=== PATIENT | female | born 1950 | race Caucasian/White ===

== ENCOUNTER 2021-10-09 21:16 | Inpatient (IN) | payer MEDICARE, MEDICAID, SELFPAY ==
--- NOTE | ~2021-10-09 | XR_ITS ---
EXAMINATION: XR CHEST CLINICAL INFORMATION: Weakness COMPARISON: None TECHNIQUE: Frontal view of the chest was obtained. FINDINGS: Scoliosis convex to the right there is a severe biconvex thoracolumbar scoliosis present. Heart is probably mildly enlarged, but difficult to assess. No infiltrates effusions or lung masses seen. Some left basilar atelectasis is present. Degenerative changes present in the right shoulder. XR/XR chest 1V IMPRESSION: No acute intrathoracic disease.
--- NOTE | ~2021-10-09 | CT_ITS ---
EXAMINATION: CT HEAD WITHOUT CONTRAST CLINICAL INFORMATION: Altered mental status COMPARISON: None. TECHNIQUE: Contiguous axial imaging was performed from the skull base to vertex without intravenous administration of contrast. Coronal and sagittal reformatted images are performed at the CT scanner. [This CT examination was performed using dose optimization techniques as appropriate, variously including the following: *Automated exposure control *Adjustment of mA and/or kV according to patient size (this includes techniques or standardized protocols for targeted exams where dose is matched to indication/reason for exam; i.e. extremities or head) *Use of iterative reconstruction technique] DLP: 601 mGy-cm. FINDINGS: There is no evidence of acute intracranial hemorrhage or territorial infarction. No abnormal mass-effect or midline shift is seen. [place] to white matter differentiation is well preserved. No extra-axial fluid collections are identified. There is generalized global volume loss. There is moderate prominence of the ventricles and the sulci . There is marked hypodensity of the periventricular white matter due to chronic small vessel ischemic disease. There are vascular calcifications of the internal carotid arteries bilaterally. There is no osseous abnormality. Small volume of mucosal thickening and aerosolized mucous in the sphenoid sinuses bilateral. Small retention polyp in the left maxillary sinus. The left mastoid air cells and middle ear cavities are normally aerated. There is fluid opacifying the right mastoid air cells and right middle ear cavity. 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 Deformity right globe with calcification. CT/CT head/brain wo con IMPRESSION: No acute intracranial pathology.
--- NOTE | ~2021-10-09 | XR_ITS ---
EXAMINATION: XR CHEST CLINICAL INFORMATION: Fever aspiration COMPARISON: Prior chest October 09, 2021 TECHNIQUE: Frontal view of the chest was obtained. FINDINGS: Prominent scoliosis with a severe convex right curvature of the dorsal spine as before. Question prominent enlargement of cardiac silhouette but unchanged. Pulmonary vascularity normal. Lungs clear. XR/XR chest 1V IMPRESSION: No acute disease. No change.
--- NOTE | 2021-10-09 21:24 | ED_ITS ---
HPI - Weakness General Chief complaint: Failure to Thrive Stated complaint: poor intake Time Seen by Provider: 10/09/21 21:22 History of Present Illness HPI Narrative: Patient is a 71-year-old female presented today with having generalized malaise. Decreasing p.o. intake. Baseline patient is oriented times 0. Baseline patient is contracted. Patient [facility]. Normally goes to [facility]. Software Applications Specialist elected to send patient to [facility]. Patient unable to give history. Attempted to contact patient's data entry technician who is not the next of kin. She does not have the vet relevant information in front of her. Does not noted patient's past medical history is aware that patient has a history of seizure and is on Tegretol. Unsure of patient's code status. Noted patient to be eating less and drinking less than the last 2-3 days. Related Data Allergies Allergy/AdvReac Type Severity Reaction Status Date / Time No Known Allergies Allergy Verified 10/09/21 21:22 Review of Systems Review of Systems: Unable to obtain review system 2nd the patient's condition [facility] Social History Social History Advance Directives: No Physical Exam Vital Signs: Vital Signs: Last Vital Signs Temp 100.0 F 10/09/21 21:30 Pulse 116 H 10/09/21 21:30 Resp 16 10/09/21 21:30 BP 116/73 10/09/21 21:30 Pulse Ox 94 10/09/21 21:30 BMI result Body Mass Index 29.0 Appearance: Toxic appearing contracted oriented times 0 Eyes: Pupils equal, round and reactive to light. ENT: Pharynx normal. Neck: Normal inspection. Neck supple. No lymph nodes noted. No crepitus CVS: Normal heart rate and rhythm. Pulses normal. Normal S1 and S2 Respiratory: No respiratory distress. Breath sounds normal. No Wheezing. No rales Abdomen: Soft and nontender. No rigidity. No distention. good BS x4 Skin: Skin warm and dry. Normal skin color. Normal skin turgor. Extremities: No lower extremity edema. Neurovascular intact to all extremities. No Lacerations. No Rash Neuro: Oriented X 0 contracted positive withdrawal to painful stimuli MDM - Weakness MDM Narrative Medical decision making narrative: Patient's white count is 29.8. Elevated BUN and creatinine consistent with grossly dehydrated. Patient's lactate was elevated at 3.3. Given 30 cc/kilos IV fluid. Cultures were obtained. Rocephin given. Patient's case discussed with family. Will admit patient for further evaluation. It is family wishes patient is a do not resuscitate do not in tubate. Currently in guarded condition awaiting admissions. Patient's case and finding discussed with patient's next of kin. Agree with plan of admission. Reiterated with patient's family about code status. Patient is a do not resuscitate do not intubate. Differential Diagnosis Differential diagnosis: Likely UTI Medical Records Attestation: I reviewed the patient's medical records. Lab Data Attestation: I reviewed the patient's lab results. Result diagrams: 10/09/21 21:50 10/09/21 21:50 Labs: Lab Results 10/09/21 10/09/21 10/09/21 Range/Units 21:50 21:50 21:50 WBC 29.8 H (4.8-10.8) X10*3/uL RBC 4.55 (4.20-5.50) X10*6/uL Hgb 14.0 (12.0-16.0) g/dl Hct 44.4 (37.0-47.0) % MCV 97.6 (80.0-98.0) fL MCH 30.8 (27.0-33.0) pg MCHC 31.5 (31.0-35.0) g/dl RDW 13.0 (11.0-16.0) % Plt Count 383 (160-400) X10*3/uL MPV 10.0 (9.4-12.3) fL Immature Gran % (Auto) 0.7 H (0.0-0.4) % Neut % (Auto) 84.7 H (45-73) % Lymph % (Auto) 8.5 L (20-40) % [place] % (Auto) 5.3 (2-11) % Eos % (Auto) 0.5 (0-4) % Baso % (Auto) 0.3 (0-2) % Lymph # (Auto) 2.5 (1.2-4.9) X10*3/uL [place] # (Auto) 1.6 H (0.1-1.2) X10*3/uL Eos # (Auto) 0.1 (0.0-0.4) X10*3/uL Baso # (Auto) 0.1 (0.0-0.2) X10*3/uL Abs Immat Gran (auto) 0.21 H (0.00-0.03) X10*3/uL Absolute Neuts (auto) 25.3 H (2.0-8.3) x10*3/uL Absolute Nucleated RBC 0.000 (0.0-0.012) X10*3/uL Nucleated RBC % (auto) 0.0 (0.0-0.2) /100WBC Smear Tech's Comments VERIFIED VBG pH (7.32-7.43) VBG pCO2 mmHg VBG pO2 mmHg VBG HCO3 (22-26) mmol/L VBG O2 Saturation % VBG Base Excess mmol/L Sodium 149 H (135-145) mmol/L Potassium 4.8 (3.3-5.1) mmol/L Chloride 113 H (96-108) mmol/L Carbon Dioxide 24 (22-29) mmol/L Anion Gap 17 (12-20) BUN 42 H (9-16) mg/dL Creatinine 0.75 (0.5-1.4) mg/dL Estim Creat Clear Calc 30.8 Estimated GFR > 60 Random Glucose 156 H (60-115) mg/dL Lactic Acid 3.3 H* (0.5-2.0) mmol/L Calcium 10.1 (8.4-10.2) mg/dL Total Bilirubin < 0.2 (0.0-1.0) mg/dL Direct Bilirubin < 0.2 (0.0-0.5) mg/dL AST 30 (5-31) U/L ALT 14 (0-31) U/L Alkaline Phosphatase 119 H (39-117) U/L Total Protein 6.5 (6.5-8.0) g/dL Albumin 3.2 L (3.5-5.0) g/dL TSH 1.44 (0.32-4.0) uIU/mL Urine Color Urine Appearance Urine pH (5.0-8.0) Ur Specific [place] (1.005-1.025) Urine Protein (NEG-TRACE) MG/DL Urine Glucose (UA) (NEG) MG/DL Urine Ketones (NEG) MG/DL Urine Blood (NEG) Urine Nitrite (NEG) Ur Leukocyte Esterase (NEG) Urine RBC (0) /HPF Urine WBC (0-4) /HPF Ur Squamous Epith Cells /LPF Urine Bacteria /LPF COVID-19 (FRANCI) (Negative) COVID-19 Clin Com 10/09/21 10/09/21 10/09/21 Range/Units 21:55 22:15 22:15 WBC (4.8-10.8) X10*3/uL RBC (4.20-5.50) X10*6/uL Hgb (12.0-16.0) g/dl Hct (37.0-47.0) % MCV (80.0-98.0) fL MCH (27.0-33.0) pg MCHC (31.0-35.0) g/dl RDW (11.0-16.0) % Plt Count (160-400) X10*3/uL MPV (9.4-12.3) fL Immature Gran % (Auto) (0.0-0.4) % Neut % (Auto) (45-73) % Lymph % (Auto) (20-40) % [place] % (Auto) (2-11) % Eos % (Auto) (0-4) % Baso % (Auto) (0-2) % Lymph # (Auto) (1.2-4.9) X10*3/uL [place] # (Auto) (0.1-1.2) X10*3/uL Eos # (Auto) (0.0-0.4) X10*3/uL Baso # (Auto) (0.0-0.2) X10*3/uL Abs Immat Gran (auto) (0.00-0.03) X10*3/uL Absolute Neuts (auto) (2.0-8.3) x10*3/uL Absolute Nucleated RBC (0.0-0.012) X10*3/uL Nucleated RBC % (auto) (0.0-0.2) /100WBC Smear Tech's Comments VBG pH 7.46 H (7.32-7.43) VBG pCO2 32 mmHg VBG pO2 85 mmHg VBG HCO3 23 (22-26) mmol/L VBG O2 Saturation 97.0 % VBG Base Excess 0.8 mmol/L Sodium (135-145) mmol/L Potassium (3.3-5.1) mmol/L Chloride (96-108) mmol/L Carbon Dioxide (22-29) mmol/L Anion Gap (12-20) BUN (9-16) mg/dL Creatinine (0.5-1.4) mg/dL Estim Creat Clear Calc Estimated GFR Random Glucose (60-115) mg/dL Lactic Acid (0.5-2.0) mmol/L Calcium (8.4-10.2) mg/dL Total Bilirubin (0.0-1.0) mg/dL Direct Bilirubin (0.0-0.5) mg/dL AST (5-31) U/L ALT (0-31) U/L Alkaline Phosphatase (39-117) U/L Total Protein (6.5-8.0) g/dL Albumin (3.5-5.0) g/dL TSH (0.32-4.0) uIU/mL Urine Color YELLOW Urine Appearance HAZY Urine pH 5.5 (5.0-8.0) Ur Specific [place] 1.020 (1.005-1.025) Urine Protein 1+ H (NEG-TRACE) MG/DL Urine Glucose (UA) NEG (NEG) MG/DL Urine Ketones 5 (NEG) MG/DL Urine Blood 2+ H (NEG) Urine Nitrite POS H (NEG) Ur Leukocyte Esterase 2+ H (NEG) Urine RBC 5-9 H (0) /HPF Urine WBC 30-49 H (0-4) /HPF Ur Squamous Epith Cells TRACE /LPF Urine Bacteria 3+ /LPF COVID-19 (FRANCI) Negative (Negative) COVID-19 Clin Com See Note Discharge Plan Discharge Patient Disposition: Admitted As Inpatient
[2021-10-09 21:30] VITALS: BP 116/72; BP 116/73; PULSE 116; PULSE 118; RESP 16; TEMP 37.8; O2SAT 94; O2SAT 97; BMI 29.0
[2021-10-09] MEDS: 0.9 % Sodium Chloride 500 ML 999 ML IV (21:52)
[2021-10-09 21:59] LABS: Basophils Absolute Auto 0.1 X10*3/uL (0.0-0.2); Basophils Percent Auto 0.3 % (0-2); Eosinophils Absolute Auto 0.1 X10*3/uL (0.0-0.4); Eosinophils Percent Auto 0.5 % (0-4); Hematocrit 44.4 % (37.0-47.0); Imm Gran Abs Auto 0.21 X10*3/uL (0.00-0.03); Imm Gran Pct Auto 0.7 % (0.0-0.4); Lymphocytes Absolute Auto 2.5 X10*3/uL (1.2-4.9); Lymphocytes Percent Auto 8.5 % (20-40); Mean Corpuscular HGB Conc 31.5 g/dl (31.0-35.0); Mean Corpuscular Hemoglobin 30.8 pg (27.0-33.0); Mean Corpuscular Volume 97.6 fL (80.0-98.0); Monocytes Absolute Auto 1.6 X10*3/uL (0.1-1.2); Monocytes Percent Auto 5.3 % (2-11); Neutrophils Absolute Auto 25.3 x10*3/uL (2.0-8.3); Neutrophils Percent Auto 84.7 % (45-73); Platelet Count 383 X10*3/uL (160-400); Red Blood Count 4.55 X10*6/uL (4.20-5.50); SCAN SMEAR FLAG 1; White Blood Count 29.8 X10*3/uL (4.8-10.8)
[2021-10-09 22:01] LABS: VBG Base Excess 0.8 mmol/L; VBG HCO3 23 mmol/L (22-26); VBG pCO2 32 mmHg; VBG pH 7.46 (7.32-7.43); VBG pO2 85 mmHg
[2021-10-09 22:02] LABS: Venous Blood Gas Refer to POC result
[2021-10-09 22:06] LABS: MANUAL DIFF FLAG SCAN
[2021-10-09 22:13] LABS: Lactic Acid 3.3 mmol/L (0.5-2.0)
[2021-10-09 22:18] LABS: Alanine Aminotransferase 14 U/L (0-31); Albumin Level 3.2 g/dL (3.5-5.0); Alkaline Phosphatase 119 U/L (39-117); Anion Gap 17 (12-20); Aspartate Amino Transferase 30 U/L (5-31); Bilirubin Direct < 0.2 mg/dL (0.0-0.5); Bilirubin Total < 0.2 mg/dL (0.0-1.0); Blood Urea Nitrogen 42 mg/dL (9-16); Calcium 10.1 mg/dL (8.4-10.2); Carbon Dioxide 24 mmol/L (22-29); Chloride 113 mmol/L (96-108); Creatinine Clr Calc Pharmacy 30.8; Estimated Glomerular Filt Rate > 60; Glucose Random 156 mg/dL (60-115); Potassium 4.8 mmol/L (3.3-5.1); Sodium 149 mmol/L (135-145); Total Protein 6.5 g/dL (6.5-8.0)
[2021-10-09 22:24] LABS: SLIDE REVIEW VERIFIED
[2021-10-09 22:32] LABS: Appearance Urine HAZY; Color Urine YELLOW; Glucose Urine UA NEG (NEG); Leukocyte Esterase Urine 2+ (NEG); Nitrite Urine POS (NEG); PH 5.5 (5.0-8.0); UACC Culture Trigger YES; Urine Blood 2+ (NEG); Urine Ketones 5 MG/DL (NEG); Urine Protein 1+ MG/DL (NEG-TRACE)
[2021-10-09 22:34] LABS: TSH reflex Free T4 1.44 uIU/mL (0.32-4.0)
[2021-10-09] MEDS: 0.9 % Sodium Chloride 1,000 ML 999 ML IV (22:38)
[2021-10-09] MEDS: cefTRIAXone sodium 1 GM in 0.9 % Sodium Chloride 50 ML IV (22:38)
[2021-10-09 22:44] LABS: COVID-19 Test Negative (Negative)
--- NOTE | 2021-10-09 22:57 | P.HPHOSP_ITS ---
History of Present Illness Date of Service: 10/09/21 Chief Complaint: Poor intake 71F with PMH of Cerebral Palsy - Non verbal at baseline, non mobile- usually in bed or couch, wears Diapers; hx Rosacea, seizure, Anxiety; presented to the hospital with a chief complaint of poor intake. Spoke to Gustavo- pt's strategic marketing manager-> ph [phone]. who mentioned that patient had Decreased appetite and poor intake for about 5 days; Eats Soft food. Noted Weight loss; denies fevers, cough, sputum. Does not appear to be in pain. pt is COVID vaccinated. Diet: soft diet; applesause/pudding; needs feeding with assistance. review of all other systems is limited. ER course: ER team noted the patient is tachycardic, noted to have leukocytosis, lactic acidosis-> sepsis secondary to UTI. Given antibiotics. Also noted to have hypernatremia presumed to be secondary to dehydration. Patient blood pressure on the soft side initially; received 30 cc/kg Of normal saline presentation. Admitted for further management PMFSH Pertinent family history: unable to obtain. Social History Advance Directives: No Meds Allergies Allergy/AdvReac Type Severity Reaction Status Date / Time No Known Allergies Allergy Verified 10/09/21 21:22 Active Medications: Current Medications Acetaminophen (Acetaminophen 325 Mg Tablet) 650 mg PO Q6H PRN PRN Reason: Pain, Mild (Pain Scale 1-3) Heparin Sodium (Porcine) (Heparin Sodium,Porcine 5,000 Unit/Ml Vial) 5,000 unit SUBCUT Q12H RAJANI Sodium Chloride (Ns) 1,000 mls @ 999 mls/hr IV .Q1H1M RAJANI Stop: 10/09/21 23:15 Last Admin: 10/09/21 22:38 Dose: 999 mls/hr Documented by: Ceftriaxone Sodium 1 gm/ (Sodium Chloride) 50 mls @ 100 mls/hr IV Q24H RAJANI Dextrose/Sodium Chloride (D51/2ns) 1,000 mls @ 50 mls/hr IVCONT .Q20H RAJANI Melatonin (Melatonin 3 Mg Tablet) 6 mg PO BEDTIME PRN PRN Reason: Insomnia Pharmacy Consult (Consult Rx Perform Med Rec) 1 each MISCELLANE ONCE PRN PRN Reason: Consult order Senna (Sennosides 8.6 Mg Tablet) 17.2 mg PO BEDTIME PRN PRN Reason: Constipation Sodium Chloride (0.9 % Sodium Chloride Flush 3 Ml Syringe) 3 ml IVFLUSH QSHIFT RAJANI Physical Exam Vital Signs and Narrative: Vital Signs: Last Vital Signs Temp 100.0 F 10/09/21 21:30 Pulse 116 H 10/09/21 21:30 Resp 16 10/09/21 21:30 BP 116/73 10/09/21 21:30 Pulse Ox 94 10/09/21 21:30 BMI result Body Mass Index 29.0 Gen: Appears be in no acute distress. Normal HEENT: NCAT, Moist mucosa. Pulmonary: Vesicular breath sounds, fair air entry CVS: Normal S1-S2 Abdomen: BS+, Soft, Nontender Extremities: Warm well perfused Neuro: Alert and awake. Results Labs CBC and Chem 7: 10/09/21 21:50 10/09/21 21:50 Labs: Laboratory Results - last 24 hr 10/09/21 10/09/21 10/09/21 21:50 21:50 21:50 MCV 97.6 MCH 30.8 MCHC 31.5 RDW 13.0 Plt Count 383 MPV 10.0 Immature Gran % (Auto) 0.7 H Neut % (Auto) 84.7 H Lymph % (Auto) 8.5 L [place] % (Auto) 5.3 Eos % (Auto) 0.5 Baso % (Auto) 0.3 Lymph # (Auto) 2.5 [place] # (Auto) 1.6 H Eos # (Auto) 0.1 Baso # (Auto) 0.1 Abs Immat Gran (auto) 0.21 H Absolute Neuts (auto) 25.3 H Absolute Nucleated RBC 0.000 Nucleated RBC % (auto) 0.0 Smear Tech's Comments VERIFIED VBG pH VBG pCO2 VBG pO2 VBG HCO3 VBG O2 Saturation VBG Base Excess Anion Gap 17 Estim Creat Clear Calc 30.8 Estimated GFR > 60 Random Glucose 156 H Lactic Acid 3.3 H* Calcium 10.1 Total Bilirubin < 0.2 Direct Bilirubin < 0.2 AST 30 ALT 14 Alkaline Phosphatase 119 H Total Protein 6.5 Albumin 3.2 L TSH 1.44 Urine Color Urine Appearance Urine pH Ur Specific [place] Urine Protein Urine Glucose (UA) Urine Ketones Urine Blood Urine Nitrite Ur Leukocyte Esterase COVID-19 (FRANCI) COVID-19 Clin Com 1210/09/21 10/09/21 21:55 22:15 22:15 MCV MCH MCHC RDW Plt Count MPV Immature Gran % (Auto) Neut % (Auto) Lymph % (Auto) [place] % (Auto) Eos % (Auto) Baso % (Auto) Lymph # (Auto) [place] # (Auto) Eos # (Auto) Baso # (Auto) Abs Immat Gran (auto) Absolute Neuts (auto) Absolute Nucleated RBC Nucleated RBC % (auto) Smear Tech's Comments VBG pH 7.46 H VBG pCO2 32 VBG pO2 85 VBG HCO3 23 VBG O2 Saturation 97.0 VBG Base Excess 0.8 Anion Gap Estim Creat Clear Calc Estimated GFR Random Glucose Lactic Acid Calcium Total Bilirubin Direct Bilirubin AST ALT Alkaline Phosphatase Total Protein Albumin TSH Urine Color YELLOW Urine Appearance HAZY Urine pH 5.5 Ur Specific [place] 1.020 Urine Protein 1+ H Urine Glucose (UA) NEG Urine Ketones 5 Urine Blood 2+ H Urine Nitrite POS H Ur Leukocyte Esterase 2+ H COVID-19 (FRANCI) Negative COVID-19 Clin Com See Note Imaging Radiologist's Impressions: Impressions Chest X-Ray 10/09/21 21:57 IMPRESSION: No acute intrathoracic disease. Assessment and Plan (1) Hypernatremia: Status: Acute (2) UTI (urinary tract infection): Status: Acute (3) Cerebral palsy: Status: Acute 71F with PMH of Cerebral Palsy - Non verbal at baseline, non mobile- usually in bed or couch, wears Diapers; hx Rosacea, seizure, Anxiety; presented to the hospital with a chief complaint of poor intake. Noted to have UTI/ hypernatremia. Admitted for further management Sepsis secondary to UTI: Continue ceftriaxone. Follow up cultures. Patient on diapers at baseline. Lactic acidosis: Patient received IV fluids. repeat levels Hypernatremia: Patient received 30 cc/kg normal saline in the ER; repeat stat BMP. history of seizures: Continue home carbamazepine 200 mg in the morning and 300 mg in the evening History of anxiety: Continue home Ativan in the evening Diet: Patient eats soft food with feeding assistance. Pending speech and swallow eval before resuming diet. Code Status: DNR/DNI Brother Chase. Spoke to Saul baxter's strategic marketing manager-> ph [phone]. Quality Stroke Does the patient have a stroke diagnosis?: No VTE Prior VTE?: No VTE Risk Level:: Medical - moderate - high VTE Device Contraindication: Treatment Not Indicated VTE Drug Contraindication: N/A - Med Ordered
[2021-10-09 23:00] LABS: Bacteria Urine 3+ /LPF; Squamous Epithelial Cell Urine TRACE /LPF; UACC CULT YES; WBC Urine 30-49 /HPF (0-4)
[2021-10-09 23:26] LABS: Carbamazepine Tegretol 11.2 mcg/mL (5.0-12.0)
[2021-10-09] MEDS: Heparin Sodium,Porcine 5,000 UNIT/ML VIAL 5000 UNIT SUBCUT (23:29)
[2021-10-09] MEDS: Dextrose 5 % and 0.45 % NaCl 1,000 ML 50 ML IVCONT (23:29)
[2021-10-09 23:57] LABS: Reflex Lactate? Lactic Acid Added
[2021-10-10] LABS: Anion Gap 15 (12-20); Blood Urea Nitrogen 38 mg/dL (9-16); Calcium 8.6 mg/dL (8.4-10.2); Carbon Dioxide 21 mmol/L (22-29); Chloride 119 mmol/L (96-108); Creatinine Clr Calc Pharmacy 34.4; Estimated Glomerular Filt Rate > 60; Glucose Random 131 mg/dL (60-115); Potassium 4.3 mmol/L (3.3-5.1); Sodium 151 mmol/L (135-145)
[2021-10-10 00:53] LABS: ~Lactic Acid-LAB USE ONLY 3.4 mmol/L (0.5-2.0)
[2021-10-10 02:37] LABS: Reflex Lactate? 2 Y
[2021-10-10 03:19] LABS: Basophils Absolute Auto 0.1 X10*3/uL (0.0-0.2); Basophils Percent Auto 0.2 % (0-2); Eosinophils Absolute Auto 0.3 X10*3/uL (0.0-0.4); Eosinophils Percent Auto 1.1 % (0-4); Hematocrit 36.5 % (37.0-47.0); Hemoglobin 11.2 g/dl (12.0-16.0); Imm Gran Abs Auto 0.16 X10*3/uL (0.00-0.03); Imm Gran Pct Auto 0.6 % (0.0-0.4); Lymphocytes Absolute Auto 3.3 X10*3/uL (1.2-4.9); Lymphocytes Percent Auto 13.5 % (20-40); MANUAL DIFF FLAG NO; Mean Corpuscular HGB Conc 30.7 g/dl (31.0-35.0); Mean Corpuscular Hemoglobin 30.9 pg (27.0-33.0); Mean Corpuscular Volume 100.6 fL (80.0-98.0); Mean Platelet Volume 10.2 fL (9.4-12.3); Monocytes Absolute Auto 1.3 X10*3/uL (0.1-1.2); Monocytes Percent Auto 5.2 % (2-11); Neutrophils Absolute Auto 19.6 x10*3/uL (2.0-8.3); Neutrophils Percent Auto 79.4 % (45-73); Platelet Count 280 X10*3/uL (160-400); Red Blood Count 3.63 X10*6/uL (4.20-5.50); Red Cell Distribution Width 12.9 % (11.0-16.0); White Blood Count 24.6 X10*3/uL (4.8-10.8)
[2021-10-10 03:36] LABS: ~Lactic Acid-LAB USE ONLY 2.3 mmol/L (0.5-2.0)
[2021-10-10 03:47] LABS: Anion Gap 14 (12-20); Blood Urea Nitrogen 38 mg/dL (9-16); Calcium 8.6 mg/dL (8.4-10.2); Carbon Dioxide 21 mmol/L (22-29); Chloride 118 mmol/L (96-108); Creatinine Clr Calc Pharmacy 42.8; Estimated Glomerular Filt Rate > 60; Glucose Random 130 mg/dL (60-115); Sodium 149 mmol/L (135-145)
--- NOTE | 2021-10-10 07:20 | PC.NURSE ---
pt received in bed, sleeping. pt is discharged and waiting for ambulance transport back to SNF
--- NOTE | 2021-10-10 07:35 | PHA.MEDREC ---
Pharmacy Consult ? Medication Reconciliation Pharmacy has reviewed the medication reconciliation completed by Sukhjinder. Medication list was incomplete. Patient has a medication list from [facility] tergretol is suppose to be 200 mg in the morning and 300 mg at bedtime. Dafne Saleh, PharmD
[2021-10-10 07:43] VITALS: BP 105/81; PULSE 89; RESP 17; O2SAT 99
[2021-10-10] MEDS: Docusate Sodium 100 MG CAPSULE PO (09:15)
[2021-10-10] MEDS: carBAMazepine 200 MG TABLET PO (09:16)
--- NOTE | 2021-10-10 09:20 | PC.NURSE ---
pt has caregiver at bedside. Caregiver states pt has lived with her for 25 years, and she provides her total care. Caregiver is currently feeding patient (requires 30-40 minutes to feed). Will do am care before 11 with her help. Pt awaiting bed assignment.
--- NOTE | 2021-10-10 10:02 | MHC.CM.PN ---
CM met with Patient and Caregiver/Sakina at bedside and addressed IMM with them, providing them with the original and will place a copy on the chart.Patient has lived with Sakina in her house for the past 25 years and she is her Primary Caregiver.Sakina's Daughter is Patient's BHN/SHOT TUBE MACHINE TENDER (30 Hours/week). Home is the goal for dc and CM has initiated and will follow for dc planning. PCP is Dr.Peter Holt and her Brother/Chase is the HCP.Patient is mostly w/c bound and requires total care.
--- NOTE | 2021-10-10 10:33 | P.CONNP_ITS ---
History of Present Illness Reason for Consult Consult date: 10/10/21 Chief Complaint Chief complaint: UTI/Hypernatremia History of Present Illness Narrative: 71F with PMH of? Cerebral Palsy - Non verbal at baseline, non mobile- usually in bed or couch, wears Diapers; hx Rosacea, seizure, Anxiety; ?presented to the hospital with a chief complaint of? poor intake. Review of Systems Review of Systems Unable to obtain review system 2nd the patient's condition PMFSH Family History Pertinent family history: unable to obtain. Social History Social History Household Members: Other Housing: Assisted Living Facility Do you presently have visiting nurse or other home services: No Patient Tobacco Use Status: Never used Tobacco service: No Current occupational status: disabled Meds Allergies Allergy/AdvReac Type Severity Reaction Status Date / Time No Known Allergies Allergy Verified 10/09/21 21:22 Active Medications: Current Medications Acetaminophen (Acetaminophen 325 Mg Tablet) 650 mg PO Q6H PRN PRN Reason: Pain, Mild (Pain Scale 1-3) Carbamazepine (Carbamazepine 200 Mg Tablet) 200 mg PO DAILY [facility] Last Admin: 10/10/21 09:16 Dose: 200 mg Documented by: Carbamazepine (Carbamazepine 200 Mg Tablet) 300 mg PO BEDTIME [facility] Docusate Sodium (Docusate Sodium 100 Mg Capsule) 100 mg PO BID [facility] Last Admin: 10/10/21 09:15 Dose: 100 mg Documented by: Heparin Sodium (Porcine) (Heparin Sodium,Porcine 5,000 Unit/Ml Vial) 5,000 unit SUBCUT Q12H [facility] Last Admin: 10/09/21 23:29 Dose: 5,000 unit Documented by: Ceftriaxone Sodium 1 gm/ (Sodium Chloride) 50 mls @ 100 mls/hr IV Q24H [facility] Dextrose/Sodium Chloride (D51/2ns) 1,000 mls @ 80 mls/hr IVCONT .[id number] [facility] Last Admin: 10/09/21 23:29 Dose: 50 mls/hr Documented by: Lorazepam (Lorazepam 0.5 Mg Tablet) 0.5 mg PO BEDTIME PRN PRN Reason: anxiety/restlessness Lorazepam (Lorazepam 1 Mg Tablet) 1 mg PO BEDTIME RAJANI Melatonin (Melatonin 3 Mg Tablet) 6 mg PO BEDTIME PRN PRN Reason: Insomnia Neomycin/Polymyxin/Dexamethasone (Neomy/Polymyx/Dexameth Oph Oin 3.5 Gm Tube) 0.5 inch EYE-BOTH DAILY [facility] Pharmacy Consult (Consult Rx Perform Med Rec) 1 each MISCELLANE ONCE PRN PRN Reason: Consult order Psyllium Hydrophilic Mucilloid (Psyllium Seed 3.4 Gm Powd.Pack) 3.4 gm PO BID [facility] Senna (Sennosides 8.6 Mg Tablet) 17.2 mg PO BEDTIME PRN PRN Reason: Constipation Sodium Chloride (0.9 % Sodium Chloride Flush 3 Ml Syringe) 3 ml IVFLUSH QSHIFT [facility] Last Admin: 10/10/21 00:56 Dose: Not Given Documented by: Home Medications Medication Instructions Recorded Confirmed Last Taken Type acetaminophen 325 mg tablet 650 mg PO Q6H PRN 10/10/21 10/10/21 Unknown History acetic acid 2 % ear solution 3 drp OTIC (EARS) DAILY 10/10/21 10/10/21 Unknown History ascorbic acid (vitamin C) 250 mg 250 mg PO DAILY 10/10/21 10/10/21 Unknown History tablet calcium citrate 250 mg PO BEDTIME 10/10/21 10/10/21 Unknown History carbamazepine 200 mg tablet 200 mg PO DAILY 10/10/21 10/10/21 Unknown History carbamazepine 200 mg tablet 300 mg PO BEDTIME 10/10/21 10/10/21 Unknown History cholecalciferol (vitamin D3) 25 25 mcg PO DAILY 10/10/21 10/10/21 Unknown History mcg (1,000 unit) capsule docusate sodium 100 mg capsule 100 mg PO BID 10/10/21 10/10/21 Unknown History ketoconazole 2 % topical cream 1 appl TOPICAL BID 10/10/21 10/10/21 Unknown History lorazepam 1 mg tablet 1 tab PO BEDTIME 10/10/21 10/10/21 Unknown History metronidazole 0.75 % topical cream 1 appl TOPICAL BID 10/10/21 10/10/21 Unknown History multivitamin with folic acid 400 1 tab PO DAILY 10/10/21 10/10/21 Unknown History mcg tablet (Daily-Samara (with folic acid)) neomycin 3.5 mg/g-polymyxin B 1 appl OPHTHALMIC (EYE) DAILY 10/10/21 10/10/21 Unknown History 10,000 unit/g-dexameth 0.1 % eye oint psyllium husk (aspartame) 3.4 3.4 g PO BID 10/10/21 10/10/21 Unknown History gram/5.8 gram oral powder (Metamucil [facility] Fiber) terbinafine HCl 1 % topical cream 1 appl TOPICAL BID 10/10/21 10/10/21 Unknown History (Athlete's Foot (terbinafine)) Physical Exam Vital Signs: Last Vital Signs Temp 100.0 F 10/09/21 21:30 Pulse 89 10/10/21 07:43 Resp 17 10/10/21 07:43 BP 105/81 10/10/21 07:43 Pulse Ox 99 10/10/21 07:43 BMI result Body Mass Index 29.0 Results Lab Results Result Diagrams: 10/12/21 05:18 10/12/21 05:18 Lab results: Chemistry 10/09/21 10/09/21 10/10/21 21:50 23:31 03:14 Sodium 149 H 151 H 149 H Potassium 4.8 4.3 4.0 Carbon Dioxide 24 21 L 21 L BUN 42 H 38 H 38 H Creatinine 0.75 0.67 0.54 Calcium 10.1 8.6 D 8.6 Hematology 10/09/21 10/10/21 21:50 03:14 WBC 29.8 H 24.6 H Hgb 14.0 11.2 L Plt Count 383 280 D Urinalysis 10/09/21 22:15 Urine Color YELLOW Urine Appearance HAZY Urine pH 5.5 Ur Specific [place] 1.020 Urine Protein 1+ H Urine Glucose (UA) NEG Urine Ketones 5 Urine Blood 2+ H Urine Nitrite POS H Ur Leukocyte Esterase 2+ H Urine RBC 5-9 H Urine WBC 30-49 H Ur Squamous Epith Cells TRACE Assessment and Plan (1) Hypernatremia: Status: Acute (2) UTI (urinary tract infection): Status: Acute (3) Cerebral palsy: Status: Acute Hypernatremia due to free water deficit Renal function at baseline Suggest Urine Na/Cr/Osm Keep I > O with hypotonic fluids Can use D5W for now Supportive care Procedures Date of Service Date of Service: 10/10/21
--- NOTE | 2021-10-10 11:17 | PC.NURSE ---
Cell Technician came in at 1100. Per previous nurse she stated she gave meds. Some not documented on per preivous nurse.
[2021-10-10] MEDS: Heparin Sodium,Porcine 5,000 UNIT/ML VIAL 5000 UNIT SUBCUT (11:45)
--- NOTE | 2021-10-10 13:04 | P.PNIM_ITS ---
Subjective Subjective Date of Service: 10/10/21 Interval History: Being followed for hypernatremia, dehydration and UTI, patient nonverbal history obtained via shredder/granulator operator at bedside patient was brought in due to decreased by mouth intake, requires total care and nonverbal at baseline. 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 CVS regular rate rhythm, Respiratory lungs clear to auscultation, no respiratory distress Gastrointestinal abdomen soft, nontender, bowel sounds audible Extremities no edema. Neuro difficult to assess Skin no rash Psych poor insight Amezcua yellow urine Objective Data Active Medications Acetaminophen (Acetaminophen 325 Mg Tablet) 650 mg PO Q6H PRN PRN Reason: Pain, Mild (Pain Scale 1-3) Carbamazepine (Carbamazepine 200 Mg Tablet) 200 mg PO DAILY [facility] Last Admin: 10/10/21 09:16 Dose: 200 mg Documented by: KAVON Carbamazepine (Carbamazepine 200 Mg Tablet) 300 mg PO BEDTIME [facility] Docusate Sodium (Docusate Sodium 100 Mg Capsule) 100 mg PO BID [facility] Last Admin: 10/10/21 09:15 Dose: 100 mg Documented by: KAVON Heparin Sodium (Porcine) (Heparin Sodium,Porcine 5,000 Unit/Ml Vial) 5,000 unit SUBCUT Q12H [facility] Last Admin: 10/10/21 11:45 Dose: 5,000 unit Documented by: GENEVIEVE Ceftriaxone Sodium 1 gm/ (Sodium Chloride) 50 mls @ 100 mls/hr IV Q24H [facility] Dextrose/Sodium Chloride (D51/2ns) 1,000 mls @ 80 mls/hr IVCONT .[id number] [facility] Last Admin: 10/09/21 23:29 Dose: 50 mls/hr Documented by: BRENDA Lorazepam (Lorazepam 0.5 Mg Tablet) 0.5 mg PO BEDTIME PRN PRN Reason: anxiety/restlessness Lorazepam (Lorazepam 1 Mg Tablet) 1 mg PO BEDTIME [facility] Melatonin (Melatonin 3 Mg Tablet) 6 mg PO BEDTIME PRN PRN Reason: Insomnia Neomycin/Polymyxin/Dexamethasone (Neomy/Polymyx/Dexameth Oph Oin 3.5 Gm Tube) 0.5 inch EYE-BOTH DAILY [facility] Last Admin: 10/10/21 11:17 Dose: Not Given Documented by: GENEVIEVE Non-Admin Reason: See Note Pharmacy Consult (Consult Rx Perform Med Rec) 1 each MISCELLANE ONCE PRN PRN Reason: Consult order Psyllium Hydrophilic Mucilloid (Psyllium Seed 3.4 Gm Powd.Pack) 3.4 gm PO BID [facility] Last Admin: 10/10/21 11:17 Dose: Not Given Documented by: GENEVIEVE Non-Admin Reason: See Note Senna (Sennosides 8.6 Mg Tablet) 17.2 mg PO BEDTIME PRN PRN Reason: Constipation Sodium Chloride (0.9 % Sodium Chloride Flush 3 Ml Syringe) 3 ml IVFLUSH QSHIFT [facility] Last Admin: 10/10/21 11:17 Dose: Not Given Documented by: GENEVIEVE Non-Admin Reason: See Note Labs CBC & Chem 7: 10/10/21 03:14 10/10/21 03:14 Labs: Laboratory Results - last 24 hr 10/09/21 10/09/21 10/09/21 21:50 21:50 21:50 MCV 97.6 MCH 30.8 MCHC 31.5 RDW 13.0 Plt Count 383 MPV 10.0 Immature Gran % (Auto) 0.7 H Neut % (Auto) 84.7 H Lymph % (Auto) 8.5 L [place] % (Auto) 5.3 Eos % (Auto) 0.5 Baso % (Auto) 0.3 Lymph # (Auto) 2.5 [place] # (Auto) 1.6 H Eos # (Auto) 0.1 Baso # (Auto) 0.1 Abs Immat Gran (auto) 0.21 H Absolute Neuts (auto) 25.3 H Absolute Nucleated RBC 0.000 Nucleated RBC % (auto) 0.0 Smear Tech's Comments VERIFIED VBG pH VBG pCO2 VBG pO2 VBG HCO3 VBG O2 Saturation VBG Base Excess Anion Gap 17 Estim Creat Clear Calc 30.8 Estimated GFR > 60 Random Glucose 156 H Lactic Acid 3.3 H* Lactic Acid Fup @ 2Hr Lactic Acid Fup @ 4Hr Calcium 10.1 Total Bilirubin < 0.2 Direct Bilirubin < 0.2 AST 30 ALT 14 Alkaline Phosphatase 119 H Total Protein 6.5 Albumin 3.2 L TSH 1.44 Urine Color Urine Appearance Urine pH Ur Specific [place] Urine Protein Urine Glucose (UA) Urine Ketones Urine Blood Urine Nitrite Ur Leukocyte Esterase Urine RBC Urine WBC Ur Squamous Epith Cells Urine Bacteria Carbamazepine COVID-19 (FRANCI) COVID-19 Clin Com 10/09/21 10/09/21 10/09/21 21:55 22:15 22:15 MCV MCH MCHC RDW Plt Count MPV Immature Gran % (Auto) Neut % (Auto) Lymph % (Auto) Stephens % (Auto) Eos % (Auto) Baso % (Auto) Lymph # (Auto) [place] # (Auto) Eos # (Auto) Baso # (Auto) Abs Immat Gran (auto) Absolute Neuts (auto) Absolute Nucleated RBC Nucleated RBC % (auto) Smear Tech's Comments VBG pH 7.46 H VBG pCO2 32 VBG pO2 85 VBG HCO3 23 VBG O2 Saturation 97.0 VBG Base Excess 0.8 Anion Gap Estim Creat Clear Calc Estimated GFR Random Glucose Lactic Acid Lactic Acid Fup @ 2Hr Lactic Acid Fup @ 4Hr Calcium Total Bilirubin Direct Bilirubin AST ALT Alkaline Phosphatase Total Protein Albumin TSH Urine Color YELLOW Urine Appearance HAZY Urine pH 5.5 Ur Specific [place] 1.020 Urine Protein 1+ H Urine Glucose (UA) NEG Urine Ketones 5 Urine Blood 2+ H Urine Nitrite POS H Ur Leukocyte Esterase 2+ H Urine RBC 5-9 H Urine WBC 30-49 H Ur Squamous Epith Cells TRACE Urine Bacteria 3+ Carbamazepine COVID-19 (FRANCI) Negative COVID-19 [facility] See Note 10/09/21 10/09/21 10/10/21 22:24 23:31 00:32 MCV MCH MCHC RDW Plt Count MPV Immature Gran % (Auto) Neut % (Auto) Lymph % (Auto) [place] % (Auto) Eos % (Auto) Baso % (Auto) Lymph # (Auto) [place] # (Auto) Eos # (Auto) Baso # (Auto) Abs Immat Gran (auto) Absolute Neuts (auto) Absolute Nucleated RBC Nucleated RBC % (auto) Smear Tech's Comments VBG pH VBG pCO2 VBG pO2 VBG HCO3 VBG O2 Saturation VBG Base Excess Anion Gap 15 Estim Creat Clear Calc 34.4 Estimated GFR > 60 Random Glucose 131 H Lactic Acid Lactic Acid Fup @ 2Hr 3.4 H* Lactic Acid Fup @ 4Hr Calcium 8.6 D Total Bilirubin Direct Bilirubin AST ALT Alkaline Phosphatase Total Protein Albumin TSH Urine Color Urine Appearance Urine pH Ur Specific [place] Urine Protein Urine Glucose (UA) Urine Ketones Urine Blood Urine Nitrite Ur Leukocyte Esterase Urine RBC Urine WBC Ur Squamous Epith Cells Urine Bacteria Carbamazepine 11.2 COVID-19 (FRANCI) COVID-19 [email or web address] 10/10/21 10/10/21 10/10/21 03:14 03:14 03:14 MCV 100.6 H MCH 30.9 MCHC 30.7 L RDW 12.9 Plt Count 280 D MPV 10.2 Immature Gran % (Auto) 0.6 H Neut % (Auto) 79.4 H Lymph % (Auto) 13.5 L [place] % (Auto) 5.2 Eos % (Auto) 1.1 Baso % (Auto) 0.2 Lymph # (Auto) 3.3 [place] # (Auto) 1.3 H Eos # (Auto) 0.3 Baso # (Auto) 0.1 Abs Immat Gran (auto) 0.16 H Absolute Neuts (auto) 19.6 H Absolute Nucleated RBC 0.000 Nucleated RBC % (auto) 0.0 Smear Tech's Comments VBG pH VBG pCO2 VBG pO2 VBG HCO3 VBG O2 Saturation VBG Base Excess Anion Gap 14 Estim Creat Clear Calc 42.8 Estimated GFR > 60 Random Glucose 130 H Lactic Acid Lactic Acid Fup @ 2Hr Lactic Acid Fup @ 4Hr 2.3 H* Calcium 8.6 Total Bilirubin Direct Bilirubin AST ALT Alkaline Phosphatase Total Protein Albumin TSH Urine Color Urine Appearance Urine pH Ur Specific [place] Urine Protein Urine Glucose (UA) Urine Ketones Urine Blood Urine Nitrite Ur Leukocyte Esterase Urine RBC Urine WBC Ur Squamous Epith Cells Urine Bacteria Carbamazepine COVID-19 ([facility]CI) COVID-19 [facility] Microbiology Microbiology Results: Microbiology 10/09/21 Unknown Urine Culture - Preliminary Urine clean catch - Urine solomon top Culture in progress. Assessment and Plan (1) Cerebral palsy: Status: Acute (2) UTI (urinary tract infection): Status: Acute (3) Hypernatremia: Status: Acute Assessment and Plan: 71F with PMH of? Cerebral Palsy - Non verbal at baseline, non mobile- usually in bed or couch, wears Diapers; hx Rosacea, seizure, Anxiety; ?presented to the hospital with a chief complaint of? poor intake.? Noted to have UTI/ hypernatremia.? Admitted for further management Sepsis secondary to UTI: With tachycardia leukocytosis and positive UA Continue IV ceftriaxone day 2 Follow urine and blood cultures Lactic acidosis: Due to sepsis level improved Hypernatremia: Due to poor by mouth intake likely due to UTI seen by Nephrology will treat with IV D5W follow BMP History of seizures: Continue carbamazepine 200 mg in the morning and 300 mg in the evening, seizure precaution History of anxiety: Continue home Ativan in the evening Diet:? Patient eats soft food with feeding assistance resume diet Code Status: DNR/DNI [place]. Spoke to?patient's health care / medical job titles Gustavo at bedside( ph [phone].)? Quality Stroke Does the patient have a stroke diagnosis?: No VTE Prior VTE?: No VTE Risk Level:: Medical - moderate - high VTE Device Contraindication: Treatment Not Indicated VTE Drug Contraindication: N/A - Med Ordered
[2021-10-10] MEDS: Dextrose 5 % 1,000 ML 80 ML IVCONT ×2 (13:18→19:16)
[2021-10-10 15:27] VITALS: BP 120/69; PULSE 96; RESP 10; TEMP 37.1; O2SAT 95
[2021-10-10 18:33] VITALS: BP 128/71; PULSE 96; RESP 14; TEMP 36.1; O2SAT 100
[2021-10-10 19:59] VITALS: BP 149/70; PULSE 97; RESP 14; TEMP 36.8; O2SAT 100
[2021-10-10] MEDS: cefTRIAXone sodium 1 GM in 0.9 % Sodium Chloride 50 ML IV (20:44)
[2021-10-10] MEDS: carBAMazepine 200 MG TABLET 300 MG PO (20:45)
[2021-10-10] MEDS: LORazepam 1 MG TABLET PO (20:45)
[2021-10-11] VITALS: BP 145/74; PULSE 87; RESP 17; TEMP 37.2; O2SAT 94
[2021-10-11] MEDS: Heparin Sodium,Porcine 5,000 UNIT/ML VIAL 5000 UNIT SUBCUT ×3 (02:11→22:25)
[2021-10-11 04:00] VITALS: BP 153/62; PULSE 83; RESP 17; TEMP 37.2; O2SAT 99
[2021-10-11 05:38] LABS: MANUAL DIFF FLAG NO
[2021-10-11 05:43] LABS: Basophils Absolute Auto 0.1 X10*3/uL (0.0-0.2); Basophils Percent Auto 0.3 % (0-2); Eosinophils Percent Auto 5.3 % (0-4); Hematocrit 32.9 % (37.0-47.0); Hemoglobin 10.2 g/dl (12.0-16.0); Imm Gran Abs Auto 0.11 X10*3/uL (0.00-0.03); Imm Gran Pct Auto 0.6 % (0.0-0.4); Lymphocytes Absolute Auto 2.6 X10*3/uL (1.2-4.9); Lymphocytes Percent Auto 14.1 % (20-40); Mean Corpuscular Hemoglobin 30.4 pg (27.0-33.0); Mean Corpuscular Volume 97.9 fL (80.0-98.0); Mean Platelet Volume 10.3 fL (9.4-12.3); Monocytes Percent Auto 5.4 % (2-11); Neutrophils Absolute Auto 13.9 x10*3/uL (2.0-8.3); Neutrophils Percent Auto 74.3 % (45-73); Platelet Count 283 X10*3/uL (160-400); Red Blood Count 3.36 X10*6/uL (4.20-5.50); Red Cell Distribution Width 12.5 % (11.0-16.0); White Blood Count 18.7 X10*3/uL (4.8-10.8)
[2021-10-11 05:59] LABS: Anion Gap 11 (12-20); Blood Urea Nitrogen 25 mg/dL (9-16); Calcium 8.2 mg/dL (8.4-10.2); Carbon Dioxide 21 mmol/L (22-29); Chloride 110 mmol/L (96-108); Creatinine Clr Calc Pharmacy 53.7; Estimated Glomerular Filt Rate > 60; Glucose Random 104 mg/dL (60-115); Potassium 3.7 mmol/L (3.3-5.1); Sodium 138 mmol/L (135-145)
[2021-10-11 07:52] VITALS: BP 144/76; PULSE 97; RESP 16; TEMP 37.3; O2SAT 99
[2021-10-11] MEDS: carBAMazepine 200 MG TABLET PO (09:04)
[2021-10-11] MEDS: 0.9 % Sodium Chloride Flush 3 ML SYRINGE IVFLUSH ×3 (09:05→22:26)
--- NOTE | 2021-10-11 11:27 | HO.PM.IMPN ---
Subjective Subjective Date of Service: 10/11/21 Interval History: Being followed for UTI and hypernatremia, patient resting comfortably nonverbal at baseline. Review of Systems Unable to obtain due to cerebral palsy/nonverbal Physical Exam Vital Signs: Vital Signs: Last Vital Signs Temp 99.1 F 10/11/21 07:52 Pulse 97 10/11/21 07:52 Resp 16 10/11/21 07:52 BP 144/76 H 10/11/21 07:52 Pulse Ox 99 10/11/21 07:52 BMI result Body Mass Index 29.0 General resting comfortably in no acute distress, nonverbal? 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 CVS? regular rate rhythm, Respiratory lungs clear to auscultation, no respiratory distress Gastrointestinal abdomen soft, nontender, bowel sounds audible Extremities no edema. Neuro difficult to assess Skin no rash Psych poor insight Amezcua yellow urine Objective Data Active Medications Acetaminophen (Acetaminophen 325 Mg Tablet) 650 mg PO Q6H PRN PRN Reason: Pain, Mild (Pain Scale 1-3) Carbamazepine (Carbamazepine 200 Mg Tablet) 200 mg PO DAILY [facility] Last Admin: 10/11/21 09:04 Dose: 200 mg Documented by: JOHNNIE Carbamazepine (Carbamazepine 200 Mg Tablet) 300 mg PO BEDTIME [facility] Last Admin: 10/10/21 20:45 Dose: 300 mg Documented by: NICKI Docusate Sodium (Docusate Sodium 100 Mg Capsule) 100 mg PO BID [facility] Last Admin: 10/11/21 09:15 Dose: Not Given Documented by: JOHNNIE Non-Admin Reason: Patient Refused Heparin Sodium (Porcine) (Heparin Sodium,Porcine 5,000 Unit/Ml Vial) 5,000 unit SUBCUT Q12H [facility] Last Admin: 10/11/21 11:05 Dose: 5,000 unit Documented by: JOHNNIE Ceftriaxone Sodium 1 gm/ (Sodium Chloride) 50 mls @ 100 mls/hr IV Q24H [facility] Last Infusion: 10/10/21 21:34 Dose: 0 mls/hr Documented by: NICKI Lorazepam (Lorazepam 0.5 Mg Tablet) 0.5 mg PO BEDTIME PRN PRN Reason: anxiety/restlessness Lorazepam (Lorazepam 1 Mg Tablet) 1 mg PO BEDTIME [facility] Last Admin: 10/10/21 20:45 Dose: 1 mg Documented by: NICKI Melatonin (Melatonin 3 Mg Tablet) 6 mg PO BEDTIME PRN PRN Reason: Insomnia Neomycin/Polymyxin/Dexamethasone (Neomy/Polymyx/Dexameth Oph Oin 3.5 Gm Tube) 0.5 inch EYE-BOTH DAILY [facility] Last Admin: 10/11/21 10:21 Dose: Not Given Documented by: JOHNNIE Non-Admin Reason: Patient Refused Pharmacy Consult (Consult Rx Perform Med Rec) 1 each MISCELLANE ONCE PRN PRN Reason: Consult order Psyllium Hydrophilic Mucilloid (Psyllium Seed 3.4 Gm Powd.Pack) 3.4 gm PO BID [facility] Last Admin: 10/11/21 09:15 Dose: Not Given Documented by: JOHNNIE Non-Admin Reason: Patient Refused Senna (Sennosides 8.6 Mg Tablet) 17.2 mg PO BEDTIME PRN PRN Reason: Constipation Sodium Chloride (0.9 % Sodium Chloride Flush 3 Ml Syringe) 3 ml IVFLUSH QSHIFT [facility] Last Admin: 10/11/21 09:05 Dose: 3 ml Documented by: JOHNNIE Labs CBC & Chem 7: 10/11/21 05:22 10/11/21 05:22 Labs: Laboratory Results - last 24 hr 10/11/21 10/11/21 05:22 05:22 MCV 97.9 MCH 30.4 MCHC 31.0 RDW 12.5 Plt Count 283 MPV 10.3 Immature Gran % (Auto) 0.6 H Neut % (Auto) 74.3 H Lymph % (Auto) 14.1 L [place] % (Auto) 5.4 Eos % (Auto) 5.3 H Baso % (Auto) 0.3 Lymph # (Auto) 2.6 [place] # (Auto) 1.0 Eos # (Auto) 1.0 H Baso # (Auto) 0.1 Abs Immat Gran (auto) 0.11 H Absolute Neuts (auto) 13.9 H Absolute Nucleated RBC 0.000 Nucleated RBC % (auto) 0.0 Anion Gap 11 L Estim Creat Clear Calc 53.7 Estimated GFR > 60 Random Glucose 104 Calcium 8.2 L Microbiology Microbiology Results: Microbiology 10/09/21 Unknown Urine Culture - Preliminary Urine clean catch - Urine solomon top Gram negative yisel 10/09/21 21:50 Blood Culture - Preliminary Blood - Venous No growth after 24 hours. 10/09/21 21:50 Blood Culture - Preliminary Blood - Venous No growth after 24 hours. Assessment and Plan (1) Cerebral palsy: Status: Acute (2) UTI (urinary tract infection): Status: Acute (3) Hypernatremia: Status: Acute Assessment and Plan: 71F with PMH of? Cerebral Palsy - Non verbal at baseline, non mobile- usually in bed or couch, wears Diapers; hx Rosacea, seizure, Anxiety; ?presented to the hospital with a chief complaint of? poor intake.? Noted to have UTI/ hypernatremia.? Admitted for further management Sepsis secondary to UTI: Sepsis resolved on IV ceftriaxone day 3, urine culture growing Gram-negative yisel, blood cultures no growth times 24 hours No recurrent fever, WBC trending down continue current treatment as above. Lactic acidosis: Due to sepsis , improved Hypernatremia:? Due to poor by mouth intake likely due to UTI , sodium improved to 138, will DC IV D5W follow BMP History of seizures: Continue carbamazepine 200 mg in the morning and 300 mg in the evening, seizure precaution History of anxiety: Continue home Ativan in the evening Diet:? Continue soft food with feeding assistance Code Status: DNR/DNI [place]. 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 Quality Stroke Does the patient have a stroke diagnosis?: No VTE Prior VTE?: No VTE Risk Level:: Medical - moderate - high VTE Device Contraindication: Treatment Not Indicated VTE Drug Contraindication: N/A - Med Ordered
--- NOTE | 2021-10-11 11:51 | PM.PNNEP ---
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6 [place] # (Auto) 1.0 Eos # (Auto) 1.0 H Baso # (Auto) 0.1 Abs Immat Gran (auto) 0.11 H Absolute Neuts (auto) 13.9 H Absolute Nucleated RBC 0.000 Nucleated RBC % (auto) 0.0 Sodium 138 Potassium 3.7 Chloride 110 H Carbon Dioxide 21 L Anion Gap 11 L BUN 25 H Creatinine 0.43 L Estim Creat Clear Calc 53.7 Estimated GFR > 60 Random Glucose 104 Calcium 8.2 L Microbiology Microbiology Results: Microbiology 10/09/21 Unknown Urine clean catch - Urine solomon top Urine Culture - Preliminary Gram negative yisel 10/09/21 21:50 Blood - Venous Blood Culture - Preliminary No growth after 24 hours. 10/09/21 21:50 Blood - Venous Blood Culture - Preliminary No growth after 24 hours. Procedures Date of Service Date of Service: 10/11/21 Assessment & Plan Assessment and plan (1) Hypernatremia: Status: Acute (2) UTI (urinary tract infection): Status: Acute (3) Cerebral palsy: Status: Acute Assessment and Plan: Hypernatremia due to free water deficit Renal function at baseline Na normalized Suggest Keep I > O with hypotonic fluids Supportive care Time Spent With Patient Time: Total time spent is greater than 50% in coordination of care (as documented) at patient's floor/unit and/or counseling patient: Time with patient: 15 - 24 minutes Progress Note: Quality Stroke Does the patient have a stroke diagnosis?: No
[2021-10-11 12:00] VITALS: BP 127/65; PULSE 99; RESP 20; TEMP 37; O2SAT 98
[2021-10-11 15:43] VITALS: BP 124/64; PULSE 104; RESP 14; TEMP 36.9; O2SAT 97
[2021-10-11 19:52] VITALS: BP 119/66; PULSE 99; RESP 14; TEMP 37.4; O2SAT 98
[2021-10-11] MEDS: cefTRIAXone sodium 1 GM in 0.9 % Sodium Chloride 50 ML IV (20:22)
[2021-10-12] VITALS: BP 120/56; PULSE 98; RESP 17; TEMP 37.2; O2SAT 97
[2021-10-12 03:58] VITALS: BP 108/58; PULSE 100; RESP 17; TEMP 37.1; O2SAT 95
[2021-10-12 05:42] LABS: MANUAL DIFF FLAG NO
[2021-10-12 05:49] LABS: Basophils Percent Auto 0.2 % (0-2); Eosinophils Absolute Auto 0.5 X10*3/uL (0.0-0.4); Eosinophils Percent Auto 3.1 % (0-4); Imm Gran Abs Auto 0.09 X10*3/uL (0.00-0.03); Imm Gran Pct Auto 0.6 % (0.0-0.4); Lymphocytes Absolute Auto 2.1 X10*3/uL (1.2-4.9); Lymphocytes Percent Auto 13.3 % (20-40); Mean Corpuscular HGB Conc 32.3 g/dl (31.0-35.0); Mean Corpuscular Hemoglobin 30.9 pg (27.0-33.0); Mean Corpuscular Volume 95.7 fL (80.0-98.0); Mean Platelet Volume 10.8 fL (9.4-12.3); Monocytes Absolute Auto 0.9 X10*3/uL (0.1-1.2); Monocytes Percent Auto 5.8 % (2-11); Neutrophils Absolute Auto 12.2 x10*3/uL (2.0-8.3); Platelet Count 283 X10*3/uL (160-400); Red Blood Count 3.24 X10*6/uL (4.20-5.50); Red Cell Distribution Width 12.3 % (11.0-16.0); White Blood Count 15.9 X10*3/uL (4.8-10.8)
[2021-10-12 06:28] LABS: Anion Gap 12 (12-20); Blood Urea Nitrogen 17 mg/dL (9-16); Calcium 8.2 mg/dL (8.4-10.2); Carbon Dioxide 22 mmol/L (22-29); Chloride 110 mmol/L (96-108); Estimated Glomerular Filt Rate > 60; Glucose Random 96 mg/dL (60-115); Sodium 140 mmol/L (135-145)
[2021-10-12 07:57] VITALS: BP 148/92; PULSE 113; RESP 19; TEMP 37.1; O2SAT 96
[2021-10-12] MEDS: carBAMazepine 200 MG TABLET PO (09:01)
[2021-10-12] MEDS: 0.9 % Sodium Chloride Flush 3 ML SYRINGE IVFLUSH ×3 (09:02→21:38)
[2021-10-12 10:09] VITALS: BMI 29.0
--- NOTE | 2021-10-12 10:24 | MHC.CLN ---
NUTRITION ADDING ENSURE TID TO PROVIDE 1050 KCAL, 39 G PROTEIN. PER CAREGIVER, TAKES AT HOME. SEE CLINICAL NUTRITION ASSESSMENT.
--- NOTE | 2021-10-12 11:00 | P.PNNP_ITS ---
Subjective Subjective Date of Service: 11/03/21 Interval history: Events noted Physical Exam Vital Signs: Vital Signs: Last Vital Signs Temp 98.8 F 10/12/21 07:57 Pulse 113 H 10/12/21 07:57 Resp 19 10/12/21 07:57 BP 148/92 H 10/12/21 07:57 Pulse Ox 96 10/12/21 07:57 BMI result Body Mass Index 29.0 Objective Data Labs CBC & Chem 7: 10/14/21 04:43 10/13/21 05:14 Labs: Laboratory Results - last 24 hr 10/12/21 10/12/21 05:18 05:18 WBC 15.9 H RBC 3.24 L Hgb 10.0 L Hct 31.0 L MCV 95.7 MCH 30.9 MCHC 32.3 RDW 12.3 Plt Count 283 MPV 10.8 Immature Gran % (Auto) 0.6 H Neut % (Auto) 77.0 H Lymph % (Auto) 13.3 L [place] % (Auto) 5.8 Eos % (Auto) 3.1 Baso % (Auto) 0.2 Lymph # (Auto) 2.1 [place] # (Auto) 0.9 Eos # (Auto) 0.5 H Baso # (Auto) 0.0 Abs Immat Gran (auto) 0.09 H Absolute Neuts (auto) 12.2 H Absolute Nucleated RBC 0.000 Nucleated RBC % (auto) 0.0 Sodium 140 Potassium 4.0 Chloride 110 H Carbon Dioxide 22 Anion Gap 12 BUN 17 H Creatinine 0.42 L Estim Creat Clear Calc 55.0 Estimated GFR > 60 Random Glucose 96 Calcium 8.2 L Microbiology Microbiology Results: Microbiology 10/09/21 Unknown Urine clean catch - Urine solomon top Urine Culture - Preliminary Escherichia coli 10/09/21 21:50 Blood - Venous Blood Culture - Preliminary No growth after 48 hours. 10/09/21 21:50 Blood - Venous Blood Culture - Preliminary No growth after 48 hours. Procedures Date of Service Date of Service: 10/12/21 Assessment & Plan Assessment and plan (1) Hypernatremia: Status: Resolved (2) UTI (urinary tract infection): Status: Acute Assessment and Plan: Hypernatremia due to free water deficit Renal function at baseline Suggest Urine Na/Cr/Osm Keep I > O with hypotonic fluids Free water PO 250 cc q 8 hr Supportive care Time Spent With Patient Time: Total time spent is greater than 50% in coordination of care (as documented) at patient's floor/unit and/or counseling patient: Time with patient: 15 - 24 minutes Progress Note: Quality Stroke Does the patient have a stroke diagnosis?: No
[2021-10-12 11:41] VITALS: BP 157/79; PULSE 111; RESP 15; TEMP 36.7; O2SAT 97
[2021-10-12] MEDS: Heparin Sodium,Porcine 5,000 UNIT/ML VIAL 5000 UNIT SUBCUT ×2 (12:11→22:29)
--- NOTE | 2021-10-12 13:12 | HO.PM.IMPN ---
Subjective Subjective Date of Service: 10/12/21 Interval History: Being followed for UTI and hypernatremia, patient appears comfortable, nonverbal at baseline. Review of Systems Unable to obtain due to cerebral palsy/nonverbal Physical Exam Vital Signs: Vital Signs: Last Vital Signs Temp 98.0 F 10/12/21 11:41 Pulse 111 H 10/12/21 11:41 Resp 15 10/12/21 11:41 BP 157/79 H 10/12/21 11:41 Pulse Ox 97 10/12/21 11:41 BMI result Body Mass Index 29.0 General resting co mfortably in no ac lillian distress, nonv erbal?no change in exam Right eye bl ind/lost left eye due to injury Neck supple no JVD. CV S? regular rate rh ythm, Respiratory lungs clear to aus cultation, no resp iratory distress G astrointestinal ab domen soft, nonten rory, bowel sounds audible Extremitie s no edema. Neuro difficult to asses s Skin no rash Psy ch poor insight Fo breezy yellow urine Objective Data Active Medications Acetaminophen (Acetaminophen 325 Mg Tablet) 650 mg PO Q6H PRN PRN Reason: Pain, Mild (Pain Scale 1-3) Carbamazepine (Carbamazepine 200 Mg Tablet) 200 mg PO DAILY [facility] Last Admin: 10/12/21 09:01 Dose: 200 mg Documented by: FARRUKH Carbamazepine (Carbamazepine 200 Mg Tablet) 300 mg PO BEDTIME [facility] Last Admin: 10/11/21 20:29 Dose: Not Given Documented by: NOREEN Non-Admin Reason: Patient Refused Docusate Sodium (Docusate Sodium 100 Mg Capsule) 100 mg PO BID [facility] Last Admin: 10/12/21 09:06 Dose: Not Given Documented by: FARRUKH Non-Admin Reason: Patient Refused Heparin Sodium (Porcine) (Heparin Sodium,Porcine 5,000 Unit/Ml Vial) 5,000 unit SUBCUT Q12H [facility] Last Admin: 10/12/21 12:11 Dose: 5,000 unit Documented by: TORIBIO Ceftriaxone Sodium 1 gm/ (Sodium Chloride) 50 mls @ 100 mls/hr IV Q24H [facility] Last Infusion: 10/11/21 21:15 Dose: 0 mls/hr Documented by: NOREEN Lorazepam (Lorazepam 0.5 Mg Tablet) 0.5 mg PO BEDTIME PRN PRN Reason: anxiety/restlessness Lorazepam (Lorazepam 1 Mg Tablet) 1 mg PO BEDTIME [facility] Last Admin: 10/11/21 20:29 Dose: Not Given Documented by: NOREEN Non-Admin Reason: Patient Refused Melatonin (Melatonin 3 Mg Tablet) 6 mg PO BEDTIME PRN PRN Reason: Insomnia Neomycin/Polymyxin/Dexamethasone (Neomy/Polymyx/Dexameth Oph Oin 3.5 Gm Tube) 0.5 inch EYE-BOTH DAILY [facility] Last Admin: 10/12/21 09:09 Dose: Not Given Documented by: FARRUKH Non-Admin Reason: not available Pharmacy Consult (Consult Rx Perform Med Rec) 1 each MISCELLANE ONCE PRN PRN Reason: Consult order Psyllium Hydrophilic Mucilloid (Psyllium Seed 3.4 Gm Powd.Pack) 3.4 gm PO BID [facility] Last Admin: 10/12/21 09:01 Dose: 3.4 gm Documented by: FARRUKH Senna (Sennosides 8.6 Mg Tablet) 17.2 mg PO BEDTIME PRN PRN Reason: Constipation Sodium Chloride (0.9 % Sodium Chloride Flush 3 Ml Syringe) 3 ml IVFLUSH QSHIFT [facility] Last Admin: 10/12/21 09:02 Dose: 3 ml Documented by: FARRUKH Labs CBC & Chem 7: 10/12/21 05:18 10/12/21 05:18 Labs: Laboratory Results - last 24 hr 10/12/21 10/12/21 05:18 05:18 MCV 95.7 MCH 30.9 MCHC 32.3 RDW 12.3 Plt Count 283 MPV 10.8 Immature Gran % (Auto) 0.6 H Neut % (Auto) 77.0 H Lymph % (Auto) 13.3 L [place] % (Auto) 5.8 Eos % (Auto) 3.1 Baso % (Auto) 0.2 Lymph # (Auto) 2.1 [place] # (Auto) 0.9 Eos # (Auto) 0.5 H Baso # (Auto) 0.0 Abs Immat Gran (auto) 0.09 H Absolute Neuts (auto) 12.2 H Absolute Nucleated RBC 0.000 Nucleated RBC % (auto) 0.0 Anion Gap 12 Estim Creat Clear Calc 55.0 Estimated GFR > 60 Random Glucose 96 Calcium 8.2 L Microbiology Microbiology Results: Microbiology 10/09/21 Unknown Urine Culture - Preliminary Urine clean catch - Urine solomon top Escherichia coli 10/09/21 21:50 Blood Culture - Preliminary Blood - Venous No growth after 48 hours. 10/09/21 21:50 Blood Culture - Preliminary Blood - Venous No growth after 48 hours. Assessment and Plan (1) Cerebral palsy: Status: Acute (2) UTI (urinary tract infection): Status: Acute (3) Hypernatremia: Status: Acute Assessment and Plan: 71F with PMH of? Cerebral Palsy - Non verbal at baseline, non mobile- usually in bed or couch, wears Diapers; hx Rosacea, seizure, Anxiety; ?presented to the hospital with a chief complaint of? poor intake.? Noted to have UTI/ hypernatremia.? Admitted for further management Sepsis secondary to UTI: Sepsis resolved on IV ceftriaxone day 3, urine culture grew E coli , blood cultures no growth times 48 hours No recurrent fever, WBC trending down continue current treatment as above. Follow CBC Lactic acidosis: Due to sepsis , improved Hypernatremia:? Due to poor by mouth intake likely due to UTI , sodium 140 , push by mouth fluids follow BMP History of seizures: Continue carbamazepine 200 mg in the morning and 300 mg in the evening, seizure precaution History of anxiety: Continue home Ativan in the evening Diet:? Continue soft food with feeding assistance Code Status: DNR/DNI Brother Chase. patient's personal care assistant Gustavo at bedside(?ph [phone].)? Possible discharge at home next 24 hours, if remains clinically stable. Quality Stroke Does the patient have a stroke diagnosis?: No VTE Prior VTE?: No VTE Risk Level:: Medical - moderate - high VTE Device Contraindication: Treatment Not Indicated VTE Drug Contraindication: N/A - Med Ordered
--- NOTE | 2021-10-12 14:09 | MHC.CM.PN ---
IMM 10/12/21, EMR REVIEWED, PER HOSPITALIST POSSIBLE D/C OVER W/E IF WBC CONT'S TO TREND DOWN, PT WILL RETURN HOME W/BATTERY CONTAINER FINISHING HAND AND 24HR CARE PROVIDER, PT WILL NEED BLS TRANSPORT HOME.
[2021-10-12 15:55] VITALS: BP 114/63; PULSE 108; RESP 18; TEMP 37.7; O2SAT 100
[2021-10-12 20:00] VITALS: BP 154/89; PULSE 89; RESP 19; TEMP 37.2; O2SAT 92
[2021-10-12] MEDS: LORazepam 1 MG TABLET PO (21:38)
[2021-10-12] MEDS: cefTRIAXone sodium 1 GM in 0.9 % Sodium Chloride 50 ML IV (21:38)
[2021-10-12] MEDS: carBAMazepine 200 MG TABLET 300 MG PO (21:38)
[2021-10-13] VITALS (9 sets, daily range): BP systolic 105–177; BP diastolic 55–82; PULSE 87–103; RESP 16–19; TEMP 36–37.9; O2SAT 94–98
[2021-10-13 05:50] LABS: Hematocrit 31.7 % (37.0-47.0); Mean Corpuscular HGB Conc 31.5 g/dl (31.0-35.0); Mean Corpuscular Hemoglobin 30.4 pg (27.0-33.0); Mean Corpuscular Volume 96.4 fL (80.0-98.0); Mean Platelet Volume 10.9 fL (9.4-12.3); Platelet Count 320 X10*3/uL (160-400); Red Blood Count 3.29 X10*6/uL (4.20-5.50); Red Cell Distribution Width 12.4 % (11.0-16.0); White Blood Count 17.2 X10*3/uL (4.8-10.8)
[2021-10-13 06:09] LABS: Anion Gap 10 (12-20); Blood Urea Nitrogen 13 mg/dL (9-16); Calcium 8.4 mg/dL (8.4-10.2); Carbon Dioxide 24 mmol/L (22-29); Chloride 111 mmol/L (96-108); Creatinine Clr Calc Pharmacy 53.7; Estimated Glomerular Filt Rate > 60; Glucose Random 99 mg/dL (60-115); Potassium 3.7 mmol/L (3.3-5.1); Sodium 141 mmol/L (135-145)
[2021-10-13] MEDS: Docusate Sodium 100 MG CAPSULE PO (10:01)
[2021-10-13] MEDS: carBAMazepine 200 MG TABLET PO (10:01)
[2021-10-13] MEDS: Heparin Sodium,Porcine 5,000 UNIT/ML VIAL 5000 UNIT SUBCUT ×2 (10:02→22:32)
[2021-10-13] MEDS: 0.9 % Sodium Chloride Flush 3 ML SYRINGE IVFLUSH ×3 (10:03→21:14)
--- NOTE | 2021-10-13 14:51 | P.PNIM_ITS ---
Subjective Subjective Date of Service: 10/13/21 Interval History: Being followed for UTI and hypernatremia, nonverbal at baseline. 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 CVS? regular rate rhythm, Respiratory lungs coarse bs, no respiratory distress Gastrointestinal abdomen soft, nontender , bowel sounds audible Extremities no edema. Neuro move all 4 extremities,difficult to assess Skin no rash Psych poor insight Objective Data Active Medications Acetaminophen (Acetaminophen 325 Mg Tablet) 650 mg PO Q6H PRN PRN Reason: Pain, Mild (Pain Scale 1-3) Carbamazepine (Carbamazepine 200 Mg Tablet) 200 mg PO DAILY [facility] Last Admin: 10/13/21 10:01 Dose: 200 mg Documented by: SENIA Carbamazepine (Carbamazepine 200 Mg Tablet) 300 mg PO BEDTIME [facility] Last Admin: 10/12/21 21:38 Dose: 300 mg Documented by: FARIDEH Docusate Sodium (Docusate Sodium 100 Mg Capsule) 100 mg PO BID [facility] Last Admin: 10/13/21 10:01 Dose: 100 mg Documented by: SENIA Heparin Sodium (Porcine) (Heparin Sodium,Porcine 5,000 Unit/Ml Vial) 5,000 unit SUBCUT Q12H [facility] Last Admin: 10/13/21 10:02 Dose: 5,000 unit Documented by: SENIA Ceftriaxone Sodium 1 gm/ (Sodium Chloride) 50 mls @ 100 mls/hr IV Q24H [facility] Last Infusion: 10/12/21 22:31 Dose: 0 mls/hr Documented by: FARIDEH Lorazepam (Lorazepam 0.5 Mg Tablet) 0.5 mg PO BEDTIME PRN PRN Reason: anxiety/restlessness Lorazepam (Lorazepam 1 Mg Tablet) 1 mg PO BEDTIME [facility] Last Admin: 10/12/21 21:38 Dose: 1 mg Documented by: FARIDEH Melatonin (Melatonin 3 Mg Tablet) 6 mg PO BEDTIME PRN PRN Reason: Insomnia Neomycin/Polymyxin/Dexamethasone (Neomy/Polymyx/Dexameth Oph Oin 3.5 Gm Tube) 0.5 inch EYE-BOTH DAILY [facility] Last Admin: 10/13/21 11:31 Dose: Not Given Documented by: SENIA Non-Admin Reason: Not available Pharmacy Consult (Consult Rx Perform Med Rec) 1 each MISCELLANE ONCE PRN PRN Reason: Consult order Psyllium Hydrophilic Mucilloid (Psyllium Seed 3.4 Gm Powd.Pack) 3.4 gm PO BID [facility] Last Admin: 10/13/21 10:03 Dose: Not Given Documented by: SENIA Non-Admin Reason: patient spits out Senna (Sennosides 8.6 Mg Tablet) 17.2 mg PO BEDTIME PRN PRN Reason: Constipation Sodium Chloride (0.9 % Sodium Chloride Flush 3 Ml Syringe) 3 ml IVFLUSH QSHIFT [facility] Last Admin: 10/13/21 10:03 Dose: 3 ml Documented by: SENIA Labs CBC & Chem 7: 10/13/21 05:14 10/13/21 05:14 Labs: Laboratory Results - last 24 hr 10/13/21 10/13/21 05:14 05:14 MCV 96.4 MCH 30.4 MCHC 31.5 RDW 12.4 Plt Count 320 MPV 10.9 Absolute Nucleated RBC 0.000 Nucleated RBC % (auto) 0.0 Anion Gap 10 L Estim Creat Clear Calc 53.7 Estimated GFR > 60 Random Glucose 99 Calcium 8.4 Microbiology Microbiology Results: Microbiology 10/09/21 Unknown Urine Culture - Final Urine clean catch - Urine solomon top Escherichia coli Assessment and Plan (1) Cerebral palsy: Status: Acute (2) UTI (urinary tract infection): Status: Acute (3) Hypernatremia: Status: Acute (4) Leukocytosis: Status: Acute Assessment and Plan: 71F with PMH of? Cerebral Palsy - Non verbal at baseline, non mobile- usually in bed or couch, wears Diapers; hx Rosacea, seizure, Anxiety; ?presented to the hospital with a chief complaint of? poor intake.? Noted to have UTI/ hypernatremia.? Admitted for further management Sepsis secondary to UTI: Sepsis resolved on IV ceftriaxone day 3, urine culture grew E coli , blood cultures no growth times 48 hours No recurrent fever, WBC were trending down but noted to bump back to 17,000 with low-grade fever, will obtain chest x-ray ? asp, continue IV antibiotic and supportive care Lactic acidosis: Due to sepsis , improved Hypernatremia:? Due to poor by mouth intake likely due to UTI , sodium 141 , push by mouth fluids follow BMP History of seizures: Continue carbamazepine 200 mg in the morning and 300 mg in the evening, seizure precaution History of anxiety: Continue home Ativan in the evening Diet:? Continue soft food with feeding assistance Code Status: DNR/DNI Brother Chase. patient's critical care technician Gustavo # [phone]. Quality Stroke Does the patient have a stroke diagnosis?: No VTE Prior VTE?: No VTE Risk Level:: Medical - moderate - high VTE Device Contraindication: Treatment Not Indicated VTE Drug Contraindication: N/A - Med Ordered
[2021-10-13] MEDS: carBAMazepine 200 MG TABLET 300 MG PO (21:13)
[2021-10-13] MEDS: cefTRIAXone sodium 1 GM in 0.9 % Sodium Chloride 50 ML IV (21:23)
[2021-10-14 03:38] VITALS: BP 111/71; PULSE 92; RESP 17; TEMP 36; O2SAT 96
[2021-10-14 05:07] LABS: MANUAL DIFF FLAG NO
[2021-10-14 05:21] LABS: Basophils Absolute Auto 0.1 X10*3/uL (0.0-0.2); Basophils Percent Auto 0.3 % (0-2); Eosinophils Absolute Auto 0.7 X10*3/uL (0.0-0.4); Eosinophils Percent Auto 4.2 % (0-4); Hematocrit 31.5 % (37.0-47.0); Imm Gran Abs Auto 0.12 X10*3/uL (0.00-0.03); Imm Gran Pct Auto 0.7 % (0.0-0.4); Lymphocytes Absolute Auto 2.2 X10*3/uL (1.2-4.9); Lymphocytes Percent Auto 12.9 % (20-40); Mean Corpuscular HGB Conc 31.7 g/dl (31.0-35.0); Mean Corpuscular Hemoglobin 30.7 pg (27.0-33.0); Mean Corpuscular Volume 96.6 fL (80.0-98.0); Mean Platelet Volume 10.8 fL (9.4-12.3); Monocytes Absolute Auto 1.1 X10*3/uL (0.1-1.2); Monocytes Percent Auto 6.2 % (2-11); Neutrophils Absolute Auto 13.1 x10*3/uL (2.0-8.3); Neutrophils Percent Auto 75.7 % (45-73); Platelet Count 347 X10*3/uL (160-400); Red Blood Count 3.26 X10*6/uL (4.20-5.50); Red Cell Distribution Width 12.7 % (11.0-16.0); White Blood Count 17.3 X10*3/uL (4.8-10.8)
[2021-10-14 07:54] VITALS: BP 130/52; PULSE 95; RESP 18; TEMP 36.4; O2SAT 96
[2021-10-14] MEDS: 0.9 % Sodium Chloride Flush 3 ML SYRINGE IVFLUSH (09:28)
[2021-10-14] MEDS: carBAMazepine 200 MG TABLET PO (09:29)
[2021-10-14] MEDS: Docusate Sodium 100 MG CAPSULE PO (09:29)
[2021-10-14] MEDS: Heparin Sodium,Porcine 5,000 UNIT/ML VIAL 5000 UNIT SUBCUT (11:27)
[2021-10-14 12:00] VITALS: BP 139/64; PULSE 100; RESP 18; TEMP 36.6; O2SAT 99
--- NOTE | 2021-10-14 12:39 | P.DS_ITS ---
DS: Providers Provider Date of Service: 10/14/21 Date of admission: 10/09/21 22:54 Primary care physician: Richard Holt MD Consults: 10/09/21 22:56 Consult to Nephrology Routine Consulting Provider: Omar Jara Reason for consultation: hypernatremia DS: Diagnosis Discharge Diagnosis (1) Cerebral palsy: Status: Acute (2) UTI (urinary tract infection): Status: Acute (3) Hypernatremia: Status: Acute (4) Leukocytosis: Status: Acute DS: Summary Hospital Course Hospital Course: Chief Complaint: Poor intake 71F with PMH of? Cerebral Palsy - Non verbal at baseline, non mobile- usually in bed or couch, wears Diapers; hx Rosacea, seizure, Anxiety; ?presented to the hospital with a chief complaint of? poor intake. ?Spoke to??Gustavo- pt's retail manager-> ph [phone].? ?who mentioned that patient had?Decreased appetite and poor intake for about 5 days; Eats Soft food. Noted Weight loss; denies fevers, cough, sputum. Does not appear to be in pain. pt is COVID vaccinated. Diet: soft diet; applesause/pudding; needs feeding with assistance. ?review of all other systems is limited.? ER course: ER team noted the patient is tachycardic, noted to have leukocytosis, lactic acidosis->? sepsis secondary to UTI.? Given antibiotics.? Also noted to have hypernatremia presumed to be secondary to dehydration. Patient blood pressure on the soft side initially; received 30 cc/kg ? Of normal saline presentation.? Admitted for further management. Hospital course 71F with PMH of? Cerebral Palsy - Non verbal at baseline, non mobile- usually in bed or couch, wears Diapers; hx Rosacea, seizure, Anxiety, [facility] with a chief complaint of? poor intake, in the emergency room workup showed sepsis due to urinary tract infection and hypernatremia, patient admitted to medical floor placed on IV ceftriaxone urine culture grew E coli blood cultures negative, hypernatremia normalized with IV hydration, Patient tolerating diet and clinically looks stable but noted to have persistent leukocytosis case discussed with patient care provider Gustavo and informed her regarding persistent leukocytosis likely related to infection and stress slowly improving, since patient is afebrile repeat chest x-ray shows no new infiltrate she will be discharged home, recommend to repeat CBC in next 1-2 weeks Hypernatremia:? Improved with IV hydration. History of seizures: Continue carbamazepine 200 mg in the morning and 300 mg in the evening. History of anxiety: Continue home Ativan in the evening. Time Spent with Patient Time attestation: Total time spent providing and/or coordinating discharge services: Discharge coordination time: Greater than 30 minutes Quality: Stroke Does the patient have a stroke diagnosis?: No Physical Exam Vital Signs: Vital Signs: Last Vital Signs Temp 97.9 F 10/14/21 12:00 Pulse 100 10/14/21 12:00 Resp 18 10/14/21 12:00 BP 139/64 10/14/21 12:00 Pulse Ox 99 10/14/21 12:00 BMI result Body Mass Index 29.0 General resting comfortably in no acute distress, nonverbal? 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 CVS? regular rate rhythm, Respiratory lungs clear, no respiratory distress Gastrointestinal abdomen soft, nontender , bowel sounds audible Extremities no edema. Neuro move all 4 extremities,difficult to assess Skin no rash,good color DS: Data Data Completed and Pending Labs on day of discharge: Laboratory Results - last 24 hr 10/14/21 04:43 WBC 17.3 H RBC 3.26 L Hgb 10.0 L Hct 31.5 L MCV 96.6 MCH 30.7 MCHC 31.7 RDW 12.7 Plt Count 347 MPV 10.8 Immature Gran % (Auto) 0.7 H Neut % (Auto) 75.7 H Lymph % (Auto) 12.9 L [place] % (Auto) 6.2 Eos % (Auto) 4.2 H Baso % (Auto) 0.3 Lymph # (Auto) 2.2 [place] # (Auto) 1.1 Eos # (Auto) 0.7 H Baso # (Auto) 0.1 Abs Immat Gran (auto) 0.12 H Absolute Neuts (auto) 13.1 H Absolute Nucleated RBC 0.000 Nucleated RBC % (auto) 0.0 Preliminary micro results at discharge 10/09/21 21:50 Blood Culture - Preliminary Blood - Venous No growth after 48 hours. 10/09/21 21:50 Blood Culture - Preliminary Blood - Venous No growth after 48 hours. Discharge Plan Discharge Patient Disposition: Home, Self-Care Discharge Diagnosis: Hypernatremia E coli UTI Leukocytosis Referrals: Richard Holt MD [Primary Care Provider] - 1 Week Discharge Medications: New cefuroxime axetil 250 mg tablet 250 mg PO BID 5 Days Qty: 10 RF: 0 Continued acetic acid 2 % solution 3 drp otic (ears) DAILY RF: 0 carbamazepine 200 mg tablet 200 mg PO DAILY RF: 0 ascorbic acid (vitamin C) 250 mg tablet 250 mg PO DAILY RF: 0 docusate sodium 100 mg capsule 100 mg PO BID RF: 0 lorazepam 1 mg tablet 1 tab PO BEDTIME RF: 0 neomycin-polymyxin B-dexameth 3.5 mg/g-10,000 unit/g-0.1 % ointment 1 appl ophthalmic (eye) DAILY RF: 0 cholecalciferol (vitamin D3) 25 mcg (1,000 unit) capsule 25 mcg PO DAILY RF: 0 calcium citrate 250 mg calcium tablet 250 mg PO BEDTIME RF: 0 multivitamin with folic acid [Daily-Samara (with folic acid)] 400 mcg tablet 1 tab PO DAILY RF: 0 terbinafine HCl [Athlete's Foot (terbinafine)] 1 % cream 1 appl topical BID RF: 0 acetaminophen 325 mg Tablet 650 mg PO Q6H PRN (Reason: Pain) RF: 0 carbamazepine 200 mg tablet 300 mg PO BEDTIME RF: 0 metronidazole 0.75 % Cream 1 appl TOPICAL BID RF: 0 ketoconazole 2 % Cream 1 appl TOPICAL BID RF: 0 Metamucil [facility] Fiber 3.4 gram/5.8 gram Powder 3.4 g PO BID RF: 0 Discharge Orders: Discharge Order (Routine); Ordered 10/14/21 Ordered By: Remberto Agarwal Diet: advance to usual diet Activity on Discharge: As tolerated Stand Alone Forms: Patient Portal Discharge page Care Plan Goals: Take by mouth Ceftin for 5 more days, persistent leukocytosis recheck CBC next 1-2 weeks, push by mouth fluids Health Concerns: Continue all home medication Plan of Treatment: Outpatient follow-up with primary care physician in next 1-2 weeks Assessment: As above
--- NOTE | 2021-10-14 12:50 | MHC.CM.PN ---
Addendum entered by Sheryl Mendoza 10/14/21 14:15: CM MET WITH PTS FOSTER CARE PROVIDER, ARELIS, AT BEDSIDE. SHE IS AWARE OF PENDING DC AND BLS TRANSFER TIME. PTS BROTHER/HCP CALLED [facility] AND WAS INFORMED OF PENDING DC. Original Note: PT CLEARED TO DC HOME TODAY WHERE SHE LIVES WITH AN ADULT FOSTER CARE PROVIDER PT TO [employer] CM INFORMED PT WILL NEED BLS TRANSPORT, ARRANGED FOR 1330 HOURS CM ATTEMPTED TO CONTACT PTS HCP/BROTHER, JOVANNA FLANAGAN ([phone]) HOWEVER HE DID NOT ANSWER AND HIS VM WAS FULL.
== END 2021-10-14 14:35 | disposition home or self-care (01) | DRG 872 ==
LOC: HO.ED 23:04 → HO.EDOVER 23:05 → HO.S3 10-10 16:49
PROVIDERS: Admitting Provider Hospitalist; Emergency Provider Emergency Medicine Emergency Medical Services; PCP Family Medicine; Visit Provider Hospitalist
DX: A41.9 Sepsis, unspecified organism (principal); E87.0 Hyperosmolality and hypernatremia; N39.0 Urinary tract infection, site not specified; E87.2 Acidosis; B96.20 Unspecified Escherichia coli [E. coli] as the cause of diseases classified elsewhere; G80.9 Cerebral palsy, unspecified; G40.909 Epilepsy, unspecified, not intractable, without status epilepticus; F41.9 Anxiety disorder, unspecified; Z20.822 Contact with and (suspected) exposure to COVID-19; Z79.899 Other long term (current) drug therapy; Z66 Do not resuscitate
CPT/HCPCS: 36415; 51798; 70450; 71045; 80048; 80076; 80156; 81001; 82803; 83605; 84443; 85025; 85027; 87040; 87086; 87186; 87635; 96361; 96374; 99285; J0696; J3010

== ENCOUNTER 2021-10-21 06:40 | Inpatient (IN) | payer MEDICARE, MEDICAID, SELFPAY ==
[2021-10-21] VITALS (11 sets, daily range): BP systolic 91–137; BP diastolic 60–94; PULSE 89–170; RESP 8–26; TEMP 36.6–41.4; O2SAT 80–100; BMI 15.6
--- NOTE | 2021-10-21 | ECG_ITS ---
Test Reason : unresponsive Blood Pressure : / mmHG Vent. Rate : 167 BPM Atrial Rate : 167 BPM P-R Int : 118 ms QRS Dur : 068 ms QT Int : 292 ms P-R-T Axes : [phone] degrees QTc Int : 487 ms Sinus tachycardia T wave abnormality, consider lateral ischemia Abnormal ECG No previous ECGs available Referred By: Generic ED Physician Electronically Signed By:KRISTINA BYERS
--- NOTE | ~2021-10-21 | XR_ITS ---
EXAMINATION: XR CHEST CLINICAL INFORMATION: COVID. COMPARISON: 10/25/2021 chest radiograph. TECHNIQUE: Frontal view of the chest was obtained. FINDINGS: Support devices: Interval removal of enteric tube. A gastrostomy tube overlies the epigastric region and proximal gastric air bubble. Severe thoracolumbar dextro scoliosis is again noted. Minimal linear markings are seen in the left midlung. The lungs otherwise clear. The heart and mediastinal structures are unremarkable. XR/XR chest 1V IMPRESSION: Minimal left midlung atelectasis, likely secondary to the patient's positioning. No overt infiltrate.
--- NOTE | ~2021-10-21 | XR_ITS ---
EXAMINATION: XR CHEST CLINICAL INFORMATION: Fever. COMPARISON: 10/13/2021 TECHNIQUE: Frontal view of the chest was obtained. FINDINGS: There is a severe rightward scoliotic curvature of the thoracic spine as before. The cardiomediastinal and hilar contours appear stable. There is some increased opacity at the base of the left lung medially. The right lung appears clear. No large effusions. No pneumothorax. XR/XR chest 1V IMPRESSION: There is minimally increased opacity at the base of the left lung, possibly atelectasis versus consolidation or aspiration.
--- NOTE | ~2021-10-21 | CT_ITS ---
EXAMINATION: CT CHEST WITHOUT CONTRAST CLINICAL INFORMATION: Respiratory distress COMPARISON: Radiograph 10/21/2021 TECHNIQUE: Multidetector volumetric CT imaging of the chest was done. Axial MIP volume rendering provided. Sagittal and coronal reformatted images were obtained. This CT examination was performed using dose optimization techniques as appropriate, variously including the following: *Automated exposure control *Adjustment of mA and/or kV according to patient size (this includes techniques or standardized protocols for targeted exams where dose is matched to indication/reason for exam; i.e. extremities or head) *Use of iterative reconstruction technique DLP: 116 mGy-cm FINDINGS: STADIUM ATTENDANT: Similar to recent radiographs LUNGS: CT demonstrates a presence of groundglass ill-defined peripheral opacities. Exam is lobe limited by motion degradation but appearance is characteristic of atypical infection including Covid 19. No mass or dense consolidation. No suspicious nodules. MEDIASTINUM: The mediastinum is normal. PLEURA: There is no pleural effusion. No pleural mass or thickening. AXILLA: No pathologic adenopathy. Coarsely calcifying mass lesion left breast warrants correlation with breast imaging. UPPER ABDOMEN: Grossly normal OSSEOUS STRUCTURES: Severe kyphoscoliosis distorts anatomy. CT/CT chest wo con IMPRESSION: Findings of atypical infection including Covid 19 as above. Coarsely calcifying left breast mass which warrants correlation with breast imaging electively. Fleischner guidelines were followed.
--- NOTE | ~2021-10-21 | XR_ITS ---
EXAMINATION: XR CHEST CLINICAL INFORMATION: NG tube placement COMPARISON: CT chest 10/24/2021, chest radiograph 10/21/2021 TECHNIQUE: Frontal view of the chest was obtained. FINDINGS: Marked scoliosis again noted. An NG tube is seen with its tip in the distal antrum pylorus. No acute intrathoracic disease. Some left basilar atelectasis is present. Rotator cuff disease is present on the right. XR/XR chest 1V IMPRESSION: NG tube in good position as described above
--- NOTE | 2021-10-21 06:56 | ED_ITS ---
HPI - General Adult General Chief complaint: Altered Mental Status Stated complaint: AMS Time Seen by Provider: 10/21/21 06:49 Source: EMS Mode of arrival: EMS Limitations: physical limitation (Patient nonverbal at baseline.) History of Present Illness HPI narrative: 71-year-old female brought in by EMS from home for evaluation of poor intake and patient not herself. This is a 71-year-old female with history of cerebral palsy, seizure, anxiety, quadriplegic, normally patient bed-bound or on the couch, patient wear diaper, with no verbal communication. Patient came in for for evaluation of decreased mental status, patient found to be tachycardic, having a high fever, patient recently was hospitalized for ur inary tract infection was sent home on Ceftin, patient found to have a fever of 106.6 and tachycardic. Unable to obtain history from the patient history was obtained from old records and EMS awaiting for family to arrive to the emergency department. It was conducted to me by EMS that patient is DNR/DNI. Related Data Home Medications Medication Instructions Recorded Confirmed acetic acid 2 % ear solution 3 drp OTIC (EARS) DAILY 10/10/21 10/21/21 ascorbic acid (vitamin C) 250 mg 250 mg PO DAILY 10/10/21 10/21/21 tablet calcium citrate 250 mg PO BEDTIME 10/10/21 10/21/21 carbamazepine 200 mg tablet 200 mg PO DAILY 10/10/21 10/21/21 carbamazepine 200 mg tablet 300 mg PO BEDTIME 10/10/21 10/21/21 cholecalciferol (vitamin D3) 25 25 mcg PO DAILY 10/10/21 10/21/21 mcg (1,000 unit) capsule docusate sodium 100 mg capsule 100 mg PO BID 10/10/21 10/21/21 ketoconazole 2 % topical cream 1 appl TOPICAL BID 10/10/21 10/21/21 lorazepam 1 mg tablet 1 tab PO BEDTIME 10/10/21 10/21/21 metronidazole 0.75 % topical cream 1 appl TOPICAL BID 10/10/21 10/21/21 neomycin 3.5 mg/g-polymyxin B 1 appl OPHTHALMIC-LEFT DAILY 10/10/21 10/21/21 10,000 unit/g-dexameth 0.1 % eye oint psyllium husk (aspartame) 3.4 3.4 g PO BID 10/10/21 10/21/21 gram/5.8 gram oral powder (Metamucil [facility] Fiber) terbinafine HCl 1 % topical cream 1 appl TOPICAL BID 10/10/21 10/21/21 (Athlete's Foot (terbinafine)) acetaminophen 160 mg/5 mL oral 320 mg PO Q4H PRN 10/21/21 10/21/21 liquid multivitamin (Daily-Samara) 1 tab PO DAILY 10/21/21 10/21/21 triamcinolone acetonide 0.1 % 1 appl TOPICAL BID 10/21/21 10/21/21 topical cream Allergies Allergy/AdvReac Type Severity Reaction Status Date / Time No Known Allergies Allergy Verified 10/09/21 21:22 Review of Systems Review of Systems: Yes Unobtainable due to mental condition [facility] Social History Social History Household Members: Other Housing: Assisted Living Facility Do you presently have visiting nurse or other home services: No Patient Tobacco Use Status: Never used Tobacco Advance Directives: No Advance Directives Information Provided: No service: No Current occupational status: disabled Physical Exam Vital Signs: Vital Signs: Last Vital Signs Temp 97.9 F 10/21/21 13:04 Pulse 98 10/21/21 13:04 Resp 11 L 10/21/21 13:04 BP 110/65 10/21/21 13:04 Pulse Ox 97 10/21/21 13:04 Oxygen Flow Rate 10 10/21/21 06:50 BMI result Body Mass Index 15.6 Vital signs have been reviewed as appeared to be correct. Blood pressure normal. Heart rate elevated. Respiration rate elevated. Temperature elevated. Oxygen saturation normal. Appearance: Patient is quadriplegic nonverbal, contracted, not responsive to verbal stimuli. Head: Normal external exam. Normocephalic. Atraumatic. No Jarrell signs noted. No raccoon eyes noted Eyes: PERRLA. EOMI. Conjunctiva and sclera normal. Eyelids normal. ENT: TM's Normal. Pharynx normal. Uvula midline. Moist mucous membranes. No trismus noted. No drooling noted. No muffled voice noted. Neck: Normal inspection. Neck supple. FROM. No adenopathy. Thyroid Normal. No meningeal signs. No neck mass noted. CVS: Normal heart rate and rhythm. Heart sound normal. No murmurs noted. Pulses normal throughout. Respiratory: No respiratory distress. Painless inspiration. Breath sounds normal. No wheezes/rales/rhonchi noted. Chest nontender. No accessory muscle usage noted or decreased air movement noted. Abdomen: Soft and nontender. Bowel sounds normal in all 4 quadrants. No distention noted. No organomegaly noted. No visible injury noted. Back: No CVA tenderness. Full range of motion noted. Skin: Skin warm and dry. Normal skin color. Normal skin turgor. No rashes/lesions/lacerations noted. Extremities: No lower extremity edema. Extremities exhibit normal range of motion. Extremities nontender. Neuro: Unresponsive to verbal stimuli at her baseline. Course Course Course Narrative: Assessment and plan. 71-year-old female who is bed-bound secondary to cerebral palsy with quadriplegia and 4 extremities contractions came in with hyperthermia of 106.6, patient recently was hospitalized for UTI and on Ceftin antibiotic, after external cooling measures applying ice to both axilla line forehead, given Tylenol rectally fever went down to 100.3 and heart rate started to normalize patient received IV fluid and antibiotic to cover Foots thought to be aspiration pneumonia. Patient initially was hypoxic but hypoxia improved with Ventimask 15 L of oxygen. Will admit. Reevaluation(s) Reevaluation #1: I spoke with Chase Shane the brother and the healthcare proxy and the legal guardian at phone number [phone]. Discussed his sister's medical condition who agreed to make his sister comfort measures only, ROXANNE Blankenship also was witnessed the phone conversation and please refer to her note under nurse note. Time: 13:28 Medical Decision Making Medical Records Medical records reviewed: Yes I reviewed the patient's medical records. Lab Data Lab results reviewed: Yes I reviewed the patient's lab results. Result diagrams: 10/21/21 08:42 10/21/21 08:41 Labs: Lab Results 10/21/21 10/21/21 10/21/21 Range/Units 06:44 08:41 08:41 WBC (4.8-10.8) X10*3/uL RBC (4.20-5.50) X10*6/uL Hgb (12.0-16.0) g/dl Hct (37.0-47.0) % MCV (80.0-98.0) fL MCH (27.0-33.0) pg MCHC (31.0-35.0) g/dl RDW (11.0-16.0) % Plt Count (160-400) X10*3/uL MPV (9.4-12.3) fL Immature Gran % (Auto) (0.0-0.4) % Neut % (Auto) (45-73) % Lymph % (Auto) (20-40) % [place] % (Auto) (2-11) % Eos % (Auto) (0-4) % Baso % (Auto) (0-2) % Lymph # (Auto) (1.2-4.9) X10*3/uL [place] # (Auto) (0.1-1.2) X10*3/uL Eos # (Auto) (0.0-0.4) X10*3/uL Baso # (Auto) (0.0-0.2) X10*3/uL Abs Immat Gran (auto) (0.00-0.03) X10*3/uL Absolute Neuts (auto) (2.0-8.3) x10*3/uL Absolute Nucleated RBC (0.0-0.012) X10*3/uL Nucleated RBC % (auto) (0.0-0.2) /100WBC Smear Tech's Comments Sodium 154 H (135-145) mmol/L Potassium 4.2 (3.3-5.1) mmol/L Chloride 124 H (96-108) mmol/L Carbon Dioxide 19 L (22-29) mmol/L Anion Gap 15 (12-20) BUN 39 H D (9-16) mg/dL Creatinine 0.94 (0.5-1.4) mg/dL Estim Creat Clear Calc 29.8 Estimated GFR 59 POC Glucose 178 H (60-115) mg/dL Random Glucose 150 H (60-115) mg/dL Lactic Acid 2.8 H* (0.5-2.0) mmol/L Calcium 9.2 D (8.4-10.2) mg/dL Total Bilirubin 0.2 (0.0-1.0) mg/dL Direct Bilirubin < 0.2 (0.0-0.5) mg/dL AST 26 (5-31) U/L ALT 7 (0-31) U/L Alkaline Phosphatase 99 (39-117) U/L Troponin I High Sens (<3.5-17.0) ng/L B-Natriuretic Peptide (<100) pg/mL Total Protein 5.4 L (6.5-8.0) g/dL Albumin 2.5 L D (3.5-5.0) g/dL Lipase 8 (8-78) U/L Urine Color Urine Appearance Urine pH (5.0-8.0) Ur Specific [place] (1.005-1.025) Urine Protein (NEG-TRACE) MG/DL Urine Glucose (UA) (NEG) MG/DL Urine Ketones (NEG) MG/DL Urine Blood (NEG) Urine Nitrite (NEG) Ur Leukocyte Esterase (NEG) Urine RBC (0) /HPF Urine WBC (0-4) /HPF Ur Squamous Epith Cells /LPF Calcium Oxalate Crystal /LPF Urine Bacteria /LPF Urine Mucus /LPF Influenza Type A (PCR) (Negative) Influenza Type B (PCR) (Negative) RSV RNA Qual (PCR) (Negative) SARS-CoV-2 RNA (RT-PCR) (Negative) 10/21/21 10/21/21 10/21/21 Range/Units 08:42 08:42 08:42 WBC 34.8 H* (4.8-10.8) X10*3/uL RBC 4.11 L D (4.20-5.50) X10*6/uL Hgb 12.7 D (12.0-16.0) g/dl Hct 41.7 D (37.0-47.0) % MCV 101.5 H (80.0-98.0) fL MCH 30.9 (27.0-33.0) pg MCHC 30.5 L (31.0-35.0) g/dl RDW 15.1 (11.0-16.0) % Plt Count 182 D (160-400) X10*3/uL MPV 10.8 (9.4-12.3) fL Immature Gran % (Auto) 1.1 H (0.0-0.4) % Neut % (Auto) 88.2 H (45-73) % Lymph % (Auto) 6.1 L (20-40) % [place] % (Auto) 4.3 (2-11) % Eos % (Auto) 0.0 (0-4) % Baso % (Auto) 0.3 (0-2) % Lymph # (Auto) 2.1 (1.2-4.9) X10*3/uL [place] # (Auto) 1.5 H (0.1-1.2) X10*3/uL Eos # (Auto) 0.0 (0.0-0.4) X10*3/uL Baso # (Auto) 0.1 (0.0-0.2) X10*3/uL Abs Immat Gran (auto) 0.38 H (0.00-0.03) X10*3/uL Absolute Neuts (auto) 30.7 H (2.0-8.3) x10*3/uL Absolute Nucleated RBC 0.000 (0.0-0.012) X10*3/uL Nucleated RBC % (auto) 0.0 (0.0-0.2) /100WBC Smear Tech's Comments VERIFIED Sodium (135-145) mmol/L Potassium (3.3-5.1) mmol/L Chloride (96-108) mmol/L Carbon Dioxide (22-29) mmol/L Anion Gap (12-20) BUN (9-16) mg/dL Creatinine (0.5-1.4) mg/dL Estim Creat Clear Calc Estimated GFR POC Glucose (60-115) mg/dL Random Glucose (60-115) mg/dL Lactic Acid (0.5-2.0) mmol/L Calcium (8.4-10.2) mg/dL Total Bilirubin (0.0-1.0) mg/dL Direct Bilirubin (0.0-0.5) mg/dL AST (5-31) U/L ALT (0-31) U/L Alkaline Phosphatase (39-117) U/L Troponin I High Sens 120.4 H* (<3.5-17.0) ng/L B-Natriuretic Peptide 66 (<100) pg/mL Total Protein (6.5-8.0) g/dL Albumin (3.5-5.0) g/dL Lipase (8-78) U/L Urine Color Urine Appearance Urine pH (5.0-8.0) Ur Specific [place] (1.005-1.025) Urine Protein (NEG-TRACE) MG/DL Urine Glucose (UA) (NEG) MG/DL Urine Ketones (NEG) MG/DL Urine Blood (NEG) Urine Nitrite (NEG) Ur Leukocyte Esterase (NEG) Urine RBC (0) /HPF Urine WBC (0-4) /HPF Ur Squamous Epith Cells /LPF Calcium Oxalate Crystal /LPF Urine Bacteria /LPF Urine Mucus /LPF Influenza Type A (PCR) NEGATIVE (Negative) Influenza Type B (PCR) NEGATIVE (Negative) RSV RNA Qual (PCR) NEGATIVE (Negative) SARS-CoV-2 RNA (RT-PCR) NEGATIVE (Negative) 10/21/21 Range/Units 09:14 WBC (4.8-10.8) X10*3/uL RBC (4.20-5.50) X10*6/uL Hgb (12.0-16.0) g/dl Hct (37.0-47.0) % MCV (80.0-98.0) fL MCH (27.0-33.0) pg MCHC (31.0-35.0) g/dl RDW (11.0-16.0) % Plt Count (160-400) X10*3/uL MPV (9.4-12.3) fL Immature Gran % (Auto) (0.0-0.4) % Neut % (Auto) (45-73) % Lymph % (Auto) (20-40) % [place] % (Auto) (2-11) % Eos % (Auto) (0-4) % Baso % (Auto) (0-2) % Lymph # (Auto) (1.2-4.9) X10*3/uL [place] # (Auto) (0.1-1.2) X10*3/uL Eos # (Auto) (0.0-0.4) X10*3/uL Baso # (Auto) (0.0-0.2) X10*3/uL Abs Immat Gran (auto) (0.00-0.03) X10*3/uL Absolute Neuts (auto) (2.0-8.3) x10*3/uL Absolute Nucleated RBC (0.0-0.012) X10*3/uL Nucleated RBC % (auto) (0.0-0.2) /100WBC Smear Tech's Comments Sodium (135-145) mmol/L Potassium (3.3-5.1) mmol/L Chloride (96-108) mmol/L Carbon Dioxide (22-29) mmol/L Anion Gap (12-20) BUN (9-16) mg/dL Creatinine (0.5-1.4) mg/dL Estim Creat Clear Calc Estimated GFR POC Glucose (60-115) mg/dL Random Glucose (60-115) mg/dL Lactic Acid (0.5-2.0) mmol/L Calcium (8.4-10.2) mg/dL Total Bilirubin (0.0-1.0) mg/dL Direct Bilirubin (0.0-0.5) mg/dL AST (5-31) U/L ALT (0-31) U/L Alkaline Phosphatase (39-117) U/L Troponin I High Sens (<3.5-17.0) ng/L B-Natriuretic Peptide (<100) pg/mL Total Protein (6.5-8.0) g/dL Albumin (3.5-5.0) g/dL Lipase (8-78) U/L Urine Color YELLOW Urine Appearance HAZY Urine pH 5.0 (5.0-8.0) Ur Specific [place] >= 1.030 H (1.005-1.025) Urine Protein 1+ H (NEG-TRACE) MG/DL Urine Glucose (UA) NEG (NEG) MG/DL Urine Ketones 15 (NEG) MG/DL Urine Blood NEG (NEG) Urine Nitrite NEG (NEG) Ur Leukocyte Esterase NEG (NEG) Urine RBC 0 (0) /HPF Urine WBC 0 (0-4) /HPF Ur Squamous Epith Cells TRACE /LPF Calcium Oxalate Crystal 2+ /LPF Urine Bacteria NONE /LPF Urine Mucus 1+ /LPF Influenza Type A (PCR) (Negative) Influenza Type B (PCR) (Negative) RSV RNA Qual (PCR) (Negative) SARS-CoV-2 RNA (RT-PCR) (Negative) Imaging Data Chest x-ray: Attestation: I personally reviewed and interpreted this imaging study as follows: Radiologist's impression: There is minimally increased opacity at the base of the left lung, possibly atelectasis versus consolidation or aspiration. Discharge Plan Discharge Clinical Impression: Hypernatremia, Comfort measures only status Aspiration pneumonia Qualifiers: Laterality: left Lung location: lower lobe of lung Patient Disposition: Admitted As Inpatient
[2021-10-21] MEDS: 0.9 % Sodium Chloride 1,000 ML 999 ML IVCONT (06:58)
[2021-10-21] MEDS: Acetaminophen Supp 650 MG SUPP.RECT PR (06:58)
--- NOTE | 2021-10-21 07:30 | PC.NURSE ---
pt arrived to ed unresponsive via ems. per ems [facility] that pt resides called due to pt's increased lethargy. pt tachycardic on arrival with a fever of 106.6 and oxygen saturation in the low 80s to 90s. bp stable. pt placed on venti-mask at 15L which increased her O2 saturation to 95-96%. ice-packs and cool wash cloths were placed on pt as well as medication given for fever. an iv line
[2021-10-21 07:49] LABS: Glucose, Whole Blood 178 mg/dL (60-115)
--- NOTE | 2021-10-21 08:00 | PC.NURSE ---
pt arrived to ed unresponsive via ems. per ems [facility] pt resides called due to pt's increased lethargy. pt tachycardic on arrival with a fever of 106.6 and oxygen saturation in the low 80s to 90s. bp stable. pt placed on venti-mask at 15L which increased her O2 saturation to 95-96%. ice-packs and cool wash cloths were placed on pt as well as medication given for fever. an iv line placed, fluids hung, labs drawn as documented pt will continue to be monitored.
[2021-10-21] MEDS: levoFLOXacin/D5W 500 MG/100 ML PIGGYBACK 100 MG IV (08:42)
[2021-10-21 08:49] LABS: Basophils Absolute Auto 0.1 X10*3/uL (0.0-0.2); Basophils Percent Auto 0.3 % (0-2); Hematocrit 41.7 % (37.0-47.0); Hemoglobin 12.7 g/dl (12.0-16.0); Imm Gran Abs Auto 0.38 X10*3/uL (0.00-0.03); Imm Gran Pct Auto 1.1 % (0.0-0.4); Lymphocytes Absolute Auto 2.1 X10*3/uL (1.2-4.9); Lymphocytes Percent Auto 6.1 % (20-40); MANUAL DIFF FLAG SCAN; Mean Corpuscular HGB Conc 30.5 g/dl (31.0-35.0); Mean Corpuscular Hemoglobin 30.9 pg (27.0-33.0); Mean Corpuscular Volume 101.5 fL (80.0-98.0); Mean Platelet Volume 10.8 fL (9.4-12.3); Monocytes Absolute Auto 1.5 X10*3/uL (0.1-1.2); Monocytes Percent Auto 4.3 % (2-11); Neutrophils Absolute Auto 30.7 x10*3/uL (2.0-8.3); Neutrophils Percent Auto 88.2 % (45-73); Platelet Count 182 X10*3/uL (160-400); Red Blood Count 4.11 X10*6/uL (4.20-5.50); Red Cell Distribution Width 15.1 % (11.0-16.0); SCAN SMEAR FLAG 1
--- NOTE | 2021-10-21 08:50 | PC.NURSE ---
pt difficult stick. first set of cultures drawn, antibiotics started prior to second set of culture. will attempt to get second set of cultures. Dr. Manjinder dykes.
[2021-10-21 08:54] LABS: White Blood Count 34.8 X10*3/uL (4.8-10.8)
[2021-10-21 09:05] LABS: Alanine Aminotransferase 7 U/L (0-31); Albumin Level 2.5 g/dL (3.5-5.0); Alkaline Phosphatase 99 U/L (39-117); Anion Gap 15 (12-20); Aspartate Amino Transferase 26 U/L (5-31); Bilirubin Direct < 0.2 mg/dL (0.0-0.5); Bilirubin Total 0.2 mg/dL (0.0-1.0); Blood Urea Nitrogen 39 mg/dL (9-16); Calcium 9.2 mg/dL (8.4-10.2); Carbon Dioxide 19 mmol/L (22-29); Chloride 124 mmol/L (96-108); Creatinine Clr Calc Pharmacy 29.8; Estimated Glomerular Filt Rate 59; Glucose Random 150 mg/dL (60-115); Lipase 8 U/L (8-78); Potassium 4.2 mmol/L (3.3-5.1); Sodium 154 mmol/L (135-145); Total Protein 5.4 g/dL (6.5-8.0)
[2021-10-21 09:07] LABS: SLIDE REVIEW VERIFIED
[2021-10-21 09:07] LABS: Lactic Acid 2.8 mmol/L (0.5-2.0)
[2021-10-21 09:20] LABS: Appearance Urine HAZY; Color Urine YELLOW; Glucose Urine UA NEG (NEG); Leukocyte Esterase Urine NEG (NEG); Nitrite Urine NEG (NEG); Specific Gravity - Urine >= 1.030 (1.005-1.025); UACC Culture Trigger NO; Urine Blood NEG (NEG); Urine Ketones 15 MG/DL (NEG); Urine Protein 1+ MG/DL (NEG-TRACE)
[2021-10-21 09:23] LABS: B Type Natriuretic Peptide 66 pg/mL (<100); Troponin-I High Sensitivity 120.4 ng/L (<3.5-17.0)
--- NOTE | 2021-10-21 09:27 | PHA.MEDREC ---
MED REC COMPLETE, NO ISSUES Pharmacy Consult ? Medication Reconciliation Pharmacy has completed the medication reconciliation.
[2021-10-21 09:29] LABS: RBC Urine 0 /HPF (0); Squamous Epithelial Cell Urine TRACE /LPF; WBC Urine 0 /HPF (0-4)
[2021-10-21 09:29] LABS: Influenza A PCR NEGATIVE (Negative); Influenza B PCR NEGATIVE (Negative); Resp Syncy Virus RNA Qual PCR NEGATIVE (Negative); SARS COV2 PCR INHOUSE NEGATIVE (Negative)
[2021-10-21 09:30] LABS: Calcium Oxalate Crystals Urine 2+ /LPF
[2021-10-21 09:32] LABS: Mucus Urine 1+ /LPF
[2021-10-21] MEDS: Piperacillin Sodium/Tazobactam 3.375 GM in 0.9 % Sodium Chloride 50 ML IV (09:51)
--- NOTE | 2021-10-21 10:45 | PC.NURSE ---
Sabas nursing air conditioning supervisor at [facility] called for update on pt. Both pt's and daughter are at his bedside is are aware. pt remains stable, no change in condition.
[2021-10-21 10:47] LABS: Reflex Lactate? Lactic Acid Added
--- NOTE | 2021-10-21 13:17 | PC.NURSE ---
spoke to dar queen who is the pt's brother and health care proxy pt will be made comfort care only at this time
--- NOTE | 2021-10-21 13:54 | MHC.CM.ED ---
Addendum entered by Janice Granados 10/21/21 14:09: PER CONVERSATION WITH , BROTHER/GUARDIAN IS AGREEABLE TO [employer]. Original Note: THIS PRODUCE CLERK MET WITH ATM SERVICER ROSELIA. ROSELIA ASKS FOR A REFERRAL TO [facility], SHE HAS HAD THEIR SERVICES IN THE PAST. REFERRAL PLACED. PATIENT TO BE ADMITTED [employer] [employer] CASE MANAGEMENT TO FOLLOW UP ON REFERRAL PROGRESS.
--- NOTE | 2021-10-21 14:25 | MHC.CM.PN ---
CM CALLED PTS BROTHER/GUARDIAN, JOVANNA [phone]. JOVANNA REPORTS HE DOES NOT WANT A REFERRAL TO HOSPICE AT THIS TIME AND SAYS HE HAS A BONE TO PICK WITH PTS S[employer]K SCREEN ETCHER ROSELIA. HE REPORTS SHE HAS NOT CONTACTED HIM SINCE THIS STARTED. HE REPORTS HE IS CURRENTLY IN THE HOSPITAL AND WILL NOT BE ABLE TO GET THE GUARDIANSHIP PAPERWORK TO CM PRIOR TO MORNING. HE WILL DISCUSS POC WITH PTS S[employer] SCREEN ETCHER AND THEN LET CM KNOW IF HE IS AGREEABLE TO HOSPICE CONSULT.
--- NOTE | 2021-10-21 15:10 | P.HPHOSP_ITS ---
History of Present Illness Date of Service: 10/21/21 Attending physician on admission: Teresa Santa Chief Complaint: Lethargy this is a 71 year old female with history of cerebal palsy who was brought to the ED today due to increasing lethargy. The history was obtained from her caregiver at the bedside as the patient is non-verbal at baseline. She was recently admitted to the hospital for UTI. After returning home she was initially doing ok, but seems to have declined over the past couple of days. She does not seem to have been eating as much as usual. Today she was lethargic and unable to eat. Her caregiver noticed she was not acting like herself. She was brought into the emergency department and was unresponsive on arrival. She was hyperthermic with temperature of 106.6 degrees, tachycardic with heart rate in the 160s and tachypneic with respiratory rate of 26. She was also hypoxic with an oxygen saturation of 80% on room air, she was placed on a Venti mask with improvement in her oxygen saturation. Lab work revealed multiple abnormalities including leukocytosis of 34.8,sodium 154, chloride 124, bicarb 19, lactic acid elevated at 2.8. Troponin was elevated at 120.4. Initially she was treated for hyperthermia with cold packs and cool wash clothes and her fever began to improve. She received empiric antibiotics as well as fluid bolus. Given the multitude of severe medical issues, the ED provider contacted the patient's brother and HCP and he decided to make the patient SUBSTATION OPERATOR AUTOMATIC. Review of Systems Review of Systems: Yes Unobtainable due to mental condition [facility] Medical History (Updated 10/23/21 @ 18:58 by Zoey Mcdonnell NP) Cerebral palsy Functional capacity: bed bound Pertinent family history: unable to obtain as the patient is non-verbal and non- arousable Social History Household Members: Other Housing: Assisted Living Facility Do you presently have visiting nurse or other home services: No Patient Tobacco Use Status: Never used Tobacco service: No Current occupational status: disabled Meds Allergies Allergy/AdvReac Type Severity Reaction Status Date / Time No Known Allergies Allergy Verified 10/09/21 21:22 Active Medications: Current Medications Lorazepam (Lorazepam 0.5 Mg Tablet) 0.5 mg SUBLINGUAL Q4H PRN PRN Reason: anxiety/restlessness Morphine Sulfate (Morphine Sulfate 2 Mg/Ml Cartridge) 2 mg IVPUSH Q2H PRN PRN Reason: Discomfort/Shortness of breath Pharmacy Consult (Consult Rx Perform Med Rec) 1 each MISCELLANE ONCE PRN PRN Reason: Consult order Scopolamine (Scopolamine 1.5 Mg Patch.Td.3) 1.5 mg TRANSDERMA Q72H [facility] Home Medications Medication Instructions Recorded Confirmed Last Taken Type acetic acid 2 % ear solution 3 drp OTIC (EARS) DAILY 10/10/21 10/21/21 Unknown History ascorbic acid (vitamin C) 250 mg 250 mg PO DAILY 10/10/21 10/21/21 10/20/21 History tablet calcium citrate 250 mg PO BEDTIME 10/10/21 10/21/21 10/20/21 History carbamazepine 200 mg tablet 200 mg PO DAILY 10/10/21 10/21/21 10/20/21 History carbamazepine 200 mg tablet 300 mg PO BEDTIME 10/10/21 10/21/21 10/20/21 History cholecalciferol (vitamin D3) 25 25 mcg PO DAILY 10/10/21 10/21/21 10/20/21 History mcg (1,000 unit) capsule docusate sodium 100 mg capsule 100 mg PO BID 10/10/21 10/21/21 10/20/21 History ketoconazole 2 % topical cream 1 appl TOPICAL BID 10/10/21 10/21/21 Unknown History lorazepam 1 mg tablet 1 tab PO BEDTIME 10/10/21 10/21/21 10/20/21 History metronidazole 0.75 % topical cream 1 appl TOPICAL BID 10/10/21 10/21/21 Unknown History neomycin 3.5 mg/g-polymyxin B 1 appl OPHTHALMIC-LEFT DAILY 10/10/21 10/21/21 10/20/21 History 10,000 unit/g-dexameth 0.1 % eye oint psyllium husk (aspartame) 3.4 3.4 g PO BID 10/10/21 10/21/21 10/20/21 History gram/5.8 gram oral powder (Metamucil [facility] Fiber) terbinafine HCl 1 % topical cream 1 appl TOPICAL BID 10/10/21 10/21/21 10/20/21 History (Athlete's Foot (terbinafine)) acetaminophen 160 mg/5 mL oral 320 mg PO Q4H PRN 10/21/21 10/21/21 Unknown History liquid multivitamin (Daily-Samara) 1 tab PO DAILY 10/21/21 10/21/21 10/20/21 History triamcinolone acetonide 0.1 % 1 appl TOPICAL BID 10/21/21 10/21/21 Unknown History topical cream Physical Exam Vital Signs and Narrative: Vital Signs: Last Vital Signs Temp 97.9 F 10/21/21 13:04 Pulse 98 10/21/21 13:04 Resp 11 L 10/21/21 13:04 BP 110/65 10/21/21 13:04 Pulse Ox 97 10/21/21 13:04 Oxygen Flow Rate 10 10/21/21 06:50 BMI result Body Mass Index 15.6 Const: Other: not arousable to verbal stimuli, not following commands HENMT: Head: Yes normocephalic and Yes atraumatic Eyes: Sclerae: sclerae normal Resp: Other: breathing unlabored, no acute distress Cardio: Rate: regular rate Rhythm: regular rhythm GI: Other: abdomen soft, non-distended Neuro: Cranial nerves: Yes CN's II-XII intact bilaterally and Yes Bilaterally intact EOM present Extrem: Other: muscle contractures Results Labs CBC and Chem 7: 10/25/21 05:35 10/25/21 05:35 Labs: Laboratory Results - last 24 hr 10/21/21 10/21/21 10/21/21 06:44 08:41 08:41 MCV MCH MCHC RDW Plt Count MPV Immature Gran % (Auto) Neut % (Auto) Lymph % (Auto) [place] % (Auto) Eos % (Auto) Baso % (Auto) Lymph # (Auto) [place] # (Auto) Eos # (Auto) Baso # (Auto) Abs Immat Gran (auto) Absolute Neuts (auto) Absolute Nucleated RBC Nucleated RBC % (auto) Smear Tech's Comments PT INR APTT Anion Gap 15 Estim Creat Clear Calc 29.8 Estimated GFR 59 POC Glucose 178 H Random Glucose 150 H Lactic Acid 2.8 H* Calcium 9.2 D Total Bilirubin 0.2 Direct Bilirubin < 0.2 AST 26 ALT 7 Alkaline Phosphatase 99 Troponin I High Sens B-Natriuretic Peptide Total Protein 5.4 L Albumin 2.5 L D Lipase 8 Urine Color Urine Appearance Urine pH Ur Specific [place] Urine Protein Urine Glucose (UA) Urine Ketones Urine Blood Urine Nitrite Ur Leukocyte Esterase Urine RBC Urine WBC Ur Squamous Epith Cells Calcium Oxalate Crystal Urine Bacteria Urine Mucus Influenza Type A (PCR) Influenza Type B (PCR) RSV RNA Qual (PCR) SARS-CoV-2 RNA (RT-PCR) 10/21/21 10/21/21 10/21/21 08:42 08:42 08:42 MCV 101.5 H MCH 30.9 MCHC 30.5 L RDW 15.1 Plt Count 182 D MPV 10.8 Immature Gran % (Auto) 1.1 H Neut % (Auto) 88.2 H Lymph % (Auto) 6.1 L [place] % (Auto) 4.3 Eos % (Auto) 0.0 Baso % (Auto) 0.3 Lymph # (Auto) 2.1 [place] # (Auto) 1.5 H Eos # (Auto) 0.0 Baso # (Auto) 0.1 Abs Immat Gran (auto) 0.38 H Absolute Neuts (auto) 30.7 H Absolute Nucleated RBC 0.000 Nucleated RBC % (auto) 0.0 Smear Tech's Comments VERIFIED PT Cancelled INR Cancelled APTT Cancelled Anion Gap Estim Creat Clear Calc Estimated GFR POC Glucose Random Glucose Lactic Acid Calcium Total Bilirubin Direct Bilirubin AST ALT Alkaline Phosphatase Troponin I High Sens 120.4 H* B-Natriuretic Peptide 66 Total Protein Albumin Lipase Urine Color Urine Appearance Urine pH Ur Specific [place] Urine Protein Urine Glucose (UA) Urine Ketones Urine Blood Urine Nitrite Ur Leukocyte Esterase Urine RBC Urine WBC Ur Squamous Epith Cells Calcium Oxalate Crystal Urine Bacteria Urine Mucus Influenza Type A (PCR) Influenza Type B (PCR) RSV RNA Qual (PCR) SARS-CoV-2 RNA (RT-PCR) 10/21/21 10/21/21 08:42 09:14 MCV MCH MCHC RDW Plt Count MPV Immature Gran % (Auto) Neut % (Auto) Lymph % (Auto) [place] % (Auto) Eos % (Auto) Baso % (Auto) Lymph # (Auto) [place] # (Auto) Eos # (Auto) Baso # (Auto) Abs Immat Gran (auto) Absolute Neuts (auto) Absolute Nucleated RBC Nucleated RBC % (auto) Smear Tech's Comments PT INR APTT Anion Gap Estim Creat Clear Calc Estimated GFR POC Glucose Random Glucose Lactic Acid Calcium Total Bilirubin Direct Bilirubin AST ALT Alkaline Phosphatase Troponin I High Sens B-Natriuretic Peptide Total Protein Albumin Lipase Urine Color YELLOW Urine Appearance HAZY Urine pH 5.0 Ur Specific [place] >= 1.030 H Urine Protein 1+ H Urine Glucose (UA) NEG Urine Ketones 15 Urine Blood NEG Urine Nitrite NEG Ur Leukocyte Esterase NEG Urine RBC 0 Urine WBC 0 Ur Squamous Epith Cells TRACE Calcium Oxalate Crystal 2+ Urine Bacteria NONE Urine Mucus 1+ Influenza Type A (PCR) NEGATIVE Influenza Type B (PCR) NEGATIVE RSV RNA Qual (PCR) NEGATIVE SARS-CoV-2 RNA (RT-PCR) NEGATIVE Imaging Radiologist's Impressions: Impressions Chest X-Ray 10/21/21 08:00 IMPRESSION: There is minimally increased opacity at the base of the left lung, possibly atelectasis versus consolidation or aspiration. Assessment and Plan (1) Aspiration pneumonia: Qualifiers: Laterality: left Lung location: lower lobe of lung Status: Acute (2) Hypernatremia: Status: Acute (3) Acute respiratory failure with hypoxia: Status: Acute (4) Severe sepsis: Status: Acute (5) Hyperthermia: Status: Acute (6) Cerebral palsy: this is a 71 year female with history of cerebral palsy, nonverbal and bedbound, total care at baseline, recent admission for UTI brought into the emergency department with increasing lethargy found have multiple significant acute medical issues being admitted for comfort measures acute respiratory failure with hypoxia severe sepsis hypernatremia hyperthermia metabolic acidosis probable aspiration pneumonia elevated troponin cerebal palsy seizure disorder protein calorie malnutrition -care discussed with Chase patient's HCP ([phone]) to confirm SUBSTATION OPERATOR AUTOMATIC status. It was discussed with him in detail and he understands the severity of her illness and is in agreement with making her comfortable. She will be admitted for comfort. all baseline medications will be discontinued and she will be started on morphine, ativan and scopolomine. attending: dr. yazmin Santizo Stroke Does the patient have a stroke diagnosis?: No VTE Prior VTE?: No VTE Risk Level:: Medical - moderate - high VTE Device Contraindication: Treatment Not Indicated VTE Drug Contraindication: Treatment Not Indicated
--- NOTE | 2021-10-21 15:11 | MHC.CM.ED ---
THIS ROUGH RICE TENDER MET WITH BRICKLAYER TENDER AND HER DAUGHTER PER REQUEST. BRICKLAYER TENDER, ROSELIA, NOW STATING THAT SHE DOES NOT WANT THE PATIENT TO COME HOME ON HOSPICE. ROSELIA HAS SAID HER GOOD-BYES SHE WOULD LIKE TO HAVE AN UPDATE ON PATIENT STATUS. ROSELIA CAN BE REACHED AT [phone] (HOME) OR [phone] (CELL) PLEASE TRY HOME FIRST [facility] MADE AWARE OF BRICKLAYER TENDER CHANGE OF MIND
--- NOTE | 2021-10-21 16:04 | MHC.CM.PN ---
CALL TO JOVANNA ([phone]) TO ASK IF HE HAS THE CONTACT NUMBER TO FAX HCP HE READ [phone] TO THIS INTERMEDIATE ACCOUNTANT JOVANNA INFORMED THAT THIS IS THE HOSPITAL MAIN NUMBER JOVANNA THEN GAVE THE PHONE TO ESTELA (RN WHEREVER JOVANNA IS CURRENTLY LOCATED) ESTELA TOOK [phone] FAX NUMBER FOR CASE MANAGEMENT OFFICE. ESTELA REPEATED NUMBER BACK TO THIS INTERMEDIATE ACCOUNTANT
--- NOTE | 2021-10-21 16:20 | P.EN_ITS ---
Event Note Date of Service: 10/21/21 Event Note: This patient is seen and examined with APC. Patient came to the hospital because of increased lethargy, she is baseline nonverbal. and multiple medical issues Physical exam : please see APCs note: lethargic, chronically sick-looking patient lungs: Breath sounds diminished at bases, no rales chest: regular rate and rhythm, S1-S2 heard neuro: lethargic , Not arousable to verbal stimuli assessment and plan coordinated in APCs note, ?acute respiratory failure with hypoxia ?severe sepsis ?hypernatremia ?hyperthermia ?metabolic acidosis ?probable aspiration pneumonia ?elevated troponin ?cerebal palsy ?seizure disorder ?protein calorie malnutrition ED discussed -care discussed with Chase patient's HCP ([phone]) to confirm PHOTOLETTERING MACHINE OPERATOR status.?
[2021-10-21] MEDS: Scopolamine 1.5 MG PATCH.TD.3 TRANSDERMA (17:45)
[2021-10-21] MEDS: Morphine Sulfate 2 MG/ML CARTRIDGE IVPUSH (23:37)
--- NOTE | 2021-10-21 23:42 | PC.NURSE ---
pt moaning, medicated for comfort. pt Repositioned. Will continue to monitor
[2021-10-22] MEDS: Morphine Sulfate 2 MG/ML CARTRIDGE IVPUSH ×3 (02:35→18:33)
[2021-10-22] MEDS: LORazepam 2 MG/ML VIAL 0.5 MG IVPUSH ×2 (02:36→09:12)
--- NOTE | 2021-10-22 02:38 | PC.NURSE ---
pt restless and moaning, Medicated per jan. reposition pt for comfort. Will continue to monitor.
[2021-10-22 02:39] VITALS: BP 135/85; PULSE 104; RESP 10; O2SAT 100
--- NOTE | 2021-10-22 08:31 | P.CDIC_ITS ---
CDI Concurrent Query Documentation Clarification: PHYSICIAN'S DOCUMENTATION REQUEST Date of Query: 10/22/21 0831 Patient Name: Marcia Lynn Admit Date: 10/21/21 Dear Doctor, A review of the medical record indicates additional documentation may be needed. Please review below and update the documentation accordingly. Risk Factors/Clinical Indicators/Treatments Progress note: 10/21 - Dx: protein calorie malnutrition. BMI 15.7 Albumin 2.5 Total protein 5.4 DIPLOMATIC INTERPRETER ASPEN Criteria* Acute Illness Chronic Illness Clinical Characteristic Non-Severe (2 or more criteria present) Severe (2 or more criteria present) Non-Severe (2 or more criteria present) Severe (2 or more criteria present) Energy Intake <75% for >7 days <=50% for >=5 days <75% for >=1 month <=75% for >=1 month Weight Loss 1 week 1 ? 2% >2% N/A N/A 1 month 5% >5% 5% >5% 3 months 7.5 % >7.5% 7.5% >7.5% 6 months N/A N/A 10% >10% 1 year N/A N/A 20% >20% Body Fat Mild Moderate Mild Severe Muscle Mass Mild Moderate Mild Severe Fluid Accumulation Mild Moderate to Severe Mild Severe Reduced Journeyman Plumber Strength N/A Measurably Reduced N/A Measurably Reduced *[facility] Hospitalist, 2017 If possible, please provide in your progress notes, additional specificity regar ding the severity of the malnutrition using the above information: * Mild * Moderate * Severe * Other (please specify) * Unable to determine Use of terms such as suspected, likely, concern for, or probable (associated with a specific diagnosis that is being evaluated, monitored, or treated as if it exists) are acceptable and can be coded in the inpatient setting, when documented at the time of discharge. Thank you, Latasha Lopez [facility], CDIS Extension: [phone] Please use your independent medical judgment in providing your response. THIS QUERY IS PART OF THE PERMANENT MEDICAL RECORD Provider Response: Severe Protein-Calorie Malnutrition
[2021-10-22 09:11] VITALS: RESP 7
--- NOTE | 2021-10-22 09:47 | PC.NURSE ---
pt with RR 6, Zoey Leonard NP at [facility], pt removed from monitor
--- NOTE | 2021-10-22 10:02 | PC.NURSE ---
pt with agonal respirations. Spoke with brother and home caregiver to make them aware of patient's status. Patient appears comfortable, will continue to monitor.
--- NOTE | 2021-10-22 12:33 | PC.NURSE ---
Gustavo Mckenzie cell would like an update regarding pts condition as it changes
--- NOTE | 2021-10-22 12:37 | HO.PM.IMPN ---
Subjective Subjective Date of Service: 10/23/21 Review of Systems Follow ANALYTICS LEADER Unresponsive/somnolent Physical Exam Vital Signs: Vital Signs: Last Vital Signs Temp 97.9 F 10/21/21 13:04 Pulse 104 H 10/22/21 02:39 Resp 7 L 10/22/21 09:11 BP 135/85 10/22/21 02:39 Pulse Ox 100 10/22/21 02:39 Oxygen Flow Rate 10 10/21/21 06:50 BMI result Body Mass Index 15.6 somnolent lungs normal expansion heart regular rate rhythm, clear S1, S2 positive bowel sounds, abdomen is soft, nontender neuro patient unresponsive Objective Data Active Medications Lorazepam (Lorazepam 2 Mg/Ml Vial) 0.5 mg IVPUSH Q4H PRN PRN Reason: Anxiety Last Admin: 10/22/21 09:12 Dose: 0.5 mg Documented by: KAVON Morphine Sulfate (Morphine Sulfate 2 Mg/Ml Cartridge) 2 mg IVPUSH Q2H PRN PRN Reason: Discomfort/Shortness of breath Last Admin: 10/22/21 09:11 Dose: 2 mg Documented by: KAVON Pharmacy Consult (Consult Rx Perform Med Rec) 1 each MISCELLANE ONCE PRN PRN Reason: Consult order Scopolamine (Scopolamine 1.5 Mg Patch.Td.3) 1.5 mg TRANSDERMA Q72H RAJANI Last Admin: 10/21/21 17:45 Dose: 1.5 mg Documented by: ABEL Labs CBC & Chem 7: 10/21/21 08:42 10/21/21 08:41 Labs: Laboratory Results - last 24 hr 10/21/21 08:42 PT Cancelled INR Cancelled APTT Cancelled Microbiology Microbiology Results: Microbiology 10/21/21 08:42 Blood Culture - Preliminary Blood - Venous No growth after 24 hours. Assessment and Plan (1) Acute respiratory failure with hypoxia: Status: Acute (2) Aspiration pneumonia: Status: Acute Assessment and Plan: this is a 71 year female with history of cerebral palsy, nonverbal and bedbound, total care at baseline, recent admission for UTI brought into the emergency department with increasing lethargy found have multiple significant acute medical issues being admitted for comfort measures. ?acute respiratory failure with hypoxia ?severe sepsis ?hypernatremia ?hyperthermia ?metabolic acidosis ?probable aspiration pneumonia ?elevated troponin ?cerebal palsy ?seizure disorder ?Severe acute protein calorie malnutrition -care discussed with Chase, patient's HCP ([phone]) to confirm ANALYTICS LEADER status. It was discussed with him in detail and he understands the severity of her illness and is in agreement with making her comfortable. She will be admitted for comfort measures. Alll baseline medications, labs and vital signs will be discontinued and she will be started on morphine, ativan and scopolomine. Attending Dr. Copeland Quality Stroke Does the patient have a stroke diagnosis?: No VTE Prior VTE?: No VTE Risk Level:: Medical - moderate - high VTE Device Contraindication: Treatment Not Indicated VTE Drug Contraindication: Treatment Not Indicated
--- NOTE | 2021-10-22 15:24 | PC.NURSE ---
pt. minimally responsive but breathing spontaneously. Low SPO2 at 92%. mild tachycardia. Will CTM
--- NOTE | 2021-10-22 18:39 | PC.NURSE ---
pt. awake and groaning in pain when touched. SKin is flushed. warm to the touch. tachycardic. low SPO2
[2021-10-22 21:45] VITALS: PULSE 108; RESP 11; O2SAT 94
--- NOTE | 2021-10-22 22:43 | PC.NURSE ---
This RN marked multiple reassessments as Not Done because they were long overdue.
[2021-10-23] VITALS (11 sets, daily range): BP systolic 90–98; BP diastolic 54–62; PULSE 114–121; RESP 10–18; TEMP 39–39.3; O2SAT 91–94
--- NOTE | 2021-10-23 | ECG_ITS ---
Test Reason : general medical Blood Pressure : / mmHG Vent. Rate : 118 BPM Atrial Rate : 118 BPM P-R Int : 098 ms QRS Dur : 072 ms QT Int : 294 ms P-R-T Axes : 074 059 081 degrees QTc Int : 412 ms Sinus tachycardia with short UT Nonspecific T wave abnormality Abnormal ECG When compared with ECG of 21-OCT-2021 06:47, No significant change was found Referred By: Zoey Mcdonnell Electronically Signed By:KRISTINA BYERS
[2021-10-23] MEDS: Morphine Sulfate 2 MG/ML CARTRIDGE IVPUSH ×3 (01:18→12:38)
[2021-10-23] MEDS: LORazepam 2 MG/ML VIAL 0.5 MG IVPUSH ×2 (08:04→12:38)
--- NOTE | 2021-10-23 08:10 | PC.NURSE ---
Pt medicated for PRN order for HR 120 and contant moaning. Pt awake at this time, unresponsive to answer questions with head shakes. VS as charted, T&Px2, rivera catheter in place. 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 Will continue to monitor, curtain to remain open due to pt's inability to use call escalante.
--- NOTE | 2021-10-23 12:07 | HO.PM.IMPN ---
Subjective Subjective Date of Service: 10/23/21 Review of Systems Follow up aspiration pneumonia somnolent but appears to be close to baseline Physical Exam Vital Signs: Vital Signs: Last Vital Signs Temp 97.9 F 10/21/21 13:04 Pulse 114 H 10/23/21 10:00 Resp 12 10/23/21 10:00 BP 135/85 10/22/21 02:39 Pulse Ox 94 10/23/21 10:00 Oxygen Flow Rate 10 10/21/21 06:50 BMI result Body Mass Index 15.6 Appearing in no acute distress, sleeping lung sounds are clear to auscultation heart regular rate rhythm, clear S1, S2 positive bowel sounds, abdomen is soft, nontender neuro patient is somnolent Objective Data Active Medications Lorazepam (Lorazepam 2 Mg/Ml Vial) 0.5 mg IVPUSH Q4H PRN PRN Reason: Anxiety Last Admin: 10/23/21 08:04 Dose: 0.5 mg Documented by: HIREN Morphine Sulfate (Morphine Sulfate 2 Mg/Ml Cartridge) 2 mg IVPUSH Q2H PRN PRN Reason: Discomfort/Shortness of breath Last Admin: 10/23/21 08:06 Dose: 2 mg Documented by: HIREN Pharmacy Consult (Consult Rx Perform Med Rec) 1 each MISCELLANE ONCE PRN PRN Reason: Consult order Scopolamine (Scopolamine 1.5 Mg Patch.Td.3) 1.5 mg TRANSDERMA Q72H RAJANI Last Admin: 10/21/21 17:45 Dose: 1.5 mg Documented by: ABEL Labs CBC & Chem 7: 10/23/21 16:35 10/23/21 17:00 Microbiology Microbiology Results: Microbiology 10/21/21 08:42 Blood Culture - Preliminary Blood - Venous No growth after 48 hours. 10/22/21 07:09 Blood Culture - Preliminary Blood - Venous No growth after 24 hours. Assessment and Plan (1) Acute respiratory failure with hypoxia: Status: Acute (2) Aspiration pneumonia: Status: Acute (3) Hypernatremia: Status: Acute Assessment and Plan: 71 year female with history of cerebral palsy, nonverbal and bedbound, total care at baseline, recent admission for UTI brought into the emergency department with increasing lethargy found have multiple significant acute medical issues being admitted for comfort measures initially. (10/23/21 see advance planning note) Case discussed today with [facility] director Anastasia Aguero, legal and ethics staff as well. Also on the call Kamini Caceres, Dr. Vel Veronica, Nader Mayfield, Patients brother (guardian). 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 On admission the patient's guardian was contacted and at that time that patient was made comfort measures only. Today there was concern from the [facility] that patient should be treated and patient's brother was in agreement. Plan was to change patients SENIOR ELECTRICAL CONTROLS ENGINEER status to DNR /DNI and treat for active medical problems. Acute respiratory failure with hypoxia secondary to aspiration pneumonia 94% on 2lnc Will start IV Zosyn Speech and swallow evaluation (full care including feeding) IV zosyn Blood cx pending Hypernatremia. Sodium 165 Likely from dehydration/hypovolemia D5W initiated at 125hr Recheck sodium at 2200 and adjust fluids as necessary, avoid rapid overcorrection nephrology consult Severe protein calorie malnutrition. BMI 15.7 Speech and swallow evaluation for diet and nutritional supplements IV fluids for now History of seizure disorder No seizures noted since admission seizure precautions continue seizure medications if unable to take po consider IV seizure medication DVT prophylaxis with heparin Attending Dr. Copeland DNR/DNI Quality Stroke Does the patient have a stroke diagnosis?: No VTE Prior VTE?: No VTE Risk Level:: Medical - moderate - high VTE Device Contraindication: Treatment Not Indicated VTE Drug Contraindication: Treatment Not Indicated
--- NOTE | 2021-10-23 13:27 | MHC.CM.PN ---
i recieved a call from nathalia esquivel rn, regional counseling case manager for shared living (ph: [phone]). the patient lives in a shared living home managed by [facility]. [facility] provides the resources. she had questions regarding how the patient came into the e.d. and was made partner alliance manager rather than treated for her medical condition. she is concerned that the partner alliance manager decision was unilaterally by the patient's brother colleen who is the guardian but not the HCP. nathalia tells me there is no HCP. she is requesting a call c [facility] medicine and CM. this information was shared c [facility] CM director and medical direction. cm to cont. to follow.
--- NOTE | 2021-10-23 14:06 | PC.NURSE ---
Anastasia from [facility] called regarding pt's status, refered to Jose Carlos, Case management. 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
[2021-10-23] MEDS: Piperacillin Sodium/Tazobactam 2.25 GM in 0.9 % Sodium Chloride 50 ML IV ×2 (16:37→21:51)
--- NOTE | 2021-10-23 16:45 | PC.NURSE ---
Pt now DNI/DNR, being medically treated,placed on 2L NC for O2 room sat of 92%, medicated as per [facility] orders. T&Px2, will continue to monitor.
[2021-10-23 16:54] LABS: Hematocrit 37.9 % (37.0-47.0); Hemoglobin 11.4 g/dl (12.0-16.0); Mean Corpuscular HGB Conc 30.1 g/dl (31.0-35.0); Mean Platelet Volume 11.7 fL (9.4-12.3); Platelet Count 241 X10*3/uL (160-400); Red Blood Count 3.68 X10*6/uL (4.20-5.50); Red Cell Distribution Width 15.5 % (11.0-16.0); White Blood Count 27.1 X10*3/uL (4.8-10.8)
[2021-10-23] MEDS: Acetaminophen Supp 650 MG SUPP.RECT PR (18:00)
[2021-10-23] MEDS: 0.9 % Sodium Chloride 1,000 ML 100 ML IVCONT (18:01)
[2021-10-23 18:12] LABS: Anion Gap 21 (12-20); Blood Urea Nitrogen 35 mg/dL (9-16); Calcium 9.6 mg/dL (8.4-10.2); Carbon Dioxide 18 mmol/L (22-29); Chloride 130 mmol/L (96-108); Creatinine Clr Calc Pharmacy 41.9; Estimated Glomerular Filt Rate > 60; Glucose Random 90 mg/dL (60-115); Potassium 4.2 mmol/L (3.3-5.1); Sodium 165 mmol/L (135-145)
--- NOTE | 2021-10-23 18:31 | W.MHC.ACPN ---
Advanced Care Planning Note Advanced Care Planning Note Time spent (in minutes): 60 Narrative: 71 patient women admitted with acute resp failure. Patient coming from shared living facility, part of [facility]. Initially the patient presented as poor prognosis and conversation was had with her brother, Gabriel, who is her guardian (not HCP) in the ED. He agreed that patient should be made comfort . The patient had been treated with prn morphine, ativan and scheduled scopalime patch. Call was made today to Nader Mayfield CM, from Anastasia Correa RN ([phone]), reg mgr for [facility]. There was concern over the fact that patient was not being treated and why was D[facility] not contacted regarding the patients condition. A call was made to Anastasia between myself and Nader Mayfield CM to discuss this. She was informed that there was no documentation that the patient was in DDS care. The call was then escalated to include administration members to discuss further. Call at [phone] included Anastasia, precision aircraft structure assembler for [facility] and ethicist employed by [facility]. The patients brother Mr. Lynn was also on the call as well as Itzel Caceres cm, and Dr. Vel Veronica ADULT DAY CARE WORKER. The concern from DDS was why had the patient not been treated for initial diagnosis in the ED. Consensus between DDS and Mr. Lynn was that it was ok to treat the patient for medical conditions that are present. Patient will be changed from ADULT DAY CARE WORKER to DNR/DNI and will be treated for presumed aspiration pneumonia and other medical conditions that arise due to this. Problems Discussed (1) Acute respiratory failure with hypoxia: (2) Aspiration pneumonia:
[2021-10-23] MEDS: Dextrose 5 % 1,000 ML 125 ML IVCONT (18:36)
--- NOTE | 2021-10-23 18:42 | PC.NURSE ---
DIAMOND SAWER Jannet called, Na+165, fluids changed to D5W, will recheck Na+ at 2200. Pt T&P, pericare provided, will continue to monitor.
--- NOTE | 2021-10-23 20:25 | PC.NURSE ---
Assumed care of pt at 1900. Pt resting in bed, non-labored respirations, minimally responsive to voice. Awaiting inpatient bed
--- NOTE | 2021-10-23 21:27 | PC.NURSE ---
Report called to inpt RN. Pt to floor in stable condition w/ all belongings, 2L O2 by NC. D5 gtt infusing
[2021-10-23] MEDS: Heparin Sodium,Porcine 5,000 UNIT/ML VIAL 5000 UNIT SUBCUT (21:59)
[2021-10-23 22:33] LABS: Anion Gap 22 (12-20); Blood Urea Nitrogen 35 mg/dL (9-16); Calcium 9.8 mg/dL (8.4-10.2); Carbon Dioxide 17 mmol/L (22-29); Chloride 130 mmol/L (96-108); Creatinine Clr Calc Pharmacy 40.7; Estimated Glomerular Filt Rate > 60; Glucose Random 131 mg/dL (60-115); Sodium 165 mmol/L (135-145)
[2021-10-24] VITALS: BP 114/70; PULSE 113; RESP 18; TEMP 36; O2SAT 95
[2021-10-24 01:08] LABS: Anion Gap 24 (12-20); Blood Urea Nitrogen 36 mg/dL (9-16); Calcium 9.6 mg/dL (8.4-10.2); Carbon Dioxide 15 mmol/L (22-29); Chloride 129 mmol/L (96-108); Estimated Glomerular Filt Rate > 60; Glucose Random 130 mg/dL (60-115); Potassium 3.7 mmol/L (3.3-5.1); Sodium 164 mmol/L (135-145)
[2021-10-24] MEDS: Dextrose 5 % 1,000 ML 150 ML IVCONT ×3 (01:40→16:54)
[2021-10-24] MEDS: Piperacillin Sodium/Tazobactam 2.25 GM in 0.9 % Sodium Chloride 50 ML IV ×4 (05:09→22:43)
[2021-10-24 05:51] LABS: Hematocrit 36.4 % (37.0-47.0); Hemoglobin 11.2 g/dl (12.0-16.0); Mean Corpuscular HGB Conc 30.8 g/dl (31.0-35.0); Mean Corpuscular Hemoglobin 31.1 pg (27.0-33.0); Mean Corpuscular Volume 101.1 fL (80.0-98.0); Mean Platelet Volume 11.9 fL (9.4-12.3); Platelet Count 279 X10*3/uL (160-400); Red Cell Distribution Width 15.7 % (11.0-16.0); White Blood Count 29.4 X10*3/uL (4.8-10.8)
[2021-10-24 06:09] LABS: Anion Gap 18 (12-20); Blood Urea Nitrogen 34 mg/dL (9-16); Calcium 9.4 mg/dL (8.4-10.2); Carbon Dioxide 17 mmol/L (22-29); Chloride 125 mmol/L (96-108); Creatinine Clr Calc Pharmacy 36.9; Estimated Glomerular Filt Rate > 60; Glucose Random 211 mg/dL (60-115); Potassium 3.4 mmol/L (3.3-5.1); Sodium 157 mmol/L (135-145)
--- NOTE | 2021-10-24 06:38 | PM.EVENT ---
Event Note Date of Service: 10/24/21 Event Note: Hypernatremia: Patient's sodium levels were 165; patient was started on D5 water at 125 cc/hour; upon follow-up x2 patient sodium levels remained at 165 followed by 164. Fluid rate increased to 150 cc/hour. The follow-up sodium levels dropped to 157 after few hours. Fluid rate has been decreased to 100 cc/hour. Nephrology consult follow up in the morning. 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
[2021-10-24 07:19] VITALS: BP 102/56; PULSE 103; RESP 15; TEMP 36.6; O2SAT 95
--- NOTE | 2021-10-24 09:02 | MHC.CM.PN ---
EMR REVIEWED, PT BEING TX'D FOR PNA VS ASPIRATION PNA, PT RECEIVING IV FLUIDS, IV ABX AND REMAINS ON 2L O2 VIA NC, CM RETURNED CALL TO PT'S LIVE IN TOBACCO GRADER ROSELIA AT 8:50AM AND [phone] SHE REQUESTED AN UPDATE AND WANTED TO MAKE SURE STAFF WAS AWARE PT NEEDED TO BE FED. ROSELIA WAS HERE IN HOSPITAL DAILY TO FEED PT DURING [place] HOWEVER D/T NEW VISITING GUIDELINES ROSELIA IS UNABLE TO VISIT AND ASSIST PT, ROSELIA WAS GIVEN CM CONTACT NUMBER, CM WILL CONT TO FOLLOW D/C NEEDS.
--- NOTE | 2021-10-24 09:30 | P.PNIM_ITS ---
Subjective Subjective Date of Service: 10/24/21 Interval History: seen and examined this AM remains non-verbal minimal response to painful stimuli Review of Systems ROS unable to be obtained Physical Exam Vital Signs: Vital Signs: Last Vital Signs Temp 97.9 F 10/24/21 07:19 Pulse 103 H 10/24/21 07:19 Resp 15 10/24/21 07:19 BP 102/56 L 10/24/21 07:19 Pulse Ox 95 10/24/21 07:19 Oxygen Flow Rate 10 10/21/21 06:50 BMI result Body Mass Index 15.6 Const: Other: General - no acute distress, appears comfortable, no awake or alert Cardiovascular - s1s2, slightly tachy around 103 Lungs - no respiratory distress, but diminished sounds Abdomen - soft, nontender, no rebound or guarding Extremities - no edema bilaterally Neuro - minimally responsive Skin - no sacral decubt Objective Data Active Medications Acetaminophen (Acetaminophen Supp 650 Mg Supp.Rect) 650 mg MS Q4H PRN PRN Reason: Fever Last Admin: 10/23/21 18:00 Dose: 650 mg Documented by: HIREN Carbamazepine (Carbamazepine 200 Mg Tablet) 200 mg PO DAILY [facility] Carbamazepine (Carbamazepine 200 Mg Tablet) 300 mg PO BEDTIME [facility] Last Admin: 10/23/21 22:35 Dose: Not Given Documented by: NICKI Non-Admin Reason: unarousable/ will not take medication Heparin Sodium (Porcine) (Heparin Sodium,Porcine 5,000 Unit/Ml Vial) 5,000 unit SUBCUT Q12H [facility] Last Admin: 10/23/21 21:59 Dose: 5,000 unit Documented by: NICKI Piperacillin Sod/Tazobactam (Sod 2.25 gm/ Sodium Chloride) 50 mls @ 100 mls/hr IV Q6H [facility] Last Infusion: 10/24/21 06:05 Dose: 0 mls/hr Documented by: NICKI Dextrose (D5w) 1,000 mls @ 100 mls/hr IVCONT .Q10H [facility] Last Admin: 10/24/21 01:40 Dose: 150 mls/hr Documented by: NICKI Ondansetron HCl (Ondansetron Hcl 4 Mg/2 Ml Vial) 4 mg IVPUSH Q8H PRN PRN Reason: Nausea and Vomiting Pharmacy Consult (Consult Rx Perform Med Rec) 1 each MISCELLANE ONCE PRN PRN Reason: Consult order Labs CBC & Chem 7: 10/24/21 05:22 10/24/21 05:22 Labs: Laboratory Results - last 24 hr 10/23/21 10/23/21 10/23/21 16:35 16:35 17:00 MCV 103.0 H MCH 31.0 MCHC 30.1 L RDW 15.5 Plt Count 241 D MPV 11.7 Absolute Nucleated RBC 0.000 Nucleated RBC % (auto) 0.0 Anion Gap 21 H Estim Creat Clear Calc 41.9 Estimated GFR > 60 Random Glucose 90 Lactic Acid 2.0 Calcium 9.6 10/23/21 10/24/21 10/24/21 22:02 00:30 05:22 MCV 101.1 H MCH 31.1 MCHC 30.8 L RDW 15.7 Plt Count 279 MPV 11.9 Absolute Nucleated RBC 0.000 Nucleated RBC % (auto) 0.0 Anion Gap 22 H 24 H Estim Creat Clear Calc 40.7 39.0 Estimated GFR > 60 > 60 Random Glucose 131 H 130 H Lactic Acid Calcium 9.8 9.6 10/24/21 05:22 MCV MCH MCHC RDW Plt Count MPV Absolute Nucleated RBC Nucleated RBC % (auto) Anion Gap 18 Estim Creat Clear Calc 36.9 Estimated GFR > 60 Random Glucose 211 H Lactic Acid Calcium 9.4 Microbiology Microbiology Results: Microbiology 10/22/21 07:09 Blood Culture - Preliminary Blood - Venous No growth after 48 hours. 10/21/21 08:42 Blood Culture - Preliminary Blood - Venous No growth after 48 hours. Assessment and Plan (1) Severe sepsis: Status: Acute (2) Acute respiratory failure with hypoxia: Status: Acute (3) Aspiration pneumonia: Status: Acute Assessment and Plan: 71 year female with history of cerebral palsy, nonverbal and bedbound, total care at baseline, recent admission for UTI brought into the emergency department with increasing lethargy found have multiple significant acute medical issues being admitted for comfort measures initially.? (10/23/21 see advance planning note) Case discussed today with [facility] director Anastasia Aguero,? legal and ethics staff as well.? Also on the call Kamini Caceres, Dr. Vel Veronica, Nader Mayfield, Patients brother (guardian).? The initial conversation was regarding erik randhawa's BATCH RECORDS CLERK status and why patient has not been treated for possible aspiration pneumonia, the record did not display that the patient was part of DDS.? On admission the patient's guardian was contacted and at that time that patient was made comfort measures only.? Today there was concern from the DDS that patient should be treated and patient's brother was in agreement.? Plan was to change patients BATCH RECORDS CLERK status to DNR /DNI and treat for active medical problems. Acute respiratory failure with hypoxia secondary to aspiration pneumonia Severe sepsis Presented with a oxygen sat of 80% now sats 95% on 2L will check CT chest to see degree of pneumonia Continue Zosyn, will add vancomycin given persistent WBC count and recent hospitalizations Hypernatremia From poor oral intake continue D5W for now, place NG and add free water intake / output Severe protein calorie malnutrition.? BMI 15.7 Speech and swallow evaluation for diet and nutritional supplements insert NG tube History of seizure disorder No seizures noted since admission seizure precautions continue seizure medications, unable to take PO, will place NG Full Code DVT pptx, heparin Quality Stroke Does the patient have a stroke diagnosis?: No VTE Prior VTE?: No VTE Risk Level:: Medical - moderate - high VTE Device Contraindication: Treatment Not Indicated VTE Drug Contraindication: Treatment Not Indicated
[2021-10-24] MEDS: Heparin Sodium,Porcine 5,000 UNIT/ML VIAL 5000 UNIT SUBCUT ×2 (09:36→18:44)
[2021-10-24] MEDS: carBAMazepine 200 MG TABLET PO (09:46)
--- NOTE | 2021-10-24 09:58 | MHC.CM.PN ---
LATE ENTRY 10/23/21 @ 1600 On 10/23 @1300 Nader Escobar notified this sign writer letterer or painter that he received a call from [facility] regarding concerns for plan of care on patient. [facility] is requesting care plan meeting with [facility] provider team. At time of discussion myriam Doe, Dr. Crowder and this sign writer letterer or painter were present. At conclusion of discussion this sign writer letterer or painter placed call to Kamini Troy to review case. Related Content Database (RCDb) group message was sent to Dr. Crowder, Dr. Copeland, Zoey Mcdonnell, and Nader Escobar to determine time for care plan meeting. Meeting set for 3:30PM. This sign writer letterer or painter placed call to [facility] contact Anastasia and patient's brother Chase Arellano. Meeting took place as scheduled. This sign writer letterer or painter was present university relations recruiter, along with Chase Mullins, S Barge Engineer, [facility] ethicist, Anastasia, Dr. Crowder and Zoey Mcdonnell. Patient's case was reviewed. Zoey Mcdonnell and S team agreed on plan for patient as per Zoey's note. This plan was communicated to Yaneth via [place] message. On 10/24 @ 9:30AM this sign writer letterer or painter received call from Anastasia asking visitation policy for workers to assist patient. Message sent to leadership, awaiting response.
--- NOTE | 2021-10-24 11:01 | PHA.PROG ---
Admission Date/Time: October 21, 2021 14:53 Indication:RESP INF Weight in k kg Adjusted body weight in K.1 [place] body weight in K.9 Obesity Dosing Indication % IBW: Serum Creatinine - Last 168 Hours 10/21/21 10/23/21 10/23/21 08:41 17:00 22:02 Creatinine 0.94 0.67 0.69 10/24/21 10/24/21 00:30 05:22 Creatinine 0.72 0.76 Estimated CrCl and GFR - Last 168 Hours 10/21/21 10/23/21 10/23/21 08:41 17:00 22:02 Estim Creat Clear Calc 29.8 41.9 40.7 Estimated GFR 59 > 60 > 60 10/24/21 10/24/21 00:30 05:22 Estim Creat Clear Calc 39.0 36.9 Estimated GFR > 60 > 60 Vancomycin Loading Dose: 750 MG X 1 Current Vancomycin Dosing Regimen: 500 MG Q12H Vancomycin Monitoring using AUC goal of 400 - 600 range with trough as surrogate marker: PREDICTED AUC 540. TROUGH 17.9 Date and Time for next Vancomycin Level to be drawn:10/25/21 @2100 Pharmacist Comments on Vancomycin Plan: CONTACTED ROXANNE OLIVEIRA TO VERIFY WEIGHT OF 34 KG. CHECK CR DAILY. Vancomycin dosing will take advantage of [employer] as a clinical decision support tool that uses Bayesian modeling to calculate individual patient's pharmacokinetic parameters and forecast the patient's drug concentration time course with the target goal AUC 24 range of 400 - 600 mg/L/hr.
--- NOTE | 2021-10-24 11:51 | PC.NURSE ---
Skin assessment completed. Patient has no skin issues at this time. Patient is turned and repositioned q 2 h. Will continue to monitor.
[2021-10-24] MEDS: vancomycin HCL 750 MG in 0.9 % Sodium Chloride 250 ML 265 MG IV (13:45)
[2021-10-24 15:12] VITALS: BMI 15.6
[2021-10-24 15:56] VITALS: BP 101/61; PULSE 80; RESP 15; TEMP 36.3; O2SAT 98
--- NOTE | 2021-10-24 16:10 | MHC.SL.SWA ---
Speech Pathologist Impression: Risk of Aspiration Oralpharyngeal Dysphagia Risk of Aspiration Due to: Medically Fragile Neurological Condition History of Pneumonia Poor PO Intake Reduced Cognition Dysphasia Diet Status: Downgrade Liquid Consistency and Strategies for Safe Swallow: Liquid Intake Recommendation: NPO Solid Food Consistency: Dietary Recommendations: NPO Oral Medication Intake: NPO Supervision While Eating and Drinking for Safe Swallow: PO with ERECTING ENGINEER Swallowing Recommended Treatments: Compens. Strategy Educat. Recommendation for Speech: Inpatient Speech Therapy Patient awoke to change in position and sternal rub. Note dried brown secretions on lips and tongue. Patient tolerated oral care with mouthwash and swab. Oral moisturizer applied. Patient opened her mouth when presented with spoon. Patient accepted bite of applesauce. Patient did not form or manipulate bolus. Pocketing of 100% bolus in left buccal space. Patient then fell asleep and would not wake back up to sternal rub. Bolus manually removed by ERECTING ENGINEER with swab and RN immediately notified. At this time it is unsafe for patient to consume PO and at high aspiration risk given significant lethargy. Recommend NPO at this time. ERECTING ENGINEER to re-evaluate tomorrow morning. Manager Of Information Clinican/Clinical Fellow: Yes: Magalys Stallings Supervisory Statement: I have reviewed and agree with the student/clinical fellow's documentation: N/A Speech Language Pathologist: Kari Muniz M.A., [facility]-ERECTING ENGINEER
[2021-10-24 16:58] LABS: Anion Gap 13 (12-20); Blood Urea Nitrogen 27 mg/dL (9-16); Calcium 8.3 mg/dL (8.4-10.2); Carbon Dioxide 20 mmol/L (22-29); Chloride 119 mmol/L (96-108); Creatinine Clr Calc Pharmacy 43.9; Estimated Glomerular Filt Rate > 60; Glucose Random 179 mg/dL (60-115); Potassium 2.8 mmol/L (3.3-5.1); Sodium 149 mmol/L (135-145)
--- NOTE | 2021-10-24 18:29 | PC.NURSE ---
Pt is non-verbal and visually impaired at baseline. pt is also on 2l NC satting in the mid 90s. Pt seen by Speech therapy this am for bedside Dysphagia evaluation. pt tolerated oral care and was initially awake and accepted a bite of apple sauce. She then pocketed the food and fell asleep and was not able to be woken up. A/S had to be mechanically removed with a swab. pt to remain NPO and notified by ST. An order for NG tube also put in but due to pt not being able to follow directions, NG tube put on hold for now.
[2021-10-24] MEDS: Potassium Chloride/H20 10 MEQ/100 ML PIGGYBACK 100 MEQ IV ×3 (18:44→22:44)
[2021-10-24] MEDS: Dextrose 5 % and 0.45 % NaCl 1,000 ML 100 ML IVCONT (21:23)
[2021-10-24 22:11] LABS: Anion Gap 12 (12-20); Blood Urea Nitrogen 23 mg/dL (9-16); Calcium 8.6 mg/dL (8.4-10.2); Carbon Dioxide 19 mmol/L (22-29); Chloride 115 mmol/L (96-108); Creatinine Clr Calc Pharmacy 48.4; Estimated Glomerular Filt Rate > 60; Glucose Random 130 mg/dL (60-115); Potassium 3.3 mmol/L (3.3-5.1); Sodium 143 mmol/L (135-145)
[2021-10-24] MEDS: vancomycin HCL 500 MG in 0.9 % Sodium Chloride 100 ML 110 MG IV (23:33)
[2021-10-24 23:44] VITALS: BP 114/60; PULSE 84; RESP 16; TEMP 36.3; O2SAT 98
[2021-10-25] MEDS: Potassium Chloride/H20 10 MEQ/100 ML PIGGYBACK 100 MEQ IV (01:02)
[2021-10-25] MEDS: Piperacillin Sodium/Tazobactam 2.25 GM in 0.9 % Sodium Chloride 50 ML IV ×4 (05:25→22:30)
[2021-10-25 05:47] LABS: Hematocrit 33.7 % (37.0-47.0); Hemoglobin 10.3 g/dl (12.0-16.0); Mean Corpuscular HGB Conc 30.6 g/dl (31.0-35.0); Mean Corpuscular Hemoglobin 31.7 pg (27.0-33.0); Mean Corpuscular Volume 103.7 fL (80.0-98.0); Mean Platelet Volume 11.8 fL (9.4-12.3); Platelet Count 232 X10*3/uL (160-400); Red Blood Count 3.25 X10*6/uL (4.20-5.50); Red Cell Distribution Width 14.6 % (11.0-16.0); White Blood Count 24.8 X10*3/uL (4.8-10.8)
[2021-10-25 06:23] LABS: Anion Gap 13 (12-20); Blood Urea Nitrogen 21 mg/dL (9-16); Calcium 7.9 mg/dL (8.4-10.2); Carbon Dioxide 18 mmol/L (22-29); Chloride 115 mmol/L (96-108); Estimated Glomerular Filt Rate > 60; Glucose Random 121 mg/dL (60-115); Potassium 4.1 mmol/L (3.3-5.1); Sodium 142 mmol/L (135-145)
[2021-10-25 07:15] VITALS: BP 111/69; PULSE 78; RESP 20; TEMP 36.6; O2SAT 99
[2021-10-25] MEDS: Heparin Sodium,Porcine 5,000 UNIT/ML VIAL 5000 UNIT SUBCUT ×2 (08:49→20:45)
[2021-10-25] MEDS: levoFLOXacin/D5W 750 MG/150 ML PIGGYBACK 100 MG IV (09:38)
[2021-10-25] MEDS: carBAMazepine 200 MG TABLET PO (09:45)
[2021-10-25 10:08] LABS: Adenovirus PCR Not Detected (Not Detect.); Bordetella parapertussis PCR Not Detected (Not Detect.); Bordetella pertussis PCR Not Detected (Not Detect.); Chlamydia pneumoniae PCR Not Detected (Not Detect.); Coronavirus 229E PCR Not Detected (Not Detect.); Coronavirus HKU1 PCR Not Detected (Not Detect.); Coronavirus NL63 PCR Not Detected (Not Detect.); Coronavirus OC43 PCR Not Detected (Not Detect.); Human metapneumovirus PCR Not Detected (Not Detect.); Influenza A PCR Not Detected (Not Detect.); Influenza B PCR Not Detected (Not Detect.); Mycoplasma pneumoniae PCR Not Detected (Not Detect.); Parainfluenza 1 PCR Not Detected (Not Detect.); Parainfluenza 2 PCR Not Detected (Not Detect.); Parainfluenza 3 PCR Not Detected (Not Detect.); Parainfluenza 4 PCR Not Detected (Not Detect.); RSV PCR Not Detected (Not Detect.); Rhino/Enterovirus PCR Not Detected (Not Detect.); SARS-CoV-2 PCR Not Detected (Not Detect.)
[2021-10-25] MEDS: vancomycin HCL 500 MG in 0.9 % Sodium Chloride 100 ML 110 MG IV ×2 (11:48→23:27)
--- NOTE | 2021-10-25 12:25 | PM.PNNEP ---
Subjective Subjective Date of Service: 10/25/21 Principal diagnosis: HyperNa Interval history: seen and examined this AM Physical Exam Vital Signs: Vital Signs: Last Vital Signs Temp 97.8 F 10/25/21 07:15 Pulse 78 10/25/21 07:15 Resp 20 10/25/21 07:15 BP 111/69 10/25/21 07:15 Pulse Ox 99 10/25/21 07:15 Oxygen Flow Rate 10 10/21/21 06:50 BMI result Body Mass Index 15.6 Const: Other: General - no acute distress, appears comfortable, no awake or alert Cardiovascular - s1s2, slightly tachy around 103 Lungs - no respiratory distress, but diminished sounds Abdomen - soft, nontender, no rebound or guarding Extremities - no edema bilaterally Neuro - minimally responsive Skin - no sacral decubt HENMT: Head: Yes normocephalic and Yes atraumatic Eyes: Sclerae: sclerae normal Resp: Other: breathing unlabored, no acute distress Cardio: Rate: regular rate Rhythm: regular rhythm GI: Other: abdomen soft, non-distended Neuro: Cranial nerves: Yes CN's II-XII intact bilaterally and Yes Bilaterally intact EOM present Extrem: Other: muscle contractures Objective Data Labs CBC & Chem 7: 10/25/21 05:35 10/25/21 05:35 Labs: Laboratory Results - last 24 hr 10/24/21 10/24/21 10/25/21 16:21 21:53 05:35 WBC RBC Hgb Hct MCV MCH MCHC RDW Plt Count MPV Absolute Nucleated RBC Nucleated RBC % (auto) Sodium 149 H 143 142 Potassium 2.8 L 3.3 4.1 D Chloride 119 H 115 H 115 H Carbon Dioxide 20 L 19 L 18 L Anion Gap 13 12 13 BUN 27 H 23 H 21 H Creatinine 0.64 0.58 0.52 Estim Creat Clear Calc 43.9 48.4 54.0 Estimated GFR > 60 > 60 > 60 Random Glucose 179 H 130 H 121 H Calcium 8.3 L D 8.6 7.9 L D Respiratory Panel Birch Adenovirus (Rapid PCR) B.pert (TEM-PCR) B.parapertussis DNA PCR C. pneumoniae DNA (PCR) Coronavirus OC43 (PCR) Coronavirus HKU1 (PCR) Coronavirus 229E (PCR) Coronavirus NL63 (PCR) Human Metapneumovir PCR Influenza A (RT-PCR) Influenza B (RT-PCR) M. pneumoniae (PCR) Parainfluenza 1 (PCR) Parainfluenza 2 (PCR) Parainfluenza 3 (PCR) Parainfluenza 4 (PCR) RSV (PCR) Entero/Rhino (PCR) SARS-CoV-2 RNA (RT-PCR) 10/25/21 10/25/21 05:35 10:00 WBC 24.8 H RBC 3.25 L Hgb 10.3 L Hct 33.7 L MCV 103.7 H MCH 31.7 MCHC 30.6 L RDW 14.6 Plt Count 232 MPV 11.8 Absolute Nucleated RBC 0.000 Nucleated RBC % (auto) 0.0 Sodium Potassium Chloride Carbon Dioxide Anion Gap BUN Creatinine Estim Creat Clear Calc Estimated GFR Random Glucose Calcium Respiratory Panel Birch See Note Adenovirus (Rapid PCR) Not Detected B.pert (TEM-PCR) Not Detected B.parapertussis DNA PCR Not Detected C. pneumoniae DNA (PCR) Not Detected Coronavirus OC43 (PCR) Not Detected Coronavirus HKU1 (PCR) Not Detected Coronavirus 229E (PCR) Not Detected Coronavirus NL63 (PCR) Not Detected Human Metapneumovir PCR Not Detected Influenza A (RT-PCR) Not Detected Influenza B (RT-PCR) Not Detected M. pneumoniae (PCR) Not Detected Parainfluenza 1 (PCR) Not Detected Parainfluenza 2 (PCR) Not Detected Parainfluenza 3 (PCR) Not Detected Parainfluenza 4 (PCR) Not Detected RSV (PCR) Not Detected Entero/Rhino (PCR) Not Detected SARS-CoV-2 RNA (RT-PCR) Not Detected Microbiology Microbiology Results: Microbiology 10/23/21 16:35 Blood - Venous Blood Culture - Preliminary No growth after 24 hours. 10/23/21 16:35 Blood - Venous Blood Culture - Preliminary No growth after 24 hours. 10/22/21 07:09 Blood - Venous Blood Culture - Preliminary No growth after 48 hours. 10/21/21 08:42 Blood - Venous Blood Culture - Preliminary No growth after 48 hours. Procedures Date of Service Date of Service: 10/25/21 Assessment & Plan Assessment and plan (1) Severe sepsis: Status: Acute (2) Acute respiratory failure with hypoxia: Status: Acute (3) Aspiration pneumonia: Status: Acute Assessment and Plan: 1. HyperNA: corrected after IV hypotonic fluids 2. NAGMA: decr HCO3 with rehydration REC: cont IV 1/2 NS and depending on labs may need HCO3 replacement; encourage PO fluid intae and depending on clin course and HPxy wishes may need to eval for GTube if can not take po adequately at some point Time Spent With Patient Time: Total time spent is greater than 50% in coordination of care (as documented) at patient's floor/unit and/or counseling patient: Progress Note: Quality Stroke Does the patient have a stroke diagnosis?: No
--- NOTE | 2021-10-25 12:35 | P.PNIM_ITS ---
Subjective Subjective Date of Service: 10/25/21 <SCOOTER Maravilla - Last Filed: 10/25/21 14:02> 10/28/21 <Remberto Agarwal MD - Last Filed: 10/28/21 10:48> Interval History: seen and examined this morning follow up for pneumonia not responding to verbal stimuli, unable to obtain ROS (also non-verbal at baseline) <SCOOTER Maravilla - Last Filed: 10/25/21 14:02> Review of Systems Review of Systems: Yes Unobtainable due to mental condition <SCOOTER Maravilla - Last Filed: 10/25/21 14:02> Physical Exam Vital Signs: Vital Signs: Last Vital Signs Temp 97.8 F 10/25/21 07:15 Pulse 78 10/25/21 07:15 Resp 20 10/25/21 07:15 BP 111/69 10/25/21 07:15 Pulse Ox 99 10/25/21 07:15 Oxygen Flow Rate 10 10/21/21 06:50 BMI result Body Mass Index 15.6 <SCOOTER Maravilla - Last Filed: 10/25/21 14:02> Const: Other: appears comfortable breathing unlabored. 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 <SCOOTER Maravilla - Last Filed: 10/25/21 14:02> Cardio: Rate: regular rate <SCOOTER Maravilla - Last Filed: 10/25/21 14:02> Rhythm: regular rhythm <SCOOTER Maravilla - Last Filed: 10/25/21 14:02> GI: Other: soft, non-distended <SCOOTER Maravilla - Last Filed: 10/25/21 14:02> Neuro: Other: unable to assess, not following commands <SCOOTER Maravilla - Last Filed: 10/25/21 14:02> Objective Data Active Medications Acetaminophen (Acetaminophen Supp 650 Mg Supp.Rect) 650 mg [place] Q4H PRN PRN Reason: Fever Last Admin: 10/23/21 18:00 Dose: 650 mg Documented by: HIREN Carbamazepine (Carbamazepine 200 Mg Tablet) 200 mg PO DAILY [facility] Last Admin: 10/25/21 09:45 Dose: 200 mg Documented by: AMAURY Carbamazepine (Carbamazepine 200 Mg Tablet) 300 mg PO BEDTIME RAJANI Last Admin: 10/24/21 21:21 Dose: Not Given Documented by: MILLER Non-Admin Reason: pt unable to stay awake; unable to swallow Heparin Sodium (Porcine) (Heparin Sodium,Porcine 5,000 Unit/Ml Vial) 5,000 unit SUBCUT Q12H RAJANI Last Admin: 10/25/21 08:49 Dose: 5,000 unit Documented by: AMAURY Piperacillin Sod/Tazobactam (Sod 2.25 gm/ Sodium Chloride) 50 mls @ 100 mls/hr IV Q6H [facility] Last Infusion: 10/25/21 11:52 Dose: 0 mls/hr Documented by: AMAURY Vancomycin HCl 500 mg/ Sodium (Chloride) 110 mls @ 110 mls/hr IV Q12H [facility] Last Admin: 10/25/21 11:48 Dose: 110 mls/hr Documented by: AMAURY Levofloxacin (Levaquin) 750 mg in 150 mls @ 100 mls/hr IV Q24H [facility] Last Infusion: 10/25/21 11:18 Dose: 0 mls/hr Documented by: AMAURY Ondansetron HCl (Ondansetron Hcl 4 Mg/2 Ml Vial) 4 mg IVPUSH Q8H PRN PRN Reason: Nausea and Vomiting Pharmacy Consult (Consult Rx Perform Med Rec) 1 each MISCELLANE ONCE PRN PRN Reason: Consult order Pharmacy Consult (Consult Rx Vancomycin Dosing) 1 each MISCELLANE DAILY PRN PRN Reason: Consult order <SCOOTER Maravilla - Last Filed: 10/25/21 14:02> Labs CBC & Chem 7: : 10/28/21 06:22 10/28/21 06:22 <SCOOTER Maravilla - Last Filed: 10/25/21 14:02> Labs: Laboratory Results - last 24 hr 10/24/21 10/24/21 10/25/21 16:21 21:53 05:35 MCV MCH MCHC RDW Plt Count MPV Absolute Nucleated RBC Nucleated RBC % (auto) Anion Gap 13 12 13 Estim Creat Clear Calc 43.9 48.4 54.0 Estimated GFR > 60 > 60 > 60 Random Glucose 179 H 130 H 121 H Calcium 8.3 L D 8.6 7.9 L D Respiratory Panel Birch Adenovirus (Rapid PCR) B.pert (TEM-PCR) B.parapertussis DNA PCR C. pneumoniae DNA (PCR) Coronavirus OC43 (PCR) Coronavirus HKU1 (PCR) Coronavirus 229E (PCR) Coronavirus NL63 (PCR) Human Metapneumovir PCR Influenza A (RT-PCR) Influenza B (RT-PCR) M. pneumoniae (PCR) Parainfluenza 1 (PCR) Parainfluenza 2 (PCR) Parainfluenza 3 (PCR) Parainfluenza 4 (PCR) RSV (PCR) Entero/Rhino (PCR) SARS-CoV-2 RNA (RT-PCR) 10/25/21 10/25/21 05:35 10:00 MCV 103.7 H MCH 31.7 MCHC 30.6 L RDW 14.6 Plt Count 232 MPV 11.8 Absolute Nucleated RBC 0.000 Nucleated RBC % (auto) 0.0 Anion Gap Estim Creat Clear Calc Estimated GFR Random Glucose Calcium Respiratory Panel Birch See Note Adenovirus (Rapid PCR) Not Detected B.pert (TEM-PCR) Not Detected B.parapertussis DNA PCR Not Detected C. pneumoniae DNA (PCR) Not Detected Coronavirus OC43 (PCR) Not Detected Coronavirus HKU1 (PCR) Not Detected Coronavirus 229E (PCR) Not Detected Coronavirus NL63 (PCR) Not Detected Human Metapneumovir PCR Not Detected Influenza A (RT-PCR) Not Detected Influenza B (RT-PCR) Not Detected M. pneumoniae (PCR) Not Detected Parainfluenza 1 (PCR) Not Detected Parainfluenza 2 (PCR) Not Detected Parainfluenza 3 (PCR) Not Detected Parainfluenza 4 (PCR) Not Detected RSV (PCR) Not Detected Entero/Rhino (PCR) Not Detected SARS-CoV-2 RNA (RT-PCR) Not Detected <SCOOTER Maravilla - Last Filed: 10/25/21 14:02> Microbiology Microbiology Results: Microbiology 10/23/21 16:35 Blood Culture - Preliminary Blood - Venous No growth after 24 hours. 10/23/21 16:35 Blood Culture - Preliminary Blood - Venous No growth after 24 hours. 10/22/21 07:09 Blood Culture - Preliminary Blood - Venous No growth after 48 hours. <SCOOTER Maravilla - Last Filed: 10/25/21 14:02> Assessment and Plan (1) Hyperthermia: Status: Acute <SCOOTER Maravilla - Last Filed: 10/25/21 14:02> (2) Severe sepsis: Status: Acute <SCOOTER Maravilla - Last Filed: 10/25/21 14:02> (3) Acute respiratory failure with hypoxia: Status: Acute <SCOOTER Maravilla - Last Filed: 10/25/21 14:02> (4) Aspiration pneumonia: Status: Acute <SCOOTER Maravilla - Last Filed: 10/25/21 14:02> (5) Hypernatremia: Status: Acute <SCOOTER Maravilla - Last Filed: 10/25/21 14:02> Assessment and Plan: 71 year female with history of cerebral palsy, nonverbal and bedbound, total care at baseline, recent admission for UTI brought into the emergency department with increasing lethargy found have multiple significant acute medical issues being admitted for comfort measures initially.? (10/23/21 see advance planning note) Case discussed today with DDS director Anastasia Aguero,? legal and ethics staff as well.? Also on the call Kamini Caceres, Dr. Vel Veronica, Nader Mayfield, Patients brother (guardian).? 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 On admission the patient's guardian was contacted and at that time that patient was made comfort measures only.? Today there was concern from the DDS that patient should be treated and patient's brother was in agreement.? Plan was to change patients BOTTLE HOUSE CLEANERS SUPERVISOR status to DNR /DNI and treat for active medical problems. Acute respiratory failure with hypoxia secondary to aspiration pneumonia Severe sepsis Presented with a oxygen sat of 80% now sats 95% on 2L Continue Zosyn, vancomycin, levaquin given persistent WBC count and recent hospitalizations Hypernatremia sodium 142 today From poor oral intake attempted NGT placement, unsuccessful continue IVF nephrology following intake / output Severe protein calorie malnutrition.? BMI 15.7 Speech and swallow evaluation for diet and nutritional supplements, patient NPO will obtain midline to initiate parenteral nutrition will need discussion regarding Gtube if no improvement by early next week History of seizure disorder No seizures noted since admission seizure precautions unable to take po, tegratol changed to IV keppra Full Code DVT pptx, heparin attending; dr. layton <SCOOTER Maravilla - Last Filed: 10/25/21 14:02> Quality Stroke Does the patient have a stroke diagnosis?: No <SCOOTER Maravilla - Last Filed: 10/25/21 14:02> VTE Prior VTE?: No <SCOOTER Maravilla - Last Filed: 10/25/21 14:02> VTE Risk Level:: Medical - moderate - high <SCOOTER Maravilla - Last Filed: 10/25/21 14:02> VTE Device Contraindication: Treatment Not Indicated <SCOOTER Maravilla - Last Filed: 10/25/21 14:02> VTE Drug Contraindication: Treatment Not Indicated <SCOOTER Maravilla - Last Filed: 10/25/21 14:02>
[2021-10-25] MEDS: Dextrose 5 % and 0.45 % NaCl 1,000 ML 80 ML IVCONT (14:33)
--- NOTE | 2021-10-25 14:58 | MHC.SL.SWA ---
Speech Pathologist Impression: Risk of Aspiration Oralpharyngeal Dysphagia Risk of Aspiration Due to: Lethargy Medically Fragile Neurological Condition History of Pneumonia Poor PO Intake Reduced Cognition Dysphasia Diet Status: No Change Liquid Consistency and Strategies for Safe Swallow: Liquid Intake Recommendation: NPO Liquid Intake Strategies: Solid Food Consistency: Dietary Recommendations: NPO Additional Modifications to Solid Foods: Recommend alternative delivery method of nutrition Oral Medication Intake: NPO Compensatory Strategies and Precautions to be Taken for Safe Swallow: Supervision While Eating and Drinking for Safe Swallow: PO with CRYSTAL EVALUATOR Foods to Avoid: Recommend alternative feeding method for nutrition at this time. Swallowing Recommended Treatments: Compens. Strategy Educat. Recommendation for Speech: Inpatient Speech Therapy Comment: Pt presents with high risk of aspiration due to moderate-severe oral pharyngeal dysphagia, significant residual in oral cavity after swallow without effort to clear or awareness of substance, and general level of alertness, readiness, motivation to eat. At this time recommend continue NPO, recommend team seek alternative method of delivering nutrition. CRYSTAL EVALUATOR will continue to follow during inpt stay, reassess swallow and advance to PO diet if warranted. Recommendations given to nursing verbally, by secure text to MD, Claims Adjustor. Frequency/Duration: M-F while inpt Date Range for Service Req: Timeline to reassess: Hypercil Core Transformer Assembler Clinican/Clinical Fellow: No Supervisory Statement: I have reviewed and agree with the student/clinical fellow's documentation: N/A Speech Language Pathologist: Kadie Knight M.A., [facility]-CRYSTAL EVALUATOR
[2021-10-25] MEDS: levETIRAcetam 250 MG in 0.9 % Sodium Chloride 100 ML 410 MG IV (15:18)
[2021-10-25 15:53] VITALS: BP 165/92; PULSE 95; RESP 18; TEMP 36.2; O2SAT 100
--- NOTE | 2021-10-25 16:26 | PM.EVENT ---
Event Note Date of Service: 10/25/21 Event Note: #16 NGT inserted right nares...atraumatic. Pt tolerated procedure as well as expected. Placement verified with gastric insufflation. Await PCXR prior to use.
[2021-10-25 23:05] LABS: Vancomycin Trough 20.2 mcg/mL (10.0-20.0)
[2021-10-26] VITALS: BP 126/58; PULSE 97; RESP 18; TEMP 36.1; O2SAT 98
[2021-10-26] MEDS: Dextrose 5 % and 0.45 % NaCl 1,000 ML 80 ML IVCONT (02:18)
[2021-10-26] MEDS: levETIRAcetam 250 MG in 0.9 % Sodium Chloride 100 ML 410 MG IV (02:18)
[2021-10-26 05:52] LABS: MANUAL DIFF FLAG NO
[2021-10-26] MEDS: Piperacillin Sodium/Tazobactam 2.25 GM in 0.9 % Sodium Chloride 50 ML IV ×2 (05:53→09:22)
[2021-10-26 06:02] LABS: Basophils Percent Auto 0.2 % (0-2); Eosinophils Absolute Auto 0.4 X10*3/uL (0.0-0.4); Eosinophils Percent Auto 2.2 % (0-4); Hematocrit 35.8 % (37.0-47.0); Hemoglobin 11.1 g/dl (12.0-16.0); Imm Gran Abs Auto 0.25 X10*3/uL (0.00-0.03); Imm Gran Pct Auto 1.4 % (0.0-0.4); Lymphocytes Absolute Auto 1.9 X10*3/uL (1.2-4.9); Lymphocytes Percent Auto 10.5 % (20-40); Mean Corpuscular Hemoglobin 30.8 pg (27.0-33.0); Mean Corpuscular Volume 99.4 fL (80.0-98.0); Mean Platelet Volume 11.8 fL (9.4-12.3); Monocytes Absolute Auto 0.9 X10*3/uL (0.1-1.2); Monocytes Percent Auto 4.6 % (2-11); Neutrophils Absolute Auto 14.9 x10*3/uL (2.0-8.3); Neutrophils Percent Auto 81.1 % (45-73); Platelet Count 339 X10*3/uL (160-400); White Blood Count 18.4 X10*3/uL (4.8-10.8)
[2021-10-26 08:00] VITALS: PULSE 99; RESP 18; TEMP 36.4; O2SAT 99
[2021-10-26 08:10] LABS: Creatinine Clr Calc Pharmacy 63.8; Estimated Glomerular Filt Rate > 60
--- NOTE | 2021-10-26 09:17 | PM.PNNEP ---
Subjective Subjective Date of Service: 10/26/21 Principal diagnosis: HyperNa Interval history: seen and examined not responding to verbal stimuli Physical Exam Vital Signs: Vital Signs: Last Vital Signs Temp 97.5 F 10/26/21 08:00 Pulse 99 10/26/21 08:00 Resp 18 10/26/21 08:00 BP 126/58 L 10/26/21 00:00 Pulse Ox 99 10/26/21 08:00 Oxygen Flow Rate 10 10/21/21 06:50 BMI result Body Mass Index 15.6 Const: General: No acute distress HENMT: Head: Yes normocephalic and Yes atraumatic Neck: Neck: Yes supple Resp: Auscultation: diminished lung sounds Cardio: Heart sounds: S1 normal heart sound present and S2 normal heart sound present GI: Palpation (GI): Soft to palpation and no guarding Extrem: General: No edema Objective Data Labs CBC & Chem 7: 10/26/21 05:42 10/26/21 05:42 Labs: Laboratory Results - last 24 hr 10/25/21 10/25/21 10/26/21 10:00 22:27 05:42 WBC 18.4 H RBC 3.60 L Hgb 11.1 L Hct 35.8 L MCV 99.4 H MCH 30.8 MCHC 31.0 RDW 14.0 Plt Count 339 D MPV 11.8 Immature Gran % (Auto) 1.4 H Neut % (Auto) 81.1 H Lymph % (Auto) 10.5 L [place] % (Auto) 4.6 Eos % (Auto) 2.2 Baso % (Auto) 0.2 Lymph # (Auto) 1.9 [place] # (Auto) 0.9 Eos # (Auto) 0.4 Baso # (Auto) 0.0 Abs Immat Gran (auto) 0.25 H Absolute Neuts (auto) 14.9 H Absolute Nucleated RBC 0.000 Nucleated RBC % (auto) 0.0 Creatinine Estim Creat Clear Calc Estimated GFR Vancomycin Trough 20.2 H Respiratory Panel Birch See Note Adenovirus (Rapid PCR) Not Detected B.pert (TEM-PCR) Not Detected B.parapertussis DNA PCR Not Detected C. pneumoniae DNA (PCR) Not Detected Coronavirus OC43 (PCR) Not Detected Coronavirus HKU1 (PCR) Not Detected Coronavirus 229E (PCR) Not Detected Coronavirus NL63 (PCR) Not Detected Human Metapneumovir PCR Not Detected Influenza A (RT-PCR) Not Detected Influenza B (RT-PCR) Not Detected M. pneumoniae (PCR) Not Detected Parainfluenza 1 (PCR) Not Detected Parainfluenza 2 (PCR) Not Detected Parainfluenza 3 (PCR) Not Detected Parainfluenza 4 (PCR) Not Detected RSV (PCR) Not Detected Entero/Rhino (PCR) Not Detected SARS-CoV-2 RNA (RT-PCR) Not Detected 10/26/21 05:42 WBC RBC Hgb Hct MCV MCH MCHC RDW Plt Count MPV Immature Gran % (Auto) Neut % (Auto) Lymph % (Auto) [place] % (Auto) Eos % (Auto) Baso % (Auto) Lymph # (Auto) [place] # (Auto) Eos # (Auto) Baso # (Auto) Abs Immat Gran (auto) Absolute Neuts (auto) Absolute Nucleated RBC Nucleated RBC % (auto) Creatinine 0.44 L Estim Creat Clear Calc 63.8 Estimated GFR > 60 Vancomycin Trough Respiratory Panel Birch Adenovirus (Rapid PCR) B.pert (TEM-PCR) B.parapertussis DNA PCR C. pneumoniae DNA (PCR) Coronavirus OC43 (PCR) Coronavirus HKU1 (PCR) Coronavirus 229E (PCR) Coronavirus NL63 (PCR) Human Metapneumovir PCR Influenza A (RT-PCR) Influenza B (RT-PCR) M. pneumoniae (PCR) Parainfluenza 1 (PCR) Parainfluenza 2 (PCR) Parainfluenza 3 (PCR) Parainfluenza 4 (PCR) RSV (PCR) Entero/Rhino (PCR) SARS-CoV-2 RNA (RT-PCR) Microbiology Microbiology Results: Microbiology 10/23/21 16:35 Blood - Venous Blood Culture - Preliminary No growth after 48 hours. 10/23/21 16:35 Blood - Venous Blood Culture - Preliminary No growth after 48 hours. 10/22/21 07:09 Blood - Venous Blood Culture - Preliminary No growth after 48 hours. 10/21/21 08:42 Blood - Venous Blood Culture - Preliminary No growth after 48 hours. Procedures Date of Service Date of Service: 10/26/21 Assessment & Plan Assessment and plan (1) Hypernatremia: Status: Acute (2) Metabolic acidosis: Status: Acute Assessment and Plan: Sna better free water deficit corrected persistent metabolic acidosis REC hypotonic fluid may need NaHCO3 follow kidney function and electrolytes Time Spent With Patient Time: Total time spent is greater than 50% in coordination of care (as documented) at patient's floor/unit and/or counseling patient: Progress Note: Quality Stroke Does the patient have a stroke diagnosis?: No
[2021-10-26] MEDS: Heparin Sodium,Porcine 5,000 UNIT/ML VIAL 5000 UNIT SUBCUT ×2 (09:23→22:20)
[2021-10-26] MEDS: levoFLOXacin/D5W 750 MG/150 ML PIGGYBACK 100 MG IV (09:23)
--- NOTE | 2021-10-26 10:33 | P.PNIM_ITS ---
Subjective Subjective Date of Service: 10/26/21 Interval History: Nonverbal at baseline, awake, resisting mouth care being followed for pneumonia, NG tube placed last evening, lost IV access this a.m. Being followed for pneumonia. Review of Systems Unable to obtain review of system lesion nonverbal. Physical Exam Vital Signs: Vital Signs: Last Vital Signs Temp 97.5 F 10/26/21 08:00 Pulse 99 10/26/21 08:00 Resp 18 10/26/21 08:00 BP 126/58 L 10/26/21 00:00 Pulse Ox 99 10/26/21 08:00 Oxygen Flow Rate 10 10/21/21 06:50 BMI result Body Mass Index 15.6 General no acute distress, nonverbal? 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 CVS? regular rate rhythm, Respiratory lungs coarse bs, no respiratory distress Gastrointestinal abdomen soft, nontender , bowel sounds audible Extremities no edema. Neuro move all 4 extremities Skin no rash ? Objective Data Active Medications Acetaminophen (Acetaminophen Supp 650 Mg Supp.Rect) 650 mg [place] Q4H PRN PRN Reason: Fever Last Admin: 10/23/21 18:00 Dose: 650 mg Documented by: HIREN Amoxicillin/Clavulanate Potassium (Amoxicillin/Potassium Clav 2,000 Mg/50 Ml Bottle) 875 mg NG-TUBE BID RAJANI Carbamazepine (Carbamazepine 200 Mg/10 Ml Oral.Susp) 200 mg NG-TUBE DAILY RAJANI Carbamazepine (Carbamazepine 200 Mg/10 Ml Oral.Susp) 300 mg NG-TUBE BEDTIME RAJANI Heparin Sodium (Porcine) (Heparin Sodium,Porcine 5,000 Unit/Ml Vial) 5,000 unit SUBCUT Q12H RAJANI Last Admin: 10/26/21 09:23 Dose: 5,000 unit Documented by: PAIGEENOAL Levofloxacin (Levofloxacin 500 Mg Tablet) 500 mg NG-TUBE Q24H RAJANI Ondansetron HCl (Ondansetron Hcl 4 Mg/2 Ml Vial) 4 mg IVPUSH Q8H PRN PRN Reason: Nausea and Vomiting Pharmacy Consult (Consult Rx Perform Med Rec) 1 each MISCELLANE ONCE PRN PRN Reason: Consult order Pharmacy Consult (Consult Rx Vancomycin Dosing) 1 each MISCELLANE DAILY PRN PRN Reason: Consult order Labs CBC & Chem 7: 10/26/21 05:42 10/26/21 05:42 Labs: Laboratory Results - last 24 hr 10/25/21 10/25/21 10/26/21 10:00 22:27 05:42 MCV 99.4 H MCH 30.8 MCHC 31.0 RDW 14.0 Plt Count 339 D MPV 11.8 Immature Gran % (Auto) 1.4 H Neut % (Auto) 81.1 H Lymph % (Auto) 10.5 L [place] % (Auto) 4.6 Eos % (Auto) 2.2 Baso % (Auto) 0.2 Lymph # (Auto) 1.9 [place] # (Auto) 0.9 Eos # (Auto) 0.4 Baso # (Auto) 0.0 Abs Immat Gran (auto) 0.25 H Absolute Neuts (auto) 14.9 H Absolute Nucleated RBC 0.000 Nucleated RBC % (auto) 0.0 Estim Creat Clear Calc Estimated GFR Vancomycin Trough 20.2 H Respiratory Panel Birch See Note Adenovirus (Rapid PCR) Not Detected B.pert (TEM-PCR) Not Detected B.parapertussis DNA PCR Not Detected C. pneumoniae DNA (PCR) Not Detected Coronavirus OC43 (PCR) Not Detected Coronavirus HKU1 (PCR) Not Detected Coronavirus 229E (PCR) Not Detected Coronavirus NL63 (PCR) Not Detected Human Metapneumovir PCR Not Detected Influenza A (RT-PCR) Not Detected Influenza B (RT-PCR) Not Detected M. pneumoniae (PCR) Not Detected Parainfluenza 1 (PCR) Not Detected Parainfluenza 2 (PCR) Not Detected Parainfluenza 3 (PCR) Not Detected Parainfluenza 4 (PCR) Not Detected RSV (PCR) Not Detected Entero/Rhino (PCR) Not Detected SARS-CoV-2 RNA (RT-PCR) Not Detected 10/26/21 05:42 MCV MCH MCHC RDW Plt Count MPV Immature Gran % (Auto) Neut % (Auto) Lymph % (Auto) [place] % (Auto) Eos % (Auto) Baso % (Auto) Lymph # (Auto) [place] # (Auto) Eos # (Auto) Baso # (Auto) Abs Immat Gran (auto) Absolute Neuts (auto) Absolute Nucleated RBC Nucleated RBC % (auto) Estim Creat Clear Calc 63.8 Estimated GFR > 60 Vancomycin Trough Respiratory Panel Birch Adenovirus (Rapid PCR) B.pert (TEM-PCR) B.parapertussis DNA PCR C. pneumoniae DNA (PCR) Coronavirus OC43 (PCR) Coronavirus HKU1 (PCR) Coronavirus 229E (PCR) Coronavirus NL63 (PCR) Human Metapneumovir PCR Influenza A (RT-PCR) Influenza B (RT-PCR) M. pneumoniae (PCR) Parainfluenza 1 (PCR) Parainfluenza 2 (PCR) Parainfluenza 3 (PCR) Parainfluenza 4 (PCR) RSV (PCR) Entero/Rhino (PCR) SARS-CoV-2 RNA (RT-PCR) Microbiology Microbiology Results: Microbiology 10/23/21 16:35 Blood Culture - Preliminary Blood - Venous No growth after 48 hours. 10/23/21 16:35 Blood Culture - Preliminary Blood - Venous No growth after 48 hours. Assessment and Plan (1) Metabolic acidosis: Status: Acute (2) Acute respiratory failure with hypoxia: Status: Acute (3) Aspiration pneumonia: Status: Acute (4) Hypernatremia: Status: Acute (5) Leukocytosis: Status: Acute Assessment and Plan: 71 year female with history of cerebral palsy, nonverbal and bedbound, total care at baseline, recent admission for UTI brought into the emergency department with increasing lethargy found have multiple significant acute medical issues being admitted for comfort measures initially.? (10/23/21 see advance planning note) Case discussed today with DDS director Anastasia Aguero,? legal and ethics staff as well.? Also on the call Kamini Caceres, Dr. Vel Veronica, Nader Mayfield, Patients brother (guardian).? 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 On admission the patient's guardian was contacted and at that time that patient was made comfort measures only.? Today there was concern from the DDS that patient should be treated and patient's brother was in agreement.? Plan was to change patients COMMISSIONS MANAGER status to DNR /DNI and treat for active medical problems. Acute respiratory failure with hypoxia secondary to aspiration pneumonia Severe sepsis, no fevers in last 48 hours,blood cultures negative Presented with a oxygen sat of 80% CTA chest showed peripheral opacity, viral panel negative WBC gradually trending down No IV access will change IV Zosyn and Levaquin to by mouth, DC vancomycin O2 sats 95% on 2L continue supportive care. Hypernatremia sodium normalized, was likely due to poor by mouth intake NG tube placed, will give water boluses via NG tube nephrology following Follow BMP Severe protein calorie malnutrition.? BMI 15.7 Speech therapy recommend NPO, NG tube placed will start NG feedings, will discuss with family regarding G-tube placement early next week Patient resisting oral care. History of seizure disorder No seizures noted since admission seizure precautions, resume Tegretol why NG tube, DC IV Keppra no IV access available Code status DNR DNI DVT pptx, heparin Quality Stroke Does the patient have a stroke diagnosis?: No VTE Prior VTE?: No VTE Risk Level:: Medical - moderate - high VTE Device Contraindication: Treatment Not Indicated VTE Drug Contraindication: Treatment Not Indicated
--- NOTE | 2021-10-26 11:07 | MHC.CLN ---
F/U PATIENT WITH NG TUBE FEEDING. CURRENT ORDER IS JEVITY 1.0 WITH MAX GOAL RATE OF 30 ML PER HOUR. PROVIDES 720 ML FORMULA; 763 KCALS (22.4 KCALS/KG); 31.9 G PROTEIN (.94 G/KG); 601 ML FREE WATER. FLUSH ORDER PROVIDES 960 ML WATER, PLUS FREE WATER FROM [id number] ML (45.9 ML/KG). WILL FOLLOW UP WITH .
--- NOTE | 2021-10-26 11:16 | MHC.SL.SWA ---
Speech Pathologist Impression: Risk of Aspiration Oralpharyngeal Dysphagia Risk of Aspiration Due to: Lethargy Medically Fragile Neurological Condition History of Pneumonia Poor PO Intake Reduced Cognition Dysphasia Diet Status: No Change Liquid Consistency and Strategies for Safe Swallow: Liquid Intake Recommendation: NPO Liquid Intake Strategies: Solid Food Consistency: Dietary Recommendations: NPO Additional Modifications to Solid Foods: Recommend alternative delivery method of nutrition Oral Medication Intake: NPO Compensatory Strategies and Precautions to be Taken for Safe Swallow: Supervision While Eating and Drinking for Safe Swallow: PO with BINDER ROLLER Foods to Avoid: Recommend alternative feeding method for nutrition at this time. Swallowing Recommended Treatments: Compens. Strategy Educat. Recommendation for Speech: Inpatient Speech Therapy Comment: Pt presents with high risk of aspiration due to moderate-severe oral pharyngeal dysphagia, significant residual in oral cavity after swallow without effort to clear or awareness of substance, and general level of alertness, readiness, motivation to eat. At this time recommend continue NPO, recommend team seek alternative method of delivering nutrition. BINDER ROLLER will continue to follow during inpt stay, reassess swallow and advance to PO diet if warranted. Recommendations given to nursing verbally, by secure text to MD, Roll[place] Man. 10/26 Note: Pt seen this a.m. for repeat assessment of swallow. Pt now had NG tube, continues NPO due to high risk of aspiration on swallow. Pt had increased alertness, shaking head at times in response to verbal interaction, but unreliable y/n response. Pt was given oral care, however Pt intermittently accepted dampened toothette in mouth. Trace amounts of water spilled from mouth, no initiation of swallow noted, no clinical s/s aspiration on trace amounts of water (most spilled from mouth). Tongue movement anterior posterior, not lateral movement in response to stimulation. Did not attempt swallow of food/liquid at this session due to aspiration concerns. Will continue to monitor Pt, reassess swallow. Continue NPO at this time. Frequency/Duration: M-F while inpt Date Range for Service Req: Timeline to reassess: Pattern Chart Writer Clinican/Clinical Fellow: No Supervisory Statement: I have reviewed and agree with the student/clinical fellow's documentation: N/A Speech Language Pathologist: Kadie Knight M.A., CCC-BINDER ROLLER
--- NOTE | 2021-10-26 12:56 | MHC.CLN ---
Addendum entered by [place] RD 10/26/21 13:16: ORDER WRITTEN WTH MAX GOAL RATE OF 45 ML PER HOUR. JEVITY 1.0 AT MAX GOAL RATE OF 45 ML PER HOUR. FLUSH 120 ML WATER EVERY 6 HOURS. PROVIDES: 1080 ML FORMULA; 1145 KCAL (28 KCAL/KG IBW); 48 G PROTEIN (1.17 G/KG IBW); 901 ML PLUS 480 ML WATER FROM MJVSA=2202 ML (33.8 ML/KG IBW). Original Note: F/U PATIENT WITH NG TUBE FEEDING. ESTIMATED NUTRITIONAL NEEDS BASED ON IBW=40.9 KG WHEN HEIGHT=4'[address] RECOMMENDS JEVITY 1.0 AT MAX GOAL RATE OF 47 ML PER HOUR. FLUSH 120 ML WATER EVERY 6 HOURS. PROVIDES: 1128 ML FORMULA; 1195 KCAL (29.2 KCAL/KG IBW); 50 G PROTEIN (1.22 G/KG IBW); 941 ML PLUS 480 ML WATER FROM WVUZU=7265 ML (34.7 ML/KG IBW). RECENT ELEVATED SODIUM WITH 10/25 SODIUM WITHIN NORMAL LIMITS. FOLLOW TUBE FEED TOLERANCE AND LABS.
[2021-10-26 15:18] VITALS: PULSE 95; RESP 20; TEMP 36.1; O2SAT 96
--- NOTE | 2021-10-26 18:23 | PC.NURSE ---
Pt strated on NG tube feeding this afternoon. She has Javity 1.5cal running at 10mL/hr and to be increased by 10ml Q6hrs for a mxx rate of 45ml/hr. pt noted to be developing a pressure ulcer to the right upper back. Foam dressing applied
[2021-10-26] MEDS: carBAMazepine 200 MG/10 ML ORAL.SUSP 300 MG NG-TUBE (22:20)
[2021-10-27] VITALS: BP 144/60; PULSE 102; RESP 15; TEMP 36.5; O2SAT 96
[2021-10-27 07:57] VITALS: BP 92/68; PULSE 97; RESP 18; TEMP 36.9; O2SAT 99
--- NOTE | 2021-10-27 08:53 | PM.PNNEP ---
Subjective Subjective Date of Service: 10/27/21 Principal diagnosis: HyperNa Interval history: seen and examined non verbal Physical Exam Vital Signs: Vital Signs: Last Vital Signs Temp 98.5 F 10/27/21 07:57 Pulse 97 10/27/21 07:57 Resp 18 10/27/21 07:57 BP 92/68 10/27/21 07:57 Pulse Ox 99 10/27/21 07:57 Oxygen Flow Rate 10 10/21/21 06:50 BMI result Body Mass Index 15.6 Const: General: No acute distress HENMT: Head: Yes normocephalic and Yes atraumatic Neck: Neck: Yes supple Resp: Auscultation: diminished lung sounds Cardio: Heart sounds: S1 normal heart sound present and S2 normal heart sound present GI: Palpation (GI): Soft to palpation and no guarding Extrem: General: No edema Objective Data Labs CBC & Chem 7: 10/26/21 05:42 10/26/21 05:42 Microbiology Microbiology Results: Microbiology 10/21/21 08:42 Blood - Venous Blood Culture - Final No growth after 5 days. 10/23/21 16:35 Blood - Venous Blood Culture - Preliminary No growth after 48 hours. 10/23/21 16:35 Blood - Venous Blood Culture - Preliminary No growth after 48 hours. 10/22/21 07:09 Blood - Venous Blood Culture - Preliminary No growth after 48 hours. Procedures Date of Service Date of Service: 10/27/21 Assessment & Plan Assessment and plan (1) Hypernatremia: Status: Acute (2) Metabolic acidosis: Status: Acute Assessment and Plan: free water deficit corrected persistent metabolic acidosis REC FH20 hold off NaHCO3 for now follow kidney function and electrolytes Time Spent With Patient Time: Total time spent is greater than 50% in coordination of care (as documented) at patient's floor/unit and/or counseling patient: Progress Note: Quality Stroke Does the patient have a stroke diagnosis?: No
[2021-10-27] MEDS: carBAMazepine 200 MG/10 ML ORAL.SUSP NG-TUBE (09:26)
[2021-10-27] MEDS: Heparin Sodium,Porcine 5,000 UNIT/ML VIAL 5000 UNIT SUBCUT ×2 (09:26→19:25)
[2021-10-27] MEDS: levoFLOXacin 500 MG TABLET NG-TUBE (09:26)
[2021-10-27 11:56] VITALS: BP 119/81; PULSE 98; RESP 20; TEMP 36.5; O2SAT 98
--- NOTE | 2021-10-27 12:11 | HO.PM.IMPN ---
Subjective Subjective Date of Service: 10/27/21 Interval History: Unable to obtain history since patient is nonverbal being followed for pneumonia, tolerating NG feedings. 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 CVS? regular rate rhythm, Respiratory lungs coarse bs, no respiratory distress Gastrointestinal abdomen soft, nontender , bowel sounds audible Extremities no edema. Neuro cannot asses Skin no rash Objective Data Active Medications Acetaminophen (Acetaminophen Supp 650 Mg Supp.Rect) 650 mg NV Q4H PRN PRN Reason: Fever Last Admin: 10/23/21 18:00 Dose: 650 mg Documented by: HIREN Amoxicillin/Clavulanate Potassium (Amoxicillin/Potassium Clav 2,000 Mg/50 Ml Bottle) 875 mg NG-TUBE BID [facility] Last Admin: 10/27/21 09:26 Dose: 875 mg Documented by: JAKE Carbamazepine (Carbamazepine 200 Mg/10 Ml Oral.Susp) 200 mg NG-TUBE DAILY [facility] Last Admin: 10/27/21 09:26 Dose: 200 mg Documented by: JAKE Carbamazepine (Carbamazepine 200 Mg/10 Ml Oral.Susp) 300 mg NG-TUBE BEDTIME [facility] Last Admin: 10/26/21 22:20 Dose: 300 mg Documented by: JENA Heparin Sodium (Porcine) (Heparin Sodium,Porcine 5,000 Unit/Ml Vial) 5,000 unit SUBCUT Q12H [facility] Last Admin: 10/27/21 09:26 Dose: 5,000 unit Documented by: JAKE Levofloxacin (Levofloxacin 500 Mg Tablet) 500 mg NG-TUBE Q24H [facility] Last Admin: 10/27/21 09:26 Dose: 500 mg Documented by: JAKE Ondansetron HCl (Ondansetron Hcl 4 Mg/2 Ml Vial) 4 mg IVPUSH Q8H PRN PRN Reason: Nausea and Vomiting Pharmacy Consult (Consult Rx Perform Med Rec) 1 each MISCELLANE ONCE PRN PRN Reason: Consult order Pharmacy Consult (Consult Rx Vancomycin Dosing) 1 each MISCELLANE DAILY PRN PRN Reason: Consult order Labs CBC & Chem 7: 10/26/21 05:42 10/26/21 05:42 Microbiology Microbiology Results: Microbiology 10/22/21 07:09 Blood Culture - Final Blood - Venous No growth after 5 days. 10/21/21 08:42 Blood Culture - Final Blood - Venous No growth after 5 days. Assessment and Plan (1) Metabolic acidosis: Status: Acute (2) Hyperthermia: Status: Acute (3) Severe sepsis: Status: Acute (4) Acute respiratory failure with hypoxia: Status: Acute (5) Aspiration pneumonia: Status: Acute (6) Hypernatremia: Status: Acute (7) Leukocytosis: Status: Acute Assessment and Plan: 71 year female with history of cerebral palsy, nonverbal and bedbound, total care at baseline, recent admission for UTI brought into the emergency department with increasing lethargy found have multiple significant acute medical issues being admitted for comfort measures initially.? (10/23/21 see advance planning note) Case discussed today with DDS director Anastasia Aguero,? legal and ethics staff as well.? Also on the call Kamini Caceers, Dr. Vel Veronica, Nader Mayfield, Patients brother (guardian).? 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 On admission the patient's guardian was contacted and at that time that patient was made comfort measures only.? Today there was concern from the DDS that patient should be treated and patient's brother was in agreement.? Plan was to change patients CANCER REGISTRAR status to DNR /DNI and treat for active medical problems. Acute respiratory failure with hypoxia secondary to aspiration pneumonia Severe sepsis, no fevers in last few days,blood cultures negative Presented with a oxygen sat of 80% CTA chest showed peripheral opacity, viral panel negative WBC gradually trending down O2 sats 95% on room air, continue supportive care. Status post IV vanco, Zosyn, Levaquin, changed to by mouth doxy and Augmentin day 2 Hypernatremia sodium normalized, was likely due to poor by mouth intake NG tube placed,cont. water boluses via NG tube nephrology following Follow BMP Severe protein calorie malnutrition.? BMI 15.7 Speech therapy recommend NPO, NG tube placed ,feedings started on 10/25 , will discuss with family regarding G-tube placement early next week if remained somnolent and unable to take by mouth Patient resisting oral care. History of seizure disorder No seizures noted since admission seizure precautions, cont. Tegretol via NG tube, Code status DNR DNI DVT pptx, heparin Quality Stroke Does the patient have a stroke diagnosis?: No VTE Prior VTE?: No VTE Risk Level:: Medical - moderate - high VTE Device Contraindication: Treatment Not Indicated VTE Drug Contraindication: Treatment Not Indicated
[2021-10-27 15:56] VITALS: BP 129/63; PULSE 94; RESP 17; TEMP 36.2; O2SAT 96
[2021-10-27 19:31] VITALS: BP 153/94; PULSE 101; RESP 18; TEMP 36.4; O2SAT 96
[2021-10-27] MEDS: carBAMazepine 200 MG/10 ML ORAL.SUSP 300 MG NG-TUBE (20:53)
[2021-10-28] VITALS (7 sets, daily range): BP systolic 114–160; BP diastolic 63–96; PULSE 93–106; RESP 15–18; TEMP 36–36.6; O2SAT 95–99
[2021-10-28 06:35] LABS: MANUAL DIFF FLAG NO
[2021-10-28 06:44] LABS: Basophils Absolute Auto 0.1 X10*3/uL (0.0-0.2); Basophils Percent Auto 0.2 % (0-2); Eosinophils Absolute Auto 0.2 X10*3/uL (0.0-0.4); Eosinophils Percent Auto 0.8 % (0-4); Hematocrit 33.5 % (37.0-47.0); Hemoglobin 10.8 g/dl (12.0-16.0); Imm Gran Abs Auto 0.43 X10*3/uL (0.00-0.03); Lymphocytes Absolute Auto 1.5 X10*3/uL (1.2-4.9); Lymphocytes Percent Auto 6.8 % (20-40); Mean Corpuscular HGB Conc 32.2 g/dl (31.0-35.0); Mean Corpuscular Hemoglobin 31.3 pg (27.0-33.0); Mean Corpuscular Volume 97.1 fL (80.0-98.0); Mean Platelet Volume 11.4 fL (9.4-12.3); Monocytes Percent Auto 4.5 % (2-11); Neutrophils Absolute Auto 18.4 x10*3/uL (2.0-8.3); Neutrophils Percent Auto 85.7 % (45-73); Platelet Count 310 X10*3/uL (160-400); Red Blood Count 3.45 X10*6/uL (4.20-5.50); Red Cell Distribution Width 14.9 % (11.0-16.0); White Blood Count 21.5 X10*3/uL (4.8-10.8)
[2021-10-28 07:17] LABS: Anion Gap 14 (12-20); Blood Urea Nitrogen 10 mg/dL (9-16); Calcium 8.1 mg/dL (8.4-10.2); Carbon Dioxide 17 mmol/L (22-29); Chloride 113 mmol/L (96-108); Creatinine Clr Calc Pharmacy 66.9; Estimated Glomerular Filt Rate > 60; Glucose Random 147 mg/dL (60-115); Potassium 3.3 mmol/L (3.3-5.1); Sodium 141 mmol/L (135-145)
[2021-10-28] MEDS: levoFLOXacin 500 MG TABLET NG-TUBE (08:53)
[2021-10-28] MEDS: Heparin Sodium,Porcine 5,000 UNIT/ML VIAL 5000 UNIT SUBCUT ×2 (08:53→19:56)
[2021-10-28] MEDS: carBAMazepine 200 MG/10 ML ORAL.SUSP NG-TUBE (08:53)
--- NOTE | 2021-10-28 09:58 | PM.PNNEP ---
Subjective Subjective Date of Service: 10/28/21 Principal diagnosis: HyperNa Interval history: seen and examined unable to obtain history since patient is nonverbal discussed with medical attending Physical Exam Vital Signs: Vital Signs: Last Vital Signs Temp 97.4 F 10/28/21 07:37 Pulse 97 10/28/21 07:37 Resp 18 10/28/21 07:37 BP 114/63 10/28/21 07:37 Pulse Ox 98 10/28/21 07:37 Oxygen Flow Rate 10 10/21/21 06:50 BMI result Body Mass Index 15.6 Const: General: No acute distress HENMT: Head: Yes normocephalic and Yes atraumatic Neck: Neck: Yes supple Resp: Auscultation: diminished lung sounds Cardio: Heart sounds: S1 normal heart sound present and S2 normal heart sound present GI: Palpation (GI): Soft to palpation and no guarding Extrem: General: No edema Objective Data Labs CBC & Chem 7: 10/28/21 06:22 10/28/21 06:22 Labs: Laboratory Results - last 24 hr 10/28/21 10/28/21 06:22 06:22 WBC 21.5 H RBC 3.45 L Hgb 10.8 L Hct 33.5 L MCV 97.1 MCH 31.3 MCHC 32.2 RDW 14.9 Plt Count 310 MPV 11.4 Immature Gran % (Auto) 2.0 H Neut % (Auto) 85.7 H Lymph % (Auto) 6.8 L [place] % (Auto) 4.5 Eos % (Auto) 0.8 Baso % (Auto) 0.2 Lymph # (Auto) 1.5 [place] # (Auto) 1.0 Eos # (Auto) 0.2 Baso # (Auto) 0.1 Abs Immat Gran (auto) 0.43 H Absolute Neuts (auto) 18.4 H Absolute Nucleated RBC 0.000 Nucleated RBC % (auto) 0.0 Sodium 141 Potassium 3.3 Chloride 113 H Carbon Dioxide 17 L Anion Gap 14 BUN 10 D Creatinine 0.42 L Estim Creat Clear Calc 66.9 Estimated GFR > 60 Random Glucose 147 H Calcium 8.1 L Microbiology Microbiology Results: Microbiology 10/22/21 07:09 Blood - Venous Blood Culture - Final No growth after 5 days. 10/21/21 08:42 Blood - Venous Blood Culture - Final No growth after 5 days. 10/23/21 16:35 Blood - Venous Blood Culture - Preliminary No growth after 48 hours. 10/23/21 16:35 Blood - Venous Blood Culture - Preliminary No growth after 48 hours. Procedures Date of Service Date of Service: 10/28/21 Assessment & Plan Assessment and plan (1) Hypernatremia: Status: Acute (2) Metabolic acidosis: Status: Acute Assessment and Plan: free water deficit corrected persistent metabolic acidosis REC continue FH20 hold off NaHCO3 for now follow kidney function and electrolytes Time Spent With Patient Time: Total time spent is greater than 50% in coordination of care (as documented) at patient's floor/unit and/or counseling patient: Progress Note: Quality Stroke Does the patient have a stroke diagnosis?: No
--- NOTE | 2021-10-28 10:48 | P.PNIM_ITS ---
Subjective Subjective Date of Service: 10/28/21 Interval History: No acute issues overnight tolerating NG feeding, mild hyperemia noted right upper back, no fevers WBC elevated. Review of Systems Unable to obtain review of system patient nonverbal Physical Exam Vital Signs: Vital Signs: Last Vital Signs Temp 97.4 F 10/28/21 07:37 Pulse 97 10/28/21 07:37 Resp 18 10/28/21 07:37 BP 114/63 10/28/21 07:37 Pulse Ox 98 10/28/21 07:37 Oxygen Flow Rate 10 10/21/21 06:50 BMI result Body Mass Index 15.6 General?resting in bed, no acute distress, nonverbal? 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 CVS? regular rate rhythm, Respiratory lungs coarse bs, no respiratory distress Gastrointestinal abdomen soft, nontender , bowel sounds audible Extremities no edema. Neuro cannot asses Skin area of hyperemia right upper back likely stage I pressure area Objective Data Active Medications Acetaminophen (Acetaminophen Supp 650 Mg Supp.Rect) 650 mg [place] Q4H PRN PRN Reason: Fever Last Admin: 10/23/21 18:00 Dose: 650 mg Documented by: HIREN Amoxicillin/Clavulanate Potassium (Amoxicillin/Potassium Clav 2,000 Mg/50 Ml Bottle) 875 mg NG-TUBE BID [facility] Last Admin: 10/28/21 08:52 Dose: 875 mg Documented by: MILLER Carbamazepine (Carbamazepine 200 Mg/10 Ml Oral.Susp) 200 mg NG-TUBE DAILY [facility] Last Admin: 10/28/21 08:53 Dose: 200 mg Documented by: MILLER Carbamazepine (Carbamazepine 200 Mg/10 Ml Oral.Susp) 300 mg NG-TUBE BEDTIME [facility] Last Admin: 10/27/21 20:53 Dose: 300 mg Documented by: FARIDEH Heparin Sodium (Porcine) (Heparin Sodium,Porcine 5,000 Unit/Ml Vial) 5,000 unit SUBCUT Q12H [facility] Last Admin: 10/28/21 08:53 Dose: 5,000 unit Documented by: MILLER Levofloxacin (Levofloxacin 500 Mg Tablet) 500 mg NG-TUBE Q24H [facility] Last Admin: 10/28/21 08:53 Dose: 500 mg Documented by: HO.NGENOAL Ondansetron HCl (Ondansetron Hcl 4 Mg/2 Ml Vial) 4 mg IVPUSH Q8H PRN PRN Reason: Nausea and Vomiting Pharmacy Consult (Consult Rx Perform Med Rec) 1 each MISCELLANE ONCE PRN PRN Reason: Consult order Pharmacy Consult (Consult Rx Vancomycin Dosing) 1 each MISCELLANE DAILY PRN PRN Reason: Consult order Labs CBC & Chem 7: 10/28/21 06:22 10/28/21 06:22 Labs: Laboratory Results - last 24 hr 10/28/21 10/28/21 06:22 06:22 MCV 97.1 MCH 31.3 MCHC 32.2 RDW 14.9 Plt Count 310 MPV 11.4 Immature Gran % (Auto) 2.0 H Neut % (Auto) 85.7 H Lymph % (Auto) 6.8 L [place] % (Auto) 4.5 Eos % (Auto) 0.8 Baso % (Auto) 0.2 Lymph # (Auto) 1.5 [place] # (Auto) 1.0 Eos # (Auto) 0.2 Baso # (Auto) 0.1 Abs Immat Gran (auto) 0.43 H Absolute Neuts (auto) 18.4 H Absolute Nucleated RBC 0.000 Nucleated RBC % (auto) 0.0 Anion Gap 14 Estim Creat Clear Calc 66.9 Estimated GFR > 60 Random Glucose 147 H Calcium 8.1 L Microbiology Microbiology Results: Microbiology 10/22/21 07:09 Blood Culture - Final Blood - Venous No growth after 5 days. Assessment and Plan (1) Leukocytosis: Status: Acute (2) Hypernatremia: Status: Acute (3) Aspiration pneumonia: Status: Acute (4) Acute respiratory failure with hypoxia: Status: Acute Assessment and Plan: 71 year female with history of cerebral palsy, nonverbal and bedbound, total care at baseline, recent admission for UTI brought into the emergency department with increasing lethargy found have multiple significant acute medical issues being admitted for comfort measures initially.? (10/23/21 see advance planning note) Case discussed today with DDS director Anastasia Aguero,? legal and ethics staff as well.? Also on the call Kamini Caceres, Dr. Vel Veronica, Nader Mayfield, Patients brother (guardian).? 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 On admission the patient's guardian was contacted and at that time that patient was made comfort measures only.? Today there was concern from the DDS that patient should be treated and patient's brother was in agreement.? Plan was to change patients PRE PAROLE COUNSELING AIDE status to DNR /DNI and treat for active medical problems. Acute respiratory failure with hypoxia secondary to aspiration pneumonia Severe sepsis, no fevers in last 4 days,blood cultures negative Presented with a oxygen sat of 80% CTA chest showed peripheral opacity, viral panel negative WBC fluctuating remain elevated O2 sats 95% on room air, continue supportive care. Status post IV vanco, Zosyn, Levaquin, changed to by mouth doxy and Augmentin day 3 Chronic leukocytosis Obtain Hematology consultation since patient afebrile and has persistent leukocytosis since 10/09 Hypernatremia sodium normalized, was likely due to poor by mouth intake NG tube placed,cont. water boluses via NG tube nephrology following Follow BMP Severe protein calorie malnutrition.? BMI 15.7 Speech therapy recommend NPO, NG tube placed ,feedings started on 10/25 , will discuss with family regarding G-tube placement if remained unable to take by mouth Will discuss with speech therapy tomorrow morning Patient resisting oral care. History of seizure disorder No seizures noted since admission seizure precautions, cont. Tegretol via NG tube, stage I pressure sore right upper back frequent position change/high-protein diet/barrier cream Code status DNR DNI DVT pptx, heparin Quality Stroke Does the patient have a stroke diagnosis?: No VTE Prior VTE?: No VTE Risk Level:: Medical - moderate - high VTE Device Contraindication: Treatment Not Indicated VTE Drug Contraindication: Treatment Not Indicated
[2021-10-28] MEDS: Potassium Chloride Packet 20 MEQ PACKET NG-TUBE (12:33)
--- NOTE | 2021-10-28 13:43 | MHC.CM.PN ---
PER REVIEW OF EMR, PATIENT IS STILL NPO. POSSIBILITY OF G-TUBE PLACEMENT AWAITING SPEECH TOMORROW 10/29/21
--- NOTE | 2021-10-28 15:01 | PC.NURSE ---
Pt is alert to her name. Pt is developmentally challenged and is non-verbal at baseline. Pt continues on Jevity 1.5 figueroa running at 45cc/hr. 0930, residual checked and to be >25ccc. Feeding stopped for 2 hrs. Feeding resumed at 1145am. Pr also repostioned every hr. Pressure injury to the right back noted. Foam dressing applied. at 1430, vomit found on the bed. feeding clamped again, pt cleaned and repositioned.
[2021-10-28] MEDS: carBAMazepine 200 MG/10 ML ORAL.SUSP 300 MG NG-TUBE (19:56)
[2021-10-29 03:12] VITALS: BP 163/85; PULSE 92; RESP 18; TEMP 36.5; O2SAT 98
[2021-10-29 06:43] LABS: Basophils Absolute Auto 0.1 X10*3/uL (0.0-0.2); Basophils Percent Auto 0.3 % (0-2); Eosinophils Absolute Auto 0.2 X10*3/uL (0.0-0.4); Eosinophils Percent Auto 1.1 % (0-4); Hematocrit 30.6 % (37.0-47.0); Imm Gran Abs Auto 0.79 X10*3/uL (0.00-0.03); Imm Gran Pct Auto 3.6 % (0.0-0.4); MANUAL DIFF FLAG SCAN; Mean Corpuscular HGB Conc 32.7 g/dl (31.0-35.0); Mean Corpuscular Hemoglobin 31.3 pg (27.0-33.0); Mean Corpuscular Volume 95.6 fL (80.0-98.0); Monocytes Absolute Auto 1.1 X10*3/uL (0.1-1.2); Monocytes Percent Auto 4.9 % (2-11); Neutrophils Absolute Auto 17.7 x10*3/uL (2.0-8.3); Neutrophils Percent Auto 81.1 % (45-73); PLT CLUMP 1; Red Cell Distribution Width 15.2 % (11.0-16.0); SCAN SMEAR FLAG 1
[2021-10-29 07:23] LABS: White Blood Count 21.8 X10*3/uL (4.8-10.8)
[2021-10-29 07:25] LABS: SLIDE REVIEW VERIFIED
[2021-10-29 07:54] VITALS: BP 120/66; PULSE 99; RESP 18; TEMP 36.2; O2SAT 99
--- NOTE | 2021-10-29 09:40 | P.PNIM_ITS ---
Subjective Subjective Date of Service: 10/29/21 Review of Systems Follow up aspiration pneumonia somnolent but appears to be close to baseline No issues overnight Physical Exam Verdana 4l Vital Signs: Verdana 4d Verdana 4d Vital Signs: Verdana 4d Verdana 4Bd Last Vital Signs Verdana 4d Restoration [place] New 4d Restoration [place] New 4d Temp 97.2 F 10/29/21 07:54 Restoration [place] New 4d Pulse 99 10/29/21 07:54 Restoration [place]vers[place] NewNew 4d Resp 18 10/29/21 07:54 BP 120/66 10/29/21 07:54 Pulse Ox 99 10/29/21 07:54 Oxygen Flow Rate 10 10/21/21 06:50 BMI result Body Mass Index 15.6 Appearing in no acute distress, resting in bed lung sounds are clear to auscultation heart regular rate rhythm, clear S1, S2 positive bowel sounds, abdomen is soft, nontender neuro patient not verbally responsive, squeezed hand Objective Data Active Medications Acetaminophen (Acetaminophen Supp 650 Mg Supp.Rect) 650 mg [place] Q4H PRN PRN Reason: Fever Last Admin: 10/23/21 18:00 Dose: 650 mg Documented by: HIREN Amoxicillin/Clavulanate Potassium (Amoxicillin/Potassium Clav 2,000 Mg/50 Ml Bottle) 875 mg NG-TUBE BID [facility] Last Admin: 10/28/21 19:57 Dose: 875 mg Documented by: JENA Carbamazepine (Carbamazepine 200 Mg/10 Ml Oral.Susp) 200 mg NG-TUBE DAILY [facility] Last Admin: 10/28/21 08:53 Dose: 200 mg Documented by: MILLER Carbamazepine (Carbamazepine 200 Mg/10 Ml Oral.Susp) 300 mg NG-TUBE BEDTIME [facility] Last Admin: 10/28/21 19:56 Dose: 300 mg Documented by: JENA Heparin Sodium (Porcine) (Heparin Sodium,Porcine 5,000 Unit/Ml Vial) 5,000 unit SUBCUT Q12H [facility] Last Admin: 10/28/21 19:56 Dose: 5,000 unit Documented by: JENA Levofloxacin (Levofloxacin 500 Mg Tablet) 500 mg NG-TUBE Q24H [facility] Last Admin: 10/28/21 08:53 Dose: 500 mg Documented by: MILLER Ondansetron HCl (Ondansetron Hcl 4 Mg/2 Ml Vial) 4 mg IVPUSH Q8H PRN PRN Reason: Nausea and Vomiting Pharmacy Consult (Consult Rx Perform Med Rec) 1 each MISCELLANE ONCE PRN PRN Reason: Consult order Pharmacy Consult (Consult Rx Vancomycin Dosing) 1 each MISCELLANE DAILY PRN PRN Reason: Consult order Labs CBC & Chem 7: 10/29/21 06:18 10/28/21 06:22 Labs: Laboratory Results - last 24 hr 10/29/21 06:18 MCV 95.6 MCH 31.3 MCHC 32.7 RDW 15.2 Plt Count TNP MPV Not Reportable Immature Gran % (Auto) 3.6 H Neut % (Auto) 81.1 H Lymph % (Auto) 9.0 L [place] % (Auto) 4.9 Eos % (Auto) 1.1 Baso % (Auto) 0.3 Lymph # (Auto) 2.0 [place] # (Auto) 1.1 Eos # (Auto) 0.2 Baso # (Auto) 0.1 Abs Immat Gran (auto) 0.79 H Absolute Neuts (auto) 17.7 H Absolute Nucleated RBC 0.000 Nucleated RBC % (auto) 0.0 Smear Tech's Comments VERIFIED Microbiology Microbiology Results: Microbiology 10/23/21 16:35 Blood Culture - Final Blood - Venous No growth after 5 days. 10/23/21 16:35 Blood Culture - Final Blood - Venous No growth after 5 days. Assessment and Plan (1) Leukocytosis: Status: Acute (2) Aspiration pneumonia: Status: Acute Assessment and Plan: 71 year female with history of cerebral palsy, nonverbal and bedbound, total care at baseline, recent admission for UTI brought into the emergency department with increasing lethargy found have multiple significant acute medical issues being admitted for comfort measures initially.? (10/23/21 see advance planning note) Case discussed today with DDS director Anastasia Aguero,? legal and ethics staff as well.? Also on the call Dr. Vel Lauren, Nader Mayfield, Patients brother (guardian).? 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 On admission the patient's guardian was contacted and at that time that patient was made comfort measures only.? Today there was concern from the DDS that patient should be treated and patient's brother was in agreement.? Plan was to change patients BRAIDER SETTER status to DNR /DNI and treat for active medical problems. Chronic leukocytosis Obtain Hematology consultation since patient afebrile and has persistent leuko cytosis since 10/09 Severe protein calorie malnutrition.? BMI 15.7 Speech therapy recommend NPO, NG tube placed ,feedings started on 10/25 , will discuss with family regarding G-tube placement if remained unable to take by mouth Will discuss with speech therapy tomorrow morning Patient resisting oral care. Call placed to DDS and patients son regarding the possibility of a peg tube Acute respiratory failure with hypoxia secondary to aspiration pneumonia Severe sepsis, no fevers in last 5 days,blood cultures negative Presented with a oxygen sat of 80% CTA chest showed peripheral opacity, viral panel negative WBC fluctuating remain elevated O2 sats 95% on room air, continue supportive care. Status post IV vanco, Zosyn, Levaquin, changed to by mouth doxy and Augmentin Hypernatremia sodium normalized, was likely due to poor by mouth intake NG tube placed,cont. water boluses via NG tube nephrology following Follow BMP History of seizure disorder No seizures noted since admission seizure precautions, cont. Tegretol via NG tube, stage I pressure sore right upper back frequent position change/high-protein diet/barrier cream Code status DNR DNI DVT pptx, heparin Attending Dr. Davila Quality Stroke Does the patient have a stroke diagnosis?: No VTE Prior VTE?: No VTE Risk Level:: Medical - moderate - high VTE Device Contraindication: Treatment Not Indicated VTE Drug Contraindication: Treatment Not Indicated
--- NOTE | 2021-10-29 10:03 | MHC.CM.PN ---
EMR REVIEWED, PER HOSPITALIST SHE WILL DISCUSS POSSIBLE GTUBE PLACEMENT FOR PT W/HCP AND DDS. NO PLAN FOR D/C TODAY, CM WILL CONT TO FOLLOW D/C NEEDS.
--- NOTE | 2021-10-29 10:16 | PM.PNNEP ---
Subjective Subjective Date of Service: 10/29/21 Principal diagnosis: HyperNa Interval history: No acute issues overnight tolerating NG feeding, mild hyperemia noted right upper back, no fevers WBC elevated. Physical Exam Vital Signs: Vital Signs: Last Vital Signs Temp 97.2 F 10/29/21 07:54 Pulse 99 10/29/21 07:54 Resp 18 10/29/21 07:54 BP 120/66 10/29/21 07:54 Pulse Ox 99 10/29/21 07:54 Oxygen Flow Rate 10 10/21/21 06:50 BMI result Body Mass Index 15.6 Const: Other: appears comfortable breathing unlabored. 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 Sclerae: sclerae normal Neck: Neck: Yes supple Resp: Other: breathing unlabored, no acute distress Auscultation: diminished lung sounds Cardio: Rate: regular rate Rhythm: regular rhythm Heart sounds: S1 normal heart sound present and S2 normal heart sound present GI: Other: soft, non-distended Palpation (GI): Soft to palpation and no guarding Neuro: Other: unable to assess, not following commands Cranial nerves: Yes CN's II-XII intact bilaterally and Yes Bilaterally intact EOM present Extrem: Other: muscle contractures General: No edema Objective Data Labs CBC & Chem 7: 10/29/21 06:18 10/28/21 06:22 Labs: Laboratory Results - last 24 hr 10/29/21 06:18 WBC 21.8 H RBC 3.20 L Hgb 10.0 L Hct 30.6 L MCV 95.6 MCH 31.3 MCHC 32.7 RDW 15.2 Plt Count TNP MPV Not Reportable Immature Gran % (Auto) 3.6 H Neut % (Auto) 81.1 H Lymph % (Auto) 9.0 L Davidson % (Auto) 4.9 Eos % (Auto) 1.1 Baso % (Auto) 0.3 Lymph # (Auto) 2.0 Davidson # (Auto) 1.1 Eos # (Auto) 0.2 Baso # (Auto) 0.1 Abs Immat Gran (auto) 0.79 H Absolute Neuts (auto) 17.7 H Absolute Nucleated RBC 0.000 Nucleated RBC % (auto) 0.0 Smear Tech's Comments VERIFIED Microbiology Microbiology Results: Microbiology 10/23/21 16:35 Blood - Venous Blood Culture - Final No growth after 5 days. 10/23/21 16:35 Blood - Venous Blood Culture - Final No growth after 5 days. 10/22/21 07:09 Blood - Venous Blood Culture - Final No growth after 5 days. 10/21/21 08:42 Blood - Venous Blood Culture - Final No growth after 5 days. Procedures Date of Service Date of Service: 10/29/21 Assessment & Plan Assessment and plan (1) Leukocytosis: Status: Acute (2) Aspiration pneumonia: Status: Acute Assessment and Plan: 71 year female with history of cerebral palsy, nonverbal and bedbound, total care at baseline, recent admission for UTI brought into the emergency department with increasing lethargy found have multiple significant acute medical issues hypernatremia has resolved will sign off call for ? Time Spent With Patient Time: Total time spent is greater than 50% in coordination of care (as documented) at patient's floor/unit and/or counseling patient: Progress Note: Quality Stroke Does the patient have a stroke diagnosis?: No
[2021-10-29] MEDS: levoFLOXacin 500 MG TABLET NG-TUBE (10:28)
[2021-10-29] MEDS: Heparin Sodium,Porcine 5,000 UNIT/ML VIAL 5000 UNIT SUBCUT ×2 (10:28→19:46)
[2021-10-29] MEDS: carBAMazepine 200 MG/10 ML ORAL.SUSP NG-TUBE (10:28)
--- NOTE | 2021-10-29 11:22 | MHC.CLN ---
F/U CONTINUES WITH NG TUBE FEEDING TUBE FEEDING APPEARS TO BE RUNNING AT 30 ML PER HOUR HALF STRENGTH WITH FAIR TOLERANCE. RD RECOMMENDS JEVITY 1.0 AT MAX GOAL RATE OF 45 ML PER HOUR; FLUSH 120 ML WATER EVERY 6 HOURS. PROVIDES: 1080 ML FORMULA; 1145 KCAL (28 KCAL/KG IBW); 48 G PROTEIN (1.17 G/KG IBW); 901 ML PLUS 480 ML WATER FROM FSFVE=1462 ML (33.8 ML/KG IBW) STAGE I PRESSURE AREA RIGHT BACK. QUESTION POSSIBLE PEG PLACEMENT. CONTINUE TO FOLLOW LYTES, SKIN, AND TUBE FEED TOLERANCE.
[2021-10-29 11:34] VITALS: BP 139/74; PULSE 106; RESP 18; TEMP 36.6; O2SAT 96
--- NOTE | 2021-10-29 12:07 | CONS_ITS ---
DATE OF SERVICE: 10/24/2021 HISTORY OF PRESENT ILLNESS: I was asked to see the patient to assist in evaluation and management of patient's severe hypernatremia as reflected by serum sodium that was 165 on October 23, associated with altered mental status. She [facility] a [facility] and was transferred to the hospital because of this. Initially, there was some question whether she would be comfort measures only, but it looks like her status now is DNR/DNI. She is getting treatment with IV hypotonic fluids and her serum sodium this morning is down to 157. In summary, patient is a 71-year-old female with a history of cerebral palsy, who was noted to be increasingly lethargic at a penitentiary. She apparently was recently in the hospital for an episode of urinary tract infection. In the emergency room, she was minimally responsive, had a high fever of 106.6, tachycardic and heart rate 160, and tachypneic. She is noted to have a marked leukocytosis with a white blood cell count of 34,000. Initially serum sodium 154 and as I mentioned went up to 167. Information was obtained from electronic medical record. Again, records note that cerebral palsy, apparently seizure disorder, but not much else in way of details. MEDICATIONS: On admission are noted in the admitting notes. Current medications are on the JAN. ALLERGIES: SHE HAS NO KNOWN DRUG ALLERGIES. REVIEW OF SYSTEMS: Unobtainable. FAMILY HISTORY: Unobtainable. SOCIAL HISTORY: Unobtainable. PHYSICAL EXAMINATION: VITAL SIGNS: Blood pressure 100/60, temp 97.3. GENERAL: She looks somewhat contracted. HEENT: Mucous membranes are very dry. NECK: No JVD. LUNGS: Poor respiratory effort. CARDIAC: Regular rate and rhythm. ABDOMEN: Soft. EXTREMITIES: Shows no edema and tenting of the skin. LABORATORY DATA: As mentioned, showed a sodium of 154 on the when she was admitted and then moved up to 165 yesterday. This morning, it is down to 157 and she is on IV D5W. She is also noted to have a potassium of 3.4, BUN was 39 on admission. This morning, it is down to 34. Creatinine was 0.94 on admission, now down to 0.76. Urine studies showed a urine specific gravity of 1.030, which is impressively concentrated. IMPRESSION: 71-YEAR-OLD CEREBRAL PALSY PATIENT, ADMITTED WITH ALTERED MENTAL STATUS, SEVERE FEVER, LEUKOCYTOSIS, AND DEVELOPS RELATIVELY SEVERE HYPERNATREMIA. 1. Hypernatremia. This is due to free water deficit. Given her specific gravity is so high, it is very unlikely this is diabetes insipidus. The fact that she is correcting on hypotonic fluids again is consistent with simply severe free water deficit. Goal is to continue giving her hypertonic fluids to correct her serum sodium. In the past, we would try and avoid too rapid correction of serum sodium and we should still avoid too rapid correction of serum sodium, but the risk of causing complications from too rapid correction of serum sodium seems to be not the case. 2. Altered mental status. It is unclear what her baseline is. SUGGESTIONS: At this time include continue IV hypertonic fluids and check serum sodiums. If her serum sodium is below 150 on repeat labs, we will switch over to half-normal saline. We will follow the patient closely with the team. MD HERSON Peguero/MARIA DE JESUS / [phone]
--- NOTE | 2021-10-29 13:22 | MHC.SL.SWA ---
Speech Pathologist Impression: Risk of Aspiration Oralpharyngeal Dysphagia Risk of Aspiration Due to: Lethargy Medically Fragile Neurological Condition History of Pneumonia Poor PO Intake Reduced Cognition Dysphasia Diet Status: No Change Liquid Consistency and Strategies for Safe Swallow: Liquid Intake Recommendation: NPO Liquid Intake Strategies: Solid Food Consistency: Dietary Recommendations: NPO Additional Modifications to Solid Foods: Recommend alternative delivery method of nutrition Oral Medication Intake: NPO Compensatory Strategies and Precautions to be Taken for Safe Swallow: Supervision While Eating and Drinking for Safe Swallow: PO with SCRAP DROP CRANE OPERATOR Foods to Avoid: Recommend permanent alternative feeding method for nutrition at this time. Swallowing Recommended Treatments: Compens. Strategy Educat. Recommendation for Speech: Inpatient Speech Therapy Comment: Pt seen this p.m. for repeat assessment of swallow. Pt has NG tube, was receiving nutrition by tube at time of re- assessment. Pt was sleeping at onset, slowly became alert after sternal rub, use of name, presence of Nursing checking for placement of IV. Pt given oral care of lip moisturizer, damp toothette on teeth and lips. At introduction of toothette, pt clamped lips and jaw to prevent its use in mouth. Pt briefly accepted toothette to teeth and anterior of mouth. No swallow was initiated on trace amounts of liquid, no liquid fell from mouth. Pt was presented with empty spoon, and after rejecting X2, opened mouth and accepted spoon, closed lips on spoon and made stripping action with lips. No swallow was initiated after presentation of empty spoon. Pt was given 1/4 tsp of puree by spoon, again stripped puree from spoon with lips, used anterior-posterior movement of tongue to suckle bolus toward pharynx. Pt initially forcefully gagged at first attempt at swallow, followed after delay with swallow with mildly reduced laryngeal elevation, residual of puree in oral cavity. Pt continued to suckle residual and produced two more swallows on this small amount of puree, cleared most of residual from oral cavity with trace amount cleared by SCRAP DROP CRANE OPERATOR by swab/toothette. Another presentation of 1/4 puree was attempted, Pt clamped lips and jaw, used R hand to wave and push away offered spoon. Pt continues at high risk for aspiration on swallow, continues at risk for not receiving adequate nutrition by PO due to Swallowing impairment and refusal. Spoke with Pt primary Caregiver this a.m. named Quiana. Quiana reported that Pt had been fed primarily puree consistency previously, and that she would attempt to give her liquids by spoon, but Pt had been rejecting for multiple weeks. On Puree, Quiana reported that Pt had been pocketing food orally and not initiating swallow, as well as rejecting food and not eating. Quiana reported that she had brought up her concerns about the difficulties she was having feeding Pt with DDS repeatedly. Pt decline in regular feeding, initiating swallowing, rejecting liquid had been happening for over a month before this admission. Spoke with Zoey Mcdonnell NP. Given the risk of aspiration and the chronic difficulty feeding Pt to safely receive nutrition, recommended permanent alternative means, (NG tube) for patient to safely receive adequate nutrition. SCRAP DROP CRANE OPERATOR will continue to see Pt and assess safety of small amounts of puree by PO for comfort v. primary means of nutrition. Frequency/Duration: M-F while inpt Date Range for Service Req: Timeline to reassess: Active Directory Architect Clinican/Clinical Fellow: No Supervisory Statement: I have reviewed and agree with the student/clinical fellow's documentation: N/A Speech Language Pathologist: Kadie Knight M.A., CCC-SCRAP DROP CRANE OPERATOR
--- NOTE | 2021-10-29 14:31 | HO.MIDLINE ---
PICC Line Insertion MIDLINE INSERTION Indication: NEEDS IV ACCESS Pertinent Labs: REVIEWED Technique: Using sterile technique including cap and mask, glove and drape, the LEFT arm was prepped and draped in the usual sterile fashion of full barrier technique with CHG. Using ultrasound guidance, CEPHALIC vein access was obtained IN SINGLE ATTEMPT BY THIS RN. A SINGLE LUMEN, NON-PASV, (20G X 8CM) MIDLINE was positioned. The procedure was performed in S-272. Ultrasound was used to document vein patency and for needle entry. A formal ultrasound picture was recorded. Vascular Radiation Protection Specialist has released the line for use and it is currently dressed with a StatLock, Tegaderm, and CHG disc. Verification has been performed for blood return and line patency. Arm Circumference: 26 CM Equipment: HiperScan POWERGLIDE PRO MIDLINE Catheter Type: SINGLE LUMEN, NON-PASV, (20G X 8CM) Lot #: [id number]
[2021-10-29 16:00] VITALS: BP 103/68; PULSE 106; RESP 18; TEMP 36.1; O2SAT 97
[2021-10-29 19:32] VITALS: BP 129/81; PULSE 109; RESP 18; TEMP 36.6; O2SAT 98
[2021-10-29] MEDS: carBAMazepine 200 MG/10 ML ORAL.SUSP 300 MG NG-TUBE (19:45)
[2021-10-29 23:34] VITALS: BP 136/75; PULSE 117; RESP 14; TEMP 37.2; O2SAT 98
[2021-10-30 03:11] VITALS: BP 105/90; PULSE 110; RESP 18; TEMP 37.4; O2SAT 98
[2021-10-30 08:00] VITALS: BP 139/80; PULSE 101; RESP 18; TEMP 36.9; O2SAT 100
--- NOTE | 2021-10-30 08:25 | PC.NURSE ---
Addendum entered by Kiki Yeager RN 10/30/21 14:57: The mid back is healing not getting worse. Original Note: Skin assessment completed today. Patient has Stage 1 redness to bilateral buttocks and coccyx- barrier cream applied along with repositioning. Patient has DTI to right back applied Comfeel Hydrocolloid to area. No other skin issues noted at this time.
[2021-10-30] MEDS: carBAMazepine 200 MG/10 ML ORAL.SUSP NG-TUBE (09:13)
[2021-10-30] MEDS: Heparin Sodium,Porcine 5,000 UNIT/ML VIAL 5000 UNIT SUBCUT ×2 (09:13→20:23)
[2021-10-30] MEDS: levoFLOXacin 500 MG TABLET NG-TUBE (09:13)
--- NOTE | 2021-10-30 11:11 | MHC.SL.SWA ---
Speech Pathologist Impression: Risk of Aspiration Oralpharyngeal Dysphagia Risk of Aspiration Due to: Lethargy Medically Fragile Neurological Condition History of Pneumonia Poor PO Intake Reduced Cognition Dysphasia Diet Status: No Change Liquid Consistency and Strategies for Safe Swallow: Liquid Intake Recommendation: NPO Liquid Intake Strategies: Solid Food Consistency: Dietary Recommendations: NPO Additional Modifications to Solid Foods: Recommend alternative delivery method of nutrition Oral Medication Intake: NPO Compensatory Strategies and Precautions to be Taken for Safe Swallow: Supervision While Eating and Drinking for Safe Swallow: PO with COURSE INSTRUCTOR Foods to Avoid: Recommend permanent alternative feeding method for nutrition at this time. Swallowing Recommended Treatments: Compens. Strategy Educat. Recommendation for Speech: Inpatient Speech Therapy Comment: Note from 10/29: Spoke with Pt primary Caregiver this a.m. named Quiana. Quiana reported that Pt had been fed primarily puree consistency previously, and that she would attempt to give her liquids by spoon, but Pt had been rejecting for multiple weeks. On Puree, Quiana reported that Pt had been pocketing food orally and not initiating swallow, as well as rejecting food and not eating. Quiana reported that she had brought up her concerns about the difficulties she was having feeding Pt with DDS repeatedly. Pt decline in regular feeding, initiating swallowing, rejecting liquid had been happening for over a month before this admission. Spoke with Zoey Mcdonnell NP. Given the risk of aspiration and the chronic difficulty feeding Pt to safely receive nutrition, recommended permanent alternative means, (NG tube) for patient to safely receive adequate nutrition. 10/30: Pt seen this a.m. for swallow treatment. Pt was sleeping initially, but easily roused, mildly lethargic through session. Pt is non-verbal, blind, responds to stimulus, opens eyes and moves head to voice/presence of other. Pt given initially given oral care of lip balm, oral swab w/ trace amount of diluted mouthwash. Pt was intermittently resistant to opening mouth for swab, clamped lips and jaw to reject. Tolerated swab around teeth, tongue and hard palate today, intermittently, with 1 episode of gag response with swab @ mid tongue. Swallow initiated spontaneously after treatment. Pt given 1/4 tsp amount of puree, Pt closed mouth on spoon, initiated anterior/posterior tongue movement and jaw movement to propel bolus, w/ swallow initiated after mild delay, trace oral residual noted in oral cavity. When swab presented, Pt closed mouth, and re-initiated swallow on residual of bolus with good clearance on second swallow. Pt offered second trial of puree, closed mouth and clamped jaw on presentation, shook head. Recommend continue alternative feeding as most reliable and safest way for Pt to receive adequate nutrition/hydration. Recommend continue presentation/trials of puree consistency with COURSE INSTRUCTOR, to reassess swallow, aspiration risk, food presentation for comfort/pleasure v. primary nutrition. Recommendations discussed with MD on 10/29. Frequency/Duration: M-F while inpt Date Range for Service Req: Timeline to reassess: Play Therapist Clinican/Clinical Fellow: No Supervisory Statement: I have reviewed and agree with the student/clinical fellow's documentation: N/A Speech Language Pathologist: Kadie Knight M.A., CCC-COURSE INSTRUCTOR
--- NOTE | 2021-10-30 11:30 | HO.PM.IMPN ---
Subjective Subjective Date of Service: 10/30/21 Review of Systems Follow up aspiration pneumonia somnolent but appears to be close to baseline No issues overnight Physical Exam Vital Signs: Vital Signs: Last Vital Signs Temp 98.5 F 10/30/21 08:00 Pulse 101 H 10/30/21 08:00 Resp 18 10/30/21 08:00 BP 139/80 10/30/21 08:00 Pulse Ox 100 10/30/21 08:00 Oxygen Flow Rate 10 10/21/21 06:50 BMI result Body Mass Index 15.6 Appearing in no acute distress lung sounds are clear to auscultation heart regular rate rhythm, clear S1, S2 positive bowel sounds, abdomen is soft, nontender, NGT in place neuro patient is blind, bilat amp. non verbal at baseline Objective Data Active Medications Acetaminophen (Acetaminophen Supp 650 Mg Supp.Rect) 650 mg NH Q4H PRN PRN Reason: Fever Last Admin: 10/23/21 18:00 Dose: 650 mg Documented by: HIREN Amoxicillin/Clavulanate Potassium (Amoxicillin/Potassium Clav 2,000 Mg/50 Ml Bottle) 875 mg NG-TUBE BID [facility] Last Admin: 10/30/21 10:50 Dose: 875 mg Documented by: [place] Carbamazepine (Carbamazepine 200 Mg/10 Ml Oral.Susp) 200 mg NG-TUBE DAILY [facility] Last Admin: 10/30/21 09:13 Dose: 200 mg Documented by: [place] Carbamazepine (Carbamazepine 200 Mg/10 Ml Oral.Susp) 300 mg NG-TUBE BEDTIME [facility] Last Admin: 10/29/21 19:45 Dose: 300 mg Documented by: KARLA Heparin Sodium (Porcine) (Heparin Sodium,Porcine 5,000 Unit/Ml Vial) 5,000 unit SUBCUT Q12H [facility] Last Admin: 10/30/21 09:13 Dose: 5,000 unit Documented by: [place] Levofloxacin (Levofloxacin 500 Mg Tablet) 500 mg NG-TUBE Q24H [facility] Last Admin: 10/30/21 09:13 Dose: 500 mg Documented by: [place] Ondansetron HCl (Ondansetron Hcl 4 Mg/2 Ml Vial) 4 mg IVPUSH Q8H PRN PRN Reason: Nausea and Vomiting Pharmacy Consult (Consult Rx Perform Med Rec) 1 each MISCELLANE ONCE PRN PRN Reason: Consult order Pharmacy Consult (Consult Rx Vancomycin Dosing) 1 each MISCELLANE DAILY PRN PRN Reason: Consult order Labs CBC & Chem 7: 10/29/21 06:18 10/28/21 06:22 Assessment and Plan (1) Aspiration pneumonia: Status: Acute Assessment and Plan: 71 year female with history of cerebral palsy, nonverbal and bedbound, total care at baseline, recent admission for UTI brought into the emergency department with increasing lethargy found have multiple significant acute medical issues being admitted for comfort measures initially.? (10/23/21 see advance planning note) Case discussed today with DDS director Anastasia Aguero,? legal and ethics staff as well.? Also on the call Kamini Caceres, Dr. Vel Veronica, Nader Mayfield, Patients brother (guardian).? 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 On admission the patient's guardian was contacted and at that time that patient was made comfort measures only.? Today there was concern from the DDS that patient should be treated and patient's brother was in agreement.? Plan was to change patients SALES MERCHANDISING SPECIALIST status to DNR /DNI and treat for active medical problems. Severe protein calorie malnutrition.? BMI 15.7 Speech therapy recommend NPO, NG tube placed ,feedings started on 10/25 Patient resisting oral care. Call placed to DDS and patients son regarding the possibility of a peg tube, order placed for PEG placement for tomorrow Chronic leukocytosis Obtain Hematology consultation since patient afebrile and has persistent leukocytosis since 10/09 Acute respiratory failure with hypoxia secondary to aspiration pneumonia. Resolved Severe sepsis, no fevers in last 5 days,blood cultures negative Presented with a oxygen sat of 80% CTA chest showed peripheral opacity, viral panel negative WBC fluctuating remain elevated O2 sats 95% on room air, continue supportive care. Status post IV vanco, Zosyn, Levaquin, changed to by mouth doxy and Augmentin Hypernatremia sodium normalized, was likely due to poor by mouth intake NG tube placed,cont. water boluses via NG tube nephrology following Follow BMP History of seizure disorder No seizures noted since admission seizure precautions, cont. Tegretol via NG tube, stage I pressure sore right upper back frequent position change/high-protein diet/barrier cream Code status DNR DNI DVT pptx, heparin Attending Dr. Copeland Quality Stroke Does the patient have a stroke diagnosis?: No VTE Prior VTE?: No VTE Risk Level:: Medical - moderate - high VTE Device Contraindication: Treatment Not Indicated VTE Drug Contraindication: Treatment Not Indicated
--- NOTE | 2021-10-30 11:57 | MHC.CM.PN ---
[facility] CONTACTED PT'S DDS SENIOR ANIMAL TRAINER YAMILETH AT 11:45AM [phone], PER YAMILETH THERE ARE NO CONTRACTED OR PREFERRED SNF'S FOR STR, YAMILETH PREFERS PT STAY CLOSE TO HOME SO PT'S CARE PROVIDER CAN VISIT AND HAD NO OTHER REQUESTS. YAMILETH REPORTS DDS WILL BE LOOKING INTO ANOTHER LIVING SITUATION HOWEVER IS NOT SURE WHAT THAT WILL BE AT THIS TIME. [facility] [address] REFERRALS FOR PT. YAMILETH ALSO REPORTS HE JUST HEARD FROM PT'S CARE PROVIDER THAT PT'S BROTHER HAS BEEN IN THE HOSPITAL W/A BROKEN LEG AND HAS BEEN REACHABLE, INFO SENT TO HOSPITALIST. YAMILETH ALSO VERIFIED [facility] IS UNABLE TO PROVIDE CARE FOR PT.
[2021-10-30 12:00] VITALS: BP 140/82; PULSE 101; RESP 18; TEMP 36.7; O2SAT 97
--- NOTE | 2021-10-30 15:05 | PC.NURSE ---
Skin assessment completed today. Patient has stage 1 to right back covered with Comfeel Hydrocolloid dressing. patient also has blanchable pinkness to buttocks. no other skin issues noted at this time.
[2021-10-30 16:00] VITALS: BP 158/88; PULSE 102; RESP 20; TEMP 36.4; O2SAT 97
[2021-10-30 20:00] VITALS: BP 130/77; PULSE 100; RESP 17; TEMP 37; O2SAT 94
[2021-10-30] MEDS: carBAMazepine 200 MG/10 ML ORAL.SUSP 300 MG NG-TUBE (20:24)
--- NOTE | 2021-10-30 21:18 | PM.PNNEP ---
Subjective Subjective Date of Service: 10/30/21 Principal diagnosis: HyperNa Interval history: No acute issues overnight tolerating NG feeding, mild hyperemia noted right upper back, no fevers WBC elevated. Physical Exam Vital Signs: Vital Signs: Last Vital Signs Temp 97.5 F 10/30/21 16:00 Pulse 102 H 10/30/21 16:00 Resp 20 10/30/21 16:00 BP 158/88 H 10/30/21 16:00 Pulse Ox 97 10/30/21 16:00 Oxygen Flow Rate 10 10/21/21 06:50 BMI result Body Mass Index 15.6 Const: Other: appears comfortable breathing unlabored. 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 Sclerae: sclerae normal Neck: Neck: Yes supple Resp: Other: breathing unlabored, no acute distress Auscultation: diminished lung sounds Cardio: Rate: regular rate Rhythm: regular rhythm Heart sounds: S1 normal heart sound present and S2 normal heart sound present GI: Other: soft, non-distended Palpation (GI): Soft to palpation and no guarding Neuro: Other: unable to assess, not following commands Cranial nerves: Yes CN's II-XII intact bilaterally and Yes Bilaterally intact EOM present Extrem: Other: muscle contractures General: No edema Objective Data Labs CBC & Chem 7: 10/29/21 06:18 10/28/21 06:22 Microbiology Microbiology Results: Microbiology 10/23/21 16:35 Blood - Venous Blood Culture - Final No growth after 5 days. 10/23/21 16:35 Blood - Venous Blood Culture - Final No growth after 5 days. 10/22/21 07:09 Blood - Venous Blood Culture - Final No growth after 5 days. 10/21/21 08:42 Blood - Venous Blood Culture - Final No growth after 5 days. Assessment & Plan Assessment and plan (1) Aspiration pneumonia: Status: Acute Assessment and Plan: 71 year female with history of cerebral palsy, nonverbal and bedbound, total care at baseline, recent admission for UTI brought into the emergency department with increasing lethargy found have multiple significant acute medical issues being admitted for comfort measures initially.? (10/23/21 see advance planning note) Case discussed today with DDS director Anastasia Aguero,? legal and ethics staff as well.? Also on the call Kamini Caceres, Dr. Vel Veronica, Nader Mayfield, Patients brother (guardian).? 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 On admission the patient's guardian was contacted and at that time that patient was made comfort measures only.? Today there was concern from the DDS that patient should be treated and patient's brother was in agreement.? Plan was to change patients HOUSEKEEPING/LAUNDRY SUPERVISOR status to DNR /DNI and treat for active medical problems. Severe protein calorie malnutrition.? BMI 15.7 Speech therapy recommend NPO, NG tube placed ,feedings started on 10/25 Patient resisting oral care. Call placed to DDS and patients son regarding the possibility of a peg tube, order placed for PEG placement for tomorrow Chronic leukocytosis Obtain Hematology consultation since patient afebrile and has persistent leukocytosis since 10/09 Acute respiratory failure with hypoxia secondary to aspiration pneumonia. Resolved Severe sepsis, no fevers in last 5 days,blood cultures negative Presented with a oxygen sat of 80% CTA chest showed peripheral opacity, viral panel negative WBC fluctuating remain elevated O2 sats 95% on room air, continue supportive care. Status post IV vanco, Zosyn, Levaquin, changed to by mouth doxy and Augmentin Hypernatremia sodium normalized, was likely due to poor by mouth intake NG tube placed,cont. water boluses via NG tube nephrology following Follow BMP History of seizure disorder No seizures noted since admission seizure precautions, cont. Tegretol via NG tube, stage I pressure sore right upper back frequent position change/high-protein diet/barrier cream Code status DNR DNI DVT pptx, heparin Attending Dr. Copeland Time Spent With Patient Time: Total time spent is greater than 50% in coordination of care (as documented) at patient's floor/unit and/or counseling patient: Progress Note: Quality Stroke Does the patient have a stroke diagnosis?: No
[2021-10-31] VITALS (7 sets, daily range): BP systolic 126–158; BP diastolic 60–99; PULSE 101–114; RESP 16–19; TEMP 36–37.2; O2SAT 97–100
[2021-10-31] MEDS: carBAMazepine 200 MG/10 ML ORAL.SUSP NG-TUBE (09:13)
[2021-10-31] MEDS: levoFLOXacin 500 MG TABLET NG-TUBE (09:13)
--- NOTE | 2021-10-31 10:56 | HO.PM.IMPN ---
Subjective Subjective Date of Service: 10/31/21 Review of Systems Follow up aspiration pneumonia somnolent but appears to be close to baseline No issues overnight Physical Exam Vital Signs: Vital Signs: Last Vital Signs Temp 98.3 F 10/31/21 07:22 Pulse 104 H 10/31/21 07:22 Resp 18 10/31/21 07:22 BP 126/60 10/31/21 07:22 Pulse Ox 98 10/31/21 07:22 Oxygen Flow Rate 10 10/21/21 06:50 BMI result Body Mass Index 15.6 Appearing in no acute distress ?lung sounds are clear to auscultation ?heart regular rate rhythm, clear? 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 Objective Data Active Medications Acetaminophen (Acetaminophen Supp 650 Mg Supp.Rect) 650 mg [place] Q4H PRN PRN Reason: Fever Last Admin: 10/23/21 18:00 Dose: 650 mg Documented by: HIREN Amoxicillin/Clavulanate Potassium (Amoxicillin/Potassium Clav 2,000 Mg/50 Ml Bottle) 875 mg NG-TUBE BID [facility] Last Admin: 10/31/21 09:13 Dose: 875 mg Documented by: JAKE Carbamazepine (Carbamazepine 200 Mg/10 Ml Oral.Susp) 200 mg NG-TUBE DAILY [facility] Last Admin: 10/31/21 09:13 Dose: 200 mg Documented by: JAKE Carbamazepine (Carbamazepine 200 Mg/10 Ml Oral.Susp) 300 mg NG-TUBE BEDTIME [facility] Last Admin: 10/30/21 20:24 Dose: 300 mg Documented by: KARLA Heparin Sodium (Porcine) (Heparin Sodium,Porcine 5,000 Unit/Ml Vial) 5,000 unit SUBCUT Q12H [facility] Last Admin: 10/31/21 09:17 Dose: Not Given Documented by: JAKE Non-Admin Reason: peg today Levofloxacin (Levofloxacin 500 Mg Tablet) 500 mg NG-TUBE Q24H [facility] Last Admin: 10/31/21 09:13 Dose: 500 mg Documented by: JAKE Ondansetron HCl (Ondansetron Hcl 4 Mg/2 Ml Vial) 4 mg IVPUSH Q8H PRN PRN Reason: Nausea and Vomiting Pharmacy Consult (Consult Rx Perform Med Rec) 1 each MISCELLANE ONCE PRN PRN Reason: Consult order Labs CBC & Chem 7: 10/29/21 06:18 10/28/21 06:22 Assessment and Plan (1) Malnutrition: Status: Acute (2) Acute respiratory failure with hypoxia: Status: Acute (3) Aspiration pneumonia: Status: Acute Assessment and Plan: 71 year female with history of cerebral palsy, nonverbal and bedbound, total care at baseline, recent admission for UTI brought into the emergency department with increasing lethargy found have multiple significant acute medical issues being admitted for comfort measures initially.? (10/23/21 see advance planning note) Case discussed today with DDS director Anastasia Aguero,? legal and ethics staff as well.? Also on the call Kamini Caceres, Dr. Vel Veronica, Nader Mayfield, Patients brother (guardian).? 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 On admission the patient's guardian was contacted and at that time that patient was made comfort measures only.? Today there was concern from the DDS that patient should be treated and patient's brother was in agreement.? Plan was to change patients RESEARCH TECHNOLOGIST status to DNR /DNI and treat for active medical problems. Severe protein calorie malnutrition.? BMI 15.7 Speech therapy recommend NPO, NG tube placed ,feedings started on 10/25 Patient resisting oral care. Call placed to DDS and patients son regarding the possibility of a peg tube, order placed for PEG placement Hold tube feeds Chronic leukocytosis Obtain Hematology consultation since patient afebrile and has persistent leukocytosis since 10/09 Acute respiratory failure with hypoxia secondary to aspiration pneumonia. Resolved Severe sepsis, no fevers in last 5 days,blood cultures negative Presented with a oxygen sat of 80% CTA chest showed peripheral opacity, viral panel negative WBC fluctuating remain elevated O2 sats 95% on room air, continue supportive care. Status post IV vanco, Zosyn, Levaquin, changed to by mouth (NGT) Augmentin started abx 10/24 complete 10 day course on 11/02 Hypernatremia sodium normalized, was likely due to poor by mouth intake NG tube placed,cont. water boluses via NG tube nephrology following Follow BMP History of seizure disorder No seizures noted since admission seizure precautions, cont. Tegretol via NG tube, stage I pressure sore right upper back frequent position change/high-protein diet/barrier cream Code status DNR DNI DVT pptx, heparin Attending Dr. Copeland Quality Stroke Does the patient have a stroke diagnosis?: No VTE Prior VTE?: No VTE Risk Level:: Medical - moderate - high VTE Device Contraindication: Treatment Not Indicated VTE Drug Contraindication: Treatment Not Indicated
--- NOTE | 2021-10-31 11:27 | PM.CNGS ---
History of Present Illness Consult details Consult date: 10/31/21 <Ciera Bauer PA-C - Last Filed: 10/31/21 12:09> Reason for consult: other (PEG tube) <Ciera Bauer PA-C - Last Filed: 10/31/21 12:09> Narrative: History obtained from EMR and RN. 71 year female with history of cerebral palsy, nonverbal and bedbound, total care at baseline, recent admission for UTI brought into the emergency department with increasing lethargy found have multiple significant acute medical issues including aspiration PNA. She was initially admitted for comfort measures following conversation with her guardian.? The case was then discussed with DDS director Anastasia Aguero,?legal and ethics staff as well.?There was concern from DDS that the patient should be treated for aspiration PNA and patient's brother was in agreement.?She was then changed to DNR /DNI and treated for active medical problems. Her severe sepsis, aspiration PNA, hypernatremia have resolved. She has a severe protein calorie malnutrition. Speech therapy recommended NPO status. An NG tube was placed and tube feedings were started on 10/25. Family/DDS would like a G tube for nutrition. Surgery has been consulted for PEG tube placement. <Ciera Bauer PA-C - Last Filed: 10/31/21 12:09> Review of Systems Review of Systems: unobtainable as patient is nonverbal <Ciera Bauer PA-C - Last Filed: 10/31/21 12:09> [facility] Past Medical History Medical History: Medical History (Updated 10/31/21 @ 12:03 by Ciera Bauer PA-C) Cerebral palsy Seizure disorder <Ciera Bauer PA-C - Last Filed: 10/31/21 12:09> Functional capacity: bed bound <Ciera Bauer PA-C - Last Filed: 10/31/21 12:09> Social History Social History: Social History Household Members: Other Housing: Assisted Living Facility Do you presently have visiting nurse or other home services: No Patient Tobacco Use Status: Never used Tobacco service: No Current occupational status: disabled <Ciera Bauer PA-C - Last Filed: 10/31/21 12:09> Meds Allergies/Adverse reactions: Allergies Allergy/AdvReac Type Severity Reaction Status Date / Time No Known Allergies Allergy Verified 10/09/21 21:22 <Ciera Bauer PA-C - Last Filed: 10/31/21 12:09> Active Medications: Current Medications Acetaminophen (Acetaminophen Supp 650 Mg Supp.Rect) 650 mg [place] Q4H PRN PRN Reason: Fever Last Admin: 10/23/21 18:00 Dose: 650 mg Documented by: Amoxicillin/Clavulanate Potassium (Amoxicillin/Potassium Clav 2,000 Mg/50 Ml Bottle) 875 mg NG-TUBE BID [facility] Last Admin: 10/31/21 09:13 Dose: 875 mg Documented by: Carbamazepine (Carbamazepine 200 Mg/10 Ml Oral.Susp) 200 mg NG-TUBE DAILY [facility] Last Admin: 10/31/21 09:13 Dose: 200 mg Documented by: Carbamazepine (Carbamazepine 200 Mg/10 Ml Oral.Susp) 300 mg NG-TUBE BEDTIME [facility] Last Admin: 10/30/21 20:24 Dose: 300 mg Documented by: Heparin Sodium (Porcine) (Heparin Sodium,Porcine 5,000 Unit/Ml Vial) 5,000 unit SUBCUT Q12H [facility] Last Admin: 10/31/21 09:17 Dose: Not Given Documented by: Levofloxacin (Levofloxacin 500 Mg Tablet) 500 mg NG-TUBE Q24H [facility] Last Admin: 10/31/21 09:13 Dose: 500 mg Documented by: Ondansetron HCl (Ondansetron Hcl 4 Mg/2 Ml Vial) 4 mg IVPUSH Q8H PRN PRN Reason: Nausea and Vomiting Pharmacy Consult (Consult Rx Perform Med Rec) 1 each MISCELLANE ONCE PRN PRN Reason: Consult order <Ciera Bauer PA-C - Last Filed: 10/31/21 12:09> Home medications: Home Medications Medication Instructions Recorded Confirmed Last Taken Type acetic acid 2 % ear solution 3 drp OTIC (EARS) DAILY 10/10/21 10/21/21 Unknown History ascorbic acid (vitamin C) 250 mg 250 mg PO DAILY 10/10/21 10/21/21 10/20/21 History tablet calcium citrate 250 mg PO BEDTIME 10/10/21 10/21/21 10/20/21 History carbamazepine 200 mg tablet 200 mg PO DAILY 10/10/21 10/21/21 10/20/21 History carbamazepine 200 mg tablet 300 mg PO BEDTIME 10/10/21 10/21/21 10/20/21 History cholecalciferol (vitamin D3) 25 25 mcg PO DAILY 10/10/21 10/21/21 10/20/21 History mcg (1,000 unit) capsule docusate sodium 100 mg capsule 100 mg PO BID 10/10/21 10/21/21 10/20/21 History ketoconazole 2 % topical cream 1 appl TOPICAL BID 10/10/21 10/21/21 Unknown History lorazepam 1 mg tablet 1 tab PO BEDTIME 10/10/21 10/21/21 10/20/21 History metronidazole 0.75 % topical cream 1 appl TOPICAL BID 10/10/21 10/21/21 Unknown History neomycin 3.5 mg/g-polymyxin B 1 appl OPHTHALMIC-LEFT DAILY 10/10/21 10/21/21 10/20/21 History 10,000 unit/g-dexameth 0.1 % eye oint psyllium husk (aspartame) 3.4 3.4 g PO BID 10/10/21 10/21/21 10/20/21 History gram/5.8 gram oral powder (Metamucil [facility] Fiber) terbinafine HCl 1 % topical cream 1 appl TOPICAL BID 10/10/21 10/21/21 10/20/21 History (Athlete's Foot (terbinafine)) acetaminophen 160 mg/5 mL oral 320 mg PO Q4H PRN 10/21/21 10/21/21 Unknown History liquid multivitamin (Daily-Samara) 1 tab PO DAILY 10/21/21 10/21/21 10/20/21 History triamcinolone acetonide 0.1 % 1 appl TOPICAL BID 10/21/21 10/21/21 Unknown History topical cream <Ciera Bauer PA-C - Last Filed: 10/31/21 12:09> Physical Exam Vital Signs: Vital Signs: Last Vital Signs Temp 98.3 F 10/31/21 07:22 Pulse 104 H 10/31/21 07:22 Resp 18 10/31/21 07:22 BP 126/60 10/31/21 07:22 Pulse Ox 98 10/31/21 07:22 Oxygen Flow Rate 10 10/21/21 06:50 BMI result Body Mass Index 15.6 <Ciera Bauer PA-C - Last Filed: 10/31/21 12:09> Const: General: no acute distress <Ciera Bauer PA-C Alfreda Last Filed: 10/31/21 12:09> Nutritional Appearance: malnourished <Ciera Bauer PA-C - Last Filed: 10/31/21 12:09> Resp: Effort & Inspection: normal respiratory effort <Ciera Bauer PA-C - Last Filed: 10/31/21 12:09> GI: Other: umbilical hernia soft, reducible <Ciera Bauer PA-C Alfreda Last Filed: 10/31/21 12:09> Inspection: No distended and No scar <Ciera Bauer PA-C Alfreda Last Filed: 10/31/21 12:09> Palpation (GI): Soft to palpation and nontender <Ciera Bauer PA-C - Last Filed: 10/31/21 12:09> Percussion: Yes normal to percussion <Ciera Bauer PA-C Alfreda Last Filed: 10/31/21 12:09> Skin: Other: warm and dry <Ciera Bauer PA-C Alfreda Last Filed: 10/31/21 12:09> Results Labs Result diagrams: : 10/29/21 06:18 10/28/21 06:22 <Ciera Bauer PA-C Alfreda Last Filed: 10/31/21 12:09> Labs: Urine 10/21/21 Range/Units 09:14 Urine Color YELLOW Urine Appearance HAZY Urine pH 5.0 (5.0-8.0) Ur Specific [place] >= 1.030 H (1.005-1.025) Urine Protein 1+ H (NEG-TRACE) MG/DL Urine Glucose (UA) NEG (NEG) MG/DL All other labs normal. <REBECCA Lee Last Filed: 10/31/21 12:09> Assessment and Plan (1) Aspiration pneumonia: Qualifiers: Laterality: left Lung location: lower lobe of lung <Ciera Bauer PA-C - Last Filed: 10/31/21 12:09> Status: Acute <Ciera Bauer PA-C - Last Filed: 10/31/21 12:09> (2) Acute respiratory failure with hypoxia: Status: Acute <Ciera Bauer PA-C - Last Filed: 10/31/21 12:09> (3) Malnutrition: Status: Acute <Ciera Bauer PA-C - Last Filed: 10/31/21 12:09> She has cerebral palsy in his bed-bound Has had aspiration pneumonia With malnutrition oral intake Abdomen soft, no focal scars, no apparent tenderness Referred by hospitalist service peg tube placement I have been trying to get hold of her brother Chase at [phone] for consent Had no success with getting hold the brother On schedule tomorrow peg tube placement but will need to get consent Seen and examined - agree with SCOOTER Bauer <Damian Castro MD - Last Filed: 10/31/21 14:10> 71 year female with history of cerebral palsy, nonverbal and bedbound, total care at baseline, recent admission for UTI brought into the emergency department with increasing lethargy found have multiple significant acute medical issues including aspiration PNA. 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 DDS/family would like permanent feeding tube. History obtained from EMR where no PSH is stated and there is no evidence of any abdominal surgery on exam. She would therefore be appropriate for PEG tube placement given her malnutrition and recent aspiration PNA. Can continue tube feeds until midnight. NPO after midnight for plan for PEG tube placement tomorrow. To be discussed with family. Case discussed with Dr. Castro. <Ciera Bauer PA-C - Last Filed: 10/31/21 12:09> Procedures Date of Service Date of Service: 10/31/21 <Ciera Bauer PA-C - Last Filed: 10/31/21 12:09>
--- NOTE | 2021-10-31 12:11 | MHC.CLN ---
F/U TUBE FEEDING CURRENTLY ON HOLD. SURGERY CONSULT FOR G-TUBE PLACEMENT -. TUBE FEED HOELD 12-29 AM. PATIENT HAD BEEN TOLERATING FULL STRENGHT JEVITY 1.0 AT 45 ML PER HOUR VIA NG TUBE. CONTINUE TO FOLLOW.
--- NOTE | 2021-10-31 14:47 | PC.NURSE ---
Amezcua cath leaking. Pad soaked. Amezcua balloon deflated, adjusted and reinflated. urine noted immediatelly in tubing.
[2021-10-31 16:41] LABS: Legionella Ag Urine Not Detected (Not Detected)
--- NOTE | 2021-10-31 16:53 | MHC.CM.PN ---
EMR REVIEWED, CONSENT FOR PEG TUBE OBTAINED BY HCP YESTERDAY 10/30/21, PT SEEN BY SURGIICAL TODAY AND PT WILL BE NPO AFTER MIDNIGHT W/PLAN FOR SURGERY TOMORROW 11/01/21. CM WILL CONT TO FOLLOW D/C NEEDS. D/C PLAN: STR [facility]IA [facility] FOR BLS TRANSPORT
--- NOTE | 2021-10-31 17:14 | MHC.SLORD ---
Speech Language Pathology Order Status: Patient is NPO 11/01. ? PEG placement. At this time, patient has NG tube. Patient is recommended alternative means nutrition. LINE LEAD will continue to follow patient for dysphagia tx.
[2021-10-31] MEDS: carBAMazepine 200 MG/10 ML ORAL.SUSP 300 MG NG-TUBE (20:00)
[2021-10-31] MEDS: Heparin Sodium,Porcine 5,000 UNIT/ML VIAL 5000 UNIT SUBCUT (20:07)
[2021-11-01] VITALS: BP 113/60; PULSE 102; RESP 17; TEMP 37; O2SAT 97
[2021-11-01 03:32] VITALS: BP 113/53; PULSE 96; RESP 16; TEMP 36.9; O2SAT 96
[2021-11-01 07:56] VITALS: BP 128/72; PULSE 103; RESP 16; TEMP 37.1; O2SAT 96
[2021-11-01 08:35] LABS: Basophils Absolute Auto 0.1 X10*3/uL (0.0-0.2); Basophils Percent Auto 0.3 % (0-2); Eosinophils Absolute Auto 0.3 X10*3/uL (0.0-0.4); Eosinophils Percent Auto 1.2 % (0-4); Hematocrit 31.8 % (37.0-47.0); Hemoglobin 10.2 g/dl (12.0-16.0); Imm Gran Abs Auto 0.31 X10*3/uL (0.00-0.03); Imm Gran Pct Auto 1.2 % (0.0-0.4); Lymphocytes Absolute Auto 2.1 X10*3/uL (1.2-4.9); Lymphocytes Percent Auto 8.4 % (20-40); MANUAL DIFF FLAG SCAN; Mean Corpuscular HGB Conc 32.1 g/dl (31.0-35.0); Mean Corpuscular Hemoglobin 31.2 pg (27.0-33.0); Mean Corpuscular Volume 97.2 fL (80.0-98.0); Mean Platelet Volume 10.5 fL (9.4-12.3); Monocytes Absolute Auto 1.2 X10*3/uL (0.1-1.2); Monocytes Percent Auto 4.9 % (2-11); Neutrophils Absolute Auto 21.1 x10*3/uL (2.0-8.3); Platelet Count 289 X10*3/uL (160-400); Red Blood Count 3.27 X10*6/uL (4.20-5.50); Red Cell Distribution Width 15.5 % (11.0-16.0); SCAN SMEAR FLAG 1; White Blood Count 25.2 X10*3/uL (4.8-10.8)
[2021-11-01 08:47] LABS: Anion Gap 10 (12-20); Blood Urea Nitrogen 14 mg/dL (9-16); Carbon Dioxide 24 mmol/L (22-29); Chloride 107 mmol/L (96-108); Creatinine Clr Calc Pharmacy 80.2; Estimated Glomerular Filt Rate > 60; Glucose Random 80 mg/dL (60-115); Potassium 3.7 mmol/L (3.3-5.1); Sodium 137 mmol/L (135-145)
[2021-11-01 08:52] LABS: SLIDE REVIEW VERIFIED
--- NOTE | 2021-11-01 10:22 | MHC.CLN ---
F/U SCHEDULED FOR PEG TUBE PLACEMENT TODAY, 11/01. HAD BEEN TOLERATING NG TUBE FEEDING, JEVITY 1.0 AT 45 ML PER HOUR. TUBE FEED HELP PENDING URGERY. RD WILL CONTINUE TO FOLLOW FOR PEG TUBE FEEDING.
[2021-11-01 11:10] LABS: Band Neutrophils Percent 4 % (3-5); Eosinophils Absolute Manual 0.3 X10*3/uL (0.0-0.4); Eosinophils Percent Manual 1 % (0-4); Lymphocytes Absolute Manual 1.3 X10*3/uL (1.2-4.9); Lymphocytes Percent Manual 5 % (20-40); Monocytes Absolute Manual 0.5 X10*3/uL (0.1-1.2); Monocytes Percent Manual 2 % (2-11); Neutrophils Absolute Manual 23.2 X10*3/uL (2.0-8.3); Neutrophils Percent Manual 88 % (45-73)
[2021-11-01 11:11] LABS: Platelet Estimate NORMAL (NORMAL); Platelet Morphology Comment NORMAL; RBC Morphology NORMAL
--- NOTE | 2021-11-01 11:23 | PM.EVENT ---
Event Note Date of Service: 11/01/21 Event Note: Patient scheduled for PEG tube placement today However have been able to get hold of her brother for consent I have attempted multiple times In the meantime, okay to continue feeding via NG tube Will scheduled PEG tube once I discussed this with healthcare proxy Discussed with hospitalist service
[2021-11-01 11:44] VITALS: BP 118/72; PULSE 105; RESP 16; TEMP 36.6; O2SAT 96
--- NOTE | 2021-11-01 12:14 | HO.PM.IMPN ---
Subjective Subjective Date of Service: 11/01/21 Interval History: seen and examined this morning follow up for aspiration pneumonia non-verbal at baseline, unable to obtain history, ROS Review of Systems Review of Systems: Yes Unobtainable due to mental condition Physical Exam Vital Signs: Vital Signs: Last Vital Signs Temp 97.8 F 11/01/21 11:44 Pulse 105 H 11/01/21 11:44 Resp 16 11/01/21 11:44 BP 118/72 11/01/21 11:44 Pulse Ox 96 11/01/21 11:44 Oxygen Flow Rate 10 10/21/21 06:50 BMI result Body Mass Index 15.6 Const: Other: non-verbal General: no acute distress Nutritional Appearance: thin Resp: Other: course breath sounds Effort & Inspection: normal respiratory effort and no respiratory distress Cardio: Rate: regular rate Rhythm: regular rhythm Neuro: Other: unable to assess Objective Data Active Medications Acetaminophen (Acetaminophen Supp 650 Mg Supp.Rect) 650 mg MI Q4H PRN PRN Reason: Fever Last Admin: 10/23/21 18:00 Dose: 650 mg Documented by: HIREN Carbamazepine (Carbamazepine 200 Mg/10 Ml Oral.Susp) 200 mg NG-TUBE DAILY [facility] Last Admin: 11/01/21 10:17 Dose: Not Given Documented by: JAKE Non-Admin Reason: NPO Carbamazepine (Carbamazepine 200 Mg/10 Ml Oral.Susp) 300 mg NG-TUBE BEDTIME [facility] Last Admin: 10/31/21 20:00 Dose: 300 mg Documented by: KARLA Heparin Sodium (Porcine) (Heparin Sodium,Porcine 5,000 Unit/Ml Vial) 5,000 unit SUBCUT Q12H [facility] Last Admin: 11/01/21 07:25 Dose: Not Given Documented by: ARTURO Non-Admin Reason: SURGICAL PROCEDURE PLANNED Cefazolin Sodium/Dextrose (Ancef) 2 gm in 50 mls @ 100 mls/hr IV PREOP ONE Stop: 11/01/21 14:21 Ondansetron HCl (Ondansetron Hcl 4 Mg/2 Ml Vial) 4 mg IVPUSH Q8H PRN PRN Reason: Nausea and Vomiting Pharmacy Consult (Consult Rx Perform Med Rec) 1 each MISCELLANE ONCE PRN PRN Reason: Consult order Labs CBC & Chem 7: 11/01/21 07:47 11/01/21 07:47 Labs: Laboratory Results - last 24 hr 10/25/21 11/01/21 11/01/21 10:00 07:47 07:47 MCV 97.2 MCH 31.2 MCHC 32.1 RDW 15.5 Plt Count 289 MPV 10.5 Immature Gran % (Auto) 1.2 H Neut % (Auto) 84.0 H Lymph % (Auto) 8.4 L Hawkins % (Auto) 4.9 Eos % (Auto) 1.2 Baso % (Auto) 0.3 Lymph # (Auto) 2.1 Hawkins # (Auto) 1.2 Eos # (Auto) 0.3 Baso # (Auto) 0.1 Abs Immat Gran (auto) 0.31 H Absolute Neuts (auto) 21.1 H Absolute Nucleated RBC 0.000 Nucleated RBC % (auto) 0.0 Neutrophils % (Manual) 88 H Band Neutrophils % 4 Lymphocytes % (Manual) 5 L Monocytes % (Manual) 2 Eosinophils % (Manual) 1 Abs Neuts (Manual) 23.2 H Lymphocytes # (Manual) 1.3 Monocytes # (Manual) 0.5 Eosinophils # (Manual) 0.3 Platelet Estimate NORMAL Plt Morphology Comment NORMAL RBC Morphology NORMAL Smear Tech's Comments VERIFIED Anion Gap 10 L Estim Creat Clear Calc 80.2 Estimated GFR > 60 Random Glucose 80 Calcium 8.0 L Ur L.pneumophila Ag Not Detected Assessment and Plan (1) Malnutrition: Status: Acute Assessment and Plan: 71 year female with history of cerebral palsy, nonverbal and bedbound, total care at baseline, recent admission for UTI brought into the emergency department with increasing lethargy found have multiple significant acute medical issues being admitted for comfort measures initially.? (10/23/21 see advance planning note) Case discussed today with DDS director Anastasia Aguero,? legal and ethics staff as well.? Also on the call Kamini Caceres, Dr. Vel Veronica, Nader Mayfield, Patients brother (guardian).? The initial conversation was regarding patient's COURTROOM DEPUTY status and why patient has not been treated for possible aspiration pneumonia, the record did not display that the patient was part of DDS.? On admission the patient's guardian was contacted and at that time that patient was made comfort measures only.? Today there was concern from the DDS that patient should be treated and patient's brother was in agreement.? Plan was to change patients COURTROOM DEPUTY status to DNR /DNI and treat for active medical problems. Severe protein calorie malnutrition.? BMI 15.7 Speech therapy recommend NPO, NG tube placed ,feedings started on 10/25 Patient resisting oral care. PEG ordered, so far unable to reach brother to obtain consent Hold tube feeds Chronic leukocytosis Obtain Hematology consultation since patient afebrile and has persistent leukocytosis since 10/09 Acute respiratory failure with hypoxia secondary to aspiration pneumonia. Resolved Severe sepsis, no fevers in last 5 days,blood cultures negative Presented with a oxygen sat of 80% CTA chest showed peripheral opacity, viral panel negative WBC fluctuating remain elevated O2 sats 95% on room air, continue supportive care. Status post IV vanco, Zosyn, Levaquin, changed to by mouth (NGT) Augmentin, completed course of antibiotics Hypernatremia sodium normalized, was likely due to poor by mouth intake NG tube placed,cont. water boluses via NG tube nephrology following Follow BMP History of seizure disorder No seizures noted since admission seizure precautions, cont. Tegretol via NG tube stage I pressure sore right upper back frequent position change/high-protein diet/barrier cream Code status DNR DNI DVT pptx, heparin Attending Dr. Copeland Quality Stroke Does the patient have a stroke diagnosis?: No VTE Prior VTE?: No VTE Risk Level:: Medical - moderate - high VTE Device Contraindication: Treatment Not Indicated VTE Drug Contraindication: Treatment Not Indicated
--- NOTE | 2021-11-01 12:49 | MHC.CM.PN ---
This sign writer letterer or painter placed call to [facility] and was connected to brother's room, no answer. Placed call to CM department @ [place], discussed needing to connect w/ patient's brother for consent, message. Awaiting call back from their CM team. Information relayed to Dr. Castro.
--- NOTE | 2021-11-01 13:04 | MHC.CM.PN ---
EMR REVIEWED, CM RECEIVED A CALL FROM [facility] TO CHECK IN ON PT, TERESAS IS AWARE PT SHOULD BE HAVING PEG TUBE PLACED TODAY ONCE THEY CAN REACH PT'S GUARDIAN/BROTHER, [facility] REQUESTED CM SEND REFERRAL TO [facility] TAKING MANY S CLIENTS, REFERRAL SENT VIA [email or web address]. D/C PLAN: STR WHILE [facility] WORKS OUT 24HR SNF FROM PT.
--- NOTE | 2021-11-01 14:37 | MHC.CM.PN ---
pt's brother (guardian) is admitted to the ICU in [facility]. He is not in a state where he is able to provide consent for PEG (verified by their CM). We have a number to reach out to the next few days to see if his condition improves enough to provide consent CM Number @ [place]- [phone].
--- NOTE | 2021-11-01 15:48 | PM.HEMONCCN ---
Subjective - Subjective Chief complaint: None Patient: new to practice Consult date: 11/01/21 Requesting Physician: Sarah HELMS Primary Care Provider: Richard Holt MD HPI - Consult Narrative Reason for consult: leukocytosis Narrative: Marcia Lynn is a 71 year old female with cerebral palsy and multiple medical problems admitted for lethargy and UTI on 10/09/2021. She suffers from severe protein calorie malnutrition, she was treated for hypernatremia on the current admission. She was noted to have chronic leukocytosis since the time of her admission. She no longer appears to have any source of infection. There is no previous blood work to compare. Patient is nonverbal because of her cerebral palsy and unable to provide history. Oncology Screenings - ECOG Performance Status ECOG Performance Status: 4 [facility] Medical History: Medical History (Last Updated 10/25/21 @ 14:02 by SCOOTER Maraivlla) Cerebral palsy Seizure disorder Functional capacity: bed bound Social History: Social History (Last Reviewed 10/21/21 @ 15:47 by SCOOTER Maravilla) Living Situation History: Household Members: Other Housing: Assisted Living Facility Do you presently have visiting nurse or other home services: No Tobacco History: Patient Tobacco Use Status: Never used Tobacco Occupation Assessmet: service: No Current occupational status: disabled Home Medications and Allergies Current Medications: Current Medications Acetaminophen (Acetaminophen Supp 650 Mg Supp.Rect) 650 mg MD Q4H PRN PRN Reason: Fever Last Admin: 10/23/21 18:00 Dose: 650 mg Documented by: Carbamazepine (Carbamazepine 200 Mg/10 Ml Oral.Susp) 200 mg NG-TUBE DAILY [facility] Last Admin: 11/01/21 10:17 Dose: Not Given Documented by: Carbamazepine (Carbamazepine 200 Mg/10 Ml Oral.Susp) 300 mg NG-TUBE BEDTIME [facility] Last Admin: 10/31/21 20:00 Dose: 300 mg Documented by: Heparin Sodium (Porcine) (Heparin Sodium,Porcine 5,000 Unit/Ml Vial) 5,000 unit SUBCUT Q12H [facility] Last Admin: 11/01/21 07:25 Dose: Not Given Documented by: Ondansetron HCl (Ondansetron Hcl 4 Mg/2 Ml Vial) 4 mg IVPUSH Q8H PRN PRN Reason: Nausea and Vomiting Pharmacy Consult (Consult Rx Perform Med Rec) 1 each MISCELLANE ONCE PRN PRN Reason: Consult order Home Medications Medication Instructions Recorded Confirmed Type acetic acid 2 % ear solution 3 drp OTIC (EARS) DAILY 10/10/21 10/21/21 History ascorbic acid (vitamin C) 250 mg 250 mg PO DAILY 10/10/21 10/21/21 History tablet calcium citrate 250 mg PO BEDTIME 10/10/21 10/21/21 History carbamazepine 200 mg tablet 200 mg PO DAILY 10/10/21 10/21/21 History carbamazepine 200 mg tablet 300 mg PO BEDTIME 10/10/21 10/21/21 History cholecalciferol (vitamin D3) 25 25 mcg PO DAILY 10/10/21 10/21/21 History mcg (1,000 unit) capsule docusate sodium 100 mg capsule 100 mg PO BID 10/10/21 10/21/21 History ketoconazole 2 % topical cream 1 appl TOPICAL BID 10/10/21 10/21/21 History lorazepam 1 mg tablet 1 tab PO BEDTIME 10/10/21 10/21/21 History metronidazole 0.75 % topical cream 1 appl TOPICAL BID 10/10/21 10/21/21 History neomycin 3.5 mg/g-polymyxin B 1 appl OPHTHALMIC-LEFT DAILY 10/10/21 10/21/21 History 10,000 unit/g-dexameth 0.1 % eye oint psyllium husk (aspartame) 3.4 3.4 g PO BID 10/10/21 10/21/21 History gram/5.8 gram oral powder (Metamucil [facility] Fiber) terbinafine HCl 1 % topical cream 1 appl TOPICAL BID 10/10/21 10/21/21 History (Athlete's Foot (terbinafine)) acetaminophen 160 mg/5 mL oral 320 mg PO Q4H PRN 10/21/21 10/21/21 History liquid multivitamin (Daily-Samara) 1 tab PO DAILY 10/21/21 10/21/21 History triamcinolone acetonide 0.1 % 1 appl TOPICAL BID 10/21/21 10/21/21 History topical cream Allergies Allergy/AdvReac Type Severity Reaction Status Date / Time No Known Allergies Allergy Verified 10/09/21 21:22 Physical Exam Vital signs: Vital Signs Temp 97.8 F 11/01/21 11:44 Pulse 105 H 11/01/21 11:44 Resp 16 11/01/21 11:44 BP 118/72 11/01/21 11:44 Pulse Ox 96 11/01/21 11:44 Intake & Output 10/31/21 11/01/21 11/01/21 18:59 06:59 18:59 Intake Total 220 / 745 525 / 745 Output Total 150 / 150 200 / 200 Balance 220 / 595 375 / 595 -200 / -200 Urine Output (Average ml/kg/hr) 0.37 0.49 Intake: Intake, Oral Amount 0 / 0 Intake, Tube Feeding Amount 100 / 505 405 / 505 Intake, Tube Irrigant Amount 120 / 240 120 / 240 Output: Output, Urine Amount (Catheter) 150 / 150 200 / 200 rivera 150 / 150 200 / 200 Other: NPO Yes Number of Incontinent Voids 1 Number of Bowel Movements 1 Urine Color Yellow Tea Last Bowel Movement 10/31/21 Stool Incontinent Stool Amount Moderate Stool Color Brown Stool Consistency Soft Continuous Bladder Irrigation Fluid - Amount Drained rivera 50 Weight 34 kg - Constitutional Present: chronically ill appearing Comments: Nonverbal, lying in bed, in no acute distress. - Routine HEENT Exam Head: Present: atraumatic - Routine Respiratory Exam Absent: accessory muscle use, respiratory distress - Routine Cardiovascular Exam Cardiovascular: Present: S1, S2 Hem/Onc Consult Result - Labs CBC & Chem 7: 11/01/21 07:47 11/01/21 07:47 Labs: Short CBC 11/01/21 Range/Units 07:47 WBC 25.2 H (4.8-10.8) X10*3/uL Hgb 10.2 L (12.0-16.0) g/dl Hct 31.8 L (37.0-47.0) % Plt Count 289 (160-400) X10*3/uL BMP 11/01/21 07:47 Sodium 137 Potassium 3.7 Chloride 107 Carbon Dioxide 24 BUN 14 Creatinine 0.35 L Calcium 8.0 L Assessment and Plan Patient Active problem list reviewed?: Yes (1) Leukocytosis Status: Acute Assessment and plan: 1. This is a 71-year-old woman with neutrophilic leukocytosis since admission on 10/21/2021. She was admitted for dehydration, hypernatremia in hypoxemic respiratory failure. Admission WBC was 34.4k, on 10/14/2021 her WBC count was 17.3 K. a previous admission on 10/09/2021 also showed leukocytosis with a WBC count of 29.8 K. There is no CBC prior to October 2021 to compare. It is possible however that patient has chronic neutrophilic leukocytosis. CBC differential shows increase in mature neutrophils without abnormal or immature cells, eosinophilia or increase myelocytes/metamyelocytes. She probably has leukemoid reaction from underlying chronic inflammation and subclinical infection. She has been treated recently for urinary tract infection. She does not have thrombocytosis and she has mild normocytic anemia. I would recommend obtaining CBC from years prior to compare. Based on that, hematological workup can be performed as outpatient if warranted. I thank you for this consult. - Time Spent With Patient Time Spent with Patient (in minutes): 10
[2021-11-01 20:00] VITALS: BP 118/59; PULSE 97; RESP 16; TEMP 36.4; O2SAT 100
[2021-11-01] MEDS: Heparin Sodium,Porcine 5,000 UNIT/ML VIAL 5000 UNIT SUBCUT (20:39)
[2021-11-01] MEDS: carBAMazepine 200 MG/10 ML ORAL.SUSP 300 MG NG-TUBE (20:39)
[2021-11-02] VITALS (8 sets, daily range): BP systolic 109–134; BP diastolic 55–70; PULSE 95–104; RESP 17–20; TEMP 36.1–37.3; O2SAT 94–97; BMI 15.6
[2021-11-02] MEDS: Heparin Sodium,Porcine 5,000 UNIT/ML VIAL 5000 UNIT SUBCUT ×2 (07:30→18:16)
[2021-11-02] MEDS: carBAMazepine 200 MG/10 ML ORAL.SUSP NG-TUBE (07:30)
[2021-11-02 08:35] LABS: Anion Gap 11 (12-20); Blood Urea Nitrogen 15 mg/dL (9-16); Calcium 8.1 mg/dL (8.4-10.2); Carbon Dioxide 24 mmol/L (22-29); Chloride 105 mmol/L (96-108); Creatinine Clr Calc Pharmacy 73.9; Estimated Glomerular Filt Rate > 60; Glucose Random 110 mg/dL (60-115); Potassium 3.8 mmol/L (3.3-5.1); Sodium 136 mmol/L (135-145)
--- NOTE | 2021-11-02 09:10 | P.PNIM_ITS ---
Subjective Subjective Date of Service: 11/02/21 Interval History: seen and examined this morning follow up for aspiration pneumonia getting tube feeds seems more lethargic this morning non-verbal at baseline, unable to provide ROS Review of Systems Review of Systems: Yes Unobtainable due to mental condition and Unobtainable due to mental status Physical Exam Verdana 4l Vital Signs: Verdana 4d Verdana 4d Vital Signs: Verdana 4d Verdana 4Bd Last Vital Signs Verdana 4d Psychology Intern New 4d Psychology Intern New 4d Temp 98.1 F 11/02/21 08:00 Psychology Intern New 4d Pulse 98 11/02/21 08:00 Psychology Intern NewNew 4d Resp 18 11/02/21 08:00 BP 121/67 11/02/21 08:00 Pulse Ox 97 11/02/21 08:00 Oxygen Flow Rate 10 10/21/21 06:50 BMI result Body Mass Index 15.6 Const: Other: non-verbal General: comfortable and no acute distress Nutritional Appearance: thin HENMT: Head: Yes normocephalic and Yes atraumatic Eyes: Other: right eye blind, 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 Sclerae: sclerae normal Resp: Other: course breath sounds Effort & Inspection: normal respiratory effort and no respiratory distress Cardio: Rate: regular rate Rhythm: regular rhythm GI: Other: soft, non-distended Neuro: Other: unable to assess Cranial nerves: Yes CN's II-XII intact bilaterally and Yes Bilaterally intact EOM present Extrem: Other: muscle contractures Objective Data Active Medications Acetaminophen (Acetaminophen Supp 650 Mg Supp.Rect) 650 mg MO Q4H PRN PRN Reason: Fever Last Admin: 10/23/21 18:00 Dose: 650 mg Documented by: HIREN Carbamazepine (Carbamazepine 200 Mg/10 Ml Oral.Susp) 200 mg NG-TUBE DAILY [facility] Last Admin: 11/02/21 07:30 Dose: 200 mg Documented by: JAYESH Carbamazepine (Carbamazepine 200 Mg/10 Ml Oral.Susp) 300 mg NG-TUBE BEDTIME [facility] Last Admin: 11/01/21 20:39 Dose: 300 mg Documented by: AIRAM Heparin Sodium (Porcine) (Heparin Sodium,Porcine 5,000 Unit/Ml Vial) 5,000 unit SUBCUT Q12H [facility] Last Admin: 11/02/21 07:30 Dose: 5,000 unit Documented by: JAYESH Ondansetron HCl (Ondansetron Hcl 4 Mg/2 Ml Vial) 4 mg IVPUSH Q8H PRN PRN Reason: Nausea and Vomiting Pharmacy Consult (Consult Rx Perform Med Rec) 1 each MISCELLANE ONCE PRN PRN Reason: Consult order Labs CBC & Chem 7: 11/01/21 07:47 11/02/21 08:04 Labs: Laboratory Results - last 24 hr 11/01/21 11/02/21 07:47 08:04 Neutrophils % (Manual) 88 H Band Neutrophils % 4 Lymphocytes % (Manual) 5 L Monocytes % (Manual) 2 Eosinophils % (Manual) 1 Abs Neuts (Manual) 23.2 H Lymphocytes # (Manual) 1.3 Monocytes # (Manual) 0.5 Eosinophils # (Manual) 0.3 Platelet Estimate NORMAL Plt Morphology Comment NORMAL RBC Morphology NORMAL Anion Gap 11 L Estim Creat Clear Calc 73.9 Estimated GFR > 60 Random Glucose 110 Calcium 8.1 L Assessment and Plan (1) Malnutrition: Status: Acute Assessment and Plan: 71 year female with history of cerebral palsy, nonverbal and bedbound, total care at baseline, recent admission for UTI brought into the emergency department with increasing lethargy found have multiple significant acute medical issues being admitted for comfort measures initially.? (10/23/21 see advance planning note) Case discussed today with DDS director Anastasia Aguero,? legal and ethics staff as well.? Also on the call Kamini Caceres, Dr. Vel Veronica, Nader Mayfield, Patients brother (guardian).? The initial conversation was regarding patient's RESEARCH QUALITY ASSURANCE SPECIALIST status and why patient has not been treated for possible aspiration pneumonia, the record did not display that the patient was part of DDS.? On admission the patient's guardian was contacted and at that time that patient was made comfort measures only.? Today there was concern from the DDS that patient should be treated and patient's brother was in agreement.? Plan was to change patients RESEARCH QUALITY ASSURANCE SPECIALIST status to DNR /DNI and treat for active medical problems. Severe protein calorie malnutrition.? BMI 15.7 Speech therapy recommend NPO, NG tube placed ,feedings started on 10/25 Patient resisting oral care. PEG ordered, so far unable to reach brother to obtain consent Continue tube feeds for now Chronic leukocytosis persistent leukocytosis seen by hematology, no further inpatient work up required Acute respiratory failure with hypoxia secondary to aspiration pneumonia. Resolved Severe sepsis, no fevers in last 5 days,blood cultures negative Presented with a oxygen sat of 80% CTA chest showed peripheral opacity, viral panel negative WBC fluctuating remain elevated O2 sats 95% on room air, continue supportive care. Status post IV vanco, Zosyn, Levaquin, changed to by mouth (NGT) Augmentin, completed course of antibiotics Hypernatremia sodium normalized, was likely due to poor by mouth intake NG tube placed,cont. water boluses via NG tube nephrology following Follow BMP History of seizure disorder No seizures noted since admission seizure precautions, cont. Tegretol via NG tube stage I pressure sore right upper back frequent position change/high-protein diet/barrier cream Code status DNR DNI DVT pptx, heparin Attending Dr. Copeland Quality Stroke Does the patient have a stroke diagnosis?: No VTE Prior VTE?: No VTE Risk Level:: Medical - moderate - high VTE Device Contraindication: Treatment Not Indicated VTE Drug Contraindication: Treatment Not Indicated
--- NOTE | 2021-11-02 14:22 | MHC.SL.SWA ---
Speech Pathologist Impression: Risk of Aspiration Oralpharyngeal Dysphagia Risk of Aspiration Due to: Lethargy Medically Fragile Neurological Condition History of Pneumonia Poor PO Intake Reduced Cognition Dysphasia Diet Status: No Change Liquid Consistency and Strategies for Safe Swallow: Liquid Intake Recommendation: NPO Liquid Intake Strategies: Solid Food Consistency: Dietary Recommendations: NPO Additional Modifications to Solid Foods: Recommend alternative delivery method of nutrition Oral Medication Intake: NPO Compensatory Strategies and Precautions to be Taken for Safe Swallow: Supervision While Eating and Drinking for Safe Swallow: PO with REVENUE CYCLE SPECIALIST Foods to Avoid: Pt now has permanent alternative feeding method for nutrition. Swallowing Recommended Treatments: Compens. Strategy Educat. Recommendation for Speech: Inpatient Speech Therapy Comment: Pt seen this a.m. for swallow treatment. Pt had PEG tube placement on 10/31, however today continues to have NG tube present. Pt was sleeping initially, but easily roused, mildly lethargic through session. Pt is non-verbal, blind, responds to stimulus, opens eyes and moves head to voice/presence of other. Pt intermittently responded to oral care/damp swab for today's therapy treatment, often clamping jaw and mouth to refuse. When accepted, Pt took trace amounts of thin liquid into mouth. After mild delay, pt spontaneously swallow on 3/3 presentations. No Clinical s/s aspiration. Pt continued mildly resistant and lethargic, PO attempts discontinued. Frequency/Duration: M-F while inpt Date Range for Service Req: Timeline to reassess: Brush Hand Clinican/Clinical Fellow: No Supervisory Statement: I have reviewed and agree with the student/clinical fellow's documentation: N/A Speech Language Pathologist: Kadie Knight M.A., CCC-REVENUE CYCLE SPECIALIST
--- NOTE | 2021-11-02 15:05 | MHC.CLN ---
Addendum entered by [place] RD 11/03/21 10:15: PEG NOT PLACED 11/01/21. CONTINUES WITH NG TUBE FEEDING, JEVITY 1.0 AT MAX GOAL RATE OF 45 ML PER HOUR. CONTINUE TO FOLLOW. Original Note: F/U PEG PLACED 11/01/21. TUBE FEEDING: JEVITY 1.0 AT MAX GOAL RATE OF 45 ML PER HOUR; FLUSH 120 ML WATER EVERY 6 HOURS. PROVIDES: 1080 ML FORMULA; 1145 KCAL (28 KCAL/KG IBW); 48 G PROTEIN (1.17 G/KG IBW); 901 ML PLUS 480 ML WATER FROM DTIEH=9169 ML (33.8 ML/KG IBW. MONITOR TUBE FEED TOLERANCE, RESIDUALS, AND LYTES.
[2021-11-02] MEDS: carBAMazepine 200 MG/10 ML ORAL.SUSP 300 MG NG-TUBE (20:01)
[2021-11-03 03:37] VITALS: BP 112/64; PULSE 97; RESP 22; TEMP 37.7; O2SAT 96
[2021-11-03 07:09] LABS: MANUAL DIFF FLAG NO
[2021-11-03 07:20] LABS: Basophils Absolute Auto 0.1 X10*3/uL (0.0-0.2); Basophils Percent Auto 0.3 % (0-2); Eosinophils Absolute Auto 0.2 X10*3/uL (0.0-0.4); Eosinophils Percent Auto 0.9 % (0-4); Hematocrit 28.9 % (37.0-47.0); Hemoglobin 9.3 g/dl (12.0-16.0); Imm Gran Abs Auto 0.18 X10*3/uL (0.00-0.03); Imm Gran Pct Auto 0.8 % (0.0-0.4); Lymphocytes Absolute Auto 1.7 X10*3/uL (1.2-4.9); Lymphocytes Percent Auto 7.7 % (20-40); Mean Corpuscular HGB Conc 32.2 g/dl (31.0-35.0); Mean Corpuscular Hemoglobin 31.7 pg (27.0-33.0); Mean Corpuscular Volume 98.6 fL (80.0-98.0); Mean Platelet Volume 10.8 fL (9.4-12.3); Monocytes Percent Auto 4.5 % (2-11); Neutrophils Absolute Auto 18.4 x10*3/uL (2.0-8.3); Neutrophils Percent Auto 85.8 % (45-73); Platelet Count 301 X10*3/uL (160-400); Red Blood Count 2.93 X10*6/uL (4.20-5.50); Red Cell Distribution Width 15.2 % (11.0-16.0); White Blood Count 21.5 X10*3/uL (4.8-10.8)
[2021-11-03 07:23] VITALS: BP 136/79; PULSE 104; RESP 18; TEMP 36.6; O2SAT 97
[2021-11-03 07:43] LABS: Anion Gap 11 (12-20); Blood Urea Nitrogen 12 mg/dL (9-16); Calcium 7.6 mg/dL (8.4-10.2); Carbon Dioxide 23 mmol/L (22-29); Chloride 104 mmol/L (96-108); Creatinine Clr Calc Pharmacy 87.7; Estimated Glomerular Filt Rate > 60; Glucose Random 106 mg/dL (60-115); Potassium 4.1 mmol/L (3.3-5.1); Sodium 134 mmol/L (135-145)
[2021-11-03] MEDS: carBAMazepine 200 MG/10 ML ORAL.SUSP NG-TUBE (09:03)
[2021-11-03] MEDS: Heparin Sodium,Porcine 5,000 UNIT/ML VIAL 5000 UNIT SUBCUT ×2 (09:03→18:22)
--- NOTE | 2021-11-03 10:33 | P.PNIM_ITS ---
Subjective Subjective Date of Service: 11/03/21 Interval History: seen and examined this morning non-verbal at baseline, unable to provide history appears comfortable Review of Systems Review of Systems: Yes Unobtainable due to mental condition and Unobtainable due to mental status Physical Exam Verdana 4l Vital Signs: Verdana 4d Verdana 4d Vital Signs: Verdana 4d Verdana 4Bd Last Vital Signs Verdana 4d Public Health Sanitarian New 4d Public Health Sanitarian New 4d Temp 97.9 F 11/03/21 07:23 Public Health Sanitarian New 4d Pulse 104 H 11/03/21 07:23 Public Health Sanitarian NewNew 4d Resp 18 11/03/21 07:23 BP 136/79 11/03/21 07:23 Pulse Ox 97 11/03/21 07:23 Oxygen Flow Rate 10 10/21/21 06:50 BMI result Body Mass Index 15.6 Const: Other: non-verbal General: comfortable and no acute distress Nutritional Appearance: thin HENMT: Head: Yes normocephalic and Yes atraumatic Eyes: Other: right eye blind, 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 Resp: Other: course breath sounds Effort & Inspection: normal respiratory effort and no respiratory distress Cardio: Rate: regular rate Rhythm: regular rhythm GI: Other: soft, non-distended; NGT in place Neuro: Other: blind, non-verbal at baseline Cranial nerves: Yes CN's II-XII intact bilaterally and Yes Bilaterally intact EOM present Objective Data Active Medications Acetaminophen (Acetaminophen Supp 650 Mg Supp.Rect) 650 mg [place] Q4H PRN PRN Reason: Fever Last Admin: 10/23/21 18:00 Dose: 650 mg Documented by: HIREN Carbamazepine (Carbamazepine 200 Mg/10 Ml Oral.Susp) 200 mg NG-TUBE DAILY [facility] Last Admin: 11/03/21 09:03 Dose: 200 mg Documented by: PATRICK Carbamazepine (Carbamazepine 200 Mg/10 Ml Oral.Susp) 300 mg NG-TUBE BEDTIME [facility] Last Admin: 11/02/21 20:01 Dose: 300 mg Documented by: AIRAM Heparin Sodium (Porcine) (Heparin Sodium,Porcine 5,000 Unit/Ml Vial) 5,000 unit SUBCUT Q12H [facility] Last Admin: 11/03/21 09:03 Dose: 5,000 unit Documented by: PATRICK Ondansetron HCl (Ondansetron Hcl 4 Mg/2 Ml Vial) 4 mg IVPUSH Q8H PRN PRN Reason: Nausea and Vomiting Pharmacy Consult (Consult Rx Perform Med Rec) 1 each MISCELLANE ONCE PRN PRN Reason: Consult order Labs CBC & Chem 7: 11/03/21 05:54 11/03/21 05:55 Labs: Laboratory Results - last 24 hr 11/03/21 11/03/21 05:54 05:55 MCV 98.6 H MCH 31.7 MCHC 32.2 RDW 15.2 Plt Count 301 MPV 10.8 Immature Gran % (Auto) 0.8 H Neut % (Auto) 85.8 H Lymph % (Auto) 7.7 L [place] % (Auto) 4.5 Eos % (Auto) 0.9 Baso % (Auto) 0.3 Lymph # (Auto) 1.7 [place] # (Auto) 1.0 Eos # (Auto) 0.2 Baso # (Auto) 0.1 Abs Immat Gran (auto) 0.18 H Absolute Neuts (auto) 18.4 H Absolute Nucleated RBC 0.000 Nucleated RBC % (auto) 0.0 Anion Gap 11 L Estim Creat Clear Calc 87.7 Estimated GFR > 60 Random Glucose 106 Calcium 7.6 L D Assessment and Plan (1) Malnutrition: Status: Acute Assessment and Plan: 71 year female with history of cerebral palsy, nonverbal and bedbound, total care at baseline, recent admission for UTI brought into the emergency department with increasing lethargy found have multiple significant acute medical issues being admitted for comfort measures initially.? (10/23/21 see advance planning note) Case discussed today with DDS director Anastasia Aguero,? legal and ethics staff as well.? Also on the call Kamini Caceres, Dr. Vel Veronica, Nader Mayfield, Patients brother (guardian).? The initial conversation was regarding patient's THERMOPLASTIC TECHNICIAN status and why patient has not been treated for possible aspiration pneumonia, the record did not display that the patient was part of DDS.? On admission the patient's guardian was contacted and at that time that patient was made comfort measures only.? Today there was concern from the DDS that patient should be treated and patient's brother was in agreement.? Plan was to change patients THERMOPLASTIC TECHNICIAN status to DNR /DNI and treat for active medical problems. Severe protein calorie malnutrition.? BMI 15.7 Speech therapy recommend NPO, NG tube placed ,feedings started on 10/25 Patient resisting oral care. PEG ordered, so far unable to reach brother to obtain consent Continue tube feeds for now Chronic leukocytosis persistent leukocytosis seen by hematology, no further inpatient work up required Acute respiratory failure with hypoxia secondary to aspiration pneumonia. Resolved Severe sepsis, no fevers in last 5 days,blood cultures negative Presented with a oxygen sat of 80% CTA chest showed peripheral opacity, viral panel negative WBC fluctuating remain elevated O2 sats 95% on room air, continue supportive care. Status post IV vanco, Zosyn, Levaquin, changed to by mouth (NGT) Augmentin, completed course of antibiotics Hypernatremia sodium normalized, was likely due to poor by mouth intake. now sodium trending down will decrease water boluses via NG tube Follow BMP History of seizure disorder No seizures noted since admission seizure precautions, cont. Tegretol via NG tube stage I pressure sore right upper back frequent position change/high-protein diet/barrier cream Code status DNR DNI DVT pptx, heparin attending dr. davila Assessment and Plan: 71 year female with history of cerebral palsy, nonverbal and bedbound, total care at baseline, recent admission for UTI brought into the emergency department with increasing lethargy found have multiple significant acute medical issues being admitted for comfort measures initially.? (10/23/21 see advance planning note) Case discussed today with DDS director Anastasia Aguero,? legal and ethics staff as well.? Also on the call Kamini Caceres, Dr. Vel Veronica, Nader Mayfield, Patients brother (guardian).? The initial conversation was regarding patient's THERMOPLASTIC TECHNICIAN status and why patient has not been treated for possible aspiration pneumonia, the record did not display that the patient was part of DDS.? On admission the patient's guardian was contacted and at that time that patient was made comfort measures only.? Today there was concern from the DDS that patient should be treated and patient's brother was in agreement.? Plan was to change patients THERMOPLASTIC TECHNICIAN status to DNR /DNI and treat for active medical problems. Severe protein calorie malnutrition.? BMI 15.7 Speech therapy recommend NPO, NG tube placed ,feedings started on 10/25 Patient resisting oral care. PEG ordered, so far unable to reach brother to obtain consent Continue tube feeds for now Chronic leukocytosis persistent leukocytosis seen by hematology, no further inpatient work up required Acute respiratory failure with hypoxia secondary to aspiration pneumonia. Resolved Severe sepsis, no fevers in last 5 days,blood cultures negative Presented with a oxygen sat of 80% CTA chest showed peripheral opacity, viral panel negative WBC fluctuating remain elevated O2 sats 95% on room air, continue supportive care. Status post IV vanco, Zosyn, Levaquin, changed to by mouth (NGT) Augmentin, completed course of antibiotics Hypernatremia sodium normalized, was likely due to poor by mouth intake NG tube placed,cont. water boluses via NG tube nephrology following Follow BMP History of seizure disorder No seizures noted since admission seizure precautions, cont. Tegretol via NG tube stage I pressure sore right upper back frequent position change/high-protein diet/barrier cream Code status DNR DNI DVT pptx, heparin Attending Dr. Davila Quality Stroke Does the patient have a stroke diagnosis?: No VTE Prior VTE?: No VTE Risk Level:: Medical - moderate - high VTE Device Contraindication: Treatment Not Indicated VTE Drug Contraindication: Treatment Not Indicated
[2021-11-03 11:46] VITALS: BP 144/73; PULSE 101; RESP 18; TEMP 36.6; O2SAT 96
[2021-11-03 15:36] VITALS: BP 130/77; PULSE 92; RESP 16; TEMP 37.3; O2SAT 96
[2021-11-03 19:40] VITALS: BP 158/80; PULSE 101; RESP 15; TEMP 36.7; O2SAT 97
[2021-11-03] MEDS: carBAMazepine 200 MG/10 ML ORAL.SUSP 300 MG NG-TUBE (20:38)
[2021-11-03 23:58] VITALS: BP 119/63; PULSE 105; RESP 18; TEMP 36.4; O2SAT 96
[2021-11-04 03:37] VITALS: BP 159/72; PULSE 106; RESP 18; TEMP 36.3; O2SAT 94
[2021-11-04] MEDS: Heparin Sodium,Porcine 5,000 UNIT/ML VIAL 5000 UNIT SUBCUT ×2 (06:07→18:22)
[2021-11-04 07:12] LABS: Anion Gap 8 (12-20); Blood Urea Nitrogen 12 mg/dL (9-16); Calcium 7.6 mg/dL (8.4-10.2); Carbon Dioxide 27 mmol/L (22-29); Chloride 104 mmol/L (96-108); Creatinine Clr Calc Pharmacy 85.1; Estimated Glomerular Filt Rate > 60; Glucose Random 98 mg/dL (60-115); Potassium 4.2 mmol/L (3.3-5.1); Sodium 135 mmol/L (135-145)
[2021-11-04 07:28] VITALS: BP 123/76; PULSE 97; RESP 20; TEMP 36.1; O2SAT 98
[2021-11-04] MEDS: carBAMazepine 200 MG/10 ML ORAL.SUSP NG-TUBE (09:02)
[2021-11-04] MEDS: Fluconazole 150 MG TABLET PO (11:12)
[2021-11-04 12:00] VITALS: BP 139/70; PULSE 92; RESP 16; TEMP 36.1; O2SAT 98
--- NOTE | 2021-11-04 12:08 | HO.PM.IMPN ---
Subjective Subjective Date of Service: 11/04/21 Interval History: seen and examined this morning seems a little more alert, appear comfortable non-verbal at baseline, unable to obtain ROS Review of Systems Review of Systems: Yes Unobtainable due to mental condition and Unobtainable due to mental status Physical Exam Vital Signs: Vital Signs: Last Vital Signs Temp 97.0 F 11/04/21 07:28 Pulse 97 11/04/21 07:28 Resp 20 11/04/21 07:28 BP 123/76 11/04/21 07:28 Pulse Ox 98 11/04/21 07:28 Oxygen Flow Rate 10 10/21/21 06:50 BMI result Body Mass Index 15.6 Const: Other: non-verbal General: comfortable and no acute distress Nutritional Appearance: thin HENMT: Head: Yes normocephalic and Yes atraumatic Eyes: Other: right eye blind, 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 Sclerae: sclerae normal Resp: Other: course breath sounds Effort & Inspection: normal respiratory effort and no respiratory distress Cardio: Rate: regular rate Rhythm: regular rhythm GI: Other: soft, non-distended; NGT in place : Other: rivera in place Neuro: Other: blind, non-verbal at baseline Cranial nerves: Yes CN's II-XII intact bilaterally and Yes Bilaterally intact EOM present Extrem: Other: muscle contractures Objective Data Active Medications Acetaminophen (Acetaminophen Supp 650 Mg Supp.Rect) 650 mg [place] Q4H PRN PRN Reason: Fever Last Admin: 10/23/21 18:00 Dose: 650 mg Documented by: HIREN Carbamazepine (Carbamazepine 200 Mg/10 Ml Oral.Susp) 200 mg NG-TUBE DAILY [facility] Last Admin: 11/04/21 09:02 Dose: 200 mg Documented by: PATRICK Carbamazepine (Carbamazepine 200 Mg/10 Ml Oral.Susp) 300 mg NG-TUBE BEDTIME [facility] Last Admin: 11/03/21 20:38 Dose: 300 mg Documented by: JENA Heparin Sodium (Porcine) (Heparin Sodium,Porcine 5,000 Unit/Ml Vial) 5,000 unit SUBCUT Q12H [facility] Last Admin: 11/04/21 06:07 Dose: 5,000 unit Documented by: JENA Ondansetron HCl (Ondansetron Hcl 4 Mg/2 Ml Vial) 4 mg IVPUSH Q8H PRN PRN Reason: Nausea and Vomiting Pharmacy Consult (Consult Rx Perform Med Rec) 1 each MISCELLANE ONCE PRN PRN Reason: Consult order Labs CBC & Chem 7: 11/03/21 05:54 11/04/21 05:46 Labs: Laboratory Results - last 24 hr 11/04/21 05:46 Anion Gap 8 L Estim Creat Clear Calc 85.1 Estimated GFR > 60 Random Glucose 98 Calcium 7.6 L Assessment and Plan (1) Malnutrition: Status: Acute (2) Leukocytosis: Status: Acute Assessment and Plan: 71 year female with history of cerebral palsy, nonverbal and bedbound, total care at baseline, recent admission for UTI brought into the emergency department with increasing lethargy found have multiple significant acute medical issues being admitted for comfort measures initially.? (10/23/21 see advance planning note) Case discussed today with DDS director Anastasia Aguero,? legal and ethics staff as well.? Also on the call Kamini Caceres, Dr. Vel Veronica, Nader Mayfield, Patients brother (guardian).? The initial conversation was regarding patient's EMERGENCY TELECOMMUNICATIONS DISPATCHER status and why patient has not been treated for possible aspiration pneumonia, the record did not display that the patient was part of DDS.? On admission the patient's guardian was contacted and at that time that patient was made comfort measures only.? Today there was concern from the DDS that patient should be treated and patient's brother was in agreement.? Plan was to change patients EMERGENCY TELECOMMUNICATIONS DISPATCHER status to DNR /DNI and treat for active medical problems. Severe protein calorie malnutrition.? BMI 15.7 Speech therapy recommend NPO, NG tube placed, feedings started on 10/25 Patient resisting oral care. PEG ordered, so far unable to reach brother to obtain consent. Continue tube feeds for now Chronic leukocytosis seen by hematology, no further inpatient work up required does not appear to have active infection. afebrile. BCx negative since admission repeat UA pending. no diarrhea. vaginal candidiasis - diflucan x 1 Acute respiratory failure with hypoxia secondary to aspiration pneumonia. Resolved Severe sepsis, no fevers in last 5 days,blood cultures negative Presented with a oxygen sat of 80% CTA chest showed peripheral opacity, viral panel negative WBC fluctuating remain elevated O2 sats 95% on room air, continue supportive care. Status post IV vanco, Zosyn, Levaquin, changed to by mouth (NGT) Augmentin, has completed course of antibiotics Hypernatremia sodium normalized, was likely due to poor by mouth intake. now sodium trending down water boluses decreased to q8h via NG tube Follow BMP History of seizure disorder No seizures noted since admission seizure precautions, cont. Tegretol via NG tube stage I pressure sore right upper back frequent position change/high-protein diet/barrier cream Code status DNR DNI DVT pptx, heparin attending dr. layton Quality Stroke Does the patient have a stroke diagnosis?: No VTE Prior VTE?: No VTE Risk Level:: Medical - moderate - high VTE Device Contraindication: Treatment Not Indicated VTE Drug Contraindication: Treatment Not Indicated
[2021-11-04 14:24] LABS: CDiff Gene PCR NEGATIVE (Negative)
[2021-11-04 15:45] VITALS: BP 132/83; PULSE 98; RESP 12; TEMP 36.6; O2SAT 97
[2021-11-04 16:48] LABS: Appearance Urine HAZY; Color Urine YELLOW; Glucose Urine UA NEG (NEG); Leukocyte Esterase Urine TRACE (NEG); Nitrite Urine NEG (NEG); PH 5.5 (5.0-8.0); Specific Gravity - Urine 1.025 (1.005-1.025); UACC Culture Trigger YES; Urine Blood 1+ (NEG); Urine Ketones NEG (NEG); Urine Protein 1+ MG/DL (NEG-TRACE)
[2021-11-04 16:57] LABS: UACC CULT YES
[2021-11-04 16:58] LABS: Bacteria Urine TRACE /LPF; Calcium Oxalate Crystals Urine 1+ /LPF; Squamous Epithelial Cell Urine TRACE /LPF
[2021-11-04 20:00] VITALS: BP 134/83; PULSE 100; RESP 18; TEMP 37.2; O2SAT 99
[2021-11-04] MEDS: carBAMazepine 200 MG/10 ML ORAL.SUSP 300 MG NG-TUBE (21:04)
[2021-11-05] VITALS: BP 138/73; PULSE 98; RESP 16; TEMP 36.1; O2SAT 95
[2021-11-05 04:30] VITALS: BP 136/77; PULSE 96; RESP 16; TEMP 36; O2SAT 97
[2021-11-05] MEDS: Heparin Sodium,Porcine 5,000 UNIT/ML VIAL 5000 UNIT SUBCUT ×2 (06:40→18:28)
[2021-11-05] MEDS: carBAMazepine 200 MG/10 ML ORAL.SUSP NG-TUBE (07:40)
[2021-11-05 08:00] VITALS: BP 118/75; PULSE 103; RESP 16; TEMP 37.4; O2SAT 96
--- NOTE | 2021-11-05 08:44 | P.EN_ITS ---
Event Note Date of Service: 11/05/21 Event Note: I had a long discussion with patient's brother healthcare proxy Ra gordon Lynn [phone] I explained to him the option of proceeding with PEG tube placement. I discussed with him the technique of this procedure. I reviewed the risks including but not limited to bleeding, infections, injury to bowel, loss of airway, tube dislodgement, inherent risks of anesthesia. I explained the benefits as well as the alternatives He stated that in view of the patient's overall health, long-term prognosis, he does not want to proceed with PEG tube nor any invasive measures anymore He is considering comfort measures only at this time He was to have good understanding of the implications of above
--- NOTE | 2021-11-05 10:23 | HO.PM.IMPN ---
Subjective Subjective Date of Service: 11/05/21 Review of Systems Follow up Initial resp failure, sepsis No verbal interaction, sleeping Physical Exam Vital Signs: Vital Signs: Last Vital Signs Temp 99.4 F 11/05/21 08:00 Pulse 103 H 11/05/21 08:00 Resp 16 11/05/21 08:00 BP 118/75 11/05/21 08:00 Pulse Ox 96 11/05/21 08:00 Oxygen Flow Rate 10 10/21/21 06:50 BMI result Body Mass Index 15.6 Appearing in no acute distress lung sounds are clear to auscultation heart regular rate rhythm, clear S1, S2 positive bowel sounds, abdomen is soft, nontender neuro patient resting in bed, blind and nonverbal Objective Data Active Medications Acetaminophen (Acetaminophen Supp 650 Mg Supp.Rect) 650 mg [place] Q4H PRN PRN Reason: Fever Last Admin: 10/23/21 18:00 Dose: 650 mg Documented by: CUONG-RAMRAFI Carbamazepine (Carbamazepine 200 Mg/10 Ml Oral.Susp) 200 mg NG-TUBE DAILY [facility] Last Admin: 11/05/21 07:40 Dose: 200 mg Documented by: JAYESH Carbamazepine (Carbamazepine 200 Mg/10 Ml Oral.Susp) 300 mg NG-TUBE BEDTIME [facility] Last Admin: 11/04/21 21:04 Dose: 300 mg Documented by: FARIDEH Heparin Sodium (Porcine) (Heparin Sodium,Porcine 5,000 Unit/Ml Vial) 5,000 unit SUBCUT Q12H [facility] Last Admin: 11/05/21 06:40 Dose: 5,000 unit Documented by: FARIDEH Ondansetron HCl (Ondansetron Hcl 4 Mg/2 Ml Vial) 4 mg IVPUSH Q8H PRN PRN Reason: Nausea and Vomiting Pharmacy Consult (Consult Rx Perform Med Rec) 1 each MISCELLANE ONCE PRN PRN Reason: Consult order Labs CBC & Chem 7: 11/03/21 05:54 11/04/21 05:46 Labs: Laboratory Results - last 24 hr 11/04/21 11/04/21 13:00 16:33 Urine Color YELLOW Urine Appearance HAZY Urine pH 5.5 Ur Specific [place] 1.025 Urine Protein 1+ H Urine Glucose (UA) NEG Urine Ketones NEG Urine Blood 1+ H Urine Nitrite NEG Ur Leukocyte Esterase TRACE H Urine RBC 5-9 H Urine WBC 1-4 Ur Squamous Epith Cells TRACE Calcium Oxalate Crystal 1+ Urine Bacteria TRACE C. difficile Tox B Gene NEGATIVE Microbiology Microbiology Results: Microbiology 11/04/21 16:50 Urine Culture - Preliminary Urine Catheterized - Amezcua Catheter No growth to date. Assessment and Plan (1) Aspiration pneumonia: Status: Acute Assessment and Plan: 71 year female with history of cerebral palsy, nonverbal and bedbound, total care at baseline, recent admission for UTI brought into the emergency department with increasing lethargy found have multiple significant acute medical issues being admitted for comfort measures initially.? (10/23/21 see advance planning note) Case discussed today with DDS director Anastasia Aguero,? legal and ethics staff as well.? Also on the call Kamini Caceres, Dr. Vel Veronica, Nader Mayfield, Patients brother (guardian).? The initial conversation was regarding patient's CHROMOSOMAL DISORDERS COUNSELOR status and why patient has not been treated for possible aspiration pneumonia, the record did not display that the patient was part of DDS.? On admission the patient's guardian was contacted and at that time that patient was made comfort measures only.? Today there was concern from the DDS that patient should be treated and patient's brother was in agreement.? Plan was to change patients CHROMOSOMAL DISORDERS COUNSELOR status to DNR /DNI and treat for active medical problems. Severe protein calorie malnutrition.? BMI 15.7 Speech therapy recommend NPO, NG tube placed, feedings started on 10/25 Patient resisting oral care. Discussed PEG tube with patients brother, he decided against a PEG tube being placed and wants patient as CHROMOSOMAL DISORDERS COUNSELOR, discussed case with DDS caseworkers Continue tube feeds for now Chronic leukocytosis seen by hematology, no further inpatient work up required does not appear to have active infection. afebrile. BCx negative since admission repeat UA pending. no diarrhea. vaginal candidiasis -? diflucan x 1 Acute respiratory failure with hypoxia secondary to aspiration pneumonia. Resolved Severe sepsis, no fevers in last 5 days,blood cultures negative Presented with a oxygen sat of 80% CTA chest showed peripheral opacity, viral panel negative WBC fluctuating remain elevated O2 sats 95% on room air, continue supportive care. Status post IV vanco, Zosyn, Levaquin, changed to by mouth (NGT) Augmentin, has completed course of antibiotics Hypernatremia sodium normalized, was likely due to poor by mouth intake. now sodium trending down water boluses decreased to q8h via NG tube Follow BMP History of seizure disorder No seizures noted since admission seizure precautions, cont. Tegretol via NG tube stage I pressure sore right upper back frequent position change/high-protein diet/barrier cream Code status DNR DNI DVT pptx, heparin attending dr. layton Quality Stroke Does the patient have a stroke diagnosis?: No VTE Prior VTE?: No VTE Risk Level:: Medical - moderate - high VTE Device Contraindication: Treatment Not Indicated VTE Drug Contraindication: Treatment Not Indicated
--- NOTE | 2021-11-05 10:30 | MHC.CLN ---
F/U CONTINUES WITH NG TUBE FEEDING: JEVITY 1.0 AT MAX GOAL RATE OF 45 ML PER HOUR; FLUSH 120 ML WATER EVERY 8 HOURS. PROVIDES: 1080 ML FORMULA; 1145 KCAL (28 KCAL/KG IBW); 48 G PROTEIN (1.17 G/KG IBW); 901 ML PLUS 360 ML WATER FROM OVUNG=5672 ML (38.8 ML/KG IBW). TOLERATING TUBE FEEDING. NO GTUBE PLACEMENT PER FAMILY. MONITOR TUBE FEED TOLERANCE, RESIDUALS, AND LYTES.
[2021-11-05 11:57] VITALS: BP 124/73; PULSE 100; RESP 16; TEMP 36.6; O2SAT 97
--- NOTE | 2021-11-05 13:40 | MHC.CM.PN ---
PER MULTIDISCIPLINARY ROUNDS, PT'S BROTHER AND GUARDIAN DECLINED TO GIVE CONSENT FOR PEG TUBE, CM DIRECTOR WILL ORGANIZE A TEAM MTG W/DDS AND BROTHER, PLAN REMAINS FOR STR ONCE PT IS MEDICALLY CLEARED FOR D/C. CM TO CONT TO FOLLOW D/C NEEDS.
[2021-11-05 16:00] VITALS: BP 143/98; PULSE 99; RESP 18; TEMP 36.8; O2SAT 97
--- NOTE | 2021-11-05 16:37 | MHC.SL.SWA ---
Speech Pathologist Impression: Risk of Aspiration Oralpharyngeal Dysphagia Risk of Aspiration Due to: Lethargy Medically Fragile Neurological Condition History of Pneumonia Poor PO Intake Reduced Cognition Dysphasia Diet Status: No Change Liquid Consistency and Strategies for Safe Swallow: Liquid Intake Recommendation: NPO Liquid Intake Strategies: Solid Food Consistency: Dietary Recommendations: NPO Additional Modifications to Solid Foods: Recommend alternative delivery method of nutrition Oral Medication Intake: NPO Compensatory Strategies and Precautions to be Taken for Safe Swallow: Supervision While Eating and Drinking for Safe Swallow: PO with REEXAMINER Foods to Avoid: Pt now has permanent alternative feeding method for nutrition. Swallowing Recommended Treatments: Compens. Strategy Educat. Recommendation for Speech: Inpatient Speech Therapy Comment: Pt seen this a.m. for swallow treatment. Pt has not had PEG tube placement due to Brother not being able to be reached for consent, and she continues to have NG tube present. Pt was sleeping initially, but easily roused, mildly lethargic through session. Pt is non-verbal, blind, responds to stimulus, opens eyes and moves head to voice/presence of other. Pt intermittently responded to oral care/damp swab for today's therapy treatment, often clamping jaw and mouth to refuse. When accepted, Pt took trace amounts of thin liquid into mouth. After mild delay, pt spontaneously swallow on 3/3 presentations. No Clinical s/s aspiration. Pt continued mildly resistant and lethargic, PO attempts discontinued. Frequency/Duration: M-F while inpt Date Range for Service Req: Timeline to reassess: Dictaphone Operator Clinican/Clinical Fellow: No Supervisory Statement: I have reviewed and agree with the student/clinical fellow's documentation: N/A Speech Language Pathologist: Kadie Knight M.A., CCC-REEXAMINER
[2021-11-05 19:54] VITALS: BP 170/79; PULSE 103; RESP 17; TEMP 37.4; O2SAT 96
[2021-11-05] MEDS: carBAMazepine 200 MG/10 ML ORAL.SUSP 300 MG NG-TUBE (21:07)
[2021-11-06] VITALS (7 sets, daily range): BP systolic 121–141; BP diastolic 62–85; PULSE 82–104; RESP 15–20; TEMP 35.6–37.3; O2SAT 94–100
[2021-11-06] MEDS: Heparin Sodium,Porcine 5,000 UNIT/ML VIAL 5000 UNIT SUBCUT ×2 (06:38→18:23)
[2021-11-06 06:42] LABS: Hematocrit 28.2 % (37.0-47.0); Hemoglobin 9.2 g/dl (12.0-16.0); Mean Corpuscular HGB Conc 32.6 g/dl (31.0-35.0); Mean Corpuscular Hemoglobin 31.6 pg (27.0-33.0); Mean Corpuscular Volume 96.9 fL (80.0-98.0); Mean Platelet Volume 10.6 fL (9.4-12.3); Platelet Count 370 X10*3/uL (160-400); Red Blood Count 2.91 X10*6/uL (4.20-5.50); Red Cell Distribution Width 15.3 % (11.0-16.0)
[2021-11-06 06:48] LABS: Anion Gap 11 (12-20); Blood Urea Nitrogen 11 mg/dL (9-16); Calcium 8.1 mg/dL (8.4-10.2); Carbon Dioxide 23 mmol/L (22-29); Chloride 102 mmol/L (96-108); Creatinine Clr Calc Pharmacy 85.1; Estimated Glomerular Filt Rate > 60; Glucose Random 119 mg/dL (60-115); Potassium 4.4 mmol/L (3.3-5.1); Sodium 132 mmol/L (135-145)
[2021-11-06] MEDS: carBAMazepine 200 MG/10 ML ORAL.SUSP NG-TUBE (10:33)
--- NOTE | 2021-11-06 15:42 | PM.PNGS ---
Subjective Subjective Date of Service: 11/07/21 Interval history: No changes with regards to patient's overall status Tolerating tube feeds via the NG tube Physical Exam Vital Signs: Vital Signs: Last Vital Signs Temp 98 F 11/06/21 11:21 Pulse 103 H 11/06/21 11:21 Resp 16 11/06/21 11:21 BP 141/84 H 11/06/21 11:21 Pulse Ox 98 11/06/21 11:21 Oxygen Flow Rate 10 10/21/21 06:50 BMI result Body Mass Index 15.6 Const: Other: Not communicative, no verbal output General: no acute distress Resp: Effort & Inspection: normal respiratory effort Cardio: Rhythm: regular rhythm GI: Other: No surgical scars Palpation (GI): Soft to palpation, not firm and nontender Objective Data Active Medications Acetaminophen (Acetaminophen Supp 650 Mg Supp.Rect) 650 mg ND Q4H PRN PRN Reason: Fever Last Admin: 10/23/21 18:00 Dose: 650 mg Documented by: HIREN Carbamazepine (Carbamazepine 200 Mg/10 Ml Oral.Susp) 200 mg NG-TUBE DAILY [facility] Last Admin: 11/06/21 10:33 Dose: 200 mg Documented by: CORIN Carbamazepine (Carbamazepine 200 Mg/10 Ml Oral.Susp) 300 mg NG-TUBE BEDTIME [facility] Last Admin: 11/05/21 21:07 Dose: 300 mg Documented by: FARIDEH Heparin Sodium (Porcine) (Heparin Sodium,Porcine 5,000 Unit/Ml Vial) 5,000 unit SUBCUT Q12H [facility] Last Admin: 11/06/21 06:38 Dose: 5,000 unit Documented by: FARIDEH Ondansetron HCl (Ondansetron Hcl 4 Mg/2 Ml Vial) 4 mg IVPUSH Q8H PRN PRN Reason: Nausea and Vomiting Pharmacy Consult (Consult Rx Perform Med Rec) 1 each MISCELLANE ONCE PRN PRN Reason: Consult order Labs CBC & Chem 7: 11/06/21 06:21 11/06/21 06:21 Labs: Laboratory Results - last 24 hr 11/06/21 11/06/21 06:21 06:21 MCV 96.9 MCH 31.6 MCHC 32.6 RDW 15.3 Plt Count 370 MPV 10.6 Absolute Nucleated RBC 0.000 Nucleated RBC % (auto) 0.0 Anion Gap 11 L Estim Creat Clear Calc 85.1 Estimated GFR > 60 Random Glucose 119 H Calcium 8.1 L D Microbiology Microbiology Results: Microbiology 11/04/21 16:50 Urine Culture - Final Urine Catheterized - Amezcua Catheter No growth. Procedures Date of Service Date of Service: 11/07/21 Progress Note: A&P Assessment and plan (1) Malnutrition: Status: Acute Assessment and Plan: I had a long discussion with the healthcare proxy Chase yesterday - he had stated that in view of the patient's chronic condition, overall poor long-term health, did not want to proceed with peg tube placement However, DDS had been involved and had apparently been recommending to have the PEG tube placed I had a long discussion with Chase again today He says he is giving consent for the PEG tube to be placed. I had discussed with him technique of the procedure as well as the risks, benefits, and alternatives Will put this patient again on the schedule again for tomorrow for PEG tube placement in OR Fall Risk Details Current Medications: Current Medications Acetaminophen (Acetaminophen Supp 650 Mg Supp.Rect) 650 mg ND Q4H PRN PRN Reason: Fever Last Admin: 10/23/21 18:00 Dose: 650 mg Documented by: Carbamazepine (Carbamazepine 200 Mg/10 Ml Oral.Susp) 200 mg NG-TUBE DAILY [facility] Last Admin: 11/06/21 10:33 Dose: 200 mg Documented by: Carbamazepine (Carbamazepine 200 Mg/10 Ml Oral.Susp) 300 mg NG-TUBE BEDTIME [facility] Last Admin: 11/05/21 21:07 Dose: 300 mg Documented by: Heparin Sodium (Porcine) (Heparin Sodium,Porcine 5,000 Unit/Ml Vial) 5,000 unit SUBCUT Q12H [facility] Last Admin: 11/06/21 06:38 Dose: 5,000 unit Documented by: Ondansetron HCl (Ondansetron Hcl 4 Mg/2 Ml Vial) 4 mg IVPUSH Q8H PRN PRN Reason: Nausea and Vomiting Pharmacy Consult (Consult Rx Perform Med Rec) 1 each MISCELLANE ONCE PRN PRN Reason: Consult order Time Spent With Patient Time: Total time spent is greater than 50% in coordination of care (as documented) at patient's floor/unit and/or counseling patient: Time with patient: 15 - 24 minutes Quality Stroke Does the patient have a stroke diagnosis?: No VTE Prior VTE?: No VTE Risk Level:: Medical - moderate - high VTE Device Contraindication: Treatment Not Indicated VTE Drug Contraindication: Treatment Not Indicated
--- NOTE | 2021-11-06 15:55 | MHC.CM.PN ---
PER CM DIRECTOR PT WILL HAVE PEG TUBE PLACED TOMORROW, [facility] FOLLOWING AND WILL NEED ORDER TO ADMIT PRIOR TO D/C.
--- NOTE | 2021-11-06 15:55 | HO.PM.IMPN ---
Subjective Subjective Date of Service: 11/06/21 Review of Systems Follow up Initial resp failure, sepsis No verbal interaction, sleeping Physical Exam Vital Signs: Vital Signs: Last Vital Signs Temp 98 F 11/06/21 11:21 Pulse 103 H 11/06/21 11:21 Resp 16 11/06/21 11:21 BP 141/84 H 11/06/21 11:21 Pulse Ox 98 11/06/21 11:21 Oxygen Flow Rate 10 10/21/21 06:50 BMI result Body Mass Index 15.6 Appearing in no acute distress lung sounds are clear to auscultation heart regular rate rhythm, clear S1, S2 positive bowel sounds, abdomen is soft, nontender neuro patient is alert x3, no focal deficits Objective Data Active Medications Acetaminophen (Acetaminophen Supp 650 Mg Supp.Rect) 650 mg NJ Q4H PRN PRN Reason: Fever Last Admin: 10/23/21 18:00 Dose: 650 mg Documented by: HIREN Carbamazepine (Carbamazepine 200 Mg/10 Ml Oral.Susp) 200 mg NG-TUBE DAILY [facility] Last Admin: 11/06/21 10:33 Dose: 200 mg Documented by: CORIN Carbamazepine (Carbamazepine 200 Mg/10 Ml Oral.Susp) 300 mg NG-TUBE BEDTIME [facility] Last Admin: 11/05/21 21:07 Dose: 300 mg Documented by: FARIDEH Heparin Sodium (Porcine) (Heparin Sodium,Porcine 5,000 Unit/Ml Vial) 5,000 unit SUBCUT Q12H [facility] Last Admin: 11/06/21 06:38 Dose: 5,000 unit Documented by: FARIDEH Ondansetron HCl (Ondansetron Hcl 4 Mg/2 Ml Vial) 4 mg IVPUSH Q8H PRN PRN Reason: Nausea and Vomiting Pharmacy Consult (Consult Rx Perform Med Rec) 1 each MISCELLANE ONCE PRN PRN Reason: Consult order Labs CBC & Chem 7: 11/06/21 06:21 11/06/21 06:21 Labs: Laboratory Results - last 24 hr 11/06/21 11/06/21 06:21 06:21 MCV 96.9 MCH 31.6 MCHC 32.6 RDW 15.3 Plt Count 370 MPV 10.6 Absolute Nucleated RBC 0.000 Nucleated RBC % (auto) 0.0 Anion Gap 11 L Estim Creat Clear Calc 85.1 Estimated GFR > 60 Random Glucose 119 H Calcium 8.1 L D Microbiology Microbiology Results: Microbiology 11/04/21 16:50 Urine Culture - Final Urine Catheterized - Amezcua Catheter No growth. Assessment and Plan (1) Malnutrition: Status: Acute Assessment and Plan: 71 year female with history of cerebral palsy, nonverbal and bedbound, total care at baseline, recent admission for UTI brought into the emergency department with increasing lethargy found have multiple significant acute medical issues being admitted for comfort measures initially.? (10/23/21 see advance planning note) Case discussed today with DDS director Anastasia Aguero,? legal and ethics staff as well.? Also on the call Kamini Caceres, Dr. Vel Veronica, Nader Mayfield, Patients brother (guardian).? The initial conversation was regarding patient's TUNNEL MINER status and why patient has not been treated for possible aspiration pneumonia, the record did not display that the patient was part of DDS.? On admission the patient's guardian was contacted and at that time that patient was made comfort measures only.? Today there was concern from the DDS that patient should be treated and patient's brother was in agreement.? Plan was to change patients TUNNEL MINER status to DNR /DNI and treat for active medical problems. Severe protein calorie malnutrition.? BMI 15.7 Speech therapy recommend NPO, NG tube placed, feedings started on 10/25 Patient resisting oral care. Discussed PEG tube with patients brother, he decided against a PEG tube being placed and wants patient as TUNNEL MINER, discussed case with DDS caseworkers NPO for Peg tube placement tomorrow Chronic leukocytosis seen by hematology, no further inpatient work up required does not appear to have active infection. afebrile. BCx negative since admission repeat UA pending. no diarrhea. vaginal candidiasis -? diflucan x 1 Acute respiratory failure with hypoxia secondary to aspiration pneumonia. Resolved Severe sepsis, no fevers in last 5 days,blood cultures negative Presented with a oxygen sat of 80% CTA chest showed peripheral opacity, viral panel negative WBC fluctuating remain elevated O2 sats 95% on room air, continue supportive care. Status post IV vanco, Zosyn, Levaquin, changed to by mouth (NGT) Augmentin, has completed course of antibiotics Hypernatremia sodium normalized, was likely due to poor by mouth intake. now sodium trending down water boluses decreased to q8h via NG tube Follow BMP History of seizure disorder No seizures noted since admission seizure precautions, cont. Tegretol via NG tube stage I pressure sore right upper back frequent position change/high-protein diet/barrier cream DISPO plan to dc to rehab facility when medically stable from PEG tube Code status DNR DNI DVT pptx, heparin attending Dr. Copeland Quality Stroke Does the patient have a stroke diagnosis?: No VTE Prior VTE?: No VTE Risk Level:: Medical - moderate - high VTE Device Contraindication: Treatment Not Indicated VTE Drug Contraindication: Treatment Not Indicated
--- NOTE | 2021-11-06 16:02 | P.ACPN_ITS ---
Advanced Care Planning Note Advanced Care Planning Note Time spent (in minutes): 60 Narrative: Meeting with [facility] staff, Patient's brother, Chase (guardian),director of case management [facility], Shobha Harris case assistant [facility] and myself on 11/05/2021 regarding insertion of PEG tube for long-term nutrition. initially the patient's brother Chase reported that he spoke with his sister from [place] and had made the decision that he wanted to make the patient comfort measures only and did not want PEG tube placement. He stated that he saw a decline in the patient's quality of life over the last few years. There was consensus from the Department of Disability Services that they were moving towards wanting the patient to have a PEG tube placed. Clinical decision-making was discussed during this phone call. It was decided that the patient's candlemaking laborer Gustavo, of 25 years would come and visit with the patient and assess if the patient is at her baseline. During her 15 day admission the patient has had very minimal signs of communication, is known that the patient is blind and mainly nonverbal. At some points early in the admission she was squeezing hands, but that had tapered off. 11/06/2021 patient's long-time candlemaking laborer Gustavo and jabari in the [place] registered nurse of [facility] visited with the patient. The patient did appear to be more alert blinking her eyes, making noises and lifting up her right arm. The patient's long-time candlemaking laborer did assess that this seemed to be her baseline. It was decided that [facility]/ [facility] would contact the patient's brother Chase and discussed this with him and revisited the topic of placing a PEG tube. The director of case management did receive a telephone call from [facility]/ [facility] stating that the patient's brother decided to go forward with the PEG tube. The general surgeon was made aware of this and reached out to the patient's brother Chase and did obtain consent. The plan will be for patient to get her PEG tube tomorrow and begin the authorization phase for patient to be transition to short-term/long-term care. Problems Discussed (1) Malnutrition:
--- NOTE | 2021-11-06 17:42 | MHC.SL.SWA ---
Speech Pathologist Impression: Risk of Aspiration Oralpharyngeal Dysphagia Risk of Aspiration Due to: Lethargy Medically Fragile Neurological Condition History of Pneumonia Poor PO Intake Reduced Cognition Dysphasia Diet Status: No Change Liquid Consistency and Strategies for Safe Swallow: Liquid Intake Recommendation: NPO Liquid Intake Strategies: Solid Food Consistency: Dietary Recommendations: NPO Additional Modifications to Solid Foods: Recommend alternative delivery method of nutrition Oral Medication Intake: NPO Compensatory Strategies and Precautions to be Taken for Safe Swallow: Supervision While Eating and Drinking for Safe Swallow: PO with INSECTICIDE MAKER Foods to Avoid: Pt now has permanent alternative feeding method for nutrition. Swallowing Recommended Treatments: Compens. Strategy Educat. Recommendation for Speech: Inpatient Speech Therapy Comment: Pt seen this a.m. for swallow treatment. Pt has not had PEG tube placed, Case MGT note indicates Brother has not given consent. Pt continues to have NG tube present for feeding. Pt's primary healthcare translator, Quiana and administer from [facility] were present. [facility] stated that they wanted to determine if Pt feeding behavior was at baseline w/Quiana presenting food to PT. Pt was notably alert, calm and responsive to being fed (minimal rejection noted today w/ caregiver). Observed caregiver giving TSP of puree, on multiple presentations, Pt had mildly long oral phase, w/swallow initiated after mild delay, good laryngeal elevation, and second swallow to clear oral residual. On one presentation, Pt had prolonged delay initiating swallow, then coughed repeatedly. Coil Wrapper reported I always stop and give her a break when that happens. Discussed Pt oral motoric pattern during swallow, aspiration risk w/caregiver and traffic safety administrator. Caregiver and Sql Application Developer agree that Pt needs alternative feeding method to assure that she receives adequate nutrition and does not aspirate or have spiral of decreased nutritional intake, lethargy, aspiration. Continue NPO w/ PO trials w/ INSECTICIDE MAKER or Caregiver only. Frequency/Duration: M-F while inpt Date Range for Service Req: Timeline to reassess: Collar Tacker Clinican/Clinical Fellow: No Supervisory Statement: I have reviewed and agree with the student/clinical fellow's documentation: N/A Speech Language Pathologist: Kadie Knight M.A., CCC-INSECTICIDE MAKER
[2021-11-06] MEDS: carBAMazepine 200 MG/10 ML ORAL.SUSP 300 MG NG-TUBE (20:49)
[2021-11-07] VITALS (9 sets, daily range): BP systolic 95–176; BP diastolic 51–91; PULSE 92–108; RESP 10–22; TEMP 36–36.6; O2SAT 96–99
--- NOTE | 2021-11-07 09:52 | MHC.CLN ---
F/U PATIENT SCHEDULED FOR PEG TUBE PLACEMENT TODAY. HAD BEEN TOLERATING NG TUBE FEEDING OF JEVITY 1.0 AT MAX GOAL RATE OF 45 ML/HOUR. RECOMMEND JEVITY 1.0 AT MAX GOAL RATE OF 45 ML PER HOUR. FLUSH 120 ML FREE WATER Q 8 HOURS. PROVIDES 1080 ML FORMULA; 1145 KCAL (1.17 KCAL/KG IBW); 48 G PROTEIN (1.17 G/KG IBW); FORMULA PLUS LDVOT=4537 ML (30.83 ML/KG IBW). START PEG TUBE FEED AT 20 ML PER HOUR X 24 HOURS; INCREASE 10 ML EVERY 4 HOURS TO MAX RATE OF 45 ML PER HOUR. CHECK RESIDUALS EVERY 4 HOURS. IF GREATER THAN 250 ML, HOLD FOR 2 HOURS THEN RECHECK. MONITOR TOLERANCE, RESIDUALS, AND LYTES.
--- NOTE | 2021-11-07 11:23 | MHC.CM.PN ---
Addendum entered by Kadie Singh RN 11/07/21 16:00: CM CONTATCED PT'S BROTHER/GUARDIAN JOVANNA AT 3:55PM [phone] TO UPDATE HIM ON PROCEDURE AND D/C PLAN, JOVANNA WAS THANKFUL FOR UPDATE AND AGREEABLE TO PLAN FOR PT TO D/C TO [facility] Addendum entered by Kadie Singh RN 11/07/21 15:51: PER SURGICAL, PT IS DOING WELL P/O AND WILL START TUBE FEEDINGS IN AM, IF PT TOLERATING ANTIC D/C Friday11/08/20, CM DIRECTOR AWARE. Original Note: EMR REVIEWED, PT CURRENTLY OFF UNIT IN SURGERY FOR PEG TUBE PLACEMENT, [facility] UPDATED VIA [employer], ANTIC D/C BY FRIDAY DEPENDING HOW PT TOLERATES TUBE FEEDS. CM WILL CONT TO FOLLOW D/C NEEDS.
--- NOTE | 2021-11-07 11:35 | P.CONAN_ITS ---
HPI - Anesthesia Eval Consult details Narrative: PEG palcement PMFSH Active Problems Active Problems: All Active Problems (Updated 11/01/21 @ 16:05 by Joselin Love MD) Malnutrition (Acute) Metabolic acidosis (Acute) Hyperthermia (Acute) Severe sepsis (Acute) Acute respiratory failure with hypoxia (Acute) Aspiration pneumonia (Acute) Hypernatremia (Acute) Leukocytosis (Acute) UTI (urinary tract infection) (Acute) Past Medical History Medical History Cerebral palsy Seizure disorder Functional capacity: bed bound Family History Family history of problems with anesthesia: Unobtainable Surgical History History of Problems with Anesthesia: Unobtainable Social History Social History Household Members: Other Housing: Assisted Living Facility Do you presently have visiting nurse or other home services: No Patient Tobacco Use Status: Never used Tobacco service: No Current occupational status: disabled Meds Allergies Allergy/AdvReac Type Severity Reaction Status Date / Time No Known Allergies Allergy Verified 10/09/21 21:22 Active Medications: Current Medications Acetaminophen (Acetaminophen Supp 650 Mg Supp.Rect) 650 mg GA Q4H PRN PRN Reason: Fever Last Admin: 10/23/21 18:00 Dose: 650 mg Documented by: Carbamazepine (Carbamazepine 200 Mg/10 Ml Oral.Susp) 200 mg NG-TUBE DAILY [facility] Last Admin: 11/07/21 10:29 Dose: Not Given Documented by: Carbamazepine (Carbamazepine 200 Mg/10 Ml Oral.Susp) 300 mg NG-TUBE BEDTIME [facility] Last Admin: 11/06/21 20:49 Dose: 300 mg Documented by: Heparin Sodium (Porcine) (Heparin Sodium,Porcine 5,000 Unit/Ml Vial) 5,000 unit SUBCUT Q12H RAJANI Last Admin: 11/07/21 07:48 Dose: Not Given Documented by: Ondansetron HCl (Ondansetron Hcl 4 Mg/2 Ml Vial) 4 mg IVPUSH Q8H PRN PRN Reason: Nausea and Vomiting Pharmacy Consult (Consult Rx Perform Med Rec) 1 each MISCELLANE ONCE PRN PRN Reason: Consult order Home Medications Medication Instructions Recorded Confirmed Last Taken Type acetic acid 2 % ear solution 3 drp OTIC (EARS) DAILY 10/10/21 10/21/21 Unknown History ascorbic acid (vitamin C) 250 mg 250 mg PO DAILY 10/10/21 10/21/21 10/20/21 History tablet calcium citrate 250 mg PO BEDTIME 10/10/21 10/21/21 10/20/21 History carbamazepine 200 mg tablet 200 mg PO DAILY 10/10/21 10/21/21 10/20/21 History carbamazepine 200 mg tablet 300 mg PO BEDTIME 10/10/21 10/21/21 10/20/21 History cholecalciferol (vitamin D3) 25 25 mcg PO DAILY 10/10/21 10/21/21 10/20/21 History mcg (1,000 unit) capsule docusate sodium 100 mg capsule 100 mg PO BID 10/10/21 10/21/21 10/20/21 History ketoconazole 2 % topical cream 1 appl TOPICAL BID 10/10/21 10/21/21 Unknown History lorazepam 1 mg tablet 1 tab PO BEDTIME 10/10/21 10/21/21 10/20/21 History metronidazole 0.75 % topical cream 1 appl TOPICAL BID 10/10/21 10/21/21 Unknown History neomycin 3.5 mg/g-polymyxin B 1 appl OPHTHALMIC-LEFT DAILY 10/10/21 10/21/21 10/20/21 History 10,000 unit/g-dexameth 0.1 % eye oint psyllium husk (aspartame) 3.4 3.4 g PO BID 10/10/21 10/21/21 10/20/21 History gram/5.8 gram oral powder (Metamucil [facility] Fiber) terbinafine HCl 1 % topical cream 1 appl TOPICAL BID 10/10/21 10/21/21 10/20/21 History (Athlete's Foot (terbinafine)) acetaminophen 160 mg/5 mL oral 320 mg PO Q4H PRN 10/21/21 10/21/21 Unknown History liquid multivitamin (Daily-Samara) 1 tab PO DAILY 10/21/21 10/21/21 10/20/21 History triamcinolone acetonide 0.1 % 1 appl TOPICAL BID 10/21/21 10/21/21 Unknown History topical cream Exam Exam Date and Time: November 07, 2021 1135 Height,Weight and Vital Signs: Height 4 ft 10 in Weight 34 kg Last Vital Signs Temp 97.7 F 11/07/21 11:17 Pulse 108 H 11/07/21 11:17 Resp 22 H 11/07/21 11:17 BP 131/63 11/07/21 11:17 Pulse Ox 98 11/07/21 11:17 Oxygen Flow Rate 10 10/21/21 06:50 Pertinent Lab Results Pertinent Lab Results: Laboratory Tests 10/21/21 10/21/21 10/21/21 06:44 08:41 08:41 WBC RBC Hgb Hct MCV MCH MCHC RDW Plt Count MPV Immature Gran % (Auto) Neut % (Auto) Lymph % (Auto) [place] % (Auto) Eos % (Auto) Baso % (Auto) Lymph # (Auto) [place] # (Auto) Eos # (Auto) Baso # (Auto) Abs Immat Gran (auto) Absolute Neuts (auto) Absolute Nucleated RBC Nucleated RBC % (auto) Neutrophils % (Manual) Band Neutrophils % Lymphocytes % (Manual) Monocytes % (Manual) Eosinophils % (Manual) Abs Neuts (Manual) Lymphocytes # (Manual) Monocytes # (Manual) Eosinophils # (Manual) Platelet Estimate Plt Morphology Comment RBC Morphology Smear Tech's Comments PT INR APTT Sodium 154 H Potassium 4.2 Chloride 124 H Carbon Dioxide 19 L Anion Gap 15 BUN 39 H D Creatinine 0.94 Estim Creat Clear Calc 29.8 Estimated GFR 59 POC Glucose 178 H Random Glucose 150 H Lactic Acid 2.8 H* Calcium 9.2 D Total Bilirubin 0.2 Direct Bilirubin < 0.2 AST 26 ALT 7 Alkaline Phosphatase 99 Troponin I High Sens B-Natriuretic Peptide Total Protein 5.4 L Albumin 2.5 L D Lipase 8 Urine Color Urine Appearance Urine pH Ur Specific [place] Urine Protein Urine Glucose (UA) Urine Ketones Urine Blood Urine Nitrite Ur Leukocyte Esterase Urine RBC Urine WBC Ur Squamous Epith Cells Calcium Oxalate Crystal Urine Bacteria Urine Mucus Vancomycin Trough Respiratory Panel [place] Adenovirus (Rapid PCR) B.pert (TEM-PCR) B.parapertussis DNA PCR C. pneumoniae DNA (PCR) C. difficile Tox B Gene Coronavirus OC43 (PCR) Coronavirus HKU1 (PCR) Coronavirus 229E (PCR) Coronavirus NL63 (PCR) Human Metapneumovir PCR Influenza A (RT-PCR) Influenza Type A (PCR) Influenza B (RT-PCR) Influenza Type B (PCR) Ur L.pneumophila Ag M. pneumoniae (PCR) Parainfluenza 1 (PCR) Parainfluenza 2 (PCR) Parainfluenza 3 (PCR) Parainfluenza 4 (PCR) RSV (PCR) RSV RNA Qual (PCR) Entero/Rhino (PCR) SARS-CoV-2 RNA (RT-PCR) 10/21/21 10/21/21 10/21/21 08:42 08:42 08:42 WBC 34.8 H* RBC 4.11 L D Hgb 12.7 D Hct 41.7 D MCV 101.5 H MCH 30.9 MCHC 30.5 L RDW 15.1 Plt Count 182 D MPV 10.8 Immature Gran % (Auto) 1.1 H Neut % (Auto) 88.2 H Lymph % (Auto) 6.1 L [place] % (Auto) 4.3 Eos % (Auto) 0.0 Baso % (Auto) 0.3 Lymph # (Auto) 2.1 [place] # (Auto) 1.5 H Eos # (Auto) 0.0 Baso # (Auto) 0.1 Abs Immat Gran (auto) 0.38 H Absolute Neuts (auto) 30.7 H Absolute Nucleated RBC 0.000 Nucleated RBC % (auto) 0.0 Neutrophils % (Manual) Band Neutrophils % Lymphocytes % (Manual) Monocytes % (Manual) Eosinophils % (Manual) Abs Neuts (Manual) Lymphocytes # (Manual) Monocytes # (Manual) Eosinophils # (Manual) Platelet Estimate Plt Morphology Comment RBC Morphology Smear Tech's Comments VERIFIED PT Cancelled INR Cancelled APTT Cancelled Sodium Potassium Chloride Carbon Dioxide Anion Gap BUN Creatinine Estim Creat Clear Calc Estimated GFR POC Glucose Random Glucose Lactic Acid Calcium Total Bilirubin Direct Bilirubin AST ALT Alkaline Phosphatase Troponin I High Sens 120.4 H* B-Natriuretic Peptide 66 Total Protein Albumin Lipase Urine Color Urine Appearance Urine pH Ur Specific [place] Urine Protein Urine Glucose (UA) Urine Ketones Urine Blood Urine Nitrite Ur Leukocyte Esterase Urine RBC Urine WBC Ur Squamous Epith Cells Calcium Oxalate Crystal Urine Bacteria Urine Mucus Vancomycin Trough Respiratory Panel [place] Adenovirus (Rapid PCR) B.pert (TEM-PCR) B.parapertussis DNA PCR C. pneumoniae DNA (PCR) C. difficile Tox B Gene Coronavirus OC43 (PCR) Coronavirus HKU1 (PCR) Coronavirus 229E (PCR) Coronavirus NL63 (PCR) Human Metapneumovir PCR Influenza A (RT-PCR) Influenza Type A (PCR) Influenza B (RT-PCR) Influenza Type B (PCR) Ur L.pneumophila Ag M. pneumoniae (PCR) Parainfluenza 1 (PCR) Parainfluenza 2 (PCR) Parainfluenza 3 (PCR) Parainfluenza 4 (PCR) RSV (PCR) RSV RNA Qual (PCR) Entero/Rhino (PCR) SARS-CoV-2 RNA (RT-PCR) 10/21/21 10/21/21 10/23/21 08:42 09:14 16:35 WBC 27.1 H RBC 3.68 L Hgb 11.4 L Hct 37.9 MCV 103.0 H MCH 31.0 MCHC 30.1 L RDW 15.5 Plt Count 241 D MPV 11.7 Immature Gran % (Auto) Neut % (Auto) Lymph % (Auto) [place] % (Auto) Eos % (Auto) Baso % (Auto) Lymph # (Auto) [place] # (Auto) Eos # (Auto) Baso # (Auto) Abs Immat Gran (auto) Absolute Neuts (auto) Absolute Nucleated RBC 0.000 Nucleated RBC % (auto) 0.0 Neutrophils % (Manual) Band Neutrophils % Lymphocytes % (Manual) Monocytes % (Manual) Eosinophils % (Manual) Abs Neuts (Manual) Lymphocytes # (Manual) Monocytes # (Manual) Eosinophils # (Manual) Platelet Estimate Plt Morphology Comment RBC Morphology Smear Tech's Comments PT INR APTT Sodium Potassium Chloride Carbon Dioxide Anion Gap BUN Creatinine Estim Creat Clear Calc Estimated GFR POC Glucose Random Glucose Lactic Acid Calcium Total Bilirubin Direct Bilirubin AST ALT Alkaline Phosphatase Troponin I High Sens B-Natriuretic Peptide Total Protein Albumin Lipase Urine Color YELLOW Urine Appearance HAZY Urine pH 5.0 Ur Specific [place] >= 1.030 H Urine Protein 1+ H Urine Glucose (UA) NEG Urine Ketones 15 Urine Blood NEG Urine Nitrite NEG Ur Leukocyte Esterase NEG Urine RBC 0 Urine WBC 0 Ur Squamous Epith Cells TRACE Calcium Oxalate Crystal 2+ Urine Bacteria NONE Urine Mucus 1+ Vancomycin Trough Respiratory Panel [place] Adenovirus (Rapid PCR) B.pert (TEM-PCR) B.parapertussis DNA PCR C. pneumoniae DNA (PCR) C. difficile Tox B Gene Coronavirus OC43 (PCR) Coronavirus HKU1 (PCR) Coronavirus 229E (PCR) Coronavirus NL63 (PCR) Human Metapneumovir PCR Influenza A (RT-PCR) Influenza Type A (PCR) NEGATIVE Influenza B (RT-PCR) Influenza Type B (PCR) NEGATIVE Ur L.pneumophila Ag M. pneumoniae (PCR) Parainfluenza 1 (PCR) Parainfluenza 2 (PCR) Parainfluenza 3 (PCR) Parainfluenza 4 (PCR) RSV (PCR) RSV RNA Qual (PCR) NEGATIVE Entero/Rhino (PCR) SARS-CoV-2 RNA (RT-PCR) NEGATIVE 10/23/21 10/23/21 10/23/21 16:35 17:00 22:02 WBC RBC Hgb Hct MCV MCH MCHC RDW Plt Count MPV Immature Gran % (Auto) Neut % (Auto) Lymph % (Auto) [place] % (Auto) Eos % (Auto) Baso % (Auto) Lymph # (Auto) [place] # (Auto) Eos # (Auto) Baso # (Auto) Abs Immat Gran (auto) Absolute Neuts (auto) Absolute Nucleated RBC Nucleated RBC % (auto) Neutrophils % (Manual) Band Neutrophils % Lymphocytes % (Manual) Monocytes % (Manual) Eosinophils % (Manual) Abs Neuts (Manual) Lymphocytes # (Manual) Monocytes # (Manual) Eosinophils # (Manual) Platelet Estimate Plt Morphology Comment RBC Morphology Smear Tech's Comments PT INR APTT Sodium 165 H* 165 H* Potassium 4.2 4.0 Chloride 130 H 130 H Carbon Dioxide 18 L 17 L Anion Gap 21 H 22 H BUN 35 H 35 H Creatinine 0.67 0.69 Estim Creat Clear Calc 41.9 40.7 Estimated GFR > 60 > 60 POC Glucose Random Glucose 90 131 H Lactic Acid 2.0 Calcium 9.6 9.8 Total Bilirubin Direct Bilirubin AST ALT Alkaline Phosphatase Troponin I High Sens B-Natriuretic Peptide Total Protein Albumin Lipase Urine Color Urine Appearance Urine pH Ur Specific [place] Urine Protein Urine Glucose (UA) Urine Ketones Urine Blood Urine Nitrite Ur Leukocyte Esterase Urine RBC Urine WBC Ur Squamous Epith Cells Calcium Oxalate Crystal Urine Bacteria Urine Mucus Vancomycin Trough Respiratory Panel [place] Adenovirus (Rapid PCR) B.pert (TEM-PCR) B.parapertussis DNA PCR C. pneumoniae DNA (PCR) C. difficile Tox B Gene Coronavirus OC43 (PCR) Coronavirus HKU1 (PCR) Coronavirus 229E (PCR) Coronavirus NL63 (PCR) Human Metapneumovir PCR Influenza A (RT-PCR) Influenza Type A (PCR) Influenza B (RT-PCR) Influenza Type B (PCR) Ur L.pneumophila Ag M. pneumoniae (PCR) Parainfluenza 1 (PCR) Parainfluenza 2 (PCR) Parainfluenza 3 (PCR) Parainfluenza 4 (PCR) RSV (PCR) RSV RNA Qual (PCR) Entero/Rhino (PCR) SARS-CoV-2 RNA (RT-PCR) 10/24/21 10/24/21 10/24/21 00:30 05:22 05:22 WBC 29.4 H RBC 3.60 L Hgb 11.2 L Hct 36.4 L MCV 101.1 H MCH 31.1 MCHC 30.8 L RDW 15.7 Plt Count 279 MPV 11.9 Immature Gran % (Auto) Neut % (Auto) Lymph % (Auto) [place] % (Auto) Eos % (Auto) Baso % (Auto) Lymph # (Auto) [place] # (Auto) Eos # (Auto) Baso # (Auto) Abs Immat Gran (auto) Absolute Neuts (auto) Absolute Nucleated RBC 0.000 Nucleated RBC % (auto) 0.0 Neutrophils % (Manual) Band Neutrophils % Lymphocytes % (Manual) Monocytes % (Manual) Eosinophils % (Manual) Abs Neuts (Manual) Lymphocytes # (Manual) Monocytes # (Manual) Eosinophils # (Manual) Platelet Estimate Plt Morphology Comment RBC Morphology Smear Tech's Comments PT INR APTT Sodium 164 H* 157 H Potassium 3.7 3.4 Chloride 129 H 125 H Carbon Dioxide 15 L 17 L Anion Gap 24 H 18 BUN 36 H 34 H Creatinine 0.72 0.76 Estim Creat Clear Calc 39.0 36.9 Estimated GFR > 60 > 60 POC Glucose Random Glucose 130 H 211 H Lactic Acid Calcium 9.6 9.4 Total Bilirubin Direct Bilirubin AST ALT Alkaline Phosphatase Troponin I High Sens B-Natriuretic Peptide Total Protein Albumin Lipase Urine Color Urine Appearance Urine pH Ur Specific [place] Urine Protein Urine Glucose (UA) Urine Ketones Urine Blood Urine Nitrite Ur Leukocyte Esterase Urine RBC Urine WBC Ur Squamous Epith Cells Calcium Oxalate Crystal Urine Bacteria Urine Mucus Vancomycin Trough Respiratory Panel [place] Adenovirus (Rapid PCR) B.pert (TEM-PCR) B.parapertussis DNA PCR C. pneumoniae DNA (PCR) C. difficile Tox B Gene Coronavirus OC43 (PCR) Coronavirus HKU1 (PCR) Coronavirus 229E (PCR) Coronavirus NL63 (PCR) Human Metapneumovir PCR Influenza A (RT-PCR) Influenza Type A (PCR) Influenza B (RT-PCR) Influenza Type B (PCR) Ur L.pneumophila Ag M. pneumoniae (PCR) Parainfluenza 1 (PCR) Parainfluenza 2 (PCR) Parainfluenza 3 (PCR) Parainfluenza 4 (PCR) RSV (PCR) RSV RNA Qual (PCR) Entero/Rhino (PCR) SARS-CoV-2 RNA (RT-PCR) 10/24/21 10/24/21 10/25/21 16:21 21:53 05:35 WBC RBC Hgb Hct MCV MCH MCHC RDW Plt Count MPV Immature Gran % (Auto) Neut % (Auto) Lymph % (Auto) [place] % (Auto) Eos % (Auto) Baso % (Auto) Lymph # (Auto) [place] # (Auto) Eos # (Auto) Baso # (Auto) Abs Immat Gran (auto) Absolute Neuts (auto) Absolute Nucleated RBC Nucleated RBC % (auto) Neutrophils % (Manual) Band Neutrophils % Lymphocytes % (Manual) Monocytes % (Manual) Eosinophils % (Manual) Abs Neuts (Manual) Lymphocytes # (Manual) Monocytes # (Manual) Eosinophils # (Manual) Platelet Estimate Plt Morphology Comment RBC Morphology Smear Tech's Comments PT INR APTT Sodium 149 H 143 142 Potassium 2.8 L 3.3 4.1 D Chloride 119 H 115 H 115 H Carbon Dioxide 20 L 19 L 18 L Anion Gap 13 12 13 BUN 27 H 23 H 21 H Creatinine 0.64 0.58 0.52 Estim Creat Clear Calc 43.9 48.4 54.0 Estimated GFR > 60 > 60 > 60 POC Glucose Random Glucose 179 H 130 H 121 H Lactic Acid Calcium 8.3 L D 8.6 7.9 L D Total Bilirubin Direct Bilirubin AST ALT Alkaline Phosphatase Troponin I High Sens B-Natriuretic Peptide Total Protein Albumin Lipase Urine Color Urine Appearance Urine pH Ur Specific [place] Urine Protein Urine Glucose (UA) Urine Ketones Urine Blood Urine Nitrite Ur Leukocyte Esterase Urine RBC Urine WBC Ur Squamous Epith Cells Calcium Oxalate Crystal Urine Bacteria Urine Mucus Vancomycin Trough Respiratory Panel [place] Adenovirus (Rapid PCR) B.pert (TEM-PCR) B.parapertussis DNA PCR C. pneumoniae DNA (PCR) C. difficile Tox B Gene Coronavirus OC43 (PCR) Coronavirus HKU1 (PCR) Coronavirus 229E (PCR) Coronavirus NL63 (PCR) Human Metapneumovir PCR Influenza A (RT-PCR) Influenza Type A (PCR) Influenza B (RT-PCR) Influenza Type B (PCR) Ur L.pneumophila Ag M. pneumoniae (PCR) Parainfluenza 1 (PCR) Parainfluenza 2 (PCR) Parainfluenza 3 (PCR) Parainfluenza 4 (PCR) RSV (PCR) RSV RNA Qual (PCR) Entero/Rhino (PCR) SARS-CoV-2 RNA (RT-PCR) 10/25/21 10/25/21 10/25/21 05:35 10:00 10:00 WBC 24.8 H RBC 3.25 L Hgb 10.3 L Hct 33.7 L MCV 103.7 H MCH 31.7 MCHC 30.6 L RDW 14.6 Plt Count 232 MPV 11.8 Immature Gran % (Auto) Neut % (Auto) Lymph % (Auto) [place] % (Auto) Eos % (Auto) Baso % (Auto) Lymph # (Auto) [place] # (Auto) Eos # (Auto) Baso # (Auto) Abs Immat Gran (auto) Absolute Neuts (auto) Absolute Nucleated RBC 0.000 Nucleated RBC % (auto) 0.0 Neutrophils % (Manual) Band Neutrophils % Lymphocytes % (Manual) Monocytes % (Manual) Eosinophils % (Manual) Abs Neuts (Manual) Lymphocytes # (Manual) Monocytes # (Manual) Eosinophils # (Manual) Platelet Estimate Plt Morphology Comment RBC Morphology Smear Tech's Comments PT INR APTT Sodium Potassium Chloride Carbon Dioxide Anion Gap BUN Creatinine Estim Creat Clear Calc Estimated GFR POC Glucose Random Glucose Lactic Acid Calcium Total Bilirubin Direct Bilirubin AST ALT Alkaline Phosphatase Troponin I High Sens B-Natriuretic Peptide Total Protein Albumin Lipase Urine Color Urine Appearance Urine pH Ur Specific [place] Urine Protein Urine Glucose (UA) Urine Ketones Urine Blood Urine Nitrite Ur Leukocyte Esterase Urine RBC Urine WBC Ur Squamous Epith Cells Calcium Oxalate Crystal Urine Bacteria Urine Mucus Vancomycin Trough Respiratory Panel [place] See Note Adenovirus (Rapid PCR) Not Detected B.pert (TEM-PCR) Not Detected B.parapertussis DNA PCR Not Detected C. pneumoniae DNA (PCR) Not Detected C. difficile Tox B Gene Coronavirus OC43 (PCR) Not Detected Coronavirus HKU1 (PCR) Not Detected Coronavirus 229E (PCR) Not Detected Coronavirus NL63 (PCR) Not Detected Human Metapneumovir PCR Not Detected Influenza A (RT-PCR) Not Detected Influenza Type A (PCR) Influenza B (RT-PCR) Not Detected Influenza Type B (PCR) Ur L.pneumophila Ag Not Detected M. pneumoniae (PCR) Not Detected Parainfluenza 1 (PCR) Not Detected Parainfluenza 2 (PCR) Not Detected Parainfluenza 3 (PCR) Not Detected Parainfluenza 4 (PCR) Not Detected RSV (PCR) Not Detected RSV RNA Qual (PCR) Entero/Rhino (PCR) Not Detected SARS-CoV-2 RNA (RT-PCR) Not Detected 10/25/21 10/26/21 10/26/21 22:27 05:42 05:42 WBC 18.4 H RBC 3.60 L Hgb 11.1 L Hct 35.8 L MCV 99.4 H MCH 30.8 MCHC 31.0 RDW 14.0 Plt Count 339 D MPV 11.8 Immature Gran % (Auto) 1.4 H Neut % (Auto) 81.1 H Lymph % (Auto) 10.5 L [place] % (Auto) 4.6 Eos % (Auto) 2.2 Baso % (Auto) 0.2 Lymph # (Auto) 1.9 [place] # (Auto) 0.9 Eos # (Auto) 0.4 Baso # (Auto) 0.0 Abs Immat Gran (auto) 0.25 H Absolute Neuts (auto) 14.9 H Absolute Nucleated RBC 0.000 Nucleated RBC % (auto) 0.0 Neutrophils % (Manual) Band Neutrophils % Lymphocytes % (Manual) Monocytes % (Manual) Eosinophils % (Manual) Abs Neuts (Manual) Lymphocytes # (Manual) Monocytes # (Manual) Eosinophils # (Manual) Platelet Estimate Plt Morphology Comment RBC Morphology Smear Tech's Comments PT INR APTT Sodium Potassium Chloride Carbon Dioxide Anion Gap BUN Creatinine 0.44 L Estim Creat Clear Calc 63.8 Estimated GFR > 60 POC Glucose Random Glucose Lactic Acid Calcium Total Bilirubin Direct Bilirubin AST ALT Alkaline Phosphatase Troponin I High Sens B-Natriuretic Peptide Total Protein Albumin Lipase Urine Color Urine Appearance Urine pH Ur Specific [place] Urine Protein Urine Glucose (UA) Urine Ketones Urine Blood Urine Nitrite Ur Leukocyte Esterase Urine RBC Urine WBC Ur Squamous Epith Cells Calcium Oxalate Crystal Urine Bacteria Urine Mucus Vancomycin Trough 20.2 H Respiratory Panel [place] Adenovirus (Rapid PCR) B.pert (TEM-PCR) B.parapertussis DNA PCR C. pneumoniae DNA (PCR) C. difficile Tox B Gene Coronavirus OC43 (PCR) Coronavirus HKU1 (PCR) Coronavirus 229E (PCR) Coronavirus NL63 (PCR) Human Metapneumovir PCR Influenza A (RT-PCR) Influenza Type A (PCR) Influenza B (RT-PCR) Influenza Type B (PCR) Ur L.pneumophila Ag M. pneumoniae (PCR) Parainfluenza 1 (PCR) Parainfluenza 2 (PCR) Parainfluenza 3 (PCR) Parainfluenza 4 (PCR) RSV (PCR) RSV RNA Qual (PCR) Entero/Rhino (PCR) SARS-CoV-2 RNA (RT-PCR) 10/28/21 10/28/21 10/29/21 06:22 06:22 06:18 WBC 21.5 H 21.8 H RBC 3.45 L 3.20 L Hgb 10.8 L 10.0 L Hct 33.5 L 30.6 L MCV 97.1 95.6 MCH 31.3 31.3 MCHC 32.2 32.7 RDW 14.9 15.2 Plt Count 310 TNP MPV 11.4 Not Reportable Immature Gran % (Auto) 2.0 H 3.6 H Neut % (Auto) 85.7 H 81.1 H Lymph % (Auto) 6.8 L 9.0 L [place] % (Auto) 4.5 4.9 Eos % (Auto) 0.8 1.1 Baso % (Auto) 0.2 0.3 Lymph # (Auto) 1.5 2.0 [place] # (Auto) 1.0 1.1 Eos # (Auto) 0.2 0.2 Baso # (Auto) 0.1 0.1 Abs Immat Gran (auto) 0.43 H 0.79 H Absolute Neuts (auto) 18.4 H 17.7 H Absolute Nucleated RBC 0.000 0.000 Nucleated RBC % (auto) 0.0 0.0 Neutrophils % (Manual) Band Neutrophils % Lymphocytes % (Manual) Monocytes % (Manual) Eosinophils % (Manual) Abs Neuts (Manual) Lymphocytes # (Manual) Monocytes # (Manual) Eosinophils # (Manual) Platelet Estimate Plt Morphology Comment RBC Morphology Smear Tech's Comments VERIFIED PT INR APTT Sodium 141 Potassium 3.3 Chloride 113 H Carbon Dioxide 17 L Anion Gap 14 BUN 10 D Creatinine 0.42 L Estim Creat Clear Calc 66.9 Estimated GFR > 60 POC Glucose Random Glucose 147 H Lactic Acid Calcium 8.1 L Total Bilirubin Direct Bilirubin AST ALT Alkaline Phosphatase Troponin I High Sens B-Natriuretic Peptide Total Protein Albumin Lipase Urine Color Urine Appearance Urine pH Ur Specific [place] Urine Protein Urine Glucose (UA) Urine Ketones Urine Blood Urine Nitrite Ur Leukocyte Esterase Urine RBC Urine WBC Ur Squamous Epith Cells Calcium Oxalate Crystal Urine Bacteria Urine Mucus Vancomycin Trough Respiratory Panel [place] Adenovirus (Rapid PCR) B.pert (TEM-PCR) B.parapertussis DNA PCR C. pneumoniae DNA (PCR) C. difficile Tox B Gene Coronavirus OC43 (PCR) Coronavirus HKU1 (PCR) Coronavirus 229E (PCR) Coronavirus NL63 (PCR) Human Metapneumovir PCR Influenza A (RT-PCR) Influenza Type A (PCR) Influenza B (RT-PCR) Influenza Type B (PCR) Ur L.pneumophila Ag M. pneumoniae (PCR) Parainfluenza 1 (PCR) Parainfluenza 2 (PCR) Parainfluenza 3 (PCR) Parainfluenza 4 (PCR) RSV (PCR) RSV RNA Qual (PCR) Entero/Rhino (PCR) SARS-CoV-2 RNA (RT-PCR) 11/01/21 11/01/21 11/02/21 07:47 07:47 08:04 WBC 25.2 H RBC 3.27 L Hgb 10.2 L Hct 31.8 L MCV 97.2 MCH 31.2 MCHC 32.1 RDW 15.5 Plt Count 289 MPV 10.5 Immature Gran % (Auto) 1.2 H Neut % (Auto) 84.0 H Lymph % (Auto) 8.4 L [place] % (Auto) 4.9 Eos % (Auto) 1.2 Baso % (Auto) 0.3 Lymph # (Auto) 2.1 [place] # (Auto) 1.2 Eos # (Auto) 0.3 Baso # (Auto) 0.1 Abs Immat Gran (auto) 0.31 H Absolute Neuts (auto) 21.1 H Absolute Nucleated RBC 0.000 Nucleated RBC % (auto) 0.0 Neutrophils % (Manual) 88 H Band Neutrophils % 4 Lymphocytes % (Manual) 5 L Monocytes % (Manual) 2 Eosinophils % (Manual) 1 Abs Neuts (Manual) 23.2 H Lymphocytes # (Manual) 1.3 Monocytes # (Manual) 0.5 Eosinophils # (Manual) 0.3 Platelet Estimate NORMAL Plt Morphology Comment NORMAL RBC Morphology NORMAL Smear Tech's Comments VERIFIED PT INR APTT Sodium 137 136 Potassium 3.7 3.8 Chloride 107 105 Carbon Dioxide 24 24 Anion Gap 10 L 11 L BUN 14 15 Creatinine 0.35 L 0.38 L Estim Creat Clear Calc 80.2 73.9 Estimated GFR > 60 > 60 POC Glucose Random Glucose 80 110 Lactic Acid Calcium 8.0 L 8.1 L Total Bilirubin Direct Bilirubin AST ALT Alkaline Phosphatase Troponin I High Sens B-Natriuretic Peptide Total Protein Albumin Lipase Urine Color Urine Appearance Urine pH Ur Specific [place] Urine Protein Urine Glucose (UA) Urine Ketones Urine Blood Urine Nitrite Ur Leukocyte Esterase Urine RBC Urine WBC Ur Squamous Epith Cells Calcium Oxalate Crystal Urine Bacteria Urine Mucus Vancomycin Trough Respiratory Panel [place] Adenovirus (Rapid PCR) B.pert (TEM-PCR) B.parapertussis DNA PCR C. pneumoniae DNA (PCR) C. difficile Tox B Gene Coronavirus OC43 (PCR) Coronavirus HKU1 (PCR) Coronavirus 229E (PCR) Coronavirus NL63 (PCR) Human Metapneumovir PCR Influenza A (RT-PCR) Influenza Type A (PCR) Influenza B (RT-PCR) Influenza Type B (PCR) Ur L.pneumophila Ag M. pneumoniae (PCR) Parainfluenza 1 (PCR) Parainfluenza 2 (PCR) Parainfluenza 3 (PCR) Parainfluenza 4 (PCR) RSV (PCR) RSV RNA Qual (PCR) Entero/Rhino (PCR) SARS-CoV-2 RNA (RT-PCR) 11/03/21 11/03/21 11/04/21 05:54 05:55 05:46 WBC 21.5 H RBC 2.93 L Hgb 9.3 L Hct 28.9 L MCV 98.6 H MCH 31.7 MCHC 32.2 RDW 15.2 Plt Count 301 MPV 10.8 Immature Gran % (Auto) 0.8 H Neut % (Auto) 85.8 H Lymph % (Auto) 7.7 L [place] % (Auto) 4.5 Eos % (Auto) 0.9 Baso % (Auto) 0.3 Lymph # (Auto) 1.7 [place] # (Auto) 1.0 Eos # (Auto) 0.2 Baso # (Auto) 0.1 Abs Immat Gran (auto) 0.18 H Absolute Neuts (auto) 18.4 H Absolute Nucleated RBC 0.000 Nucleated RBC % (auto) 0.0 Neutrophils % (Manual) Band Neutrophils % Lymphocytes % (Manual) Monocytes % (Manual) Eosinophils % (Manual) Abs Neuts (Manual) Lymphocytes # (Manual) Monocytes # (Manual) Eosinophils # (Manual) Platelet Estimate Plt Morphology Comment RBC Morphology Smear Tech's Comments PT INR APTT Sodium 134 L 135 Potassium 4.1 4.2 Chloride 104 104 Carbon Dioxide 23 27 Anion Gap 11 L 8 L BUN 12 12 Creatinine 0.32 L 0.33 L Estim Creat Clear Calc 87.7 85.1 Estimated GFR > 60 > 60 POC Glucose Random Glucose 106 98 Lactic Acid Calcium 7.6 L D 7.6 L Total Bilirubin Direct Bilirubin AST ALT Alkaline Phosphatase Troponin I High Sens B-Natriuretic Peptide Total Protein Albumin Lipase Urine Color Urine Appearance Urine pH Ur Specific [place] Urine Protein Urine Glucose (UA) Urine Ketones Urine Blood Urine Nitrite Ur Leukocyte Esterase Urine RBC Urine WBC Ur Squamous Epith Cells Calcium Oxalate Crystal Urine Bacteria Urine Mucus Vancomycin Trough Respiratory Panel Birch Adenovirus (Rapid PCR) B.pert (TEM-PCR) B.parapertussis DNA PCR C. pneumoniae DNA (PCR) C. difficile Tox B Gene Coronavirus OC43 (PCR) Coronavirus HKU1 (PCR) Coronavirus 229E (PCR) Coronavirus NL63 (PCR) Human Metapneumovir PCR Influenza A (RT-PCR) Influenza Type A (PCR) Influenza B (RT-PCR) Influenza Type B (PCR) Ur L.pneumophila Ag M. pneumoniae (PCR) Parainfluenza 1 (PCR) Parainfluenza 2 (PCR) Parainfluenza 3 (PCR) Parainfluenza 4 (PCR) RSV (PCR) RSV RNA Qual (PCR) Entero/Rhino (PCR) SARS-CoV-2 RNA (RT-PCR) 11/04/21 11/04/21 11/06/21 13:00 16:33 06:21 WBC 18.0 H RBC 2.91 L Hgb 9.2 L Hct 28.2 L MCV 96.9 MCH 31.6 MCHC 32.6 RDW 15.3 Plt Count 370 MPV 10.6 Immature Gran % (Auto) Neut % (Auto) Lymph % (Auto) [place] % (Auto) Eos % (Auto) Baso % (Auto) Lymph # (Auto) [place] # (Auto) Eos # (Auto) Baso # (Auto) Abs Immat Gran (auto) Absolute Neuts (auto) Absolute Nucleated RBC 0.000 Nucleated RBC % (auto) 0.0 Neutrophils % (Manual) Band Neutrophils % Lymphocytes % (Manual) Monocytes % (Manual) Eosinophils % (Manual) Abs Neuts (Manual) Lymphocytes # (Manual) Monocytes # (Manual) Eosinophils # (Manual) Platelet Estimate Plt Morphology Comment RBC Morphology Smear Tech's Comments PT INR APTT Sodium Potassium Chloride Carbon Dioxide Anion Gap BUN Creatinine Estim Creat Clear Calc Estimated GFR POC Glucose Random Glucose Lactic Acid Calcium Total Bilirubin Direct Bilirubin AST ALT Alkaline Phosphatase Troponin I High Sens B-Natriuretic Peptide Total Protein Albumin Lipase Urine Color YELLOW Urine Appearance HAZY Urine pH 5.5 Ur Specific [place] 1.025 Urine Protein 1+ H Urine Glucose (UA) NEG Urine Ketones NEG Urine Blood 1+ H Urine Nitrite NEG Ur Leukocyte Esterase TRACE H Urine RBC 5-9 H Urine WBC 1-4 Ur Squamous Epith Cells TRACE Calcium Oxalate Crystal 1+ Urine Bacteria TRACE Urine Mucus Vancomycin Trough Respiratory Panel Bir[place] Adenovirus (Rapid PCR) B.pert (TEM-PCR) B.parapertussis DNA PCR C. pneumoniae DNA (PCR) C. difficile Tox B Gene NEGATIVE Coronavirus OC43 (PCR) Coronavirus HKU1 (PCR) Coronavirus 229E (PCR) Coronavirus NL63 (PCR) Human Metapneumovir PCR Influenza A (RT-PCR) Influenza Type A (PCR) Influenza B (RT-PCR) Influenza Type B (PCR) Ur L.pneumophila Ag M. pneumoniae (PCR) Parainfluenza 1 (PCR) Parainfluenza 2 (PCR) Parainfluenza 3 (PCR) Parainfluenza 4 (PCR) RSV (PCR) RSV RNA Qual (PCR) Entero/Rhino (PCR) SARS-CoV-2 RNA (RT-PCR) 11/06/21 06:21 WBC RBC Hgb Hct MCV MCH MCHC RDW Plt Count MPV Immature Gran % (Auto) Neut % (Auto) Lymph % (Auto) [place] % (Auto) Eos % (Auto) Baso % (Auto) Lymph # (Auto) [place] # (Auto) Eos # (Auto) Baso # (Auto) Abs Immat Gran (auto) Absolute Neuts (auto) Absolute Nucleated RBC Nucleated RBC % (auto) Neutrophils % (Manual) Band Neutrophils % Lymphocytes % (Manual) Monocytes % (Manual) Eosinophils % (Manual) Abs Neuts (Manual) Lymphocytes # (Manual) Monocytes # (Manual) Eosinophils # (Manual) Platelet Estimate Plt Morphology Comment RBC Morphology Smear Tech's Comments PT INR APTT Sodium 132 L Potassium 4.4 Chloride 102 Carbon Dioxide 23 Anion Gap 11 L BUN 11 Creatinine 0.33 L Estim Creat Clear Calc 85.1 Estimated GFR > 60 POC Glucose Random Glucose 119 H Lactic Acid Calcium 8.1 L D Total Bilirubin Direct Bilirubin AST ALT Alkaline Phosphatase Troponin I High Sens B-Natriuretic Peptide Total Protein Albumin Lipase Urine Color Urine Appearance Urine pH Ur Specific [place] Urine Protein Urine Glucose (UA) Urine Ketones Urine Blood Urine Nitrite Ur Leukocyte Esterase Urine RBC Urine WBC Ur Squamous Epith Cells Calcium Oxalate Crystal Urine Bacteria Urine Mucus Vancomycin Trough Respiratory Panel [place] Adenovirus (Rapid PCR) B.pert (TEM-PCR) B.parapertussis DNA PCR C. pneumoniae DNA (PCR) C. difficile Tox B Gene Coronavirus OC43 (PCR) Coronavirus HKU1 (PCR) Coronavirus 229E (PCR) Coronavirus NL63 (PCR) Human Metapneumovir PCR Influenza A (RT-PCR) Influenza Type A (PCR) Influenza B (RT-PCR) Influenza Type B (PCR) Ur L.pneumophila Ag M. pneumoniae (PCR) Parainfluenza 1 (PCR) Parainfluenza 2 (PCR) Parainfluenza 3 (PCR) Parainfluenza 4 (PCR) RSV (PCR) RSV RNA Qual (PCR) Entero/Rhino (PCR) SARS-CoV-2 RNA (RT-PCR) Airway Mallampati Class: II TM Dist: >3cm Loose/Missing/Broken Teeth: Yes Heart: [id number] Lungs: decrease breath sounds bilaterally Assessment and Plan Assessment Anesthesia Assessment: Anesthesia Plan Discussed (with brother over phone HCP) and Chart Reviewed Final Anesthetic Review Family History of Problems with Anesthesia: Unobtainable History of Problems with Anesthesia: Unobtainable NPO: Yes ASA Class: IV Final Preanesthetic Review: No Changes in Pt Med Stat, Meds/Allgs Chart Reviewed, Consent Obtained/Reviewed (from brother HCP), Anes Risks/Benef Reviewed and DNR Form (If Appl.) Patient Risk: High Procedure Risk: Intermediate Assessment/Block/Sedation in SS: Assess/Block/Sedation-SS Anesthetic Plan Anesthetic Plan: MAC: and Agree w/ Assess. and Plan Disposition: Standard PACU
--- NOTE | 2021-11-07 11:47 | PM.EVENT ---
Event Note Date of Service: 11/07/21 Event Note: no changes overnight Chase Lynn his healthcare proxy has given consent via the phone. Case had been discussed with hospitalist administration and Anesthesiology Department will proceed with tube placement abdomen soft and nondistended no surgical scars
--- NOTE | 2021-11-07 12:37 | P.BOP_ITS ---
Brief Operative Note Date of Service: 11/07/21 <REBECCA Lee Last Filed: 11/07/21 12:38> Pre-op diagnosis: aspiration PNA, malnutrition <REBECCA Lee Last Filed: 11/07/21 12:38> Post-op diagnosis: same (GASTRIC ULCERS) <REBECCA Lee Last Filed: 11/07/21 12:38> Procedure: percutaneous endoscopic gastrostomy tube placement <REBECCA Lee Last Filed: 11/07/21 12:38> Implants: PEG tube 20F <REBECCA Lee Last Filed: 11/07/21 12:38> Surgeon: ANTONELLA CASTRO MD <REBECCA Lee Last Filed: 11/07/21 12:38> Anesthesia: MAC <REBECCA Lee Last Filed: 11/07/21 12:38> Was an Box Printing Machine Operator used for this Procedure?: Yes <REBECCA Lee Last Filed: 11/07/21 12:38> No <Antonella Castro MD - Last Filed: 11/08/21 08:38> Box Printing Machine Operator: Ciera Bauer <REBECCA Lee Last Filed: 11/07/21 12:38> Estimated blood loss (mL): 1 <REBECCA Lee Last Filed: 11/07/21 12:38> Pathology: none sent <REBECCA Lee Last Filed: 11/07/21 12:38> Condition: stable <REBECCA Lee Last Filed: 11/07/21 12:38> Disposition: PACU <REBECCA Lee Last Filed: 11/07/21 12:38>
--- NOTE | 2021-11-07 12:39 | W.PM.OPN ---
Operative Note Operative Note Date of Service: 11/07/21 Narrative: Preop diagnosis: Malnutrition Postop diagnosis: Malnutrition Procedure: Peg tube placement Surgeon: Damian Castro MD assistant manager bilingual: SCOOTER Bauer The patient is a 71-year-old female with cerebral palsy, recent aspiration pneumonia, malnutrition, and referred to me for PEG tube placement. Speech therapy had recommended her to be NPO because of aspiration risks.The consent was given by her healthcare proxy Chase Lynn. He understood the technique of the procedure as well as the risks, benefits, and alternatives. The patient was brought to the operating room and placed in supine position under monitored anesthesia care. A surgical time-out was done. A bite block was in position. The patient received cefazolin 2 g IV preoperatively. The gastroscope was introduced through the bite block into the oropharynx. The vocal cords were visualized. The esophageal slit was seen posterior to this. The NG tube was also seen and was followed through the esophagus slit as well advanced the scope all the way to the stomach. The stomach was insufflated . There was note of some small superficial ulcers in the body of the stomach . These were nonbleeding. I easily so the transillumination in the epigastric area just below the subcostal margin. I also easily so indentation on the anterior stomach wall through the cystoscope as we pressed are finger on the anterior wall. This area was therefore chosen for the PEG placement. This area was prepped and draped. Lidocaine 1% was used for local anesthesia. A small stab incision was made.The large-bore needle with the plastic outer cannula was placed through this incision and advanced into the lumen of the stomach under visualization with the gastroscope. The needle was placed. The guidewire was threaded through the outer cannula and was grasped with a snare. We then pulled this guidewire out with a snare the way to the oral this. The other end of the feeding tube was around this wire and wire was pulled from the abdominal wall out along with the feeding tube until this snug on the your stomach wall. The external bolster was then positioned on the skin of the abdominal wall as well. I inserted the gastroscope again into the stomach to directly visualize the PEG tube. The inner bolster was seen and was noted to be in good position with no bleeding. Photographic documentation was done . I then proceeded to remove the scope completely . Dressings were applied on the PEG tube. The procedure was then completed. The patient tolerated procedure well. There were no complications noted. She was transferred to the recovery room with stable vital signs. Blood loss was less than 5 cc.
--- NOTE | 2021-11-07 13:09 | P.PNIM_ITS ---
Subjective Subjective Date of Service: 11/07/21 Interval History: No acute issues overnight. For PEG tube today Review of Systems Unable to obtain as patient is nonverbal Physical Exam Vital Signs: Vital Signs: Last Vital Signs Temp 97.6 F 11/07/21 12:58 Pulse 101 H 11/07/21 12:58 Resp 16 11/07/21 12:58 BP 135/68 11/07/21 12:58 Pulse Ox 99 11/07/21 12:58 Oxygen Flow Rate 10 10/21/21 06:50 BMI result Body Mass Index 15.6 Const: Other: No acute distress HENMT: Other: And G-tube left naris Resp: Other: Clear to auscultation bilaterally no rales rhonchi wheezes Cardio: Other: No S4; positive S1-S2; no S3 murmurs of recounts GI: Other: Soft positive bowel sounds x4 quadrants Neuro: Other: Nonverbal; tracks eyes with Extrem: Other: Contracted Objective Data Active Medications Acetaminophen (Acetaminophen Supp 650 Mg Supp.Rect) 650 mg AL Q4H PRN PRN Reason: Fever Last Admin: 10/23/21 18:00 Dose: 650 mg Documented by: HIREN Carbamazepine (Carbamazepine 200 Mg/10 Ml Oral.Susp) 200 mg NG-TUBE DAILY [facility] Last Admin: 11/07/21 10:29 Dose: Not Given Documented by: CORIN Non-Admin Reason: NPO Carbamazepine (Carbamazepine 200 Mg/10 Ml Oral.Susp) 300 mg NG-TUBE BEDTIME [facility] Last Admin: 11/06/21 20:49 Dose: 300 mg Documented by: JENA Fentanyl (Fentanyl Citrate/Pf 100 Mcg/2 Ml Vial) 25 mcg IVPUSH Q5M PRN; Protocol PRN Reason: Pain, Moderate (Pain Scale 4-6 Heparin Sodium (Porcine) (Heparin Sodium,Porcine 5,000 Unit/Ml Vial) 5,000 unit SUBCUT Q12H [facility] Last Admin: 11/07/21 07:48 Dose: Not Given Documented by: CORIN Non-Admin Reason: going to surgery Ondansetron HCl (Ondansetron Hcl 4 Mg/2 Ml Vial) 4 mg IVPUSH Q8H PRN PRN Reason: Nausea and Vomiting Ondansetron HCl (Ondansetron Hcl 4 Mg/2 Ml Vial) 4 mg IVPUSH ONCE PRN PRN Reason: Nausea and Vomiting Pharmacy Consult (Consult Rx Perform Med Rec) 1 each MISCELLANE ONCE PRN PRN Reason: Consult order Labs CBC & Chem 7: 11/06/21 06:21 11/06/21 06:21 Microbiology Microbiology Results: Microbiology 11/04/21 16:50 Urine Culture - Final Urine Catheterized - Amezcua Catheter No growth. Assessment and Plan (1) Malnutrition: Status: Acute (2) Aspiration pneumonia: Status: Acute (3) Leukocytosis: Status: Acute Assessment and Plan: 71 year female with history of cerebral palsy, nonverbal and bedbound, total care at baseline, recent admission for UTI brought into the emergency department with increasing lethargy found have multiple significant acute medical issues being admitted for comfort measures initially.? (10/23/21 see advance planning note) . 1.Severe protein calorie malnutrition.? BMI 15.7 Speech therapy recommend NPO, NG tube placed, feedings started on 10/25 NPO for Peg tube placement tomorrow 2.Chronic leukocytosis Stable. No intervention at this time 3.Acute respiratory failure with hypoxia secondary to aspiration pneumonia. Resolved 4.Hypernatremia Sodium normalized, was likely due to poor by mouth intake. now sodium trending down Water boluses decreased to q8h via NG tube DISPO plan to dc to rehab facility when medically stable from PEG tube Code status DNR DNI DVT pptx, heparin Quality Stroke Does the patient have a stroke diagnosis?: No VTE Prior VTE?: No VTE Risk Level:: Medical - moderate - high VTE Device Contraindication: Treatment Not Indicated VTE Drug Contraindication: Treatment Not Indicated
--- NOTE | 2021-11-07 15:10 | PM.EVENT ---
Event Note Date of Service: 11/07/21 Event Note: Seen postop She underwent PEG tube placement earlier, uneventful Looks comfortable Stable vital signs Peg tube in place Abdomen soft Okay to start PEG feedings tomorrow Keep external bolster snug on the abdominal wall
[2021-11-07] MEDS: Heparin Sodium,Porcine 5,000 UNIT/ML VIAL 5000 UNIT SUBCUT (18:15)
[2021-11-08] VITALS (7 sets, daily range): BP systolic 107–162; BP diastolic 60–73; PULSE 62–108; RESP 15–18; TEMP 36.1–38.1; O2SAT 92–97
--- NOTE | 2021-11-08 08:19 | P.PNGS_ITS ---
Subjective Subjective Date of Service: 11/08/21 <Ciera Bauer PA-C - Last Filed: 11/08/21 08:21> 11/08/21 <Damian Castro MD - Last Filed: 11/08/21 08:37> Interval history: Seems a little restless this morning. <Ciera Bauer PA-C - Last Filed: 11/08/21 08:21> Physical Exam Vital Signs: Vital Signs: Last Vital Signs Temp 97.0 F 11/08/21 04:00 Pulse 62 11/08/21 04:00 Resp 16 11/08/21 04:00 BP 136/60 11/08/21 04:00 Pulse Ox 95 11/08/21 04:00 Oxygen Flow Rate 10 10/21/21 06:50 BMI result Body Mass Index 15.6 <REBECCA Lee Last Filed: 11/08/21 08:21> Const: General: no acute distress <Ciera Bauer PA-C - Last Filed: 11/08/21 08:21> GI: Other: soft, PEG tube in place with snug bolster. Dressing clean. <Ciera Bauer PA-C - Last Filed: 11/08/21 08:21> Inspection: No distended <Ciera Bauer PA-C - Last Filed: 11/08/21 08:21> Skin: General skin exam: no rashes or lesions noted <Ciera Bauer PA-C - Last Filed: 11/08/21 08:21> Objective Data Active Medications Acetaminophen (Acetaminophen Supp 650 Mg Supp.Rect) 650 mg MO Q4H PRN PRN Reason: Fever Last Admin: 10/23/21 18:00 Dose: 650 mg Documented by: HIREN Carbamazepine (Carbamazepine 200 Mg/10 Ml Oral.Susp) 200 mg NG-TUBE DAILY [facility] Last Admin: 11/07/21 10:29 Dose: Not Given Documented by: CORIN Non-Admin Reason: NPO Carbamazepine (Carbamazepine 200 Mg/10 Ml Oral.Susp) 300 mg NG-TUBE BEDTIME [facility] Last Admin: 11/07/21 22:19 Dose: Not Given Documented by: ELENA Non-Admin Reason: Med Not Available Heparin Sodium (Porcine) (Heparin Sodium,Porcine 5,000 Unit/Ml Vial) 5,000 unit SUBCUT Q12H [facility] Last Admin: 11/07/21 18:15 Dose: 5,000 unit Documented by: OSORIO Ondansetron HCl (Ondansetron Hcl 4 Mg/2 Ml Vial) 4 mg IVPUSH Q8H PRN PRN Reason: Nausea and Vomiting Pharmacy Consult (Consult Rx Perform Med Rec) 1 each MISCELLANE ONCE PRN PRN Reason: Consult order <Ciera Bauer PA-C - Last Filed: 11/08/21 08:21> Labs CBC & Chem 7: : 11/06/21 06:21 11/06/21 06:21 <REBECCA Lee Last Filed: 11/08/21 08:21> Procedures Date of Service Date of Service: 11/08/21 <Ciera Bauer PA-C - Last Filed: 11/08/21 08:21> Progress Note: A&P Assessment and plan (1) Malnutrition: Status: Acute <Ciera Bauer PA-C - Last Filed: 11/08/21 08:21> Assessment and Plan: Looks comfortable Abdomen soft Peg in place Okay to start tube feeds Seen and examined - agree with SCOOTER Bauer <Damian Castro MD - Last Filed: 11/08/21 08:37> (2) Aspiration pneumonia: Status: Acute <REBECCA Lee Last Filed: 11/08/21 08:21> (3) S/P percutaneous endoscopic gastrostomy (PEG) tube placement: Status: Acute <Ciera Bauer PA-C - Last Filed: 11/08/21 08:21> Assessment and Plan: POD #1 s/p PEG tube placement. Doing well post op. Can begin tube feeds. Tylenol for ?pain. <REBECCA Lee Last Filed: 11/08/21 08:21> Fall Risk Details Current Medications: Current Medications Acetaminophen (Acetaminophen Supp 650 Mg Supp.Rect) 650 mg MO Q4H PRN PRN Reason: Fever Last Admin: 10/23/21 18:00 Dose: 650 mg Documented by: Carbamazepine (Carbamazepine 200 Mg/10 Ml Oral.Susp) 200 mg NG-TUBE DAILY [facility] Last Admin: 11/07/21 10:29 Dose: Not Given Documented by: Carbamazepine (Carbamazepine 200 Mg/10 Ml Oral.Susp) 300 mg NG-TUBE BEDTIME [facility] Last Admin: 11/07/21 22:19 Dose: Not Given Documented by: Heparin Sodium (Porcine) (Heparin Sodium,Porcine 5,000 Unit/Ml Vial) 5,000 unit SUBCUT Q12H [facility] Last Admin: 11/07/21 18:15 Dose: 5,000 unit Documented by: Ondansetron HCl (Ondansetron Hcl 4 Mg/2 Ml Vial) 4 mg IVPUSH Q8H PRN PRN Reason: Nausea and Vomiting Pharmacy Consult (Consult Rx Perform Med Rec) 1 each MISCELLANE ONCE PRN PRN Reason: Consult order <Ciera Bauer PA-C - Last Filed: 11/08/21 08:21> Time Spent With Patient Time: Total time spent is greater than 50% in coordination of care (as documented) at patient's floor/unit and/or counseling patient: <Ciera Bauer PA-C - Last Filed: 11/08/21 08:21> Time with patient: less than 15 minutes <Ciera Bauer PA-C - Last Filed: 11/08/21 08:21> Quality Stroke Does the patient have a stroke diagnosis?: No <Ciera Bauer PA-C - Last Filed: 11/08/21 08:21> VTE Prior VTE?: No <Ciera Bauer PA-C - Last Filed: 11/08/21 08:21> VTE Risk Level:: Medical - moderate - high <REBECCA Lee Last Filed: 11/08/21 08:21> VTE Device Contraindication: Treatment Not Indicated <REBECCA Lee Last Filed: 11/08/21 08:21> VTE Drug Contraindication: Treatment Not Indicated <REBECCA Lee Last Filed: 11/08/21 08:21>
[2021-11-08] MEDS: Acetaminophen Supp 650 MG SUPP.RECT PR (08:59)
[2021-11-08] MEDS: Heparin Sodium,Porcine 5,000 UNIT/ML VIAL 5000 UNIT SUBCUT ×2 (08:59→18:56)
[2021-11-08] MEDS: carBAMazepine 200 MG/10 ML ORAL.SUSP NG-TUBE (09:00)
--- NOTE | 2021-11-08 13:41 | HO.PM.IMPN ---
Subjective Subjective Date of Service: 11/08/21 Interval History: No acute issues overnight. Tolerating PEG tube feedings Review of Systems Unable to ascertain secondary to nonverbal status Physical Exam Vital Signs: Vital Signs: Last Vital Signs Temp 98.9 F 11/08/21 11:48 Pulse 100 11/08/21 11:48 Resp 15 11/08/21 11:48 BP 114/63 11/08/21 11:48 Pulse Ox 95 11/08/21 11:48 Oxygen Flow Rate 10 10/21/21 06:50 BMI result Body Mass Index 15.6 Const: Other: No acute distress HENMT: Other: And G-tube left naris Resp: Other: Clear to auscultation bilaterally no rales rhonchi wheezes Cardio: Other: No S4; positive S1-S2; no S3 murmurs of recounts GI: Other: Soft positive bowel sounds x4 quadrants Neuro: Other: Nonverbal; tracks eyes with Extrem: Other: Contracted Objective Data Active Medications Acetaminophen (Acetaminophen Supp 650 Mg Supp.Rect) 650 mg SC Q4H PRN PRN Reason: Fever Last Admin: 11/08/21 08:59 Dose: 650 mg Documented by: JAKE Carbamazepine (Carbamazepine 200 Mg/10 Ml Oral.Susp) 200 mg NG-TUBE DAILY [facility] Last Admin: 11/08/21 09:00 Dose: 200 mg Documented by: JAKE Carbamazepine (Carbamazepine 200 Mg/10 Ml Oral.Susp) 300 mg NG-TUBE BEDTIME [facility] Last Admin: 11/07/21 22:19 Dose: Not Given Documented by: ELENA Non-Admin Reason: Med Not Available Heparin Sodium (Porcine) (Heparin Sodium,Porcine 5,000 Unit/Ml Vial) 5,000 unit SUBCUT Q12H [facility] Last Admin: 11/08/21 08:59 Dose: 5,000 unit Documented by: JAKE Ondansetron HCl (Ondansetron Hcl 4 Mg/2 Ml Vial) 4 mg IVPUSH Q8H PRN PRN Reason: Nausea and Vomiting Pharmacy Consult (Consult Rx Perform Med Rec) 1 each MISCELLANE ONCE PRN PRN Reason: Consult order Labs CBC & Chem 7: 11/06/21 06:21 11/06/21 06:21 Assessment and Plan (1) S/P percutaneous endoscopic gastrostomy (PEG) tube placement: Status: Acute (2) Malnutrition: Status: Acute Assessment and Plan: 71 year female with history of cerebral palsy, nonverbal and bedbound, total care at baseline, recent admission for UTI brought into the emergency department with increasing lethargy found have multiple significant acute medical issues being admitted for comfort measures initially.? (10/23/21 see advance planning note) . 1.Severe protein calorie malnutrition.? BMI 15.7 Status post PEG tube placement 11/07/2021. Tolerating tube feedings, will advance to goal and hopeful DCS sniff in a.m. 2.Chronic leukocytosis Stable. No intervention at this time 3.Acute respiratory failure with hypoxia secondary to aspiration pneumonia. Resolved 4.Hypernatremia Sodium normalized, was likely due to poor by mouth intake. now sodium trending down Water boluses decreased to q8h via NG tube DISPO plan to dc to rehab facility when medically stable from PEG tube Code status DNR DNI DVT pptx, heparin Quality Stroke Does the patient have a stroke diagnosis?: No VTE Prior VTE?: No VTE Risk Level:: Medical - moderate - high VTE Device Contraindication: Treatment Not Indicated VTE Drug Contraindication: Treatment Not Indicated
--- NOTE | 2021-11-08 16:27 | HO.POSTANES ---
Post Anesthesia Evaluation Post Anesthesia Evaluation Vital Signs: Vital Signs Temp Pulse Resp BP Pulse Ox 11/08/21 15:31 97.1 F 108 H 17 107/60 97 11/08/21 11:48 98.9 F 100 15 114/63 95 11/08/21 08:00 100.6 F H 98 15 162/73 H 92 Anesthesia: Monitored Mental Status: Awake Pain Control: Satisfactory Nausea/Vomiting: None Hydration: Adequate Anesthesia-Related Issues: No Anes. Related Issues
[2021-11-08] MEDS: carBAMazepine 200 MG/10 ML ORAL.SUSP 300 MG NG-TUBE (21:15)
[2021-11-09 03:33] VITALS: BP 141/73; PULSE 96; RESP 18; TEMP 36.3; O2SAT 96
[2021-11-09] MEDS: Heparin Sodium,Porcine 5,000 UNIT/ML VIAL 5000 UNIT SUBCUT ×2 (06:09→19:41)
[2021-11-09 07:55] VITALS: BP 119/65; PULSE 96; RESP 20; TEMP 37.1; O2SAT 96
--- NOTE | 2021-11-09 09:06 | MHC.CM.PN ---
Addendum entered by Kadie Singh RN 11/09/21 10:09: [facility]DS NURSE BRENDAN DE LEON NOTIFIED VIA EMAIL AT 10:00AM AND CM ATTEMPTED TO CONTACT PT'S BROTHER/GUARDIAN JOVANNA, NO ANSWER AND VOICEMAIL FULL, CM TO REVISIT. Original Note: THIS CM RECEIVED CALL FROM CM MANAGER OF PROCUREMENT THAT COURTS ARE CLOSED TODAY SO WE ARE UNABLE TO OBTAIN ORDER TO ADMIT APPROVED TODAY, CM CONTACTED [facility] TO SEE IF THEY COULD STILL TAKE HER HOWEVER THEY NEEDED STAMPED DOCUMENT FROM COURT TO ADMIT HER. HOSPITALIST/NSG AWARE. [facility] WILL HOLD HER BED UNTIL Friday11/12/20.
[2021-11-09] MEDS: carBAMazepine 200 MG/10 ML ORAL.SUSP NG-TUBE (09:32)
[2021-11-09 12:00] VITALS: BP 140/78; PULSE 90; RESP 18; TEMP 36.4; O2SAT 97
--- NOTE | 2021-11-09 13:56 | MHC.CLN ---
Addendum entered by [place], ERICA 11/09/21 14:01: SKIN ISSUES: RIGHT LATERAL FOOT UNSTAGEABLE; REDNESS TO BILATERAL BUTTOCKS; STAGE II TO RIGHT BACK. Original Note: F/U PATIENT WITH PEG TUBE AND TOLERATING WELL. TUBE FEEDING RUNNING AT MAX GOAL RATE: JEVITY 1.0 AT 45 ML/HOUR; FLUSH 120 ML FREE WATER Q 8 HOURS. PROVIDES 1080 ML FORMULA; 1145 KCAL (1.17 KCAL/KG IBW); 48 G PROTEIN (1.17 G/KG IBW); FORMULA PLUS SGCCX=0542 ML (30.83 ML/KG IBW). NO NEW LABS VIEWED. MONITOR TOLERANCE, RESIDUALS, AND LYTES.
[2021-11-09 15:28] VITALS: BP 134/77; PULSE 100; RESP 17; TEMP 36.8; O2SAT 97
--- NOTE | 2021-11-09 15:49 | P.PNIM_ITS ---
Subjective Subjective Date of Service: 11/09/21 Interval History: No acute issues. Tolerant of tube feeds Review of Systems Unable secondary to nonverbal status Physical Exam Vital Signs: Vital Signs: Last Vital Signs Temp 98.2 F 11/09/21 15:28 Pulse 100 11/09/21 15:28 Resp 17 11/09/21 15:28 BP 134/77 11/09/21 15:28 Pulse Ox 97 11/09/21 15:28 Oxygen Flow Rate 10 10/21/21 06:50 BMI result Body Mass Index 15.6 Const: Other: No acute distress Resp: Other: Clear to auscultation bilaterally no rales rhonchi wheezes Cardio: Other: No S4; positive S1-S2; no S3 murmurs of recounts GI: Other: Soft positive bowel sounds x4 quadrants.PEG tube site C/D/I Neuro: Other: Nonverbal; tracks eyes with Extrem: Other: Contracted Objective Data Active Medications Acetaminophen (Acetaminophen Supp 650 Mg Supp.Rect) 650 mg VT Q4H PRN PRN Reason: Fever Last Admin: 11/08/21 08:59 Dose: 650 mg Documented by: JAKE Carbamazepine (Carbamazepine 200 Mg/10 Ml Oral.Susp) 200 mg NG-TUBE DAILY [facility] Last Admin: 11/09/21 09:32 Dose: 200 mg Documented by: VAN Carbamazepine (Carbamazepine 200 Mg/10 Ml Oral.Susp) 300 mg NG-TUBE BEDTIME [facility] Last Admin: 11/08/21 21:15 Dose: 300 mg Documented by: AIRAM Heparin Sodium (Porcine) (Heparin Sodium,Porcine 5,000 Unit/Ml Vial) 5,000 unit SUBCUT Q12H [facility] Last Admin: 11/09/21 06:09 Dose: 5,000 unit Documented by: AIRAM Ondansetron HCl (Ondansetron Hcl 4 Mg/2 Ml Vial) 4 mg IVPUSH Q8H PRN PRN Reason: Nausea and Vomiting Pharmacy Consult (Consult Rx Perform Med Rec) 1 each MISCELLANE ONCE PRN PRN Reason: Consult order Labs CBC & Chem 7: 11/06/21 06:21 11/06/21 06:21 Assessment and Plan (1) S/P percutaneous endoscopic gastrostomy (PEG) tube placement: Status: Acute (2) Malnutrition: Status: Acute (3) Hypernatremia: Status: Acute Assessment and Plan: 71 year female with history of cerebral palsy, nonverbal and bedbound, total care at baseline, recent admission for UTI brought into the emergency department with increasing lethargy found have multiple significant acute medical issues being admitted for comfort measures initially.? (10/23/21 see advance planning note) . 1.Severe protein calorie malnutrition.? BMI 15.7 Status post PEG tube placement 11/07/2021. Tolerating tube feedings, will advance to goal and hopeful SNF when appropriate. 2.Chronic leukocytosis Stable. No intervention at this time 3.Acute respiratory failure with hypoxia secondary to aspiration pneumonia. Resolved 4.Hypernatremia Sodium normalized, was likely due to poor by mouth intake. now sodium trending down Water boluses decreased to q8h via NG tube Recheck in a.m. DISPO plan to dc to rehab facility when medically stable from PEG tube Code status DNR DNI DVT pptx, heparin Quality Stroke Does the patient have a stroke diagnosis?: No VTE Prior VTE?: No VTE Risk Level:: Medical - moderate - high VTE Device Contraindication: Treatment Not Indicated VTE Drug Contraindication: Treatment Not Indicated
[2021-11-09 19:35] VITALS: BP 119/69; PULSE 98; RESP 16; TEMP 37; O2SAT 97
[2021-11-09] MEDS: carBAMazepine 200 MG/10 ML ORAL.SUSP 300 MG NG-TUBE (20:51)
[2021-11-10] VITALS (7 sets, daily range): BP systolic 117–153; BP diastolic 60–80; PULSE 95–117; RESP 15–18; TEMP 36.2–37.9; O2SAT 87–97
[2021-11-10 06:05] LABS: MANUAL DIFF FLAG NO
[2021-11-10 06:10] LABS: Basophils Absolute Auto 0.1 X10*3/uL (0.0-0.2); Basophils Percent Auto 0.3 % (0-2); Eosinophils Absolute Auto 0.2 X10*3/uL (0.0-0.4); Eosinophils Percent Auto 0.8 % (0-4); Hematocrit 30.1 % (37.0-47.0); Hemoglobin 9.7 g/dl (12.0-16.0); Imm Gran Pct Auto 0.5 % (0.0-0.4); Lymphocytes Absolute Auto 1.2 X10*3/uL (1.2-4.9); Lymphocytes Percent Auto 6.4 % (20-40); Mean Corpuscular HGB Conc 32.2 g/dl (31.0-35.0); Mean Corpuscular Hemoglobin 31.5 pg (27.0-33.0); Mean Corpuscular Volume 97.7 fL (80.0-98.0); Mean Platelet Volume 9.3 fL (9.4-12.3); Monocytes Absolute Auto 0.7 X10*3/uL (0.1-1.2); Monocytes Percent Auto 3.4 % (2-11); Neutrophils Absolute Auto 17.1 x10*3/uL (2.0-8.3); Neutrophils Percent Auto 88.6 % (45-73); Platelet Count 416 X10*3/uL (160-400); Red Blood Count 3.08 X10*6/uL (4.20-5.50); Red Cell Distribution Width 15.6 % (11.0-16.0); White Blood Count 19.3 X10*3/uL (4.8-10.8)
[2021-11-10 06:26] LABS: Alanine Aminotransferase 10 U/L (0-31); Alkaline Phosphatase 125 U/L (39-117); Anion Gap 11 (12-20); Aspartate Amino Transferase 23 U/L (5-31); Bilirubin Total < 0.2 mg/dL (0.0-1.0); Blood Urea Nitrogen 11 mg/dL (9-16); Calcium 8.1 mg/dL (8.4-10.2); Carbon Dioxide 25 mmol/L (22-29); Chloride 99 mmol/L (96-108); Creatinine Clr Calc Pharmacy 82.6; Estimated Glomerular Filt Rate > 60; Glucose Fasting 122 mg/dL (60-99); Potassium 4.4 mmol/L (3.3-5.1); Sodium 131 mmol/L (135-145); Total Protein 4.5 g/dL (6.5-8.0)
[2021-11-10] MEDS: Heparin Sodium,Porcine 5,000 UNIT/ML VIAL 5000 UNIT SUBCUT ×2 (06:27→20:23)
--- NOTE | 2021-11-10 10:34 | MHC.SLORD ---
Speech Language Pathology Order Status: LSAT INSTRUCTOR attempted to complete PO trials this morning. Patient was asleep and could not be roused. Continued NPO status with PO trials completed by LSAT INSTRUCTOR or caregiver only. LSAT INSTRUCTOR will re-attempt Friday.
--- NOTE | 2021-11-10 10:56 | P.PNIM_ITS ---
Subjective Subjective Date of Service: 11/10/21 Interval History: no acute events overnight. Remains tolerant of tube feed Review of Systems unable to ascertain 2nd t Physical Exam Vital Signs: Vital Signs: Last Vital Signs Temp 98.5 F 11/10/21 08:00 Pulse 101 H 11/10/21 03:46 Resp 15 11/10/21 08:00 BP 123/71 11/10/21 08:00 Pulse Ox 87 L 11/10/21 08:00 Oxygen Flow Rate 10 10/21/21 06:50 BMI result Body Mass Index 15.6 Const: Other: No acute distress HENMT: Other: And G-tube left naris Resp: Other: Clear to auscultation bilaterally no rales rhonchi wheezes Cardio: Other: No S4; positive S1-S2; no S3 murmurs of recounts GI: Other: Soft positive bowel sounds x4 quadrants.PEG tube site C/D/I Neuro: Other: Nonverbal; tracks eyes with Extrem: Other: Contracted Objective Data Active Medications Acetaminophen (Acetaminophen Supp 650 Mg Supp.Rect) 650 mg RI Q4H PRN PRN Reason: Fever Last Admin: 11/08/21 08:59 Dose: 650 mg Documented by: JAKE Carbamazepine (Carbamazepine 200 Mg/10 Ml Oral.Susp) 200 mg NG-TUBE DAILY [facility] Last Admin: 11/09/21 09:32 Dose: 200 mg Documented by: VAN Carbamazepine (Carbamazepine 200 Mg/10 Ml Oral.Susp) 300 mg NG-TUBE BEDTIME [facility] Last Admin: 11/09/21 20:51 Dose: 300 mg Documented by: AIRAM Heparin Sodium (Porcine) (Heparin Sodium,Porcine 5,000 Unit/Ml Vial) 5,000 unit SUBCUT Q12H [facility] Last Admin: 11/10/21 06:27 Dose: 5,000 unit Documented by: AIRAM Ondansetron HCl (Ondansetron Hcl 4 Mg/2 Ml Vial) 4 mg IVPUSH Q8H PRN PRN Reason: Nausea and Vomiting Pharmacy Consult (Consult Rx Perform Med Rec) 1 each MISCELLANE ONCE PRN PRN Reason: Consult order Labs CBC & Chem 7: 11/10/21 05:48 11/10/21 05:48 Labs: Laboratory Results - last 24 hr 10/21/21 10/21/21 10/23/21 08:41 08:42 16:35 WBC 34.8 H* 27.1 H MCV MCH MCHC RDW Plt Count MPV Immature Gran % (Auto) Neut % (Auto) Lymph % (Auto) [place] % (Auto) Eos % (Auto) Baso % (Auto) Lymph # (Auto) [place] # (Auto) Eos # (Auto) Baso # (Auto) Abs Immat Gran (auto) Absolute Neuts (auto) Absolute Nucleated RBC Nucleated RBC % (auto) Sodium 154 H Anion Gap Estim Creat Clear Calc Estimated GFR Fasting Glucose Calcium Total Bilirubin AST ALT Alkaline Phosphatase Total Protein Albumin 10/23/21 10/23/21 10/24/21 17:00 22:02 00:30 WBC MCV MCH MCHC RDW Plt Count MPV Immature Gran % (Auto) Neut % (Auto) Lymph % (Auto) [place] % (Auto) Eos % (Auto) Baso % (Auto) Lymph # (Auto) [place] # (Auto) Eos # (Auto) Baso # (Auto) Abs Immat Gran (auto) Absolute Neuts (auto) Absolute Nucleated RBC Nucleated RBC % (auto) Sodium 165 H* 165 H* 164 H* Anion Gap Estim Creat Clear Calc Estimated GFR Fasting Glucose Calcium Total Bilirubin AST ALT Alkaline Phosphatase Total Protein Albumin 10/24/21 10/24/21 10/24/21 05:22 05:22 16:21 WBC 29.4 H MCV MCH MCHC RDW Plt Count MPV Immature Gran % (Auto) Neut % (Auto) Lymph % (Auto) [place] % (Auto) Eos % (Auto) Baso % (Auto) Lymph # (Auto) [place] # (Auto) Eos # (Auto) Baso # (Auto) Abs Immat Gran (auto) Absolute Neuts (auto) Absolute Nucleated RBC Nucleated RBC % (auto) Sodium 157 H 149 H Anion Gap Estim Creat Clear Calc Estimated GFR Fasting Glucose Calcium Total Bilirubin AST ALT Alkaline Phosphatase Total Protein Albumin 10/24/21 10/25/21 10/25/21 21:53 05:35 05:35 WBC 24.8 H MCV MCH MCHC RDW Plt Count MPV Immature Gran % (Auto) Neut % (Auto) Lymph % (Auto) [place] % (Auto) Eos % (Auto) Baso % (Auto) Lymph # (Auto) [place] # (Auto) Eos # (Auto) Baso # (Auto) Abs Immat Gran (auto) Absolute Neuts (auto) Absolute Nucleated RBC Nucleated RBC % (auto) Sodium 143 142 Anion Gap Estim Creat Clear Calc Estimated GFR Fasting Glucose Calcium Total Bilirubin AST ALT Alkaline Phosphatase Total Protein Albumin 10/26/21 10/28/21 10/28/21 05:42 06:22 06:22 WBC 18.4 H 21.5 H MCV MCH MCHC RDW Plt Count MPV Immature Gran % (Auto) Neut % (Auto) Lymph % (Auto) [place] % (Auto) Eos % (Auto) Baso % (Auto) Lymph # (Auto) [place] # (Auto) Eos # (Auto) Baso # (Auto) Abs Immat Gran (auto) Absolute Neuts (auto) Absolute Nucleated RBC Nucleated RBC % (auto) Sodium 141 Anion Gap Estim Creat Clear Calc Estimated GFR Fasting Glucose Calcium Total Bilirubin AST ALT Alkaline Phosphatase Total Protein Albumin 10/29/21 11/01/21 11/01/21 06:18 07:47 07:47 WBC 21.8 H 25.2 H MCV MCH MCHC RDW Plt Count MPV Immature Gran % (Auto) Neut % (Auto) Lymph % (Auto) [place] % (Auto) Eos % (Auto) Baso % (Auto) Lymph # (Auto) [place] # (Auto) Eos # (Auto) Baso # (Auto) Abs Immat Gran (auto) Absolute Neuts (auto) Absolute Nucleated RBC Nucleated RBC % (auto) Sodium 137 Anion Gap Estim Creat Clear Calc Estimated GFR Fasting Glucose Calcium Total Bilirubin AST ALT Alkaline Phosphatase Total Protein Albumin 11/02/21 11/03/21 11/03/21 08:04 05:54 05:55 WBC 21.5 H MCV MCH MCHC RDW Plt Count MPV Immature Gran % (Auto) Neut % (Auto) Lymph % (Auto) [place] % (Auto) Eos % (Auto) Baso % (Auto) Lymph # (Auto) [place] # (Auto) Eos # (Auto) Baso # (Auto) Abs Immat Gran (auto) Absolute Neuts (auto) Absolute Nucleated RBC Nucleated RBC % (auto) Sodium 136 134 L Anion Gap Estim Creat Clear Calc Estimated GFR Fasting Glucose Calcium Total Bilirubin AST ALT Alkaline Phosphatase Total Protein Albumin 11/04/21 11/06/21 11/06/21 05:46 06:21 06:21 WBC 18.0 H MCV MCH MCHC RDW Plt Count MPV Immature Gran % (Auto) Neut % (Auto) Lymph % (Auto) [place] % (Auto) Eos % (Auto) Baso % (Auto) Lymph # (Auto) [place] # (Auto) Eos # (Auto) Baso # (Auto) Abs Immat Gran (auto) Absolute Neuts (auto) Absolute Nucleated RBC Nucleated RBC % (auto) Sodium 135 132 L Anion Gap Estim Creat Clear Calc Estimated GFR Fasting Glucose Calcium Total Bilirubin AST ALT Alkaline Phosphatase Total Protein Albumin 11/10/21 11/10/21 05:48 05:48 WBC 19.3 H MCV 97.7 MCH 31.5 MCHC 32.2 RDW 15.6 Plt Count 416 H MPV 9.3 L Immature Gran % (Auto) 0.5 H Neut % (Auto) 88.6 H Lymph % (Auto) 6.4 L [place] % (Auto) 3.4 Eos % (Auto) 0.8 Baso % (Auto) 0.3 Lymph # (Auto) 1.2 [place] # (Auto) 0.7 Eos # (Auto) 0.2 Baso # (Auto) 0.1 Abs Immat Gran (auto) 0.10 H Absolute Neuts (auto) 17.1 H Absolute Nucleated RBC 0.000 Nucleated RBC % (auto) 0.0 Sodium 131 L Anion Gap 11 L Estim Creat Clear Calc 82.6 Estimated GFR > 60 Fasting Glucose 122 H Calcium 8.1 L Total Bilirubin < 0.2 AST 23 ALT 10 Alkaline Phosphatase 125 H D Total Protein 4.5 L Albumin 2.0 L Assessment and Plan (1) Malnutrition: Status: Acute (2) Leukocytosis: Status: Acute Assessment and Plan: 71 year female with history of cerebral palsy, nonverbal and bedbound, total care at baseline, recent admission for UTI brought into the emergency department with increasing lethargy found have multiple significant acute medical issues being admitted for comfort measures initially.? (10/23/21 see advance planning note) . 1.Severe protein calorie malnutrition.? BMI 15.7 Status post PEG tube placement 11/07/2021. Tolerating tube feedings, will advance to goal and hopeful SNF when appropriate. 2.Chronic leukocytosis Stable...... follow clinically 3.Hyponatremia Adjust free H2O and follow DISPO plan to dc to rehab facility when medically stable from PEG tube Code status DNR DNI DVT pptx, heparin Quality Stroke Does the patient have a stroke diagnosis?: No VTE Prior VTE?: No VTE Risk Level:: Medical - moderate - high VTE Device Contraindication: Treatment Not Indicated VTE Drug Contraindication: Treatment Not Indicated
[2021-11-10] MEDS: carBAMazepine 200 MG/10 ML ORAL.SUSP NG-TUBE (11:24)
[2021-11-10] MEDS: carBAMazepine 200 MG/10 ML ORAL.SUSP 300 MG NG-TUBE (20:22)
[2021-11-11 03:39] VITALS: BP 120/67; PULSE 93; RESP 18; TEMP 36.6; O2SAT 96
[2021-11-11 05:44] LABS: MANUAL DIFF FLAG NO
[2021-11-11 05:47] LABS: Basophils Percent Auto 0.2 % (0-2); Eosinophils Absolute Auto 0.3 X10*3/uL (0.0-0.4); Eosinophils Percent Auto 1.5 % (0-4); Hematocrit 29.3 % (37.0-47.0); Hemoglobin 9.6 g/dl (12.0-16.0); Imm Gran Pct Auto 0.5 % (0.0-0.4); Lymphocytes Absolute Auto 1.2 X10*3/uL (1.2-4.9); Lymphocytes Percent Auto 6.6 % (20-40); Mean Corpuscular HGB Conc 32.8 g/dl (31.0-35.0); Mean Corpuscular Hemoglobin 32.3 pg (27.0-33.0); Mean Corpuscular Volume 98.7 fL (80.0-98.0); Mean Platelet Volume 9.2 fL (9.4-12.3); Monocytes Absolute Auto 0.7 X10*3/uL (0.1-1.2); Monocytes Percent Auto 4.1 % (2-11); Neutrophils Absolute Auto 15.8 x10*3/uL (2.0-8.3); Neutrophils Percent Auto 87.1 % (45-73); Platelet Count 359 X10*3/uL (160-400); Red Blood Count 2.97 X10*6/uL (4.20-5.50); Red Cell Distribution Width 15.7 % (11.0-16.0); White Blood Count 18.2 X10*3/uL (4.8-10.8)
[2021-11-11 06:21] LABS: Alanine Aminotransferase 10 U/L (0-31); Albumin Level 1.9 g/dL (3.5-5.0); Alkaline Phosphatase 111 U/L (39-117); Anion Gap 10 (12-20); Aspartate Amino Transferase 24 U/L (5-31); Bilirubin Total < 0.2 mg/dL (0.0-1.0); Blood Urea Nitrogen 10 mg/dL (9-16); Calcium 7.9 mg/dL (8.4-10.2); Carbon Dioxide 26 mmol/L (22-29); Chloride 98 mmol/L (96-108); Creatinine Clr Calc Pharmacy 85.1; Estimated Glomerular Filt Rate > 60; Glucose Fasting 102 mg/dL (60-99); Potassium 4.3 mmol/L (3.3-5.1); Sodium 130 mmol/L (135-145); Total Protein 4.3 g/dL (6.5-8.0)
[2021-11-11 08:00] VITALS: BP 124/70; PULSE 100; RESP 15; TEMP 36.8; O2SAT 94
[2021-11-11] MEDS: Heparin Sodium,Porcine 5,000 UNIT/ML VIAL 5000 UNIT SUBCUT (08:55)
[2021-11-11] MEDS: carBAMazepine 200 MG/10 ML ORAL.SUSP NG-TUBE (08:55)
--- NOTE | 2021-11-11 09:19 | P.PNIM_ITS ---
Subjective Subjective Date of Service: 11/11/21 Interval History: Tolerating tube feeds. No new events. Review of Systems Review of Systems: Yes Unobtainable due to mental status Physical Exam Vital Signs: Vital Signs: Last Vital Signs Temp 98.2 F 11/11/21 08:00 Pulse 100 11/11/21 08:00 Resp 15 11/11/21 08:00 BP 124/70 11/11/21 08:00 Pulse Ox 94 11/11/21 08:00 Oxygen Flow Rate 10 10/21/21 06:50 BMI result Body Mass Index 15.6 Gen: in no acute distress, contracted, nonverbal HEENT: sclera anicteric, moist mucus membranes Neck: supple Lungs: clear to auscultation bilaterally Heart: regular rate and rhythm, no murmurs Abd: soft, non-tender, non-distended, G tube running feeds at goal Ext: no edema Skin: warm/well-perfused Neuro: contracted, nonverbal Psych: impaired insight Objective Data Active Medications Acetaminophen (Acetaminophen Supp 650 Mg Supp.Rect) 650 mg ID Q4H PRN PRN Reason: Fever Last Admin: 11/08/21 08:59 Dose: 650 mg Documented by: JAKE Carbamazepine (Carbamazepine 200 Mg/10 Ml Oral.Susp) 200 mg NG-TUBE DAILY [facility] Last Admin: 11/11/21 08:55 Dose: 200 mg Documented by: LESLY Carbamazepine (Carbamazepine 200 Mg/10 Ml Oral.Susp) 300 mg NG-TUBE BEDTIME [facility] Last Admin: 11/10/21 20:22 Dose: 300 mg Documented by: TJ Heparin Sodium (Porcine) (Heparin Sodium,Porcine 5,000 Unit/Ml Vial) 5,000 unit SUBCUT Q12H [facility] Last Admin: 11/11/21 08:55 Dose: 5,000 unit Documented by: LESLY Ondansetron HCl (Ondansetron Hcl 4 Mg/2 Ml Vial) 4 mg IVPUSH Q8H PRN PRN Reason: Nausea and Vomiting Pharmacy Consult (Consult Rx Perform Med Rec) 1 each MISCELLANE ONCE PRN PRN Reason: Consult order Labs CBC & Chem 7: 11/11/21 05:23 11/11/21 05:23 Labs: Laboratory Results - last 24 hr 11/11/21 11/11/21 05:23 05:23 MCV 98.7 H MCH 32.3 MCHC 32.8 RDW 15.7 Plt Count 359 MPV 9.2 L Immature Gran % (Auto) 0.5 H Neut % (Auto) 87.1 H Lymph % (Auto) 6.6 L [place] % (Auto) 4.1 Eos % (Auto) 1.5 Baso % (Auto) 0.2 Lymph # (Auto) 1.2 [place] # (Auto) 0.7 Eos # (Auto) 0.3 Baso # (Auto) 0.0 Abs Immat Gran (auto) 0.10 H Absolute Neuts (auto) 15.8 H Absolute Nucleated RBC 0.000 Nucleated RBC % (auto) 0.0 Anion Gap 10 L Estim Creat Clear Calc 85.1 Estimated GFR > 60 Fasting Glucose 102 H Calcium 7.9 L Total Bilirubin < 0.2 AST 24 ALT 10 Alkaline Phosphatase 111 Total Protein 4.3 L Albumin 1.9 L Assessment and Plan (1) Malnutrition: Status: Acute (2) Leukocytosis: Status: Acute Assessment and Plan: hospital d#22 71yo nonverbal/bedbound F with CP requiring total assistance for ADLs, recent admission for UTI, admitted with lethargy, acute hypoxia due to aspiration pneumonia, hyperNa, severe protein/calorie malnutrition. Initially on BRAIN WAVE TECHNICIAN status but then after discussion between DDS and pt's HCP, PEG tube was placed. Reference is made to the prior ACP notes. # severe protein-calorie malnutrition - PEG placee 11/07/21 - Jevity 1.0 at 45 mL/hr, flush 120 mL free H20 q8h PROVIDES 1080 ML FORMULA; 1145 KCAL (1.17 KCAL/KG IBW); 48 G PROTEIN (1.17 G/KG IBW); FORMULA PLUS PBYEI=2675 ML (30.83 ML/KG IBW). # leukocytosis - chronic, no evidence of active infection, outpt hematology f/u, suspected to have chronic neutrophilic leukocytosis # hypoNa - mild, monitor BMP # seizure disorder - carbamazepine # resolved issues: acute hypoxi respiratory failure, aspiration pneumonia # dispo - awaiting court order to admit to [facility], where she has a bed # VTE ppx - LMWH Quality Stroke Does the patient have a stroke diagnosis?: No VTE Prior VTE?: No VTE Risk Level:: Medical - moderate - high VTE Device Contraindication: Treatment Not Indicated VTE Drug Contraindication: Treatment Not Indicated
[2021-11-11 12:00] VITALS: BP 140/76; PULSE 100; RESP 15; TEMP 37.4; O2SAT 98
[2021-11-11 15:59] VITALS: BP 135/82; PULSE 101; RESP 18; TEMP 37.3; O2SAT 95
[2021-11-11 20:00] VITALS: BP 145/75; PULSE 101; RESP 18; TEMP 37.3; O2SAT 95
[2021-11-11] MEDS: Enoxaparin Sodium 40 MG/0.4 ML SYRINGE SUBCUT (20:12)
[2021-11-11] MEDS: carBAMazepine 200 MG/10 ML ORAL.SUSP 300 MG NG-TUBE (20:13)
[2021-11-12] VITALS (7 sets, daily range): BP systolic 125–175; BP diastolic 64–90; PULSE 95–109; RESP 16–18; TEMP 36.3–37.2; O2SAT 95–97
[2021-11-12 07:34] LABS: MANUAL DIFF FLAG NO
[2021-11-12 07:44] LABS: Basophils Percent Auto 0.2 % (0-2); Eosinophils Absolute Auto 0.5 X10*3/uL (0.0-0.4); Eosinophils Percent Auto 2.8 % (0-4); Hematocrit 30.2 % (37.0-47.0); Hemoglobin 9.9 g/dl (12.0-16.0); Imm Gran Abs Auto 0.16 X10*3/uL (0.00-0.03); Imm Gran Pct Auto 0.9 % (0.0-0.4); Lymphocytes Absolute Auto 1.3 X10*3/uL (1.2-4.9); Lymphocytes Percent Auto 6.7 % (20-40); Mean Corpuscular HGB Conc 32.8 g/dl (31.0-35.0); Mean Corpuscular Hemoglobin 32.4 pg (27.0-33.0); Mean Corpuscular Volume 98.7 fL (80.0-98.0); Mean Platelet Volume 9.8 fL (9.4-12.3); Monocytes Absolute Auto 0.6 X10*3/uL (0.1-1.2); Monocytes Percent Auto 3.3 % (2-11); Neutrophils Percent Auto 86.1 % (45-73); Platelet Count 409 X10*3/uL (160-400); Red Blood Count 3.06 X10*6/uL (4.20-5.50); Red Cell Distribution Width 15.6 % (11.0-16.0); White Blood Count 18.5 X10*3/uL (4.8-10.8)
[2021-11-12 08:11] LABS: Alanine Aminotransferase 11 U/L (0-31); Albumin Level 1.8 g/dL (3.5-5.0); Alkaline Phosphatase 108 U/L (39-117); Anion Gap 12 (12-20); Aspartate Amino Transferase 25 U/L (5-31); Bilirubin Total < 0.2 mg/dL (0.0-1.0); Blood Urea Nitrogen 9 mg/dL (9-16); Calcium 7.7 mg/dL (8.4-10.2); Carbon Dioxide 24 mmol/L (22-29); Chloride 99 mmol/L (96-108); Creatinine Clr Calc Pharmacy 90.6; Estimated Glomerular Filt Rate > 60; Glucose Fasting 109 mg/dL (60-99); Sodium 131 mmol/L (135-145); Total Protein 4.2 g/dL (6.5-8.0)
--- NOTE | 2021-11-12 08:59 | P.CDIC_ITS ---
CDI Concurrent Query Documentation Clarification: PHYSICIAN'S DOCUMENTATION REQUEST Date of Query: 11/12/21 0900 Patient Name: Marcia Lynn Admit Date: 10/21/21 Dear Doctor, A review of the medical record indicates additional documentation may be indicated. Please review below and update the documentation accordingly Risk Factors/Clinical Indicators/Treatments Wound care assessment/Nursing - Pressure Injury Stage II bilateral buttocks. Barrier cream applied. Based on the above, could you please provide, in the Progress Notes, further information regarding the ulcer/wound: * Location of the ulcer/wound, including laterality * For a non-pressure ulcer, please indicate the depth/severity: * Other * Unable to determine * If a pressure ulcer, please also include the stage* of the ulcer or undetermined: * Stage 1 - Skin intact, non-blanchable redness * Stage 2 - Partial thickness loss of dermis, includes intact or open blister * Unstageable *Source: National Pressure Ulcer Advisory Panel (NPUAP) Use of terms such as suspected, likely, concern for, or probable (associated with a specific diagnosis that is being evaluated, monitored, or treated as if it exists) are acceptable and can be coded in the inpatient setting, when documented at the time of discharge. Thank you, Latasha Lopez [facility], CDIS Extension: [phone] Please use your independent medical judgment in providing your response. THIS QUERY IS PART OF THE PERMANENT MEDICAL RECORD Provider Response: Other Other Diagnosis: stage 2 bilateral buttocks pressure ulcer
--- NOTE | 2021-11-12 09:05 | P.CDIC_ITS ---
CDI Concurrent Query Documentation Clarification: PHYSICIAN'S DOCUMENTATION REQUEST Date of Query: 11/12/21904 Patient Name: Marcia Lynn Admit Date: 10/21/21 Dear Doctor, A review of the medical record indicates additional documentation may be indicated. Please review below and update the documentation accordingly. Clinical Indicators: Risk Factors/Clinical Indicators/Treatments Wound care notes/Nursing 11/09-Pressure Injury Stage II right back. Foam dressing, dsg intact. Based on the above, could you please provide, in the Progress Notes, further information regarding the ulcer/wound: * Location of the ulcer/wound, including laterality * For a non-pressure ulcer, please indicate the depth/severity: * Other * Unable to determine * If a pressure ulcer, please also include the stage* of the ulcer: * Stage 1 * Stage 2 * Unstageable *Source: National Pressure Ulcer Advisory Panel (NPUAP) Use of terms such as suspected, likely, concern for, or probable (associated with a specific diagnosis that is being evaluated, monitored, or treated as if it exists) are acceptable and can be coded in the inpatient setting, when documented at the time of discharge. Thank you, Latasha Lopez [facility], CDIS Extension:[phone] Please use your independent medical judgment in providing your response. THIS QUERY IS PART OF THE PERMANENT MEDICAL RECORD Provider Response: Other Other Diagnosis: st 2 pressure ulcer R back
[2021-11-12] MEDS: carBAMazepine 200 MG/10 ML ORAL.SUSP NG-TUBE (09:32)
--- NOTE | 2021-11-12 11:04 | MHC.CLN ---
F/U PATIENT WITH PEG TUBE AND TOLERATING WELL. TUBE FEEDING RUNNING AT MAX GOAL RATE: JEVITY 1.0 AT 45 ML/HOUR; FLUSH 120 ML FREE WATER Q 8 HOURS. LABS REVIEWED WITH 11/12/21 CRJPOS=[id number] AND CREATININE=.31. PER COMMUNICATION WITH JERROD MINER TO DISCONTINUE FLUSH ORDER. PROVIDES 1080 ML FORMULA; 1145 KCAL (28 KCAL/KG IBW); 48 G PROTEIN (1.17 G/KG IBW); FREE WATER FROM [id number]=446 ML (22 ML/KG IBW). SKIN ISSUES: RIGHT LATERAL FOOT UNSTAGEABLE; REDNESS TO BILATERAL BUTTOCKS; STAGE II TO RIGHT BACK. MONITOR SKIN AND TF TOLERANCE, RESIDUALS, AND LYTES.
--- NOTE | 2021-11-12 12:34 | MHC.CM.PN ---
EMR REVIEWED, CM AWAITING CONFIRMATION FROM COURTS RE INTENT TO ADMIT, PER SNF THEY ARE UNABLE TO TAKE PT UNTIL TOMORROW MORNING AT 10:30, PT WILL BE GOING TO [facility] FOR BLS TRANSPORT.
--- NOTE | 2021-11-12 13:17 | P.PNIM_ITS ---
Subjective Subjective Date of Service: 11/12/21 Interval History: Tolerating tube feeds Accepted at [facility] for tomorrow Review of Systems Review of Systems: Yes Unobtainable due to mental status Physical Exam Vital Signs: Vital Signs: Last Vital Signs Temp 98.9 F 11/12/21 11:12 Pulse 104 H 11/12/21 11:12 Resp 18 11/12/21 11:12 BP 125/65 11/12/21 11:12 Pulse Ox 95 11/12/21 11:12 Oxygen Flow Rate 10 10/21/21 06:50 BMI result Body Mass Index 15.6 Gen: in no acute distress, contracted, nonverbal HEENT: sclera anicteric, moist mucus membranes Neck: supple Lungs: clear to auscultation bilaterally Heart: regular rate and rhythm, no murmurs Abd: soft, non-tender, non-distended, G tube running feeds at goal Ext: no edema Skin: warm/well-perfused Neuro: contracted, nonverbal Psych: impaired insight Objective Data Active Medications Acetaminophen (Acetaminophen Supp 650 Mg Supp.Rect) 650 mg HI Q4H PRN PRN Reason: Fever Last Admin: 11/08/21 08:59 Dose: 650 mg Documented by: JAKE Carbamazepine (Carbamazepine 200 Mg/10 Ml Oral.Susp) 200 mg NG-TUBE DAILY [facility] Last Admin: 11/12/21 09:32 Dose: 200 mg Documented by: SENIA Carbamazepine (Carbamazepine 200 Mg/10 Ml Oral.Susp) 300 mg NG-TUBE BEDTIME [facility] Last Admin: 11/11/21 20:13 Dose: 300 mg Documented by: NICKI Enoxaparin Sodium (Enoxaparin Sodium 40 Mg/0.4 Ml Syringe) 40 mg SUBCUT Q24H [facility] Last Admin: 11/11/21 20:12 Dose: 40 mg Documented by: NICKI Ondansetron HCl (Ondansetron Hcl 4 Mg/2 Ml Vial) 4 mg IVPUSH Q8H PRN PRN Reason: Nausea and Vomiting Pharmacy Consult (Consult Rx Perform Med Rec) 1 each MISCELLANE ONCE PRN PRN Reason: Consult order Labs CBC & Chem 7: 11/12/21 06:46 11/12/21 06:46 Labs: Laboratory Results - last 24 hr 11/12/21 11/12/21 06:46 06:46 MCV 98.7 H MCH 32.4 MCHC 32.8 RDW 15.6 Plt Count 409 H MPV 9.8 Immature Gran % (Auto) 0.9 H Neut % (Auto) 86.1 H Lymph % (Auto) 6.7 L [place] % (Auto) 3.3 Eos % (Auto) 2.8 Baso % (Auto) 0.2 Lymph # (Auto) 1.3 [place] # (Auto) 0.6 Eos # (Auto) 0.5 H Baso # (Auto) 0.0 Abs Immat Gran (auto) 0.16 H Absolute Neuts (auto) 16.0 H Absolute Nucleated RBC 0.000 Nucleated RBC % (auto) 0.0 Anion Gap 12 Estim Creat Clear Calc 90.6 Estimated GFR > 60 Random Glucose TNP Fasting Glucose 109 H Calcium 7.7 L Total Bilirubin < 0.2 AST 25 ALT 11 Alkaline Phosphatase 108 Total Protein 4.2 L Albumin 1.8 L Assessment and Plan (1) Malnutrition: Status: Acute (2) Leukocytosis: Status: Acute Assessment and Plan: hospital d#23 71yo nonverbal/bedbound F with CP requiring total assistance for ADLs, recent admission for UTI, admitted with lethargy, acute hypoxia due to aspiration pneumonia, hyperNa, severe protein/calorie malnutrition. Initially on PRODUCTION COORDINATOR status but then after discussion between DDS and pt's HCP, PEG tube was placed. Reference is made to the prior ACP notes. # severe protein-calorie malnutrition - PEG placed 11/07/21 - Jevity 1.0 at 45 mL/hr, d/c free water flushes due to hypoNa # leukocytosis - chronic, no evidence of active infection, outpt hematology f/u, suspected to have chronic neutrophilic leukocytosis # hypoNa - mild, d/c free water flushes # seizure disorder - carbamazepine # resolved issues: acute hypoxic respiratory failure, aspiration pneumonia # dispo - awaiting court order to admit to [facility], where she has a bed for tomorrow # VTE ppx - LMWH Quality Stroke Does the patient have a stroke diagnosis?: No VTE Prior VTE?: No VTE Risk Level:: Medical - moderate - high VTE Device Contraindication: Treatment Not Indicated VTE Drug Contraindication: Treatment Not Indicated
[2021-11-12] MEDS: Enoxaparin Sodium 40 MG/0.4 ML SYRINGE SUBCUT (19:35)
[2021-11-12] MEDS: carBAMazepine 200 MG/10 ML ORAL.SUSP 300 MG NG-TUBE (19:35)
[2021-11-13 03:42] VITALS: BP 123/71; PULSE 91; RESP 16; TEMP 36.1; O2SAT 98
[2021-11-13 06:24] LABS: Anion Gap 9 (12-20); Blood Urea Nitrogen 9 mg/dL (9-16); Carbon Dioxide 28 mmol/L (22-29); Chloride 97 mmol/L (96-108); Creatinine Clr Calc Pharmacy 87.7; Estimated Glomerular Filt Rate > 60; Glucose Random 106 mg/dL (60-115); Potassium 4.3 mmol/L (3.3-5.1); Sodium 130 mmol/L (135-145)
[2021-11-13 07:48] VITALS: BP 110/77; PULSE 88; RESP 16; TEMP 36.6; O2SAT 97
[2021-11-13] MEDS: carBAMazepine 200 MG/10 ML ORAL.SUSP NG-TUBE (09:03)
[2021-11-13 10:04] LABS: Influenza A PCR NEGATIVE (Negative); Influenza B PCR NEGATIVE (Negative); Resp Syncy Virus RNA Qual PCR NEGATIVE (Negative); SARS COV2 PCR INHOUSE POSITIVE (Negative)
--- NOTE | 2021-11-13 10:19 | MHC.CM.PN ---
EMR REVIEWED, PT WAS TO D/C TO [facility] HOWEVER HER COVID PCR CAME BACK POSITIVE AND SNF UNABLE TO TAKE POSITIVE PT'S, PER LIAISON THEY CAN TAKE PT IN 10 DAYS IF SHE REMAINS ASYMPTOMATIC AND NO REPEAT PCR WILL BE NECESSARY, PT TO BE MOVED TO COVID UNIT AND CM WILL CONT TO FOLLOW D/C NEEDS, CM HAS NOTIFIED DDS NURSE EMAIL AND PT'S GUARDIAN VIA PHONE ON FILE.
--- NOTE | 2021-11-13 10:31 | P.PNIM_ITS ---
Subjective Subjective Date of Service: 11/13/21 Interval History: Covid PCR done for SNF placement, returned positive. Pt without apparent cough or dyspnea and not hypoxic. Review of Systems Review of Systems: Yes Unobtainable due to mental status Physical Exam Vital Signs: Vital Signs: Last Vital Signs Temp 97.9 F 11/13/21 07:48 Pulse 88 11/13/21 07:48 Resp 16 11/13/21 07:48 BP 110/77 11/13/21 07:48 Pulse Ox 97 11/13/21 07:48 Oxygen Flow Rate 10 10/21/21 06:50 BMI result Body Mass Index 15.6 Gen: in no acute distress, contracted, nonverbal HEENT: sclera anicteric, moist mucus membranes Neck: supple Lungs: clear to auscultation bilaterally Heart: regular rate and rhythm, no murmurs Abd: soft, non-tender, non-distended, G tube running feeds at goal Ext: no edema Skin: warm/well-perfused Neuro: contracted, nonverbal Psych: impaired insight Objective Data Active Medications Acetaminophen (Acetaminophen Supp 650 Mg Supp.Rect) 650 mg [place] Q4H PRN PRN Reason: Fever Last Admin: 11/08/21 08:59 Dose: 650 mg Documented by: JAKE Carbamazepine (Carbamazepine 200 Mg/10 Ml Oral.Susp) 200 mg NG-TUBE DAILY [facility] Last Admin: 11/13/21 09:03 Dose: 200 mg Documented by: CORIN Carbamazepine (Carbamazepine 200 Mg/10 Ml Oral.Susp) 300 mg NG-TUBE BEDTIME [facility] Last Admin: 11/12/21 19:35 Dose: 300 mg Documented by: NICKI Enoxaparin Sodium (Enoxaparin Sodium 40 Mg/0.4 Ml Syringe) 40 mg SUBCUT Q24H [facility] Last Admin: 11/12/21 19:35 Dose: 40 mg Documented by: NICKI Ondansetron HCl (Ondansetron Hcl 4 Mg/2 Ml Vial) 4 mg IVPUSH Q8H PRN PRN Reason: Nausea and Vomiting Pharmacy Consult (Consult Rx Perform Med Rec) 1 each MISCELLANE ONCE PRN PRN Reason: Consult order Labs CBC & Chem 7: 11/12/21 06:46 11/13/21 05:15 Labs: Laboratory Results - last 24 hr 11/13/21 11/13/21 05:15 09:05 Anion Gap 9 L Estim Creat Clear Calc 87.7 Estimated GFR > 60 Random Glucose 106 Calcium 8.0 L Influenza Type A (PCR) NEGATIVE Influenza Type B (PCR) NEGATIVE RSV RNA Qual (PCR) NEGATIVE SARS-CoV-2 RNA (RT-PCR) POSITIVE A Assessment and Plan (1) Malnutrition: Status: Acute (2) Leukocytosis: Status: Acute Assessment and Plan: hospital d#24 71yo nonverbal/bedbound F with CP requiring total assistance for ADLs, recent admission for UTI, admitted with lethargy, acute hypoxia due to aspiration p neumonia, hyperNa, severe protein/calorie malnutrition. Initially on TRIBUNAL MEMBER status but then after discussion between DDS and pt's HCP, PEG tube was placed. Reference is made to the prior ACP notes. Turned positive for Covid by PCR, done for SNF placement. Not hypoxic # Covid-19 infection - Risk factor for severe progression = cerebral palsy, malnutrition. Will give 3d of IV remdesivir - Further risk stratification with CXR, inflammatory markers # severe protein-calorie malnutrition - PEG placed 11/07/21 - Jevity 1.0 at 45 mL/hr, d/c free water flushes due to hypoNa # leukocytosis - chronic, no evidence of active infection, outpt hematology f/u, suspected to have chronic neutrophilic leukocytosis # hypoNa - mild. could be SIADH from carbamazepine. d/c'ed free water flushes. # seizure disorder - carbamazepine # resolved issues: acute hypoxic respiratory failure, aspiration pneumonia # dispo - was to be discharged to [facility] for STR but then turned positive for Covid-19 # VTE ppx - [facility] Quality Stroke Does the patient have a stroke diagnosis?: No VTE Prior VTE?: No VTE Risk Level:: Medical - moderate - high VTE Device Contraindication: Treatment Not Indicated VTE Drug Contraindication: Treatment Not Indicated
[2021-11-13 11:13] LABS: C Reactive Protein 4.77 mg/dL (< or = 0.50); Lactate Dehydrogenase 425 U/L (122-220)
[2021-11-13 11:33] LABS: Ferritin 318 ng/mL (10-250)
[2021-11-13 11:41] LABS: Procalcitonin 0.17 ng/mL
[2021-11-13 12:00] VITALS: BP 140/73; PULSE 96; RESP 18; TEMP 36.5; O2SAT 98
[2021-11-13] MEDS: Remdesivir 200 MG in 0.9 % Sodium Chloride 210 ML 105 MG IV (12:45)
--- NOTE | 2021-11-13 13:09 | MHC.SLORD ---
Speech Language Pathology Order Status: Attempted to see Pt this a.m., advised by nursing that PT recently dx COVID 19, about to be transitioned to isolation room instead of DC as planned. Nursing advised against treatment at this time.
[2021-11-13 16:00] VITALS: BP 146/72; PULSE 115; RESP 18; TEMP 36.3; O2SAT 94
[2021-11-13 17:21] VITALS: BP 133/66; PULSE 113; RESP 18; TEMP 36.9; O2SAT 96
[2021-11-13 20:00] VITALS: BP 121/69; PULSE 100; RESP 18; TEMP 36.4; O2SAT 95
[2021-11-13] MEDS: Enoxaparin Sodium 40 MG/0.4 ML SYRINGE SUBCUT (20:21)
[2021-11-13] MEDS: carBAMazepine 200 MG/10 ML ORAL.SUSP 300 MG NG-TUBE (20:22)
[2021-11-14] VITALS (7 sets, daily range): BP systolic 108–134; BP diastolic 66–79; PULSE 93–107; RESP 14–20; TEMP 36.1–37.6; O2SAT 93–99
[2021-11-14 06:44] LABS: Hematocrit 33.1 % (37.0-47.0); Hemoglobin 10.6 g/dl (12.0-16.0); Mean Corpuscular Hemoglobin 31.4 pg (27.0-33.0); Mean Corpuscular Volume 97.9 fL (80.0-98.0); Mean Platelet Volume 10.6 fL (9.4-12.3); Platelet Count 259 X10*3/uL (160-400); Red Blood Count 3.38 X10*6/uL (4.20-5.50); Red Cell Distribution Width 14.9 % (11.0-16.0); White Blood Count 17.2 X10*3/uL (4.8-10.8)
[2021-11-14 06:50] LABS: D Dimer High Sensitivity 564 NG/ML
[2021-11-14 06:55] LABS: Alanine Aminotransferase 9 U/L (0-31); Alkaline Phosphatase 114 U/L (39-117); Anion Gap 13 (12-20); Aspartate Amino Transferase 26 U/L (5-31); Bilirubin Total 0.2 mg/dL (0.0-1.0); Blood Urea Nitrogen 11 mg/dL (9-16); Calcium 8.2 mg/dL (8.4-10.2); Carbon Dioxide 26 mmol/L (22-29); Chloride 96 mmol/L (96-108); Creatinine Clr Calc Pharmacy 85.1; Estimated Glomerular Filt Rate > 60; Glucose Random 95 mg/dL (60-115); Potassium 4.4 mmol/L (3.3-5.1); Sodium 131 mmol/L (135-145); Total Protein 4.7 g/dL (6.5-8.0)
--- NOTE | 2021-11-14 11:44 | MHC.CLN ---
F/U NOTED SERUM NA REMAINS UNCHANGED 131 PT CONITNUES WITH TF JEVITY AT MAX GOAL RATE 45ML/HR WITH 30ML PROSOURCE X1 PER DAY AND WATER FLUSHES D/C R/T HYPONATREMIA TF WITH PROSOURCE PROVIDES 1205KCALS (29KCALS/KG BASED ON IBW), 63G PROTEIN (1.5G/KG), 901ML OF FREE WATER FROM FORMULA (22ML/KG BASED ON IBW) MONITOR TOLERANCE, RESIDUALS AND LYTES
--- NOTE | 2021-11-14 12:09 | HO.PM.IMPN ---
Subjective Subjective Date of Service: 11/14/21 Interval History: No tachypnea or respiratory distress No hypoxia Review of Systems Review of Systems: Yes Unobtainable due to mental status Physical Exam Vital Signs: Vital Signs: Last Vital Signs Temp 99.7 F 11/14/21 11:14 Pulse 106 H 11/14/21 11:14 Resp 17 11/14/21 11:14 BP 132/79 11/14/21 11:14 Pulse Ox 93 11/14/21 11:14 Gen: in no acute distress, contracted, nonverbal HEENT: sclera anicteric, moist mucus membranes Neck: supple Lungs: clear to auscultation bilaterally Heart: regular rate and rhythm, no murmurs Abd: soft, non-tender, non-distended, G tube running feeds at goal Ext: no edema Skin: warm/well-perfused Neuro: contracted, nonverbal Psych: impaired insight Objective Data Active Medications Acetaminophen (Acetaminophen Supp 650 Mg Supp.Rect) 650 mg [place] Q4H PRN PRN Reason: Fever Last Admin: 11/08/21 08:59 Dose: 650 mg Documented by: JAKE Carbamazepine (Carbamazepine 200 Mg/10 Ml Oral.Susp) 200 mg NG-TUBE DAILY [facility] Last Admin: 11/13/21 09:03 Dose: 200 mg Documented by: CORIN Carbamazepine (Carbamazepine 200 Mg/10 Ml Oral.Susp) 300 mg NG-TUBE BEDTIME [facility] Last Admin: 11/13/21 20:22 Dose: 300 mg Documented by: HORTENCIA Enoxaparin Sodium (Enoxaparin Sodium 40 Mg/0.4 Ml Syringe) 40 mg SUBCUT Q24H [facility] Last Admin: 11/13/21 20:21 Dose: 40 mg Documented by: HORTENCIA Remdesivir 100 mg/ Sodium (Chloride) 230 mls @ 115 mls/hr IV Q24H [facility] Stop: 11/15/21 13:59 Ondansetron HCl (Ondansetron Hcl 4 Mg/2 Ml Vial) 4 mg IVPUSH Q8H PRN PRN Reason: Nausea and Vomiting Pharmacy Consult (Consult Rx Perform Med Rec) 1 each MISCELLANE ONCE PRN PRN Reason: Consult order Labs CBC & Chem 7: 11/14/21 06:01 11/14/21 06:01 Labs: Laboratory Results - last 24 hr 11/14/21 11/14/21 11/14/21 06:01 06:01 06:01 MCV 97.9 MCH 31.4 MCHC 32.0 RDW 14.9 Plt Count 259 D MPV 10.6 Absolute Nucleated RBC 0.000 Nucleated RBC % (auto) 0.0 D-Dimer High Sensitivty 564 Anion Gap 13 Estim Creat Clear Calc 85.1 Estimated GFR > 60 Random Glucose 95 Calcium 8.2 L Total Bilirubin 0.2 AST 26 ALT 9 Alkaline Phosphatase 114 Total Protein 4.7 L Albumin 2.0 L Assessment and Plan (1) Malnutrition: Status: Acute (2) Leukocytosis: Status: Acute Assessment and Plan: hospital d#24 71yo nonverbal/bedbound F with CP requiring total assistance for ADLs, recent admission for UTI, admitted with lethargy, acute hypoxia due to aspiration pneumonia, hyperNa, severe protein/calorie malnutrition. Initially on WINCHMAN/CRANE OPERATOR status but then after discussion between DDS and pt's HCP, PEG tube was placed. Reference is made to the prior ACP notes. Turned positive for Covid by PCR on screen done for SNF placement. Not hypoxic # Covid-19 infection - risk factor for severe progression = cerebral palsy, malnutrition. on d#2/3 of remdesivir - monitor for hypoxia # severe protein-calorie malnutrition - PEG placed 11/07/21 - Jevity 1.0 at 45 mL/hr, d/c'ed free water flushes due to hypoNa # leukocytosis - chronic, no evidence of active infection, outpt hematology f/u, suspected to have chronic neutrophilic leukocytosis # hypoNa - mild. could be SIADH from carbamazepine. d/c'ed free water flushes. # seizure disorder - carbamazepine # stage 2 pressure ulcers R back and buttocks - wound care # resolved issues: acute hypoxic respiratory failure, aspiration pneumonia # dispo - was to be discharged to [facility] for STR but then turned positive for Covid-19 # VTE ppx - [facility] Quality Stroke Does the patient have a stroke diagnosis?: No VTE Prior VTE?: No VTE Risk Level:: Medical - moderate - high VTE Device Contraindication: Treatment Not Indicated VTE Drug Contraindication: Treatment Not Indicated
--- NOTE | 2021-11-14 12:34 | MHC.CM.PN ---
pt covid positive accepting facility unable to accept pt till after quarintine referal made to additional facilities
[2021-11-14] MEDS: carBAMazepine 200 MG/10 ML ORAL.SUSP NG-TUBE (12:49)
--- NOTE | 2021-11-14 15:42 | MHC.SL.SWA ---
Speech Pathologist Impression: Risk of Aspiration Oralpharyngeal Dysphagia Risk of Aspiration Due to: Lethargy Medically Fragile Neurological Condition History of Pneumonia Poor PO Intake Reduced Cognition Dysphasia Diet Status: No Change Liquid Consistency and Strategies for Safe Swallow: Liquid Intake Recommendation: NPO Liquid Intake Strategies: Solid Food Consistency: Dietary Recommendations: NPO Additional Modifications to Solid Foods: Recommend alternative delivery method of nutrition Oral Medication Intake: NPO Supervision While Eating and Drinking for Safe Swallow: PO with CREASING MACHINE OPERATOR Foods to Avoid: Pt now has permanent alternative feeding method for nutrition. Swallowing Recommended Treatments: Compens. Strategy Educat. Recommendation for Speech: Inpatient Speech Therapy Comment: Continue NPO w/ PO trials w/ CREASING MACHINE OPERATOR or Caregiver only. Frequency/Duration: M-F while inpt Date Range for Service Req: Timeline to reassess: Lumber Handler Clinican/Clinical Fellow: No Supervisory Statement: I have reviewed and agree with the student/clinical fellow's documentation: N/A Speech Language Pathologist: Kari Muniz M.A., CCC-CREASING MACHINE OPERATOR
[2021-11-14] MEDS: Remdesivir 100 MG in 0.9 % Sodium Chloride 230 ML 115 MG IV (15:59)
[2021-11-14] MEDS: Enoxaparin Sodium 40 MG/0.4 ML SYRINGE SUBCUT (19:53)
[2021-11-14] MEDS: carBAMazepine 200 MG/10 ML ORAL.SUSP 300 MG NG-TUBE (19:54)
[2021-11-15 03:29] VITALS: BP 110/69; PULSE 95; RESP 17; TEMP 37.2; O2SAT 98
[2021-11-15 07:29] LABS: Hemoglobin 10.5 g/dl (12.0-16.0); Mean Corpuscular HGB Conc 31.8 g/dl (31.0-35.0); Mean Corpuscular Hemoglobin 31.2 pg (27.0-33.0); Mean Corpuscular Volume 97.9 fL (80.0-98.0); Mean Platelet Volume 10.3 fL (9.4-12.3); Platelet Count 340 X10*3/uL (160-400); Red Blood Count 3.37 X10*6/uL (4.20-5.50); Red Cell Distribution Width 14.7 % (11.0-16.0); White Blood Count 16.2 X10*3/uL (4.8-10.8)
[2021-11-15 07:36] VITALS: BP 130/81; PULSE 97; RESP 18; TEMP 36.9; O2SAT 97
[2021-11-15 08:00] LABS: Alanine Aminotransferase 9 U/L (0-31); Albumin Level 1.9 g/dL (3.5-5.0); Alkaline Phosphatase 108 U/L (39-117); Anion Gap 11 (12-20); Aspartate Amino Transferase 23 U/L (5-31); Bilirubin Total 0.2 mg/dL (0.0-1.0); Blood Urea Nitrogen 9 mg/dL (9-16); C Reactive Protein 4.82 mg/dL (< or = 0.50); Calcium 7.7 mg/dL (8.4-10.2); Carbon Dioxide 27 mmol/L (22-29); Chloride 100 mmol/L (96-108); Creatinine Clr Calc Pharmacy 96.8; Estimated Glomerular Filt Rate > 60; Glucose Random 102 mg/dL (60-115); Potassium 4.1 mmol/L (3.3-5.1); Sodium 134 mmol/L (135-145); Total Protein 4.3 g/dL (6.5-8.0)
[2021-11-15] MEDS: carBAMazepine 200 MG/10 ML ORAL.SUSP NG-TUBE (09:00)
--- NOTE | 2021-11-15 11:09 | P.PNIM_ITS ---
Subjective Subjective Date of Service: 11/15/21 Interval History: No acute overnight issues noted, stable vitals Review of Systems Unobtainable due to mental status Physical Exam Vital Signs: Vital Signs: Last Vital Signs Temp 98.4 F 11/15/21 07:36 Pulse 97 11/15/21 07:36 Resp 18 11/15/21 07:36 BP 130/81 11/15/21 07:36 Pulse Ox 97 11/15/21 07:36 Oxygen Flow Rate 10 10/21/21 06:50 BMI result Body Mass Index 15.6 Gen: no acute distress, nonverbal HEENT: sclera anicteric, moist mucus membranes Neck: supple Lungs: clear to auscultation , no respiratory distress Heart: regular rate and rhythm, no murmurs Abd: soft, non-tender, non-distended, G tube running feeds at goal Ext: no edema Skin: warm/well-perfused Neuro: contracted, nonverbal Psych: impaired insight Objective Data Active Medications Acetaminophen (Acetaminophen Supp 650 Mg Supp.Rect) 650 mg [place] Q4H PRN PRN Reason: Fever Last Admin: 11/08/21 08:59 Dose: 650 mg Documented by: JAKE Carbamazepine (Carbamazepine 200 Mg/10 Ml Oral.Susp) 200 mg NG-TUBE DAILY [facility] Last Admin: 11/15/21 09:00 Dose: 200 mg Documented by: LISETTE Carbamazepine (Carbamazepine 200 Mg/10 Ml Oral.Susp) 300 mg NG-TUBE BEDTIME [facility] Last Admin: 11/14/21 19:54 Dose: 300 mg Documented by: KAUSHIK Enoxaparin Sodium (Enoxaparin Sodium 40 Mg/0.4 Ml Syringe) 40 mg SUBCUT Q24H [facility] Last Admin: 11/14/21 19:53 Dose: 40 mg Documented by: KAUSHIK Remdesivir 100 mg/ Sodium (Chloride) 230 mls @ 115 mls/hr IV Q24H [facility] Stop: 11/15/21 13:59 Last Infusion: 11/14/21 18:05 Dose: 0 mls/hr Documented by: LISETTE Ondansetron HCl (Ondansetron Hcl 4 Mg/2 Ml Vial) 4 mg IVPUSH Q8H PRN PRN Reason: Nausea and Vomiting Pharmacy Consult (Consult Rx Perform Med Rec) 1 each MISCELLANE ONCE PRN PRN Reason: Consult order Labs CBC & Chem 7: 11/15/21 06:28 11/15/21 06:28 Labs: Laboratory Results - last 24 hr 11/15/21 11/15/21 06:28 06:28 MCV 97.9 MCH 31.2 MCHC 31.8 RDW 14.7 Plt Count 340 D MPV 10.3 Absolute Nucleated RBC 0.000 Nucleated RBC % (auto) 0.0 Anion Gap 11 L Estim Creat Clear Calc 96.8 Estimated GFR > 60 Random Glucose 102 Calcium 7.7 L D Total Bilirubin 0.2 AST 23 ALT 9 Alkaline Phosphatase 108 C-Reactive Protein 4.82 H Total Protein 4.3 L Albumin 1.9 L Assessment and Plan (1) S/P percutaneous endoscopic gastrostomy (PEG) tube placement: Status: Acute (2) Malnutrition: Status: Acute Assessment and Plan: hospital d#25 71yo nonverbal/bedbound F with CP requiring total assistance for ADLs, recent admission for UTI, admitted with lethargy, acute hypoxia due to aspiration pneumonia, hyperNa, severe protein/calorie malnutrition.? Initially on BUSINESS PROCESS ARCHITECT status but then after discussion between DDS and pt's HCP, PEG tube was placed.? Reference is made to the prior ACP notes. Turned positive for Covid by PCR on screen done for SNF placement.? Not hypoxic # Covid-19 infection - risk factor for severe progression ,cerebral palsy, malnutrition.? on d#3/3 of remdesivir, no hypoxia finger oximetry 97% on room air, afebrile # severe protein-calorie malnutrition - PEG placed 11/07/21 continue Jevity 1.0 at 45 mL/hr, d/c'ed free water flushes due to hypoNa # leukocytosis - chronic, no evidence of active infection, outpt hematology f/u, suspected to have chronic neutrophilic leukocytosis # hypoNa - mild.? could be SIADH from carbamazepine.? d/c'ed free water flushes. Sodium improved to 134 # seizure disorder - continue carbamazepine # stage 2 pressure ulcers R back and buttocks - wound care # resolved issues: acute hypoxic respiratory failure, aspiration pneumonia # dispo - was to be discharged to [facility] for STR but then turned positive for Cov id-19 # VTE ppx - [facility] Quality Stroke Does the patient have a stroke diagnosis?: No VTE Prior VTE?: No VTE Risk Level:: Medical - moderate - high VTE Device Contraindication: Treatment Not Indicated VTE Drug Contraindication: Treatment Not Indicated
[2021-11-15 11:21] VITALS: BP 131/90; PULSE 99; RESP 20; TEMP 36.5; O2SAT 98
[2021-11-15] MEDS: Remdesivir 100 MG in 0.9 % Sodium Chloride 230 ML 115 MG IV (14:00)
[2021-11-15 15:41] VITALS: BP 132/96; PULSE 99; RESP 18; TEMP 36.6; O2SAT 99
[2021-11-15 19:53] VITALS: BP 149/78; PULSE 91; RESP 17; TEMP 36.6; O2SAT 97
[2021-11-15] MEDS: Enoxaparin Sodium 40 MG/0.4 ML SYRINGE SUBCUT (20:19)
[2021-11-15] MEDS: carBAMazepine 200 MG/10 ML ORAL.SUSP 300 MG NG-TUBE (21:12)
[2021-11-15 23:30] VITALS: BP 113/80; PULSE 106; RESP 16; TEMP 36.4; O2SAT 98
[2021-11-16 03:05] VITALS: BP 90/54; PULSE 93; RESP 16; TEMP 36.2; O2SAT 96
[2021-11-16 08:00] VITALS: BP 125/80; PULSE 96; RESP 16; TEMP 35.6; O2SAT 98
[2021-11-16] MEDS: carBAMazepine 200 MG/10 ML ORAL.SUSP NG-TUBE (10:50)
[2021-11-16 12:00] VITALS: BP 144/83; PULSE 96; RESP 16; TEMP 36.4; O2SAT 98
--- NOTE | 2021-11-16 12:15 | MHC.CM.PN ---
[facility] Patient will dc Covid recovered to [facility]. A broad search for a Covid bed has been exhausted.
--- NOTE | 2021-11-16 12:42 | MHC.CLN ---
F/U SERUM NA IMPROVED TO 134 (11/15/21) NO NEW LABS TODAY PT CONTINUES WITH TF JEVITY AT MAX GOAL RATE 45ML/HR WITH 30ML PROSOURCE X1 PER DAY WITH WATER FLUSHES D/C R/T HYPONATREMIA OT TOLERATING TF WITH LOW RESIDUALS TF WITH PROSOURCE PROVIDES 1205KCALS (29KCALS/KG BASED ON IBW), 63G PROTEIN (1.5G/KG), 901ML OF FREE WATER FROM FORMULA (22ML/KG BASED ON IBW) MONITOR TOLERANCE, RESIDUALS AND LYTES
--- NOTE | 2021-11-16 15:17 | MHC.SLORD ---
Speech Language Pathology Order Status: Patient is on tube feeds. ACQUISITION PROFESSIONAL will continue to follow for dysphagia treatment.
--- NOTE | 2021-11-16 15:22 | P.PNIM_ITS ---
Subjective Subjective Date of Service: 11/16/21 Interval History: Patient nonverbal, no acute overnight issues. Review of Systems Review of Systems: Yes Unobtainable due to mental status Physical Exam Vital Signs: Vital Signs: Last Vital Signs Temp 97.5 F 11/16/21 12:00 Pulse 96 11/16/21 12:00 Resp 16 11/16/21 12:00 BP 144/83 H 11/16/21 12:00 Pulse Ox 98 11/16/21 12:00 Oxygen Flow Rate 10 10/21/21 06:50 BMI result Body Mass Index 15.6 General? no acute distress, nonverbal? 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 CVS? regular rate rhythm, Respiratory lungs clear no respiratory distress Gastrointestinal abdomen soft, nontender , bowel sounds audible, G-tube in place Extremities no edema. Neuro non verbal Psych impaired insight Objective Data Active Medications Acetaminophen (Acetaminophen Supp 650 Mg Supp.Rect) 650 mg [place] Q4H PRN PRN Reason: Fever Last Admin: 11/08/21 08:59 Dose: 650 mg Documented by: JAKE Carbamazepine (Carbamazepine 200 Mg/10 Ml Oral.Susp) 200 mg NG-TUBE DAILY [facility] Last Admin: 11/16/21 10:50 Dose: 200 mg Documented by: JAGJIT Carbamazepine (Carbamazepine 200 Mg/10 Ml Oral.Susp) 300 mg NG-TUBE BEDTIME [facility] Last Admin: 11/15/21 21:12 Dose: 300 mg Documented by: MICHAEL Comments: Enoxaparin Sodium (Enoxaparin Sodium 40 Mg/0.4 Ml Syringe) 40 mg SUBCUT Q24H [facility] Last Admin: 11/15/21 20:19 Dose: 40 mg Documented by: MICHAEL Ondansetron HCl (Ondansetron Hcl 4 Mg/2 Ml Vial) 4 mg IVPUSH Q8H PRN PRN Reason: Nausea and Vomiting Pharmacy Consult (Consult Rx Perform Med Rec) 1 each MISCELLANE ONCE PRN PRN Reason: Consult order Labs CBC & Chem 7: 11/15/21 06:28 11/15/21 06:28 Assessment and Plan (1) S/P percutaneous endoscopic gastrostomy (PEG) tube placement: Status: Acute (2) Malnutrition: Status: Acute (3) Hyponatremia: Status: Acute Assessment and Plan: 71yo nonverbal/bedbound F with CP requiring total assistance for ADLs, recent admission for UTI, admitted with lethargy, acute hypoxia due to aspiration pneumonia, hyperNa, severe protein/calorie malnutrition.? Initially on REPLENISHMENT ASSOCIATE status but then after discussion between DDS and pt's HCP, PEG tube was placed.? Reference is made to the prior ACP notes. Turned positive for Covid by PCR on screen done for SNF placement.? Not hypoxic # Covid-19 infection - risk factor for severe progression ,cerebral palsy, malnutrition.? Finished course of remdesivir, no hypoxia , afebrile # severe protein-calorie malnutrition - PEG placed 11/07/21 continue Jevity 1.0 at 45 mL/hr, d/c'ed free water flushes due to hypoNa # leukocytosis - chronic, no evidence of active infection, outpt hematology f/u, suspected to have chronic neutrophilic leukocytosis # hypoNa - mild.? could be SIADH from carbamazepine.? d/c'ed free water flushes.? Sodium improved to 134 # seizure disorder - continue carbamazepine # stage 2 pressure ulcers R back and buttocks - wound care # resolved issues: acute hypoxic respiratory failure, aspiration pneumonia # dispo - was to be discharged to [facility] for STR but then turned positive for Covid-19 # VTE ppx - [facility] Quality Stroke Does the patient have a stroke diagnosis?: No VTE Prior VTE?: No VTE Risk Level:: Medical - moderate - high VTE Device Contraindication: Treatment Not Indicated VTE Drug Contraindication: Treatment Not Indicated
[2021-11-16 19:45] VITALS: BP 139/58; PULSE 102; RESP 20; TEMP 36; O2SAT 99
[2021-11-16] MEDS: carBAMazepine 200 MG/10 ML ORAL.SUSP 300 MG NG-TUBE (21:31)
[2021-11-16] MEDS: Enoxaparin Sodium 40 MG/0.4 ML SYRINGE SUBCUT (21:31)
[2021-11-16 23:39] VITALS: BP 113/57; PULSE 91; RESP 16; TEMP 36.6; O2SAT 96
[2021-11-17 03:40] VITALS: BP 99/54; PULSE 100; RESP 17; TEMP 36.4; O2SAT 96
[2021-11-17 07:21] VITALS: BP 122/67; PULSE 105; RESP 18; TEMP 36.1; O2SAT 96
[2021-11-17] MEDS: carBAMazepine 200 MG/10 ML ORAL.SUSP NG-TUBE (07:59)
[2021-11-17 11:19] VITALS: BP 149/74; PULSE 105; RESP 20; TEMP 35.9; O2SAT 96
--- NOTE | 2021-11-17 13:19 | P.PNIM_ITS ---
Subjective Subjective Date of Service: 11/17/21 Interval History: No acute events overnight, tolerating G-tube feedings, nonverbal at baseline Review of Systems Review of Systems: Yes Unobtainable due to mental status Physical Exam Vital Signs: Vital Signs: Last Vital Signs Temp 96.7 F L 11/17/21 11:19 Pulse 105 H 11/17/21 11:19 Resp 20 11/17/21 11:19 BP 149/74 H 11/17/21 11:19 Pulse Ox 96 11/17/21 11:19 Oxygen Flow Rate 10 10/21/21 06:50 BMI result Body Mass Index 15.6 General? no acute distress, nonverbal? 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 CVS? regular rate rhythm, Respiratory lungs clear no respiratory distress Gastrointestinal abdomen soft, nontender , bowel sounds audible, G-tube in place Extremities no edema. Neuro non verbal Psych impaired insight Objective Data Active Medications Acetaminophen (Acetaminophen Supp 650 Mg Supp.Rect) 650 mg [place] Q4H PRN PRN Reason: Fever Last Admin: 11/08/21 08:59 Dose: 650 mg Documented by: JAKE Carbamazepine (Carbamazepine 200 Mg/10 Ml Oral.Susp) 200 mg NG-TUBE DAILY [facility] Last Admin: 11/17/21 07:59 Dose: 200 mg Documented by: LIYA Carbamazepine (Carbamazepine 200 Mg/10 Ml Oral.Susp) 300 mg NG-TUBE BEDTIME [facility] Last Admin: 11/16/21 21:31 Dose: 300 mg Documented by: JOSEPH Enoxaparin Sodium (Enoxaparin Sodium 40 Mg/0.4 Ml Syringe) 40 mg SUBCUT Q24H [facility] Last Admin: 11/16/21 21:31 Dose: 40 mg Documented by: JOSEPH Ondansetron HCl (Ondansetron Hcl 4 Mg/2 Ml Vial) 4 mg IVPUSH Q8H PRN PRN Reason: Nausea and Vomiting Pharmacy Consult (Consult Rx Perform Med Rec) 1 each MISCELLANE ONCE PRN PRN Reason: Consult order Labs CBC & Chem 7: 11/15/21 06:28 11/15/21 06:28 Assessment and Plan (1) Hyponatremia: Status: Acute (2) S/P percutaneous endoscopic gastrostomy (PEG) tube placement: Status: Acute (3) Malnutrition: Status: Acute Assessment and Plan: 71yo nonverbal/bedbound F with CP requiring total assistance for ADLs, recent admission for UTI, admitted with lethargy, acute hypoxia due to aspiration pneumonia, hyperNa, severe protein/calorie malnutrition.? Initially on SENIOR CYBER INTELLIGENCE ANALYST status but then after discussion between DDS and pt's HCP, PEG tube was placed.? Reference is made to the prior ACP notes. Turned positive for Covid by PCR on screen done for SNF placement.? Not hypoxic # Covid-19 infection - Finished course of remdesivir, no hypoxia , afebrile # severe protein-calorie malnutrition - PEG placed 11/07/21 continue Jevity 1.0 at 45 mL/hr, d/c'ed free water flushes due to hypoNa # leukocytosis - chronic, no evidence of active infection, outpt hematology f/u, suspected to have chronic neutrophilic leukocytosis # hypoNa - sodium improved to 134,could be SIADH from carbamazepine.? d/c'ed free water flushes.? # seizure disorder - continue carbamazepine # stage 2 pressure ulcers R back and buttocks - wound care # resolved issues: acute hypoxic respiratory failure, aspiration pneumonia # dispo - was to be discharged to [facility] for STR but then turned positive for Covid-19 # VTE ppx - [facility] Quality Stroke Does the patient have a stroke diagnosis?: No VTE Prior VTE?: No VTE Risk Level:: Medical - moderate - high VTE Device Contraindication: Treatment Not Indicated VTE Drug Contraindication: Treatment Not Indicated
[2021-11-17 16:23] VITALS: BP 168/84; PULSE 108; RESP 18; TEMP 36; O2SAT 97
[2021-11-17] MEDS: carBAMazepine 200 MG/10 ML ORAL.SUSP 300 MG NG-TUBE (21:13)
[2021-11-17] MEDS: Enoxaparin Sodium 40 MG/0.4 ML SYRINGE SUBCUT (21:13)
[2021-11-17 23:29] VITALS: BP 100/63; PULSE 100; RESP 17; TEMP 35.7; O2SAT 98
[2021-11-18 03:17] VITALS: BP 108/56; PULSE 106; RESP 18; TEMP 36.4; O2SAT 95
[2021-11-18 07:17] VITALS: BP 123/69; PULSE 102; RESP 20; TEMP 35.9; O2SAT 98
[2021-11-18] MEDS: carBAMazepine 200 MG/10 ML ORAL.SUSP NG-TUBE (10:13)
--- NOTE | 2021-11-18 10:40 | P.PNIM_ITS ---
Subjective Subjective Date of Service: 11/18/21 Interval History: Nonverbal at baseline, No acute issues overnight, tolerating G-tube feedings, noted to have intermittent tachycardia. Review of Systems Review of Systems: Yes Unobtainable due to mental status Physical Exam Vital Signs: Vital Signs: Last Vital Signs Temp 96.7 F L 11/18/21 07:17 Pulse 102 H 11/18/21 07:17 Resp 20 11/18/21 07:17 BP 123/69 11/18/21 07:17 Pulse Ox 98 11/18/21 07:17 Oxygen Flow Rate 10 10/21/21 06:50 BMI result Body Mass Index 15.6 General? no acute distress, nonverba l? 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 CVS? regular rate rhyth m, Respiratory sherri gs clear no respir atory distress Gas trointestinal abdo men soft, nontende r , bowel sounds a udible, G-tube in place Extremities no edema. Neuro no n verbal Psych imp aired insight Objective Data Active Medications Acetaminophen (Acetaminophen Supp 650 Mg Supp.Rect) 650 mg [place] Q4H PRN PRN Reason: Fever Last Admin: 11/08/21 08:59 Dose: 650 mg Documented by: JAKE Carbamazepine (Carbamazepine 200 Mg/10 Ml Oral.Susp) 200 mg NG-TUBE DAILY [facility] Last Admin: 11/18/21 10:13 Dose: 200 mg Documented by: SENIA Carbamazepine (Carbamazepine 200 Mg/10 Ml Oral.Susp) 300 mg NG-TUBE BEDTIME [facility] Last Admin: 11/17/21 21:13 Dose: 300 mg Documented by: IAN Enoxaparin Sodium (Enoxaparin Sodium 40 Mg/0.4 Ml Syringe) 40 mg SUBCUT Q24H [facility] Last Admin: 11/17/21 21:13 Dose: 40 mg Documented by: IAN Ondansetron HCl (Ondansetron Hcl 4 Mg/2 Ml Vial) 4 mg IVPUSH Q8H PRN PRN Reason: Nausea and Vomiting Pharmacy Consult (Consult Rx Perform Med Rec) 1 each MISCELLANE ONCE PRN PRN Reason: Consult order Labs CBC & Chem 7: 11/15/21 06:28 11/15/21 06:28 Assessment and Plan (1) Hyponatremia: Status: Acute (2) S/P percutaneous endoscopic gastrostomy (PEG) tube placement: Status: Acute (3) Malnutrition: Status: Acute (4) COVID-19 virus infection: Status: Acute (5) Leukocytosis: Status: Acute Assessment and Plan: 71yo nonverbal/bedbound F with CP requiring total assistance for ADLs, recent admission for UTI, admitted with lethargy, acute hypoxia due to aspiration pneumonia, hyperNa, severe protein/calorie malnutrition.? 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 Reference is made to the prior ACP notes. Turned positive for Covid by PCR on screen done for SNF placement.? Not hypoxic # Covid-19 infection -? diagnosed on November 13, Finished course of remdesivir x 3 dose, no hypoxia , afebrile # severe protein-calorie malnutrition - PEG placed 11/07/21 continue Jevity 1.0 at 45 mL/hr, not on free water flushes due to hypoNa # leukocytosis - chronic, no evidence of active infection, outpt hematology f/u, suspected to have chronic neutrophilic leukocytosis # hypoNa - sodium improved to 134,could be SIADH from carbamazepine.? last lab draws 11/15 will repeat BMP at a.m. # seizure disorder - continue carbamazepine # stage 2 pressure ulcers R back and buttocks - wound care # resolved issues: acute hypoxic respiratory failure, aspiration pneumonia # dispo - was to be discharged to [facility] for STR but then turned positive for Covid-19, will rediscuss with professor of social work regarding placement # VTE ppx - [facility] Quality Stroke Does the patient have a stroke diagnosis?: No VTE Prior VTE?: No VTE Risk Level:: Medical - moderate - high VTE Device Contraindication: Treatment Not Indicated VTE Drug Contraindication: Treatment Not Indicated
[2021-11-18 11:49] VITALS: BP 134/66; PULSE 102; RESP 18; TEMP 35.9; O2SAT 97
[2021-11-18 15:22] VITALS: BP 120/66; PULSE 105; RESP 18; TEMP 36.1; O2SAT 97
[2021-11-18 19:25] VITALS: BP 143/85; PULSE 109; RESP 18; TEMP 36.1; O2SAT 96
[2021-11-18] MEDS: carBAMazepine 200 MG/10 ML ORAL.SUSP 300 MG NG-TUBE (20:12)
[2021-11-18] MEDS: Enoxaparin Sodium 40 MG/0.4 ML SYRINGE SUBCUT (20:17)
[2021-11-18 23:13] VITALS: BP 142/67; PULSE 107; RESP 19; TEMP 36.2; O2SAT 96
[2021-11-19 03:32] VITALS: BP 133/60; PULSE 103; RESP 17; TEMP 36.2; O2SAT 97
[2021-11-19 07:32] LABS: Anion Gap 14 (12-20); Blood Urea Nitrogen 13 mg/dL (9-16); Calcium 8.2 mg/dL (8.4-10.2); Carbon Dioxide 26 mmol/L (22-29); Chloride 103 mmol/L (96-108); Creatinine Clr Calc Pharmacy 85.1; Estimated Glomerular Filt Rate > 60; Glucose Random 116 mg/dL (60-115); Potassium 4.6 mmol/L (3.3-5.1); Sodium 138 mmol/L (135-145)
[2021-11-19 07:43] VITALS: BP 133/75; PULSE 104; RESP 18; TEMP 35.9; O2SAT 97
[2021-11-19] MEDS: carBAMazepine 200 MG/10 ML ORAL.SUSP NG-TUBE (09:15)
[2021-11-19 11:08] VITALS: BP 120/73; PULSE 100; RESP 18; TEMP 36.1; O2SAT 97
--- NOTE | 2021-11-19 12:02 | HO.PM.IMPN ---
Subjective Subjective Date of Service: 11/19/21 Interval History: No new events. Review of Systems Review of Systems: Yes Unobtainable due to mental status Physical Exam Vital Signs: Vital Signs: Last Vital Signs Temp 97 F 11/19/21 11:08 Pulse 100 11/19/21 11:08 Resp 18 11/19/21 11:08 BP 120/73 11/19/21 11:08 Pulse Ox 97 11/19/21 11:08 Oxygen Flow Rate 10 10/21/21 06:50 BMI result Body Mass Index 15.6 General? no acute distress, nonverba l? 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 CVS? regular rate rhyth m, Respiratory sherri gs clear no respir atory distress Gas trointestinal abdo men soft, nontende r , bowel sounds a udible, G-tube in place Extremities no edema. Neuro no n verbal, contract ed Psych impaired insight Objective Data Active Medications Acetaminophen (Acetaminophen Supp 650 Mg Supp.Rect) 650 mg [place] Q4H PRN PRN Reason: Fever Last Admin: 11/08/21 08:59 Dose: 650 mg Documented by: JAKE Carbamazepine (Carbamazepine 200 Mg/10 Ml Oral.Susp) 200 mg NG-TUBE DAILY [facility] Last Admin: 11/19/21 09:15 Dose: 200 mg Documented by: OSORIO Carbamazepine (Carbamazepine 200 Mg/10 Ml Oral.Susp) 300 mg NG-TUBE BEDTIME [facility] Last Admin: 11/18/21 20:12 Dose: 300 mg Documented by: MICHAEL Enoxaparin Sodium (Enoxaparin Sodium 40 Mg/0.4 Ml Syringe) 40 mg SUBCUT Q24H [facility] Last Admin: 11/18/21 20:17 Dose: 40 mg Documented by: MICHAEL Ondansetron HCl (Ondansetron Hcl 4 Mg/2 Ml Vial) 4 mg IVPUSH Q8H PRN PRN Reason: Nausea and Vomiting Pharmacy Consult (Consult Rx Perform Med Rec) 1 each MISCELLANE ONCE PRN PRN Reason: Consult order Labs CBC & Chem 7: 11/15/21 06:28 11/19/21 06:55 Labs: Laboratory Results - last 24 hr 11/19/21 06:55 Anion Gap 14 Estim Creat Clear Calc 85.1 Estimated GFR > 60 Random Glucose 116 H Calcium 8.2 L D Assessment and Plan (1) Hyponatremia: Status: Acute (2) S/P percutaneous endoscopic gastrostomy (PEG) tube placement: Status: Acute (3) Malnutrition: Status: Acute (4) COVID-19 virus infection: Status: Acute (5) Leukocytosis: Status: Acute Assessment and Plan: hospital d#30 71yo nonverbal/bedbound F with CP requiring total assistance for ADLs, recent admission for UTI, admitted with lethargy, acute hypoxia due to aspiration pneumonia, hyperNa, severe protein/calorie malnutrition.? 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 Reference is made to the prior ACP notes. Turned positive for Covid-19 by PCR on screen done for SNF placement.? Not hypoxic. # Covid-19 infection -? diagnosed on November 13. fiinished course of remdesivir x 3 doses. no hypoxia and afebrile # severe protein-calorie malnutrition - PEG placed 11/07/21 continue Jevity 1.0 at 45 mL/hr, not on free water flushes due to hypoNa # leukocytosis - chronic, no evidence of active infection, outpt hematology f/u, suspected to have chronic neutrophilic leukocytosis # hypoNa - resolved. could have been SIADH from carbamazepine. # seizure disorder - continue carbamazepine # stage 2 pressure ulcers R back and buttocks - wound care # resolved issues: acute hypoxic respiratory failure, aspiration pneumonia # dispo - was to be discharged to [facility] for STR but then turned positive for Covid-19. They won't take her until 11/22 at the earliest. # VTE ppx - [facility] Quality Stroke Does the patient have a stroke diagnosis?: No VTE Prior VTE?: No VTE Risk Level:: Medical - moderate - high VTE Device Contraindication: Treatment Not Indicated VTE Drug Contraindication: Treatment Not Indicated
--- NOTE | 2021-11-19 14:03 | MHC.CLN ---
F/U SERUM SODIUM 11/19 WITHIN NORMAL LIMITS PT CONTINUES WITH TF JEVITY AT MAX GOAL RATE 45 ML/HR WITH 30ML PROSOURCE X1 PER DAY. NO WATER FLUSHES DUE TO HX HYPONATREMIA. TOLERATING CURRENT TUBE FEEDING AT MAX GOAL RTE. TF WITH PROSOURCE PROVIDES 1205 KCALS (29 KCALS/KG BASED ON IBW), 63 G PROTEIN (1.5G/KG), 901 ML OF FREE WATER FROM FORMULA (22ML/KG BASED ON IBW) MONITOR TOLERANCE, RESIDUALS AND LYTES
[2021-11-19 15:04] VITALS: BP 120/77; PULSE 111; RESP 18; TEMP 36.1; O2SAT 96
[2021-11-19 19:02] VITALS: BP 149/98; PULSE 111; RESP 19; TEMP 36.1; O2SAT 99
[2021-11-19] MEDS: carBAMazepine 200 MG/10 ML ORAL.SUSP 300 MG NG-TUBE (21:52)
[2021-11-19] MEDS: Enoxaparin Sodium 40 MG/0.4 ML SYRINGE SUBCUT (21:52)
[2021-11-19 23:40] VITALS: BP 114/58; PULSE 107; RESP 16; TEMP 35.9; O2SAT 96
[2021-11-20 04:12] VITALS: BP 131/68; PULSE 103; RESP 14; TEMP 36.2; O2SAT 96
[2021-11-20 07:47] VITALS: BP 126/67; PULSE 104; RESP 19; TEMP 36.8; O2SAT 96
[2021-11-20] MEDS: carBAMazepine 200 MG/10 ML ORAL.SUSP NG-TUBE (08:47)
[2021-11-20 12:00] VITALS: BP 139/54; PULSE 77; RESP 18; TEMP 36.4; O2SAT 97
--- NOTE | 2021-11-20 13:10 | P.PNIM_ITS ---
Subjective Subjective Date of Service: 11/20/21 Interval History: no new events tolerating tube feeds Review of Systems Review of Systems: Yes Unobtainable due to mental status Physical Exam Vital Signs: Vital Signs: Last Vital Signs Temp 97.6 F 11/20/21 12:00 Pulse 77 11/20/21 12:00 Resp 18 11/20/21 12:00 BP 139/54 L 11/20/21 12:00 Pulse Ox 97 11/20/21 12:00 Oxygen Flow Rate 10 10/21/21 06:50 BMI result Body Mass Index 15.6 General? no acute distress, nonverbal? 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 CVS? regular rate rhythm, Respiratory lungs clear no respiratory distress Gastrointestinal abdomen soft, nontender , bowel sounds audible, G-tube in place Extremities no edema. Neuro non verbal, contracted Psych impaired insight Objective Data Active Medications Acetaminophen (Acetaminophen Supp 650 Mg Supp.Rect) 650 mg [place] Q4H PRN PRN Reason: Fever Last Admin: 11/08/21 08:59 Dose: 650 mg Documented by: JAKE Carbamazepine (Carbamazepine 200 Mg/10 Ml Oral.Susp) 200 mg NG-TUBE DAILY [facility] Last Admin: 11/20/21 08:47 Dose: 200 mg Documented by: OSORIO Carbamazepine (Carbamazepine 200 Mg/10 Ml Oral.Susp) 300 mg NG-TUBE BEDTIME [facility] Last Admin: 11/19/21 21:52 Dose: 300 mg Documented by: JOE Enoxaparin Sodium (Enoxaparin Sodium 40 Mg/0.4 Ml Syringe) 40 mg SUBCUT Q24H [facility] Last Admin: 11/19/21 21:52 Dose: 40 mg Documented by: JOE Ondansetron HCl (Ondansetron Hcl 4 Mg/2 Ml Vial) 4 mg IVPUSH Q8H PRN PRN Reason: Nausea and Vomiting Pharmacy Consult (Consult Rx Perform Med Rec) 1 each MISCELLANE ONCE PRN PRN Reason: Consult order Labs CBC & Chem 7: 11/15/21 06:28 11/19/21 06:55 Assessment and Plan (1) Hyponatremia: Status: Acute (2) S/P percutaneous endoscopic gastrostomy (PEG) tube placement: Status: Acute (3) Malnutrition: Status: Acute (4) COVID-19 virus infection: Status: Acute (5) Leukocytosis: Status: Acute Assessment and Plan: hospital d#31 71yo nonverbal/bedbound F with CP requiring total assistance for ADLs, recent admission for UTI, admitted with lethargy, acute hypoxia due to aspiration pne umonia, hyperNa, severe protein/calorie malnutrition.? Initially on WORK ORDER DETAILER status but then after discussion between DDS and pt's HCP, PEG tube was placed.? Reference is made to the prior ACP notes. Turned positive for Covid-19 by PCR on screen done for SNF placement.? Not hypoxic. # Covid-19 infection -? diagnosed on November 13. fiinished course of remdesivir x 3 doses. no hypoxia and afebrile # severe protein-calorie malnutrition - PEG placed 11/07/21 continue Jevity 1.0 at 45 mL/hr, not on free water flushes due to hypoNa # leukocytosis - chronic, no evidence of active infection, outpt hematology f/u, suspected to have chronic neutrophilic leukocytosis # hypoNa - resolved. could have been SIADH from carbamazepine. # seizure disorder - continue carbamazepine # stage 2 pressure ulcers R back and buttocks - wound care # resolved issues: acute hypoxic respiratory failure, aspiration pneumonia # dispo - was to be discharged to [facility] for STR but then turned positive for Covid-19. They won't take her until 11/22 at the earliest. # VTE ppx - LMWH Quality Stroke Does the patient have a stroke diagnosis?: No VTE Prior VTE?: No VTE Risk Level:: Medical - moderate - high VTE Device Contraindication: Treatment Not Indicated VTE Drug Contraindication: Treatment Not Indicated
[2021-11-20 15:07] VITALS: BP 121/76; PULSE 105; RESP 18; TEMP 36.2; O2SAT 96
[2021-11-20 19:54] VITALS: BP 94/60; PULSE 115; RESP 19; TEMP 36.2; O2SAT 97
[2021-11-20] MEDS: carBAMazepine 200 MG/10 ML ORAL.SUSP 300 MG NG-TUBE (21:14)
[2021-11-20] MEDS: Enoxaparin Sodium 40 MG/0.4 ML SYRINGE SUBCUT (21:14)
[2021-11-20 23:17] VITALS: BP 106/59; PULSE 108; RESP 17; TEMP 36.5; O2SAT 90
[2021-11-21 03:02] VITALS: BP 114/72; PULSE 106; RESP 18; TEMP 36.3; O2SAT 98
[2021-11-21 08:00] VITALS: BP 140/91; PULSE 108; RESP 20; TEMP 36.9; O2SAT 98
[2021-11-21 11:36] VITALS: BP 112/68; PULSE 106; RESP 16; TEMP 36.8; O2SAT 97
--- NOTE | 2021-11-21 12:32 | MHC.CLN ---
F/U SERUM NA WNL (11/19/21) NO NEW LABS TODAY PT CONTINUES WITH TF JEVITY AT MAX GOAL RATE 45ML/HR WITH 30ML PROSOURCE X1 PER DAY PROVIDES 1205KCALS (29KCALS/KG BASED ON IBW), 63G PROTEIN (1.5G/KG) FOR WOUNDS, 901ML OF FREE WATER FROM FORMULA (22ML/KG BASED ON IBW) MONITOR TOLERANCE, RESIDUALS AND LYTES EXPECTED D/C NOTED FOR 11/22 TO KERI FOLLOWING
[2021-11-21] MEDS: carBAMazepine 200 MG/10 ML ORAL.SUSP NG-TUBE (13:47)
--- NOTE | 2021-11-21 14:15 | HO.PM.IMPN ---
Subjective Subjective Date of Service: 11/21/21 Interval History: No new events Awaiting placement Review of Systems Review of Systems: Yes Unobtainable due to mental status Physical Exam Vital Signs: Vital Signs: Last Vital Signs Temp 98.3 F 11/21/21 11:36 Pulse 106 H 11/21/21 11:36 Resp 16 11/21/21 11:36 BP 112/68 11/21/21 11:36 Pulse Ox 97 11/21/21 11:36 Oxygen Flow Rate 10 10/21/21 06:50 BMI result Body Mass Index 15.6 General? no acute distress, nonverbal? 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 CVS? regular rate rhythm, Respiratory lungs clear no respiratory distress Gastrointestinal abdomen soft, nontender , bowel sounds audible, G-tube in place Extremities no edema. Neuro non verbal, contracted Psych impaired insight Objective Data Active Medications Acetaminophen (Acetaminophen Supp 650 Mg Supp.Rect) 650 mg [place] Q4H PRN PRN Reason: Fever Last Admin: 11/08/21 08:59 Dose: 650 mg Documented by: JAKE Carbamazepine (Carbamazepine 200 Mg/10 Ml Oral.Susp) 200 mg NG-TUBE DAILY [facility] Last Admin: 11/21/21 13:47 Dose: 200 mg Documented by: SURESH Carbamazepine (Carbamazepine 200 Mg/10 Ml Oral.Susp) 300 mg NG-TUBE BEDTIME [facility] Last Admin: 11/20/21 21:14 Dose: 300 mg Documented by: ELENA Enoxaparin Sodium (Enoxaparin Sodium 40 Mg/0.4 Ml Syringe) 40 mg SUBCUT Q24H [facility] Last Admin: 11/20/21 21:14 Dose: 40 mg Documented by: ELENA Ondansetron HCl (Ondansetron Hcl 4 Mg/2 Ml Vial) 4 mg IVPUSH Q8H PRN PRN Reason: Nausea and Vomiting Pharmacy Consult (Consult Rx Perform Med Rec) 1 each MISCELLANE ONCE PRN PRN Reason: Consult order Labs CBC & Chem 7: 11/15/21 06:28 11/19/21 06:55 Assessment and Plan (1) Hyponatremia: Status: Acute (2) S/P percutaneous endoscopic gastrostomy (PEG) tube placement: Status: Acute (3) Malnutrition: Status: Acute (4) COVID-19 virus infection: Status: Acute (5) Leukocytosis: Status: Acute Assessment and Plan: hospital d#32 71yo nonverbal/bedbound F with CP requiring total assistance for ADLs, recent admission for UTI, admitted with lethargy, acute hypoxia due to aspiration pneumonia, hyperNa, severe protein/calorie malnutrition.? 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 Reference is made to the prior ACP notes. Turned positive for Covid-19 by PCR on screen done for SNF placement but was never hypoxic. # Covid-19 infection -? diagnosed on November 13. finished course of remdesivir x 3 doses. no hypoxia and afebrile # severe protein-calorie malnutrition - PEG placed 11/07/21; continue Jevity 1.0 at 45 mL/hr, not on free water flushes due to hypoNa # leukocytosis - chronic, no evidence of active infection, outpt hematology f/u, suspected to have chronic neutrophilic leukocytosis # hypoNa - resolved. could have been SIADH from carbamazepine. # seizure disorder - continue carbamazepine for now, recheck BMP tomorrow # stage 2 pressure ulcers R back and buttocks - wound care # resolved issues: acute hypoxic respiratory failure, aspiration pneumonia # dispo - was to be discharged to [facility] for STR but then turned positive for Covid-19. They won't take her until 11/23 at the earliest. # VTE ppx - LMWH Quality Stroke Does the patient have a stroke diagnosis?: No VTE Prior VTE?: No VTE Risk Level:: Medical - moderate - high VTE Device Contraindication: Treatment Not Indicated VTE Drug Contraindication: Treatment Not Indicated
--- NOTE | 2021-11-21 14:24 | MHC.CM.PN ---
This insurance writer spoke w/ Donny from [facility] @ ([phone]). Made him aware that [facility] may not be able to accept admissions over the weekend. Of the 10 additional referrals for STR no other facilities could accept. Discussed if [facility] had alternate dispo plan for patient.They were working on a respite bed but did not have anything secured as of recent. Our team will continue to move forward as though [facility] will have bed Friday. [facility] agreed to expand bed search if [facility] closes for admissions. CM will continue to follow.
[2021-11-21 15:19] VITALS: BP 101/67; PULSE 107; RESP 19; TEMP 37.1; O2SAT 95
--- NOTE | 2021-11-21 15:30 | MHC.SLORD ---
Speech Language Pathology Order Status: STILL OPERATOR BATCH OR CONTINUOUS attempted to see patient for dysphagia treatment, refusing oral care. Patient in retracted position, falling asleep. Will f/u with patient tomorrow.
[2021-11-21 19:39] VITALS: BP 118/68; PULSE 118; RESP 18; TEMP 37.1; O2SAT 96
[2021-11-21] MEDS: Enoxaparin Sodium 40 MG/0.4 ML SYRINGE SUBCUT (22:15)
[2021-11-21] MEDS: carBAMazepine 200 MG/10 ML ORAL.SUSP 300 MG NG-TUBE (22:16)
[2021-11-21 23:40] VITALS: BP 108/61; PULSE 105; RESP 17; TEMP 36.9; O2SAT 96
[2021-11-22 04:00] VITALS: BP 122/63; PULSE 109; RESP 17; TEMP 37.3; O2SAT 97
[2021-11-22 06:46] LABS: Anion Gap 12 (12-20); Blood Urea Nitrogen 15 mg/dL (9-16); Calcium 8.2 mg/dL (8.4-10.2); Carbon Dioxide 28 mmol/L (22-29); Chloride 103 mmol/L (96-108); Creatinine Clr Calc Pharmacy 82.6; Estimated Glomerular Filt Rate > 60; Glucose Random 110 mg/dL (60-115); Potassium 4.5 mmol/L (3.3-5.1); Sodium 138 mmol/L (135-145)
[2021-11-22 08:00] VITALS: BP 129/107; PULSE 107; RESP 12; TEMP 36.2; O2SAT 90
[2021-11-22] MEDS: carBAMazepine 200 MG/10 ML ORAL.SUSP NG-TUBE (10:38)
[2021-11-22 11:27] VITALS: BP 152/79; PULSE 93; RESP 12; TEMP 36.6; O2SAT 95
--- NOTE | 2021-11-22 13:47 | P.PNIM_ITS ---
Subjective Subjective Date of Service: 11/22/21 Interval History: No acute issues overnight. Review of Systems Review of Systems: Yes Unobtainable due to mental status Physical Exam Vital Signs: Vital Signs: Last Vital Signs Temp 97.8 F 11/22/21 11:27 Pulse 93 11/22/21 11:27 Resp 12 11/22/21 11:27 BP 152/79 H 11/22/21 11:27 Pulse Ox 95 11/22/21 11:27 Oxygen Flow Rate 10 10/21/21 06:50 BMI result Body Mass Index 15.6 General? no acute distress, nonverba l? 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 CVS? regular rate rhyth m, Respiratory sherri gs clear no respir atory distress Gas trointestinal abdo men soft, nontende r , bowel sounds a udible, G-tube in place Extremities no edema. Neuro no n verbal, contract ed Psych impaired insight Objective Data Active Medications Acetaminophen (Acetaminophen Supp 650 Mg Supp.Rect) 650 mg [place] Q4H PRN PRN Reason: Fever Last Admin: 11/08/21 08:59 Dose: 650 mg Documented by: JAKE Carbamazepine (Carbamazepine 200 Mg/10 Ml Oral.Susp) 200 mg NG-TUBE DAILY [facility] Last Admin: 11/22/21 10:38 Dose: 200 mg Documented by: MOHIT Carbamazepine (Carbamazepine 200 Mg/10 Ml Oral.Susp) 300 mg NG-TUBE BEDTIME [facility] Last Admin: 11/21/21 22:16 Dose: 300 mg Documented by: JAYY Enoxaparin Sodium (Enoxaparin Sodium 40 Mg/0.4 Ml Syringe) 40 mg SUBCUT Q24H [facility] Last Admin: 11/21/21 22:15 Dose: 40 mg Documented by: JAYY Ondansetron HCl (Ondansetron Hcl 4 Mg/2 Ml Vial) 4 mg IVPUSH Q8H PRN PRN Reason: Nausea and Vomiting Pharmacy Consult (Consult Rx Perform Med Rec) 1 each MISCELLANE ONCE PRN PRN Reason: Consult order Labs CBC & Chem 7: 11/15/21 06:28 11/22/21 05:55 Labs: Laboratory Results - last 24 hr 11/22/21 05:55 Anion Gap 12 Estim Creat Clear Calc 82.6 Estimated GFR > 60 Random Glucose 110 Calcium 8.2 L Assessment and Plan (1) COVID-19 virus infection: Status: Acute (2) Hyponatremia: Status: Acute (3) S/P percutaneous endoscopic gastrostomy (PEG) tube placement: Status: Acute (4) Malnutrition: Status: Acute Assessment and Plan: 71yo nonverbal/bedbound F with CP requiring total assistance for ADLs, recent admission for UTI, admitted with lethargy, acute hypoxia due to aspiration pneumonia, hyperNa, severe protein/calorie malnutrition.? Initially on SENIOR EDUCATION SPECIALIST st atus but then after discussion between [facility] and pt's HCP, PEG tube was placed.? Reference is made to the prior ACP notes. Turned positive for Covid-19 by PCR on screen done for SNF placement but was ne erasmo hypoxic. # Covid-19 infection -? diagnosed on November 13.? finished course of remdesivir x 3 doses.? 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 # seizure disorder - continue carbamazepine for now, recheck BMP tomorrow # stage 2 pressure ulcers R back and buttocks - wound care # resolved issues: acute hypoxic respiratory failure, aspiration pneumonia # dispo - was to be discharged to [facility] for STR but then turned positive for Covid-19.? They won't take her until 11/23 at the earliest. # VTE ppx - LMWH Quality Stroke Does the patient have a stroke diagnosis?: No VTE Prior VTE?: No VTE Risk Level:: Medical - moderate - high VTE Device Contraindication: Treatment Not Indicated VTE Drug Contraindication: Treatment Not Indicated
[2021-11-22 14:23] LABS: C Reactive Protein 7.79 mg/dL (< or = 0.50)
[2021-11-22 15:50] VITALS: BP 160/62; PULSE 88; RESP 20; TEMP 36.2; O2SAT 93
[2021-11-22 19:20] VITALS: BP 142/83; PULSE 105; RESP 17; TEMP 36.3; O2SAT 98
[2021-11-22] MEDS: carBAMazepine 200 MG/10 ML ORAL.SUSP 300 MG NG-TUBE (22:20)
[2021-11-22] MEDS: Enoxaparin Sodium 40 MG/0.4 ML SYRINGE SUBCUT (22:21)
[2021-11-23] VITALS (7 sets, daily range): BP systolic 110–135; BP diastolic 63–81; PULSE 102–147; RESP 18–20; TEMP 36.4–37.4; O2SAT 95–99
[2021-11-23] MEDS: carBAMazepine 200 MG/10 ML ORAL.SUSP NG-TUBE (10:48)
--- NOTE | 2021-11-23 11:34 | MHC.CM.PN ---
The addendum to the Guardianship for right to admit to a SNF is completed. [facility] will have a bed for Patient on 11/24/21 and [facility] has agreed to send extra gt formula to the SNF at mi.BRAYDEN has informed AUDREY Dumont/Donny @ [phone], of the mi plan and he was very pleased.BRAYDEN will follow.
--- NOTE | 2021-11-23 12:55 | PC.NURSE ---
Skin/Wound assessment completed today. patient has a stage 2 to right back, dry with some granulation and yellow, Triad applied covered with foam. Stage 2 to buttocks, almost healed Triad applied left open to air. Rash in michael area and inner thighs-Triad applied. Urine leaking from around rivera catheter insertion- an incontinent wrap placed to absorb fluid. Small Stage 2 pressure ulcer to lateral right foot- Woundres gel applied covered with foam dressing. No other skin issues noted at this time.
--- NOTE | 2021-11-23 13:26 | MHC.CLN ---
F/U SERUM NA WNL (11/22/21) PT CONTINUES WITH TF JEVITY AT MAX GOAL RATE 45ML/HR WITH 30ML PROSOURCE X1 PER DAY PROVIDES 1205KCALS (29KCALS/KG BASED ON IBW), 63G PROTEIN (1.5G/KG) FOR WOUNDS, 901ML OF FREE WATER FROM FORMULA (22ML/KG BASED ON IBW) MONITOR TOLERANCE, RESIDUALS AND LYTES PT MAY NEED FREE WATER FLUSHES UPON DISCHARGE WITH CLOSE MONITORING OF SERUM NA FOLLOWING
--- NOTE | 2021-11-23 15:08 | HO.PM.IMPN ---
Subjective Subjective Date of Service: 11/23/21 Interval History: No acute events overnight Review of Systems Review of Systems: Yes Unobtainable due to mental status Physical Exam Vital Signs: Vital Signs: Last Vital Signs Temp 97.5 F 11/23/21 12:00 Pulse 105 H 11/23/21 12:00 Resp 20 11/23/21 12:00 BP 129/71 11/23/21 12:00 Pulse Ox 98 11/23/21 12:00 Oxygen Flow Rate 10 10/21/21 06:50 BMI result Body Mass Index 15.6 General? no acutedistress, nonverbal? 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 CVS?regular rate rhythm, Respiratory lungs clear no respiratory distress Gastrointestinal abdomen soft, nontender , bowel sounds audible, G-tube inplace Extremitiesno edema. Neuro non verbal, contracted Psych impaired insight Objective Data Active Medications Acetaminophen (Acetaminophen Supp 650 Mg Supp.Rect) 650 mg AK Q4H PRN PRN Reason: Fever Last Admin: 11/08/21 08:59 Dose: 650 mg Documented by: JAKE Carbamazepine (Carbamazepine 200 Mg/10 Ml Oral.Susp) 200 mg NG-TUBE DAILY [facility] Last Admin: 11/23/21 10:48 Dose: 200 mg Documented by: LINDA Carbamazepine (Carbamazepine 200 Mg/10 Ml Oral.Susp) 300 mg NG-TUBE BEDTIME [facility] Last Admin: 11/22/21 22:20 Dose: 300 mg Documented by: JUAN Enoxaparin Sodium (Enoxaparin Sodium 40 Mg/0.4 Ml Syringe) 40 mg SUBCUT Q24H [facility] Last Admin: 11/22/21 22:21 Dose: 40 mg Documented by: JUAN Ondansetron HCl (Ondansetron Hcl 4 Mg/2 Ml Vial) 4 mg IVPUSH Q8H PRN PRN Reason: Nausea and Vomiting Pharmacy Consult (Consult Rx Perform Med Rec) 1 each MISCELLANE ONCE PRN PRN Reason: Consult order Labs CBC & Chem 7: 11/15/21 06:28 11/22/21 05:55 Assessment and Plan (1) COVID-19 virus infection: Status: Acute (2) Hyponatremia: Status: Acute (3) S/P percutaneous endoscopic gastrostomy (PEG) tube placement: Status: Acute (4) Malnutrition: Status: Acute Assessment and Plan: 71yo nonverbal/bedbound F with CP requiring total assistance for ADLs, recent admission for UTI, admitted with lethargy, acute hypoxia due to aspiration pneumonia, hyperNa, severe protein/calorie malnutrition.? Initially on SYSTEMS TEST ANALYST status but then after discussion between DDS and pt's HCP, PEG tube was placed.? Reference is made to the prior ACP notes. Turned positive for Covid-19 by PCR on screen done for SNF placement but was never hypoxic. # Covid-19 infection -? diagnosed on November 13.? finished course of remdesivir x 3 doses.? 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 # seizure disorder - continue carbamazepine for now, recheck BMP tomorrow # stage 2 pressure ulcers R back and buttocks - wound care # resolved issues: acute hypoxic respiratory failure, aspiration pneumonia # dispo - was to be discharged to [facility] for STR but then turned positive for Covid-19.? They won't take her until 11/23 at the earliest. # VTE ppx - LMWH Quality Stroke Does the patient have a stroke diagnosis?: No VTE Prior VTE?: No VTE Risk Level:: Medical - moderate - high VTE Device Contraindication: Treatment Not Indicated VTE Drug Contraindication: Treatment Not Indicated
[2021-11-23] MEDS: Enoxaparin Sodium 40 MG/0.4 ML SYRINGE SUBCUT (20:05)
[2021-11-23] MEDS: carBAMazepine 200 MG/10 ML ORAL.SUSP 300 MG NG-TUBE (20:05)
[2021-11-24 03:25] VITALS: BP 113/60; PULSE 98; RESP 18; TEMP 37.2; O2SAT 97
[2021-11-24 07:30] VITALS: BP 126/82; PULSE 104; RESP 20; TEMP 37; O2SAT 98
[2021-11-24] MEDS: carBAMazepine 200 MG/10 ML ORAL.SUSP NG-TUBE (09:39)
[2021-11-24 11:28] VITALS: BP 140/81; PULSE 112; RESP 18; TEMP 36.6; O2SAT 99
[2021-11-24 11:56] LABS: Influenza A PCR NEGATIVE (Negative); Influenza B PCR NEGATIVE (Negative); Resp Syncy Virus RNA Qual PCR NEGATIVE (Negative); SARS COV2 PCR INHOUSE POSITIVE (Negative)
--- NOTE | 2021-11-24 11:57 | MHC.CM.PN ---
Addendum entered by Sheryl Mendoza 11/24/21 13:45: TRANSPORTATION SCHEDULED FOR 1600 HOURS [facility]IA [facility] PT WILL BE GOING TO [facility] Addendum entered by Sheryl Mendoza 11/24/21 13:34: PTS PCR COVID TEST CAME BACK POSITIVE HOWEVER SINCE PT IS ASYMPTOMATIC AND INITIALLY TESTED POSITIVE ON 11/13, THE SNF WILL STILL ACCEPT HER TODAY. A VM MESSAGE WAS LEFT FOR PTS BROTHER/GUARDIAN, JOVANAN INFORMING HIM OF DC AND REMINDING HIM OF PTS MEDICARE RIGHTS Original Note: PT TO DC TO [facility] TODAY VIA BLS PENDING NEGATIVE PCR COVID TEST. DDS RESEARCH GEOLOGIST NOTIFIED YESTERDAY PER CM NOTES.
--- NOTE | 2021-11-24 13:28 | P.DS_ITS ---
DS: Providers Provider Date of Service: 11/24/21 Date of admission: 10/21/21 14:53 Date of discharge: 11/24/21 Primary care physician: Richard Holt MD Consults: 10/23/21 18:49 Consult to Nephrology Routine Consulting Provider: Luther Lowe Reason for consultation: hypernatremia Has provider been notified: No 10/31/21 10:28 Consult to General Surgery Routine Consulting Provider: Damian Castro Reason for consultation: PEG tube placement Has provider been notified: No 11/01/21 14:23 Consult to Hematology / Oncology Routine Consulting Provider: Joselin Love Reason for consultation: persistant leukocytosis Has provider been notified: No DS: Diagnosis Discharge Diagnosis (1) COVID-19 virus infection: Status: Acute (2) Hyponatremia: Status: Acute (3) S/P percutaneous endoscopic gastrostomy (PEG) tube placement: Status: Acute (4) Severe protein-calorie malnutrition: Status: Acute (5) Leukocytosis: Status: Acute (6) Hypernatremia: Status: Acute (7) Aspiration pneumonia: Status: Acute (8) Acute respiratory failure with hypoxia: Status: Acute (9) Severe sepsis: Status: Acute DS: Summary Hospital Course Hospital Course: from admission H+P by hospitalist SCOOTER Mistry, 10/21/21: this is a 71 year old female with history of cerebal palsy who was brought to the ED today due to increasing lethargy. The history was obtained from her caregiver at the bedside as the patient is non-verbal at baseline. She was recently admitted to the hospital for UTI. After returning home she was initially doing ok, but seems to? have declined over the past couple of days.? She does not seem to have been eating as much as usual. ? Today she was lethargic and unable to eat. Her caregiver noticed she was not acting like herself. She was brought into the emergency department and was unresponsive on arrival. She was hyperthermic with? temperature of 106.6 degrees, tachycardic with heart rate in the 160s and tachypneic with respiratory rate of 26.? She was also hypoxic with an oxygen saturation of 80% on room air, she was placed on a Venti mask with improvement in her oxygen saturation. ? Lab work revealed multiple abnormalities including leukocytosis of 34.8,sodium 154, chloride 124, bicarb 19, lactic acid elevated at 2.8. Troponin was elevated at 120.4. Initially she was treated for hyperthermia with cold packs and cool wash clothes and her fever began to improve. She received empiric antibiotics as well as fluid bolus. 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 This 71yo nonverbal/bedbound F with CP requiring total assistance for ADLs and with history of recent admission for UTI was admitted with lethargy and acute hypoxia due to aspiration pneumonia; also with hypernatremia and severe prote in/calorie malnutrition.? She was initially placed on SECURITY ALARM INSTALLER status but then after further rounds of discussion between DDS and the patient's healthcare proxy [her brother], a PEG tube was placed on 11/07/21? Reference is made to the ACP notes in the EHR for further details. She was started on tube feeds and advanced to goal of Jevity 1.0 at 45 mL/hr. Free water flushes were discontinued when she developed hyponatremia, which then resolved. She was found to have chronic leukocytosis despite full treatment for the pneumonia and is suspected to have chronic neutrophilic leukocytosis; she will follow up with Hematology as an outpatient. Hypoxia resolved and she was weaned to room air. She was incidentally found to have a calcifying left breast mass, for which she will undergo outpatient mammography. Her hospitalization was complciated by Covid-19 infection, diagnosed on routine screening on11/13/21. She was given treatment with remdesivir for 3 days. She never developed hypoxia, fever, or any respiratory symptoms. She was discharged to [facility] for short-term rehabilitation with anticipated length of stay of less than 30 days. Status at Discharge Functional status at discharge: bed bound Overall status at discharge: patient is back to baseline Time Spent with Patient Time attestation: Total time spent providing and/or coordinating discharge services: 40 Discharge coordination time: Greater than 30 minutes Quality: Stroke Does the patient have a stroke diagnosis?: No Physical Exam Vital Signs: Vital Signs: Last Vital Signs Temp 98 F 11/24/21 11:28 Pulse 112 H 11/24/21 11:28 Resp 18 11/24/21 11:28 BP 140/81 H 11/24/21 11:28 Pulse Ox 99 11/24/21 11:28 Oxygen Flow Rate 10 10/21/21 06:50 BMI result Body Mass Index 15.6 General-? no acute distress, nonverbal? 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 CVS-?regular rate rhythm, Respiratory- lungs clear no respiratory distress Gastrointestina-l abdomen soft, nontender , bowel sounds audible, G-tube in place Extremities-no edema. Neuro- non verbal, contracted Psych- impaired insight DS: Data Data Completed and Pending Completed studies during hospitalization [Text1]: Laboratory Results WBC 16.2 X10*3/uL (4.8-10.8) H 11/15/21 06:28 RBC 3.37 X10*6/uL (4.20-5.50) L 11/15/21 06:28 Hgb 10.5 g/dl (12.0-16.0) L 11/15/21 06:28 Hct 33.0 % (37.0-47.0) L 11/15/21 06:28 MCV 97.9 fL (80.0-98.0) 11/15/21 06:28 MCH 31.2 pg (27.0-33.0) 11/15/21 06:28 MCHC 31.8 g/dl (31.0-35.0) 11/15/21 06:28 RDW 14.7 % (11.0-16.0) 11/15/21 06:28 Plt Count 340 X10*3/uL (160-400) D 11/15/21 06:28 MPV 10.3 fL (9.4-12.3) 11/15/21 06:28 Immature Gran % (Auto) 0.9 % (0.0-0.4) H 11/12/21 06:46 Neut % (Auto) 86.1 % (45-73) H 11/12/21 06:46 Lymph % (Auto) 6.7 % (20-40) L 11/12/21 06:46 Kane % (Auto) 3.3 % (2-11) 11/12/21 06:46 Eos % (Auto) 2.8 % (0-4) 11/12/21 06:46 Baso % (Auto) 0.2 % (0-2) 11/12/21 06:46 Lymph # (Auto) 1.3 X10*3/uL (1.2-4.9) 11/12/21 06:46 Kane # (Auto) 0.6 X10*3/uL (0.1-1.2) 11/12/21 06:46 Eos # (Auto) 0.5 X10*3/uL (0.0-0.4) H 11/12/21 06:46 Baso # (Auto) 0.0 X10*3/uL (0.0-0.2) 11/12/21 06:46 Abs Immat Gran (auto) 0.16 X10*3/uL (0.00-0.03) H 11/12/21 06:46 Absolute Neuts (auto) 16.0 x10*3/uL (2.0-8.3) H 11/12/21 06:46 Absolute Nucleated RBC 0.000 X10*3/uL (0.0-0.012) 11/15/21 06:28 Nucleated RBC % (auto) 0.0 /100WBC (0.0-0.2) 11/15/21 06:28 Neutrophils % (Manual) 88 % (45-73) H 11/01/21 07:47 Band Neutrophils % 4 % (3-5) 11/01/21 07:47 Lymphocytes % (Manual) 5 % (20-40) L 11/01/21 07:47 Monocytes % (Manual) 2 % (2-11) 11/01/21 07:47 Eosinophils % (Manual) 1 % (0-4) 11/01/21 07:47 Abs Neuts (Manual) 23.2 X10*3/uL (2.0-8.3) H 11/01/21 07:47 Lymphocytes # (Manual) 1.3 X10*3/uL (1.2-4.9) 11/01/21 07:47 Monocytes # (Manual) 0.5 X10*3/uL (0.1-1.2) 11/01/21 07:47 Eosinophils # (Manual) 0.3 X10*3/uL (0.0-0.4) 11/01/21 07:47 Platelet Estimate NORMAL (NORMAL) 11/01/21 07:47 Plt Morphology Comment NORMAL 11/01/21 07:47 RBC Morphology NORMAL 11/01/21 07:47 Smear Tech's Comments VERIFIED 11/01/21 07:47 PT Cancelled 10/21/21 08:42 INR Cancelled 10/21/21 08:42 APTT Cancelled 10/21/21 08:42 D-Dimer High Sensitivty 564 NG/ML 11/14/21 06:01 Sodium 138 mmol/L (135-145) 11/22/21 05:55 Potassium 4.5 mmol/L (3.3-5.1) 11/22/21 05:55 Chloride 103 mmol/L (96-108) 11/22/21 05:55 Carbon Dioxide 28 mmol/L (22-29) 11/22/21 05:55 Anion Gap 12 (-20) 11/22/21 05:55 BUN 15 mg/dL (9-16) 11/22/21 05:55 Creatinine 0.34 mg/dL (0.5-1.4) L 11/22/21 05:55 Estim Creat Clear Calc 82.6 11/22/21 05:55 Estimated GFR > 60 11/22/21 05:55 POC Glucose 178 mg/dL (60-115) H 10/21/21 06:44 Random Glucose 110 mg/dL (60-115) 11/22/21 05:55 Fasting Glucose 109 mg/dL (60-99) H 11/12/21 06:46 Lactic Acid 2.0 mmol/L (0.5-2.0) 10/23/21 16:35 Calcium 8.2 mg/dL (8.4-10.2) L 11/22/21 05:55 Ferritin 318 ng/mL (10-250) H 11/13/21 05:15 Total Bilirubin 0.2 mg/dL (0.0-1.0) 11/15/21 06:28 Direct Bilirubin < 0.2 mg/dL (0.0-0.5) 10/21/21 08:41 AST 23 U/L (5-31) 11/15/21 06:28 ALT 9 U/L (0-31) 11/15/21 06:28 Alkaline Phosphatase 108 U/L (39-117) 11/15/21 06:28 Lactate Dehydrogenase 425 U/L (122-220) H 11/13/21 05:15 Total Creatine Kinase 12 U/L (26-140) L 11/13/21 05:15 Troponin I High Sens 120.4 ng/L (<3.5-17.0) H* 10/21/21 08:42 C-Reactive Protein 7.79 mg/dL (< or = 0.50) H 11/22/21 05:55 B-Natriuretic Peptide 66 pg/mL (<100) 10/21/21 08:42 Total Protein 4.3 g/dL (6.5-8.0) L 11/15/21 06:28 Albumin 1.9 g/dL (3.5-5.0) L 11/15/21 06:28 Lipase 8 U/L (8-78) 10/21/21 08:41 Procalcitonin 0.17 ng/mL 11/13/21 05:15 Urine Color YELLOW 11/04/21 16:33 Urine Appearance HAZY 11/04/21 16:33 Urine pH 5.5 (5.0-8.0) 11/04/21 16:33 Ur Specific Alton 1.025 (1.005-1.025) 11/04/21 16:33 Urine Protein 1+ MG/DL (NEG-TRACE) H 11/04/21 16:33 Urine Glucose (UA) NEG MG/DL (NEG) 11/04/21 16:33 Urine Ketones NEG MG/DL (NEG) 11/04/21 16:33 Urine Blood 1+ (NEG) H 11/04/21 16:33 Urine Nitrite NEG (NEG) 11/04/21 16:33 Ur Leukocyte Esterase TRACE (NEG) H 11/04/21 16:33 Urine RBC 5-9 /HPF (0) H 11/04/21 16:33 Urine WBC 1-4 /HPF (0-4) 11/04/21 16:33 Ur Squamous Epith Cells TRACE /LPF 11/04/21 16:33 Calcium Oxalate Crystal 1+ /LPF 11/04/21 16:33 Urine Bacteria TRACE /LPF 11/04/21 16:33 Urine Mucus 1+ /LPF 10/21/21 09:14 Vancomycin Trough 20.2 mcg/mL (10.0-20.0) H 10/25/21 22:27 Respiratory Panel Birch See Note 10/25/21 10:00 Adenovirus (Rapid PCR) Not Detected (Not Detect.) 10/25/21 10:00 B.pert (TEM-PCR) Not Detected (Not Detect.) 10/25/21 10:00 B.parapertussis DNA PCR Not Detected (Not Detect.) 10/25/21 10:00 C. pneumoniae DNA (PCR) Not Detected (Not Detect.) 10/25/21 10:00 C. difficile Tox B Gene NEGATIVE (Negative) 11/04/21 13:00 Coronavirus OC43 (PCR) Not Detected (Not Detect.) 10/25/21 10:00 Coronavirus HKU1 (PCR) Not Detected (Not Detect.) 10/25/21 10:00 Coronavirus 229E (PCR) Not Detected (Not Detect.) 10/25/21 10:00 Coronavirus NL63 (PCR) Not Detected (Not Detect.) 10/25/21 10:00 Human Metapneumovir PCR Not Detected (Not Detect.) 10/25/21 10:00 Influenza A (RT-PCR) Not Detected (Not Detect.) 10/25/21 10:00 Influenza Type A (PCR) NEGATIVE (Negative) 11/24/21 11:05 Influenza B (RT-PCR) Not Detected (Not Detect.) 10/25/21 10:00 Influenza Type B (PCR) NEGATIVE (Negative) 11/24/21 11:05 Ur L.pneumophila Ag Not Detected (Not Detected) 10/25/21 10:00 M. pneumoniae (PCR) Not Detected (Not Detect.) 10/25/21 10:00 Parainfluenza 1 (PCR) Not Detected (Not Detect.) 10/25/21 10:00 Parainfluenza 2 (PCR) Not Detected (Not Detect.) 10/25/21 10:00 Parainfluenza 3 (PCR) Not Detected (Not Detect.) 10/25/21 10:00 Parainfluenza 4 (PCR) Not Detected (Not Detect.) 10/25/21 10:00 RSV (PCR) Not Detected (Not Detect.) 10/25/21 10:00 RSV RNA Qual (PCR) NEGATIVE (Negative) 11/24/21 11:05 Entero/Rhino (PCR) Not Detected (Not Detect.) 10/25/21 10:00 SARS-CoV-2 RNA (RT-PCR) POSITIVE (Negative) A 11/24/21 11:[address] 10/24/21 11:27 IMPRESSION: Findings of atypical infection including Covid 19 as above. Coarsely calcifying left breast mass which warrants correlation with breast imaging electively. Fleischner guidelines were followed. Chest X-Ray 11/13/21 11:55 IMPRESSION: Minimal left midlung atelectasis, likely secondary to the patient's positioning. No overt infiltrate. Labs on day of discharge: Laboratory Results - last 24 hr 11/24/21 11:05 Influenza Type A (PCR) NEGATIVE Influenza Type B (PCR) NEGATIVE RSV RNA Qual (PCR) NEGATIVE SARS-CoV-2 RNA (RT-PCR) POSITIVE A Discharge Plan Discharge Patient Disposition: [facility] Discharge Diagnosis: severe protein/calorie malnutrition, Covid-19 infection, leukocytosis, seizure disorder, stage 2 pressure ulcers, hyponatremia, incidental left breast mass Referrals: Joselin Love MD [Physician] - 1 Month Richard Holt MD [Primary Care Provider] - 1 Week Discharge Medications: New acetaminophen 650 mg Suppository 650 mg MA Q4H PRN (Reason: Fever) Qty: 1 RF: 0 carbamazepine 200 mg/10 mL Suspension 200 mg NG-TUBE DAILY Qty: 1 RF: 0 carbamazepine 200 mg/10 mL Suspension 300 mg NG-TUBE BEDTIME Qty: 1 RF: 0 Continued multivitamin [Daily-Samara] Tablet 1 tab PO DAILY RF: 0 Discontinued acetic acid 2 % solution 3 drp otic (ears) DAILY RF: 0 carbamazepine 200 mg tablet 200 mg PO DAILY RF: 0 ascorbic acid (vitamin C) 250 mg tablet 250 mg PO DAILY RF: 0 docusate sodium 100 mg capsule 100 mg PO BID RF: 0 lorazepam 1 mg tablet 1 tab PO BEDTIME RF: 0 neomycin-polymyxin B-dexameth 3.5 mg/g-10,000 unit/g-0.1 % ointment 1 appl ophthalmic-Left DAILY RF: 0 cholecalciferol (vitamin D3) 25 mcg (1,000 unit) capsule 25 mcg PO DAILY RF: 0 calcium citrate 250 mg calcium tablet 250 mg PO BEDTIME RF: 0 terbinafine HCl [Athlete's Foot (terbinafine)] 1 % cream 1 appl topical BID RF: 0 carbamazepine 200 mg tablet 300 mg PO BEDTIME RF: 0 metronidazole 0.75 % Cream 1 appl TOPICAL BID RF: 0 ketoconazole 2 % Cream 1 appl TOPICAL BID RF: 0 Metamucil [facility] Fiber 3.4 gram/5.8 gram Powder 3.4 g PO BID RF: 0 acetaminophen 160 mg/5 mL Liquid 320 mg PO Q4H PRN (Reason: FEVER > 101.1) RF: 0 triamcinolone acetonide 0.1 % Cream 1 appl TOPICAL BID RF: 0 Discharge Orders: Discharge Order (Routine); Ordered 11/24/21 Ordered By: Alta Brown Diet: other Activity on Discharge: As tolerated Stand Alone Forms: Patient Portal Discharge page Other Ambulatory Orders: Basic Metabolic Panel (Routine) Timeframe: 2 Weeks Facility: [facility] - Location: Laboratory Ordered By: Alta Brown Complete Blood Count Auto Diff (Routine) Timeframe: 2 Weeks Facility: [facility] - Location: Laboratory Ordered By: Alta Brown MM screening mammo BI (Routine) Timeframe: 2 Weeks Facility: [facility] - Location: Mammography Ordered By: Alta Brown Care Plan Goals: nutrition Health Concerns: severe protein/calorie malnutrition, Covid-19 infection, leukocytosis, seizure disorder, stage 2 pressure ulcers, hyponatremia, incidental left breast mass Plan of Treatment: Jevity 1.0 at 45 mL/hr, not on free water flushes due to hypoNa repeat labs [CBCd, BMP] in 2 weeks follow up with Hematology in 1 month wound care outpatient mammography Assessment: see Discharge Summary
--- NOTE | 2021-11-24 15:36 | P.PNIM_ITS ---
Subjective Subjective Date of Service: 11/24/21 Interval History: Was to be discharged today, but no ambulance available, so discharge delayed til tomorrow No new events Review of Systems Review of Systems: Yes Unobtainable due to mental status Physical Exam Vital Signs: Vital Signs: Vital signs Temp ? 98 F? 11/24/21 11:28 Pulse? 112 H ? 11/24/21 11:28 Resp ? 18? 11/24/21 11:28 BP ? 140/81 H? 11/24/21 11:28 Pulse Ox ? 99? 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 Neuro- non verbal, contracted Psych- impaired insight Objective Data Active Medications Acetaminophen (Acetaminophen Supp 650 Mg Supp.Rect) 650 mg AR Q4H PRN PRN Reason: Fever Last Admin: 11/08/21 08:59 Dose: 650 mg Documented by: JAKE Carbamazepine (Carbamazepine 200 Mg/10 Ml Oral.Susp) 200 mg NG-TUBE DAILY [facility] Last Admin: 11/25/21 10:12 Dose: 200 mg Documented by: NEGRITO Carbamazepine (Carbamazepine 200 Mg/10 Ml Oral.Susp) 300 mg NG-TUBE BEDTIME [facility] Last Admin: 11/24/21 20:35 Dose: 300 mg Documented by: KAUSHIK Enoxaparin Sodium (Enoxaparin Sodium 40 Mg/0.4 Ml Syringe) 40 mg SUBCUT Q24H [facility] Last Admin: 11/24/21 20:35 Dose: 40 mg Documented by: KAUSHIK Ondansetron HCl (Ondansetron Hcl 4 Mg/2 Ml Vial) 4 mg IVPUSH Q8H PRN PRN Reason: Nausea and Vomiting Pharmacy Consult (Consult Rx Perform Med Rec) 1 each MISCELLANE ONCE PRN PRN Reason: Consult order Labs CBC & Chem 7: 11/15/21 06:28 11/22/21 05:55 Labs: Laboratory Results - last 24 hr 11/24/21 11:05 Influenza Type A (PCR) NEGATIVE Influenza Type B (PCR) NEGATIVE RSV RNA Qual (PCR) NEGATIVE SARS-CoV-2 RNA (RT-PCR) POSITIVE A Assessment and Plan (1) COVID-19 virus infection: Status: Acute (2) Hyponatremia: Status: Acute (3) S/P percutaneous endoscopic gastrostomy (PEG) tube placement: Status: Acute (4) Malnutrition: Status: Acute Assessment and Plan: hospital d#[id number] 71yo nonverbal/bedbound F with CP requiring total assistance for ADLs, recent admission for UTI, admitted with lethargy, acute hypoxia due to aspiration pneumonia, hyperNa, severe protein/calorie malnutrition.? Initially on GRAIN TRIMMER status but then after discussion between DDS and pt's HCP, PEG tube was placed.? Reference is made to the prior ACP notes. Turned positive for Covid-19 by PCR on screen done for SNF placement but was never hypoxic. # Covid-19 infection -? diagnosed on November 13.? finished course of remdesivir x 3 doses given high risk of severe disease.? 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 # seizure disorder - continue carbamazepine for now, recheck BMP tomorrow # stage 2 pressure ulcers R back and buttocks - wound care # resolved issues: acute hypoxic respiratory failure, aspiration pneumonia # dispo - was to be discharged to [facility] for [facility] but then turned positive for Covid-19.? They won't take her until 11/23 at the earliest. # VTE ppx - LMWH Quality Stroke Does the patient have a stroke diagnosis?: No VTE Prior VTE?: No VTE Risk Level:: Medical - moderate - high VTE Device Contraindication: Treatment Not Indicated VTE Drug Contraindication: Treatment Not Indicated
[2021-11-24 19:58] VITALS: BP 93/75; PULSE 114; RESP 18; TEMP 36.2; O2SAT 99
[2021-11-24] MEDS: Enoxaparin Sodium 40 MG/0.4 ML SYRINGE SUBCUT (20:35)
[2021-11-24] MEDS: carBAMazepine 200 MG/10 ML ORAL.SUSP 300 MG NG-TUBE (20:35)
[2021-11-24 22:52] VITALS: BP 145/69; PULSE 114; RESP 18; TEMP 36.7; O2SAT 97
[2021-11-25 02:50] VITALS: BP 110/52; PULSE 115; RESP 18; TEMP 35.6; O2SAT 96
[2021-11-25 08:00] VITALS: BP 122/68; PULSE 95; RESP 19; TEMP 36.8; O2SAT 99
--- NOTE | 2021-11-25 09:00 | MHC.CM.PN ---
PT WAS SUPPOSED TO DC ON 11/24/21 AT 1600 HOURS, HOWEVER BLS TRANSPORT WAS RUNNING LATE. CM INFORMED THE NURSE FROM [facility] CALLED AT 1945 HOURS SAYING IT WAS TOO LATE TO ACCEPT THE ADMISSION. CM CONTACTED PTS NURSE THIS MORNING TO DETERMINE HOW SOON SHE WOULD BE READY TO LEAVE. CM CONTACTED THE SNF AND [facility] TO DETERMINE IF 1000 TRANSPORT WOULD WORK FOR THEM.
[2021-11-25] MEDS: carBAMazepine 200 MG/10 ML ORAL.SUSP NG-TUBE (10:12)
[2021-11-25 11:23] VITALS: BP 111/75; PULSE 78; RESP 17; TEMP 36.4; O2SAT 99
== END 2021-11-25 11:42 | disposition skilled nursing facility (03) | DRG 871 ==
LOC: HO.ED 10:44 → HO.EDOVER 15:12 → HO.S3 10-22 08:43 → HO.EDOVER 10-22 09:52 → HO.S3 10-23 19:51 → HO.IMC 11-13 16:35
PROVIDERS: Family Medicine; Hospitalist; Internal Medicine; Nurse Practitioner Acute Care; Surgery; Admitting Provider Physician Assistant Medical; Emergency Provider Emergency Medicine; PCP Family Medicine; Visit Provider Family Medicine
PROC: 0DH63UZ Insertion of Feeding Device into Stomach, Percutaneous Approach (ICD-10-PCS; CPT 43246; principal; 2021-11-07 12:00)
DX: A41.9 Sepsis, unspecified organism (principal); E43 Unspecified severe protein-calorie malnutrition; J96.01 Acute respiratory failure with hypoxia; U07.1 COVID-19; J69.0 Pneumonitis due to inhalation of food and vomit; E22.2 Syndrome of inappropriate secretion of antidiuretic hormone; E87.2 Acidosis; Z68.1 Body mass index [BMI] 19.9 or less, adult; N39.0 Urinary tract infection, site not specified; R65.20 Severe sepsis without septic shock; G80.8 Other cerebral palsy; G40.909 Epilepsy, unspecified, not intractable, without status epilepticus; L89.322 Pressure ulcer of left buttock, stage 2; L89.312 Pressure ulcer of right buttock, stage 2; L89.112 Pressure ulcer of right upper back, stage 2; N63.20 Unspecified lump in the left breast, unspecified quadrant; D64.9 Anemia, unspecified; E86.0 Dehydration; Z74.01 Bed confinement status; Z87.440 Personal history of urinary (tract) infections; Z79.899 Other long term (current) drug therapy; Z51.5 Encounter for palliative care; Z66 Do not resuscitate
CPT/HCPCS: 0241U; 36410; 36415; 71045; 71250; 71260; 74177; 80048; 80053; 80076; 80202; 81001; 82550; 82565; 82728; 82947; 83605; 83615; 83690; 83735; 83880; 84145; 84484; 85007; 85025; 85027; 85379; 85610; 85730; 86140; 87040; 87086; 87088; 87186; 87449; 87493; 87633; 92507; 92610; 93005; 96361; 96365; 96367; 96374; 96375; 99285; 99497; 99498; C1758; J0248; J0690; J0696; J1650; J1953; J1956; J2060; J2270; J2543; J3370; Q9967

== ENCOUNTER 2021-11-27 13:26 | Inpatient (IN) | payer MEDICARE, MEDICAID, SELFPAY ==
[2021-11-27] VITALS (7 sets, daily range): BP systolic 103–134; BP diastolic 66–87; PULSE 113–135; RESP 18–24; TEMP 36.8–38.6; O2SAT 93–96; BMI 15.6
--- NOTE | ~2021-11-27 | XR_ITS ---
EXAMINATION: XR CHEST CLINICAL INFORMATION: Possible AMS. COMPARISON: Chest 11/13/2021 TECHNIQUE: Frontal view of the chest was obtained. FINDINGS: The lungs are hypoexpanded with platelike atelectasis in the lingula. Heart size and pulmonary vascularity is normal. There is there is significant dextrorotoscoliosis of dorsolumbar spine. XR/XR chest 1V IMPRESSION: Hypoexpanded lungs secondary to significant dextroscoliosis. There is lingular atelectasis.
--- NOTE | ~2021-11-27 | CT_ITS ---
EXAMINATION: CT CHEST, ABDOMEN AND PELVIS WITH CONTRAST. CLINICAL INFORMATION: Sepsis with unknown origin . COMPARISON: Chest x-ray earlier today a 10/24/2021 CT scan. TECHNIQUE: Multidetector volumetric imaging was performed from the thoracic inlet through the pubic symphysis following administration of 85 mL Omnipaque 300 intravenous contrast. Sagittal and coronal reformatted images were obtained on the technologist's workstation. This CT examination was performed using dose optimization techniques as appropriate, variously including the following: *Automated exposure control *Adjustment of mA and/or kV according to patient size (this includes techniques or standardized protocols for targeted exams where dose is matched to indication/reason for exam; i.e. extremities or head) *Use of iterative reconstruction technique DLP: 668 mGy-cm FINDINGS: CHEST: Lung: Patchy areas of consolidation seen in the lateral aspect of the lung velasco. This has evolved from the more diffuse groundglass attenuation seen on the prior study likely representing sequela of resolving COVID pneumonia. I do not appreciate any definitive acute superimposed airspace disease otherwise. Central airways are grossly unremarkable. Although not tailored to evaluate the pulmonary arteries, subtle filling defect seen within the segmental right upper lobe pulmonary artery branch with possible subsegmental filling defects within the right lower lobe pulmonary artery branch concerning for pulmonary emboli. Mediastinum: Vascular calcification within the aorta. No bulky hilar or mediastinal adenopathy. Visualized thyroid gland unremarkable. Pericardium/Pleura: No significant effusion. No pleural mass or thickening. Chest Wall/Axilla: A complex partially calcified and partially cystic mass of the left breast not well-defined on the scan and could be defined with nonemergent breast imaging as noted on the prior study. ABDOMEN/PELVIS: Peritoneal Space:No significant free air or free fluid identified. Liver, Gallbladder, Biliary Tree: The liver is normal in size, shape, and attenuation. No focal hepatic lesion or biliary ductal dilatation is present. The gallbladder is unremarkable with no evidence of radiopaque gallstones, gallbladder wall thickening, or obvious pericholecystic inflammatory changes. Pancreas: Unremarkable. Spleen: Unremarkable. Adrenal Glands: Unremarkable. Kidneys and Ureters: The kidneys are normal in size, shape, and attenuation. No no obvious renal calculi. No perinephric stranding. This fullness to both collecting systems and visualized proximal ureters extending into the pelvis where there is a very large complex pelvic mass described below Bladder: Decompressed with Amezcua catheter Gastrointestinal Tract: Few scattered colonic diverticula are seen. I do not appreciate any obstructive changes in the bowel. The tip the appendix is difficult to separate from the large pelvic mass. Visualized small bowel is grossly unremarkable. Gastric tube within the stomach. Abdominal Wall: No significant hernia is appreciated. Lymphovascular Structures: Unfortunately there is filling defects seen within the inferior vena cava as well as the left common iliac vein.. The left external iliac vein is compressed and narrowed by the large pelvic mass Pelvic Viscera: Markedly abnormal appearance to an enlarged pelvic mass likely arising from the uterus. This appears to extend from the mid fundal portion the uterus which is otherwise difficult to define. Grossly the cervix is unremarkable with small amount of fluid seen in the vaginal fornix. This extends for length of 14.8 cm in size up to the level of the umbilicus. On the axial images this measures up to 15 x 12.4 cm in size. Both gonadal veins are seen draining this large pelvic mass and I'm unable to appreciate a separate adnexal structures. Osseus Structures: Multilevel degenerative changes in the spine with a marked convex right scoliotic curve of the thoracolumbar spine. No definitive acute bony abnormality. CT/CT abdomen pelvis w con IMPRESSION: Large mass lesion in the pelvis likely arising from the uterus with heterogeneous degrees of enhancement likely representing a uterine carcinoma or uterine sarcoma based on the large size. This is unable to be from the adjacent adnexa but uterine primary origin would be strongly suspected with this appearance. Unfortunately there is mass effect on adjacent pelvic structures and thrombus is seen within the left common iliac vein and inferior vena cava. Although not performed as a CT pulmonary embolism study, there is a subtle filling defect within the segmental right upper lobe pulmonary artery branch consistent with pulmonary emboli. I cannot exclude right distal subsegmental lower lobe pulmonary emboli either but the examination is not tailored to evaluate this. VTE: Positive This critical result was discussed with Denise Whitehead NP at 11/27/2021 6:59 PM and it was ascertained that the content and urgency of the report was understood at the time of direct communication.
--- NOTE | 2021-11-27 13:45 | ED_ITS ---
HPI - General Adult General Chief complaint: Fever <SCOOTER Jefferson - Last Filed: 11/27/21 17:55> Stated complaint: COVID SYMPTOMS <SCOOTER Jefferson - Last Filed: 11/27/21 17:55> Time Seen by Provider: 11/27/21 13:45 <SCOOTER Jefferson - Last Filed: 11/27/21 17:55> Source: patient and EMS <SCOOTER Jefferson - Last Filed: 11/27/21 17:55> Mode of arrival: EMS <SCOOTER Jefferson - Last Filed: 11/27/21 17:55> Limitations: physical limitation (Patient is nonverbal) <SCOOTER Jefferson - Last Filed: 11/27/21 17:55> History of Present Illness HPI narrative: Patient is a 71 year old female presenting to the emergency department today, via EMS, with tachycardia and a fever. EMS states that they were contacted to bring the patient to the emergency department, for tachycardia and fever, additionally the facility the patient was picked up from states that he did not have proper consent to treat the patient. EMS states the patient has cerebral palsy, and is nonverbal. EMS states the patient was COVID positive as of November 24, 2021. Patient's paperwork states that the patient was admitted here previously, and the brother was contacted for all decisions. Patient's brother is currently admitted at [facility], for his own medical ailments. Case management here in the emergency department was working with Case Management at [facility], to make sure all consents were signed by the patient's brother, for the longterm before the patient was placed there, after discharge from this facility however, the consents were not received by the longterm before the longterm sent the patient here. <SCOOTER Jefferson - Last Filed: 11/27/21 17:55> Onset (ago): day(s) <SCOOTER Jefferson - Last Filed: 11/27/21 17:55> Related Data Home medications: Home Medications Medication Instructions Recorded Confirmed acetaminophen 650 mg rectal 650 mg NC Q4H PRN 11/27/21 11/27/21 suppository bisacodyl 10 mg rectal 10 mg NC DAILY PRN 11/27/21 11/27/21 suppository (Dulcolax (bisacodyl)) multivit and minerals-ferrous 15 ml FEEDING TUBE DAILY 11/27/21 11/27/21 gluconate 9 mg iron/15 mL oral liquid Previous Rx's Medication Instructions Recorded carbamazepine 200 mg/10 mL oral 200 mg (10 mL) NG-TUBE DAILY #1 ml 11/24/21 suspension carbamazepine 200 mg/10 mL oral 300 mg (15 mL) NG-TUBE BEDTIME #1 11/24/21 suspension ml <SCOOTER Jefferson - Last Filed: 11/27/21 17:55> Allergies/adverse reactions: Allergies Allergy/AdvReac Type Severity Reaction Status Date / Time No Known Allergies Allergy Verified 10/09/21 21:22 <SCOOTER Jefferson - Last Filed: 11/27/21 17:55> Review of Systems Verdana 4l Review of Systems: Yes Unobtainable due to mental Verdana 4d condition Verdana 4Il <SCOOTER Jefferson - Last Filed: 11/27/21 17:55> Verdana 4d Verdana 4l Constitutional: Verdana 4d Constitutional: Verdana 4d Verdana 4d Reports fever(s) Verdana 4Il <SCOOTER Jefferson - Last Filed: 11/27/21 17:55> Verdana 4d PMF Past Medical History Source: old records reviewed <SCOOTER Jefferson - Last Filed: 11/27/21 17:55> Medical History: Medical History Cerebral palsy COVID-19 Pneumonitis Quadriplegia Seizure disorder Urinary tract infection <SCOOTER Jefferson - Last Filed: 11/27/21 17:55> Social History Social History: Social History Household Members: None Housing: [facility] Do you presently have visiting nurse or other home services: No Patient Tobacco Use Status: Never used Tobacco Use of substances other than those prescribed or required for medical reasons: No Advance Directives: No Advance Directives Information Provided: No Do you have thoughts of harming others: None Do you have a plan to hurt others: No Plan Recently lost weight without trying: Unsure Eating poorly because of decreased appetite: No Nutrition Risks: Receiving home tube feeding or CPN Patient : No : No Poor oral hygiene: No service: No Current occupational status: disabled <SCOOTER Jefferson - Last Filed: 11/27/21 17:55> Physical Exam Verdana 4l Vital Signs: Verdana 4d Verdana 4d Vital Signs: Verdana 4d Verdana 4Bd Last Vital Signs Verdana 4d Senior Qa Analyst New 4d Senior Qa Analyst New 4d Temp 97.7 F 11/28/21 07:21 Senior Qa Analyst New 4d Pulse 111 H 11/28/21 07:21 Senior Qa Analyst New 4d Resp 18 11/28/21 07:21 BP 134/76 11/28/21 07:21 Pulse Ox 97 11/28/21 07:21 BMI result Body Mass Index 15.6 <SCOOTER Jefferson - Last Filed: 11/27/21 17:55> Vital Signs: Last Vital Signs Temp 97.7 F 11/28/21 07:21 Pulse 111 H 11/28/21 07:21 Resp 18 11/28/21 07:21 BP 134/76 11/28/21 07:21 Pulse Ox 97 11/28/21 07:21 BMI result Body Mass Index 15.6 <Spenser Landon MD - Last Filed: 11/28/21 08:58> Const: General: awake and in distress mild <SCOOTER Jefferson - Last Filed: 11/27/21 17:55> Nutritional Appearance: cachectic, malnourished and thin <SCOOTER Jefferson - Last Filed: 11/27/21 17:55> Orientation/consciousness: Other orientation findings (Unable to determine secondary to nonverbal status) <SCOOTER Jefferson - Last Filed: 11/27/21 17:55> Limitations: physical limitations (Nonverbal) <SCOOTER Jefferson - Last Filed: 11/27/21 17:55> HENMT: Head: Yes normal to inspection and Yes atraumatic <SCOOTER Jefferson - Last Filed: 11/27/21 17:55> Ears: external ears normal <SCOOTER Jefferson - Last Filed: 11/27/21 17:55> General nose exam: Normal external nose present, no nasal discharge noted and no epistaxis <SCOOTER Jefferson - Last Filed: 11/27/21 17:55> Face and sinus: Yes normal facial exam, No abrasion and No laceration <Patricia Abad PA - Last Filed: 11/27/21 17:55> Mouth: Normal oral and palatal mucosa present, no drooling and no muffled voice <Patricia Abad PA - Last Filed: 11/27/21 17:55> Eyes: General: appearance normal, both eyes and all related structures <Patriciasherwin Millardchayito PA - Last Filed: 11/27/21 17:55> Periorbital: periorbital findings normal <Patricia Abad PA - Last Filed: 11/27/21 17:55> Eyelids: Yes eyelids normal <Patricia Millardchayito PA - Last Filed: 11/27/21 17:55> Conjunctivae: conjunctivae normal <Patricia Abad PA - Last Filed: 17:55> Pupils: Equal, round and reactive pupils present <Patriciasherwin Millardchayito PA - Last Filed: 11/27/21 17:55> EOM: EOMs intact bilaterally <Patricia Millardchayito PA - Last Filed: 11/27/21 17:55> Neck: Neck: Yes normal visual inspection, Yes full ROM and Yes no lymphadenopathy <Patricia Millardchayito PA - Last Filed: 11/27/21 17:55> Chest: Chest palpation & inspection: normal inspection of the chest <Patricia Millardchayito PA - Last Filed: 11/27/21 17:55> Resp: Effort & Inspection: normal respiratory effort <Patricia Pollo PA - Last Filed: 11/27/21 17:55> Auscultation: clear to auscultation bilaterally <Patricia Millardchayito PA - Last Filed: 11/27/21 17:55> Cardio: Rate: tachycardic <Patriciasherwin Millardchayito PA - Last Filed: 11/27/21 17:55> Rhythm: regular rhythm <Patriciasherwin Millardchayito PA - Last Filed: 11/27/21 17:55> Peripheral pulses: Peripheral pulses 2+ throughout <Patriciasherwin Millardchayito PA - Last Filed: 11/27/21 17:55> GI: Inspection: Yes normal to inspection <Patricia Pollo PA - Last Filed: 11/27/21 17:55> Skin: Other: Early stage pressure ulcer on the sacrum <SCOOTER Jefferson - Last Filed: 11/27/21 17:55> Neuro: Cranial nerves: Yes Equal, round and reactive pupils present <Patricia AbadSCOOTER stratton - Last Filed: 11/27/21 17:55> Cognition (Neuro): normal cognition (For the patient's baseline of being nonver bal) <SCOOTER Jefferson - Last Filed: 11/27/21 17:55> Motor exam (neuro): 5/5 motor strength present throughout <SCOOTER Jefferson - Last Filed: 11/27/21 17:55> Sensory Exam: Normal double simultaneous stimulation for sensation <SCOOTER Jefferson - Last Filed: 11/27/21 17:55> Coordination: [id number] test normal <SCOOTER Jefferson - Last Filed: 11/27/21 17:55> Extrem: General: Yes normal to inspection, Yes full ROM and Yes capillary refill normal <SCOOTER Jefferson - Last Filed: 11/27/21 17:55> Psych: Appearance: grossly normal <SCOOTER Jefferson - Last Filed: 11/27/21 17:55> Mental Status: mental status grossly normal <SCOOTER Jefferson - Last Filed: 11/27/21 17:55> Affect: normal affect <SCOOTER Jefferson - Last Filed: 11/27/21 17:55> Attitude: cooperative <SCOOTER Jefferson - Last Filed: 11/27/21 17:55> Thought process: Normal thought process present <SCOOTER Jefferson - Last Filed: 11/27/21 17:55> Thought content: Normal thought content present <SCOOTER Jefferson - Last Filed: 11/27/21 17:55> Insight: Good insight present (Psych) <SCOOTER Jefferson - Last Filed: 11/27/21 17:55> Course Course Course Narrative: Radiologist interpreted the patient's chest x-ray as: Hypoexpanded lungs secondary to significant dextroscoliosis. There is lingular atelectasis. <SCOOTER Jefferson - Last Filed: 11/27/21 17:55> Reevaluation(s) Reevaluation #1: Spoke to Dr. Santa who stated the white blood cell count was out of proportion with a urinary tract and COVID-19 infection. He recommended the patient have an abdominal CT to confirm no infectious process in the abdomen. <SCOOTER Jefferson - Last Filed: 11/27/21 17:55> Reevaluation #2: Patient signed out to CLAUDINE Walker due to pending CT scans. <SCOOTER Jefferson - Last Filed: 11/27/21 17:55> Time: 18:00 <SCOOTER Jefferson - Last Filed: 11/27/21 17:55> Medical Decision Making MDM Narrative Medical decision making narrative: Patient is a 71 year old female presenting to the emergency department today for tachycardia and fever. Patient's physical exam showed a nonverbal, COVID-19 positive, contracted, tachycardic, 71-year-old female. Patient had an early stage pressure ulcer on her sacrum. Patient's blood work showed a markedly elevated white blood cell count. Patient's urine showed an acute urinary tract infection. Patient's EKG showed sinus tachycardia. Patient's chest x-ray showed hypoexpanded lungs and lingular atelectasis but no signs of acute infection. Patient's chest and abdomen/pelvis CTs are pending. Patient received 1L of IV fluids, 1 gram of Rocephin, and Tylenol while in the department. I spoke to Dr. Santa who stated the white blood cell count seems out of proportion with a urinary tract infection and recommended the patient undergo a CT scan to rule out any other infectious process. Patient was signed out to CLAUDINE Walker pending CT scans. <SCOOTER Jefferson - Last Filed: 11/27/21 17:55> Differential Diagnosis Differential Diagnosis: Sepsis, urinary tract infection, pneumonia <SCOOTER Jefferson - Last Filed: 11/27/21 17:55> Medical Records Medical records reviewed: Yes I reviewed the patient's medical records. <SCOOTER Jefferson Last Filed: 11/27/21 17:55> Lab Data Lab results reviewed: Yes I reviewed the patient's lab results. <SCOOTER Jefferson Last Filed: 11/27/21 17:55> Result diagrams: : 11/28/21 04:25 11/28/21 04:25 <SCOOTER Jefferson - Last Filed: 11/27/21 17:55> Labs: Lab Results 11/27/21 11/27/21 11/27/21 Range/Units 15:50 15:50 15:50 WBC 31.1 H* (4.8-10.8) X10*3/uL RBC 3.45 L (4.20-5.50) X10*6/uL Hgb 11.0 L (12.0-16.0) g/dl Hct 34.5 L (37.0-47.0) % MCV 100.0 H (80.0-98.0) fL MCH 31.9 (27.0-33.0) pg MCHC 31.9 (31.0-35.0) g/dl RDW 14.5 (11.0-16.0) % Plt Count 429 H D (160-400) X10*3/uL MPV 9.7 (9.4-12.3) fL Immature Gran % (Auto) 1.4 H (0.0-0.4) % Neut % (Auto) 83.0 H (45-73) % Lymph % (Auto) 8.1 L (20-40) % [place] % (Auto) 6.8 (2-11) % Eos % (Auto) 0.3 (0-4) % Baso % (Auto) 0.4 (0-2) % Lymph # (Auto) 2.5 (1.2-4.9) X10*3/uL [place] # (Auto) 2.1 H (0.1-1.2) X10*3/uL Eos # (Auto) 0.1 (0.0-0.4) X10*3/uL Baso # (Auto) 0.1 (0.0-0.2) X10*3/uL Abs Immat Gran (auto) 0.43 H (0.00-0.03) X10*3/uL Absolute Neuts (auto) 25.8 H (2.0-8.3) x10*3/uL Absolute Nucleated RBC 0.000 (0.0-0.012) X10*3/uL Nucleated RBC % (auto) 0.0 (0.0-0.2) /100WBC Smear Tech's Comments VERIFIED PT (9.9-13.0) SEC INR (0.9-1.1) APTT (24.1-38.0) SEC Sodium 145 (135-145) mmol/L Potassium 4.1 (3.3-5.1) mmol/L Chloride 109 H (96-108) mmol/L Carbon Dioxide 25 (22-29) mmol/L Anion Gap 15 (12-20) BUN 19 H (9-16) mg/dL Creatinine 0.42 L (0.5-1.4) mg/dL Estim Creat Clear Calc 66.9 Estimated GFR > 60 Fasting Glucose 110 H (60-99) mg/dL Lactic Acid 2.0 (0.5-2.0) mmol/L Calcium 9.1 D (8.4-10.2) mg/dL Magnesium 2.1 (1.6-2.6) mg/dL Total Bilirubin < 0.2 (0.0-1.0) mg/dL AST 19 (5-31) U/L ALT 6 (0-31) U/L Alkaline Phosphatase 117 (39-117) U/L Troponin I High Sens (<3.5-17.0) ng/L Total Protein 5.5 L D (6.5-8.0) g/dL Albumin 2.3 L D (3.5-5.0) g/dL Urine Color Urine Appearance Urine pH (5.0-8.0) Ur Specific [place] (1.005-1.025) Urine Protein (NEG-TRACE) MG/DL Urine Glucose (UA) (NEG) MG/DL Urine Ketones (NEG) MG/DL Urine Blood (NEG) Urine Nitrite (NEG) Ur Leukocyte Esterase (NEG) Urine RBC (0) /HPF Urine WBC (0-4) /HPF Ur Squamous Epith Cells /LPF Calcium Oxalate Crystal /LPF Urine Bacteria /LPF Urine Yeast /HPF Influenza Type A (PCR) (Negative) Influenza Type B (PCR) (Negative) RSV RNA Qual (PCR) (Negative) SARS-CoV-2 RNA (RT-PCR) (Negative) 11/27/21 11/27/21 11/27/21 Range/Units 15:50 15:50 15:50 WBC (4.8-10.8) X10*3/uL RBC (4.20-5.50) X10*6/uL Hgb (12.0-16.0) g/dl Hct (37.0-47.0) % MCV (80.0-98.0) fL MCH (27.0-33.0) pg MCHC (31.0-35.0) g/dl RDW (11.0-16.0) % Plt Count (160-400) X10*3/uL MPV (9.4-12.3) fL Immature Gran % (Auto) (0.0-0.4) % Neut % (Auto) (45-73) % Lymph % (Auto) (20-40) % [place] % (Auto) (2-11) % Eos % (Auto) (0-4) % Baso % (Auto) (0-2) % Lymph # (Auto) (1.2-4.9) X10*3/uL [place] # (Auto) (0.1-1.2) X10*3/uL Eos # (Auto) (0.0-0.4) X10*3/uL Baso # (Auto) (0.0-0.2) X10*3/uL Abs Immat Gran (auto) (0.00-0.03) X10*3/uL Absolute Neuts (auto) (2.0-8.3) x10*3/uL Absolute Nucleated RBC (0.0-0.012) X10*3/uL Nucleated RBC % (auto) (0.0-0.2) /100WBC Smear Tech's Comments PT 11.9 (9.9-13.0) SEC INR 1.0 (0.9-1.1) APTT 46.9 H (24.1-38.0) SEC Sodium (135-145) mmol/L Potassium (3.3-5.1) mmol/L Chloride (96-108) mmol/L Carbon Dioxide (22-29) mmol/L Anion Gap (12-20) BUN (9-16) mg/dL Creatinine (0.5-1.4) mg/dL Estim Creat Clear Calc Estimated GFR Fasting Glucose (60-99) mg/dL Lactic Acid (0.5-2.0) mmol/L Calcium (8.4-10.2) mg/dL Magnesium (1.6-2.6) mg/dL Total Bilirubin (0.0-1.0) mg/dL AST (5-31) U/L ALT (0-31) U/L Alkaline Phosphatase (39-117) U/L Troponin I High Sens < 3.5 D (<3.5-17.0) ng/L Total Protein (6.5-8.0) g/dL Albumin (3.5-5.0) g/dL Urine Color Urine Appearance Urine pH (5.0-8.0) Ur Specific [place] (1.005-1.025) Urine Protein (NEG-TRACE) MG/DL Urine Glucose (UA) (NEG) MG/DL Urine Ketones (NEG) MG/DL Urine Blood (NEG) Urine Nitrite (NEG) Ur Leukocyte Esterase (NEG) Urine RBC (0) /HPF Urine WBC (0-4) /HPF Ur Squamous Epith /LPF Cells Calcium Oxalate /LPF Crystal Urine Bacteria /LPF Urine Yeast /HPF Influenza Type A (PCR) NEGATIVE (Negative) Influenza Type B (PCR) NEGATIVE (Negative) RSV RNA Qual (PCR) NEGATIVE (Negative) SARS-CoV-2 RNA POSITIVE A (Negative) (RT-PCR) 11/27/21 Range/Units 16:26 WBC (4.8-10.8) X10*3/uL RBC (4.20-5.50) X10*6/uL Hgb (12.0-16.0) g/dl Hct (37.0-47.0) % MCV (80.0-98.0) fL MCH (27.0-33.0) pg MCHC (31.0-35.0) g/dl RDW (11.0-16.0) % Plt Count (160-400) X10*3/uL MPV (9.4-12.3) fL Immature Gran % (Auto) (0.0-0.4) % Neut % (Auto) (45-73) % Lymph % (Auto) (20-40) % [place] % (Auto) (2-11) % Eos % (Auto) (0-4) % Baso % (Auto) (0-2) % Lymph # (Auto) (1.2-4.9) X10*3/uL [place] # (Auto) (0.1-1.2) X10*3/uL Eos # (Auto) (0.0-0.4) X10*3/uL Baso # (Auto) (0.0-0.2) X10*3/uL Abs Immat Gran (auto) (0.00-0.03) X10*3/uL Absolute Neuts (auto) (2.0-8.3) x10*3/uL Absolute Nucleated RBC (0.0-0.012) X10*3/uL Nucleated RBC % (auto) (0.0-0.2) /100WBC Smear Tech's Comments PT (9.9-13.0) SEC INR (0.9-1.1) APTT (24.1-38.0) SEC Sodium (135-145) mmol/L Potassium (3.3-5.1) mmol/L Chloride (96-108) mmol/L Carbon Dioxide (22-29) mmol/L Anion Gap (12-20) BUN (9-16) mg/dL Creatinine (0.5-1.4) mg/dL Estim Creat Clear Calc Estimated GFR Fasting Glucose (60-99) mg/dL Lactic Acid (0.5-2.0) mmol/L Calcium (8.4-10.2) mg/dL Magnesium (1.6-2.6) mg/dL Total Bilirubin (0.0-1.0) mg/dL AST (5-31) U/L ALT (0-31) U/L Alkaline Phosphatase (39-117) U/L Troponin I High Sens (<3.5-17.0) ng/L Total Protein (6.5-8.0) g/dL Albumin (3.5-5.0) g/dL Urine Color YELLOW Urine Appearance CLOUDY Urine pH 5.5 (5.0-8.0) Ur Specific [place] 1.020 (1.005-1.025) Urine Protein 1+ H (NEG-TRACE) MG/DL Urine Glucose (UA) NEG (NEG) MG/DL Urine Ketones NEG (NEG) MG/DL Urine Blood 1+ H (NEG) Urine Nitrite POS H (NEG) Ur Leukocyte Esterase 3+ H (NEG) Urine RBC 10-14 H (0) /HPF Urine WBC 30-49 H (0-4) /HPF Ur Squamous Epith Cells 1+ /LPF Calcium Oxalate Crystal 1+ /LPF Urine Bacteria 3+ /LPF Urine Yeast 1+ /HPF Influenza Type A (PCR) (Negative) Influenza Type B (PCR) (Negative) RSV RNA Qual (PCR) (Negative) SARS-CoV-2 RNA (RT-PCR) (Negative) <SCOOTER Jefferson - Last Filed: 11/27/21 17:55> Lab Results 11/27/21 11/27/21 11/27/21 Range/Units 15:50 15:50 15:50 WBC 31.1 H* (4.8-10.8) X10*3/uL RBC 3.45 L (4.20-5.50) X10*6/uL Hgb 11.0 L (12.0-16.0) g/dl Hct 34.5 L (37.0-47.0) % MCV 100.0 H (80.0-98.0) fL MCH 31.9 (27.0-33.0) pg MCHC 31.9 (31.0-35.0) g/dl RDW 14.5 (11.0-16.0) % Plt Count 429 H D (160-400) X10*3/uL MPV 9.7 (9.4-12.3) fL Immature Gran % (Auto) 1.4 H (0.0-0.4) % Neut % (Auto) 83.0 H (45-73) % Lymph % (Auto) 8.1 L (20-40) % [place] % (Auto) 6.8 (2-11) % Eos % (Auto) 0.3 (0-4) % Baso % (Auto) 0.4 (0-2) % Lymph # (Auto) 2.5 (1.2-4.9) X10*3/uL [place] # (Auto) 2.1 H (0.1-1.2) X10*3/uL Eos # (Auto) 0.1 (0.0-0.4) X10*3/uL Baso # (Auto) 0.1 (0.0-0.2) X10*3/uL Abs Immat Gran (auto) 0.43 H (0.00-0.03) X10*3/uL Absolute Neuts (auto) 25.8 H (2.0-8.3) x10*3/uL Absolute Nucleated RBC 0.000 (0.0-0.012) X10*3/uL Nucleated RBC % (auto) 0.0 (0.0-0.2) /100WBC Smear Tech's Comments VERIFIED PT (9.9-13.0) SEC INR (0.9-1.1) APTT (24.1-38.0) SEC Sodium 145 (135-145) mmol/L Potassium 4.1 (3.3-5.1) mmol/L Chloride 109 H (96-108) mmol/L Carbon Dioxide 25 (22-29) mmol/L Anion Gap 15 (12-20) BUN 19 H (9-16) mg/dL Creatinine 0.42 L (0.5-1.4) mg/dL Estim Creat Clear Calc 66.9 Estimated GFR > 60 Fasting Glucose 110 H (60-99) mg/dL Lactic Acid 2.0 (0.5-2.0) mmol/L Calcium 9.1 D (8.4-10.2) mg/dL Magnesium 2.1 (1.6-2.6) mg/dL Total Bilirubin < 0.2 (0.0-1.0) mg/dL AST 19 (5-31) U/L ALT 6 (0-31) U/L Alkaline Phosphatase 117 (39-117) U/L Troponin I High Sens (<3.5-17.0) ng/L Total Protein 5.5 L D (6.5-8.0) g/dL Albumin 2.3 L D (3.5-5.0) g/dL Urine Color Urine Appearance Urine pH (5.0-8.0) Ur Specific [place] (1.005-1.025) Urine Protein (NEG-TRACE) MG/DL Urine Glucose (UA) (NEG) MG/DL Urine Ketones (NEG) MG/DL Urine Blood (NEG) Urine Nitrite (NEG) Ur Leukocyte Esterase (NEG) Urine RBC (0) /HPF Urine WBC (0-4) /HPF Ur Squamous Epith Cells /LPF Calcium Oxalate Crystal /LPF Urine Bacteria /LPF Urine Yeast /HPF Influenza Type A (PCR) (Negative) Influenza Type B (PCR) (Negative) RSV RNA Qual (PCR) (Negative) SARS-CoV-2 RNA (RT-PCR) (Negative) 11/27/21 11/27/21 11/27/21 Range/Units 15:50 15:50 15:50 WBC (4.8-10.8) X10*3/uL RBC (4.20-5.50) X10*6/uL Hgb (12.0-16.0) g/dl Hct (37.0-47.0) % MCV (80.0-98.0) fL MCH (27.0-33.0) pg MCHC (31.0-35.0) g/dl RDW (11.0-16.0) % Plt Count (160-400) X10*3/uL MPV (9.4-12.3) fL Immature Gran % (Auto) (0.0-0.4) % Neut % (Auto) (45-73) % Lymph % (Auto) (20-40) % [place] % (Auto) (2-11) % Eos % (Auto) (0-4) % Baso % (Auto) (0-2) % Lymph # (Auto) (1.2-4.9) X10*3/uL [place] # (Auto) (0.1-1.2) X10*3/uL Eos # (Auto) (0.0-0.4) X10*3/uL Baso # (Auto) (0.0-0.2) X10*3/uL Abs Immat Gran (auto) (0.00-0.03) X10*3/uL Absolute Neuts (auto) (2.0-8.3) x10*3/uL Absolute Nucleated RBC (0.0-0.012) X10*3/uL Nucleated RBC % (auto) (0.0-0.2) /100WBC Smear Tech's Comments PT 11.9 (9.9-13.0) SEC INR 1.0 (0.9-1.1) APTT 46.9 H (24.1-38.0) SEC Sodium (135-145) mmol/L Potassium (3.3-5.1) mmol/L Chloride (96-108) mmol/L Carbon Dioxide (22-29) mmol/L Anion Gap (12-20) BUN (9-16) mg/dL Creatinine (0.5-1.4) mg/dL Estim Creat Clear Calc Estimated GFR Fasting Glucose (60-99) mg/dL Lactic Acid (0.5-2.0) mmol/L Calcium (8.4-10.2) mg/dL Magnesium (1.6-2.6) mg/dL Total Bilirubin (0.0-1.0) mg/dL AST (5-31) U/L ALT (0-31) U/L Alkaline Phosphatase (39-117) U/L Troponin I High Sens < 3.5 D (<3.5-17.0) ng/L Total Protein (6.5-8.0) g/dL Albumin (3.5-5.0) g/dL Urine Color Urine Appearance Urine pH (5.0-8.0) Ur Specific [place] (1.005-1.025) Urine Protein (NEG-TRACE) MG/DL Urine Glucose (UA) (NEG) MG/DL Urine Ketones (NEG) MG/DL Urine Blood (NEG) Urine Nitrite (NEG) Ur Leukocyte Esterase (NEG) Urine RBC (0) /HPF Urine WBC (0-4) /HPF Ur Squamous Epith /LPF Cells Calcium Oxalate /LPF Crystal Urine Bacteria /LPF Urine Yeast /HPF Influenza Type A (PCR) NEGATIVE (Negative) Influenza Type B (PCR) NEGATIVE (Negative) RSV RNA Qual (PCR) NEGATIVE (Negative) SARS-CoV-2 RNA POSITIVE A (Negative) (RT-PCR) 11/27/21 Range/Units 16:26 WBC (4.8-10.8) X10*3/uL RBC (4.20-5.50) X10*6/uL Hgb (12.0-16.0) g/dl Hct (37.0-47.0) % MCV (80.0-98.0) fL MCH (27.0-33.0) pg MCHC (31.0-35.0) g/dl RDW (11.0-16.0) % Plt Count (160-400) X10*3/uL MPV (9.4-12.3) fL Immature Gran % (Auto) (0.0-0.4) % Neut % (Auto) (45-73) % Lymph % (Auto) (20-40) % [place] % (Auto) (2-11) % Eos % (Auto) (0-4) % Baso % (Auto) (0-2) % Lymph # (Auto) (1.2-4.9) X10*3/uL [place] # (Auto) (0.1-1.2) X10*3/uL Eos # (Auto) (0.0-0.4) X10*3/uL Baso # (Auto) (0.0-0.2) X10*3/uL Abs Immat Gran (auto) (0.00-0.03) X10*3/uL Absolute Neuts (auto) (2.0-8.3) x10*3/uL Absolute Nucleated RBC (0.0-0.012) X10*3/uL Nucleated RBC % (auto) (0.0-0.2) /100WBC Smear Tech's Comments PT (9.9-13.0) SEC INR (0.9-1.1) APTT (24.1-38.0) SEC Sodium (135-145) mmol/L Potassium (3.3-5.1) mmol/L Chloride (96-108) mmol/L Carbon Dioxide (22-29) mmol/L Anion Gap (12-20) BUN (9-16) mg/dL Creatinine (0.5-1.4) mg/dL Estim Creat Clear Calc Estimated GFR Fasting Glucose (60-99) mg/dL Lactic Acid (0.5-2.0) mmol/L Calcium (8.4-10.2) mg/dL Magnesium (1.6-2.6) mg/dL Total Bilirubin (0.0-1.0) mg/dL AST (5-31) U/L ALT (0-31) U/L Alkaline Phosphatase (39-117) U/L Troponin I High Sens (<3.5-17.0) ng/L Total Protein (6.5-8.0) g/dL Albumin (3.5-5.0) g/dL Urine Color YELLOW Urine Appearance CLOUDY Urine pH 5.5 (5.0-8.0) Ur Specific [place] 1.020 (1.005-1.025) Urine Protein 1+ H (NEG-TRACE) MG/DL Urine Glucose (UA) NEG (NEG) MG/DL Urine Ketones NEG (NEG) MG/DL Urine Blood 1+ H (NEG) Urine Nitrite POS H (NEG) Ur Leukocyte Esterase 3+ H (NEG) Urine RBC 10-14 H (0) /HPF Urine WBC 30-49 H (0-4) /HPF Ur Squamous Epith Cells 1+ /LPF Calcium Oxalate Crystal 1+ /LPF Urine Bacteria 3+ /LPF Urine Yeast 1+ /HPF Influenza Type A (PCR) (Negative) Influenza Type B (PCR) (Negative) RSV RNA Qual (PCR) (Negative) SARS-CoV-2 RNA (RT-PCR) (Negative) <Spenser Landon MD - Last Filed: 11/28/21 08:58> ECG Data Attestation: I personally reviewed and interpreted this ECG as follows: <SCOOTER Jefferson - Last Filed: 11/27/21 17:55> Prior ECG tracings: available for review <SCOOTER Jefferson - Last Filed: 11/27/21 17:55> Interpretation: Sinus tachycardia <SCOOTER Jefferson - Last Filed: 11/27/21 17:55> Critical Care Time Critical Care Time Critical Care Time: Yes <Spenser Landon MD - Last Filed: 11/28/21 08:58> Total Critical Care Time: 35 <Spenser Landon MD - Last Filed: 11/28/21 08:58> Attestation: Critical care time for this life-threatening illness exclusive of all other billable procedures was approximately 35 minutes including initial evaluation of the patient, ordering tests, x-ray interpretation, EKG interpretation, medical consultation, documentation, reevaluation. <Spenser Landon MD - Last Filed: 11/28/21 08:58> Discharge Plan Discharge Clinical Impression: COVID-19, Acute deep vein thrombosis (DVT) of inferior vena cava, [place] m Sepsis Qualifiers: Sepsis type: sepsis due to unspecified organism Sepsis acute organ dysfunction status: unspecified Qualified Code(s): A41.9 - Sepsis, unspecified organism Urinary tract infection Qualifiers: Urinary tract infection type: site unspecified Hematuria presence: without hematuria Qualified Code(s): N39.0 - Urinary tract infection, site not specified Mass of abdomen Qualifiers: Abdominal location: other location Qualified Code(s): R19.09 - Other intra- abdominal and pelvic swelling, mass and lump <SCOOTER Jefferson - Last Filed: 11/27/21 17:55> Patient Disposition: Admitted As Inpatient <SCOOTER Jefferson - Last Filed: 11/27/21 17:55> Interventions: Admission Worksheet (ED) Last Done: 11/28/21 01:25 <SCOOTER Jefferson - Last Filed: 11/27/21 17:55> Discharge Date/Time: 11/28/21 01:26 <SCOOTER Jefferson - Last Filed: 11/27/21 17:55>
--- NOTE | 2021-11-27 13:54 | ECG_ITS ---
Test Reason : ams Blood Pressure : / mmHG Vent. Rate : 131 BPM Atrial Rate : 131 BPM P-R Int : 126 ms QRS Dur : 068 ms QT Int : 290 ms P-R-T Axes : 064 039 074 degrees QTc Int : 428 ms Sinus tachycardia Nonspecific T wave abnormality Abnormal ECG When compared with ECG of 23-OCT-2021 19:40, No significant change was found Referred By: Patricia Aabd Electronically Signed By:LEONOR TAVAREZ MD
--- NOTE | 2021-11-27 15:56 | MHC.CM.ED ---
Received notification from SCOOTER Gomez that patient came to ER from [facility] due to consents not being signed . Work up is currently pending. Shayna Daly, Support Analyst aware. Patient's brother/guardian is currently admitted at [facility]. Copy of consents were faxed to [facility]'s social worker health services. Cable Mock Up Assembler had brother signed them and faxed them back. Continue to monitor for d/c needs.
[2021-11-27 16:00] LABS: Basophils Absolute Auto 0.1 X10*3/uL (0.0-0.2); Basophils Percent Auto 0.4 % (0-2); Eosinophils Absolute Auto 0.1 X10*3/uL (0.0-0.4); Eosinophils Percent Auto 0.3 % (0-4); Hematocrit 34.5 % (37.0-47.0); Imm Gran Abs Auto 0.43 X10*3/uL (0.00-0.03); Imm Gran Pct Auto 1.4 % (0.0-0.4); Lymphocytes Absolute Auto 2.5 X10*3/uL (1.2-4.9); Lymphocytes Percent Auto 8.1 % (20-40); MANUAL DIFF FLAG SCAN; Mean Corpuscular HGB Conc 31.9 g/dl (31.0-35.0); Mean Corpuscular Hemoglobin 31.9 pg (27.0-33.0); Mean Platelet Volume 9.7 fL (9.4-12.3); Monocytes Absolute Auto 2.1 X10*3/uL (0.1-1.2); Monocytes Percent Auto 6.8 % (2-11); Neutrophils Absolute Auto 25.8 x10*3/uL (2.0-8.3); Platelet Count 429 X10*3/uL (160-400); Red Blood Count 3.45 X10*6/uL (4.20-5.50); Red Cell Distribution Width 14.5 % (11.0-16.0); SCAN SMEAR FLAG 1
[2021-11-27] MEDS: 0.9 % Sodium Chloride 1,000 ML 999 ML IVCONT (16:07)
[2021-11-27 16:08] LABS: Prothrombin Time 11.9 SEC (9.9-13.0)
[2021-11-27 16:10] LABS: Partial Thromboplastin Time 46.9 SEC (24.1-38.0)
[2021-11-27] MEDS: cefTRIAXone sodium 2 GM in 0.9 % Sodium Chloride 50 ML IV (16:13)
[2021-11-27 16:22] LABS: Alanine Aminotransferase 6 U/L (0-31); Albumin Level 2.3 g/dL (3.5-5.0); Alkaline Phosphatase 117 U/L (39-117); Anion Gap 15 (12-20); Aspartate Amino Transferase 19 U/L (5-31); Bilirubin Total < 0.2 mg/dL (0.0-1.0); Blood Urea Nitrogen 19 mg/dL (9-16); Calcium 9.1 mg/dL (8.4-10.2); Carbon Dioxide 25 mmol/L (22-29); Chloride 109 mmol/L (96-108); Creatinine Clr Calc Pharmacy 66.9; Estimated Glomerular Filt Rate > 60; Glucose Fasting 110 mg/dL (60-99); Magnesium 2.1 mg/dL (1.6-2.6); Potassium 4.1 mmol/L (3.3-5.1); Sodium 145 mmol/L (135-145); Total Protein 5.5 g/dL (6.5-8.0); Troponin-I High Sensitivity < 3.5 ng/L (<3.5-17.0)
[2021-11-27 16:36] LABS: SLIDE REVIEW VERIFIED; White Blood Count 31.1 X10*3/uL (4.8-10.8)
[2021-11-27 16:46] LABS: Influenza A PCR NEGATIVE (Negative); Influenza B PCR NEGATIVE (Negative); Resp Syncy Virus RNA Qual PCR NEGATIVE (Negative); SARS COV2 PCR INHOUSE POSITIVE (Negative)
[2021-11-27 16:56] LABS: Appearance Urine CLOUDY; Color Urine YELLOW; Glucose Urine UA NEG (NEG); Leukocyte Esterase Urine 3+ (NEG); Nitrite Urine POS (NEG); PH 5.5 (5.0-8.0); UACC Culture Trigger YES; Urine Blood 1+ (NEG); Urine Ketones NEG (NEG); Urine Protein 1+ MG/DL (NEG-TRACE)
--- NOTE | 2021-11-27 17:07 | PC.NURSE ---
meds administered late pt difficult stick. 22g IV placed in left upper arm. labs drawn, fluids and meds given as documented. vss
[2021-11-27 17:09] LABS: UACC CULT YES; WBC Urine 30-49 /HPF (0-4)
[2021-11-27 17:10] LABS: Bacteria Urine 3+ /LPF; Calcium Oxalate Crystals Urine 1+ /LPF; Squamous Epithelial Cell Urine 1+ /LPF
[2021-11-27] MEDS: iohexoL 350 MG/ML 100 ML INFUS..BTL IV (17:57)
[2021-11-27] MEDS: Acetaminophen Supp 650 MG SUPP.RECT PR (18:10)
[2021-11-27] MEDS: Acetaminophen Supp 325 MG SUPP.RECT PR (18:10)
--- NOTE | 2021-11-27 18:19 | PC.NURSE ---
Tylenol suppository given for rectal temp 99.2. pt tolerated well.
--- NOTE | 2021-11-27 18:48 | MHC.CM.ED ---
CM received a call from Mica, technical services representative at [facility] ([phone]) requesting an update at 1600. Ongoing medical work up continuing. If negative, pt will return to [facility]. Will update Mica if patient is admitted. CM to follow for d/c needs.
--- NOTE | 2021-11-27 18:53 | MHC.CM.ED ---
Patricia HELMS will speak with hospitalist regarding admission. Will call Mica from DDS with update when pt officially admitted. Orders at [address] scans. CM to follow.
--- NOTE | 2021-11-27 19:18 | MHC.CM.PN ---
Addendum entered by Jannette Vasquez 11/27/21 19:45: Spoke with Dr. Velázquez at request of Denise HELMS to discuss situation with code status. Explained that DDSVel, Kamini Caceres and Chase Lynn had a meeting and the GROUND CREWMAN status was rescinded and the patient was made DNR/DNI. The pt then had a PEG tube placed. Dr. Velázquez will attempt to speak with guardianChase. CM spoke with Shayna Daly about above. Shayna suggested that Dr Velázquez reach out to Vel Veronica, electromedical equipment technician and suggested that Dr. Euceda try [facility]'s main telephone number to reach the patients guardian. Both Dr. Velázquez and Denise HELMS aware of above. Dr. Velázquez will reach out to both guardian and electromedical equipment technician. Pt has been medicated for pain. Katya Puentes contacted through [facility] regarding pt admission. Original Note: CM spoke with Denise HELMS. CT impression is large uterine mass and PE/thrombus seen on exam. Pt is DNR/DNI, not GROUND CREWMAN. DDS and guardian involved in this decision making on last admission. PA requests CM speak with CM storage manager regarding plan forward with code status. CM spoke with Shayna Daly. Per Shayna, she will escalate this to Kamini Caceres. Requests patient be admitted if she meets criteria for admission and they will address her code status with DDS and guardian in the morning. Guardian/brother Chase Lynn ([phone]). Report of above given to Denise HELMS. CM to follow for d/c needs.
[2021-11-27] MEDS: Morphine Sulfate 4 MG/ML CARTRIDGE IVPUSH ×2 (19:42→22:27)
--- NOTE | 2021-11-27 20:47 | MHC.CM.PN ---
Addendum entered by Jannette Vasquez 11/27/21 21:01: Shayna Daly aware. Vel Veronica aware. IMM mailed to Chase Lynn via certified mail 11/27/2021@[email or web address]. Addendum entered by Jannette Vasquez 11/27/21 21:01: Pt is a DNR/DNI. Will treat. Original Note: CM spoke with Dr. Velázquez. She spoke with Chase, the patient's brother/guardian. He wants her to be treated. She will be admitted. Prior to last hospitalization, pt was living in an apartment with a law office manager. Pt has cerebral palsy and is a quadraplegia. Pt is non-verbal. Last admission, pt had a PEG tube placed. S has been involved in patient's decision making with her brother. Pt guardian is Chase Lynn ([phone]). S service desk associate, Mica ([phone]). S area office nurse, Anastasia Jacobson ([phone]). Pt is very ill. D/C plan dependent on code status going forward. Full code vs DNR/DNI vs GUEST RELATION OFFICER. Pt does have a bed a [facility]. CM will follow for d/c needs.
--- NOTE | 2021-11-27 20:50 | P.HPHOSP_ITS ---
History of Present Illness Date of Service: 11/27/21 Chief Complaint: sent from [place] This is a 71 yo F with hx of CP, nonverbal, bedbound, recent hx of covid 19 pna who is brought back from snf with snf stating that there was no consent to treat the pt while at the facility. Of note pt was discharged on 11/24 after being treated for aspiration pna.. at that time She was initially placed on MACHINE SOLE LEVELER status but then after further rounds of discussion between DDS and the patient's healthcare proxy [her brother], a PEG tube was placed on 11/07/21? Reference is made to the ACP notes in the EHR for further details.? She was started on tube feeds and advanced to goal of Jevity 1.0 at 45 mL/hr.? Free consuelo er flushes were discontinued when she developed hyponatremia, which then resolved.? She was found to have chronic leukocytosis despite full treatment for the pneumonia and is suspected to have chronic neutrophilic leukocytosis; On this presentation, pt is completely lethargic, non-verbal unable to give any history. basic labs revealed leukocytiosis, vitals were significant for temp of 101.4, HR in the 130s and RR in the 20s. Pt underwent abd/pelvic and chest CT which revealed Large mass lesion in the pelvis likely arising from the uterus with heterogeneous degrees of enhancement likely representing a uterine carcinoma or uterine sarcoma based on the large size. This is unable to be from the adjacent adnexa but uterine primary origin would be strongly suspected with this appearance. Unfortunately there is mass effect on adjacent pelvic structures and thrombus is seen within the left common iliac vein and inferior vena cava. Although not performed as a CT pulmonary embolism study, there is a subtle filling defect within the segmental right upper lobe pulmonary artery branch consistent with pulmonary emboli. I cannot exclude right distal subsegmental lower lobe pulmonary emboli either given the recent situation with her HCP and DDS as well as the involevement of the ethics commity and our [facility] legal hortensia, i spoke to brother about her tx who he himslef is admitted at [facility]. although he wants his sister to be MACHINE SOLE LEVELER he is afraid to make that decision due to DDS's involvement. he is agreeable to tx at this time and he will discuss further in AM with legal team at hospital Review of Systems Review of Systems: Yes Unobtainable due to mental status [facility] Medical History Cerebral palsy COVID-19 Pneumonitis Quadriplegia Seizure disorder Urinary tract infection Social History Household Members: None Housing: Skilled Nursing Do you presently have visiting nurse or other home services: No Patient Tobacco Use Status: Never used Tobacco Use of substances other than those prescribed or required for medical reasons: No Advance Directives: No Advance Directives Information Provided: No Do you have thoughts of harming others: None Do you have a plan to hurt others: No Plan Recently lost weight without trying: Unsure Eating poorly because of decreased appetite: No Nutrition Risks: Receiving home tube feeding or CPN Patient : No : No Poor oral hygiene: No service: No Current occupational status: disabled Meds Allergies Allergy/AdvReac Type Severity Reaction Status Date / Time No Known Allergies Allergy Verified 10/09/21 21:22 Active Medications: Current Medications Acetaminophen (Acetaminophen 325 Mg Tablet) 650 mg PO Q6H PRN PRN Reason: Pain, Mild (Pain Scale 1-3) Acetaminophen (Acetaminophen Supp 650 Mg Supp.Rect) 650 mg LA Q6H PRN PRN Reason: Pain, Mild (Pain Scale 1-3) Docusate Sodium (Docusate Sodium 100 Mg Capsule) 100 mg PO DAILY PRN PRN Reason: Constipation Heparin Sodium (Porcine) (Heparin Sodium,Porcine 5,000 Unit/Ml Vial) 1,400 unit 40 unit/kg (1400 unit) IVPUSH PROTOCOL BOLUS PRN; Protocol PRN Reason: 40 unit/kg - Heparin Protocol Heparin Sodium (Porcine) (Heparin Sodium,Porcine 5,000 Unit/Ml Vial) 2,700 unit 80 unit/kg (2700 unit) IVPUSH PROTOCOL BOLUS PRN; Protocol PRN Reason: 80 unit/kg - Heparin Protocol Heparin Sodium/Sodium Chloride () 25,000 unit in 250 mls @ 0 mls/hr IVCONT .Q0M RAJANI; Protocol Ceftriaxone Sodium 1 gm/ (Sodium Chloride) 50 mls @ 100 mls/hr IV Q24H RAJANI Morphine Sulfate (Morphine Sulfate 4 Mg/Ml Cartridge) 4 mg IVPUSH Q4H PRN; Protocol PRN Reason: Pain, Severe (Pain Scale 7-10) Ondansetron HCl (Ondansetron Hcl 4 Mg/2 Ml Vial) 4 mg IVPUSH Q8H PRN PRN Reason: Nausea and Vomiting Sodium Chloride (0.9 % Sodium Chloride Flush 3 Ml Syringe) 3 ml IVFLUSH QSHIFT [facility] Home Medications Medication Instructions Recorded Confirmed Last Taken Type acetaminophen 650 mg rectal 650 mg LA Q4H PRN 11/27/21 11/27/21 Unknown History suppository bisacodyl 10 mg rectal suppository 10 mg LA DAILY PRN 11/27/21 11/27/21 Unknown History (Dulcolax (bisacodyl)) multivit and minerals-ferrous 15 ml FEEDING TUBE DAILY 11/27/21 11/27/21 Unknown History gluconate 9 mg iron/15 mL oral liquid Physical Exam Vital Signs and Narrative: Vital Signs: Last Vital Signs Temp 99.2 F 11/27/21 18:00 Pulse 120 H 11/27/21 16:00 Resp 18 11/27/21 19:42 BP 134/80 11/27/21 16:00 Pulse Ox 96 11/27/21 16:00 BMI result Body Mass Index 15.6 Const: Other: lethargic but arousable doesnt not answer and is non-verbal at baseline General: no acute distress Eyes: Pupils: Equal, round and reactive pupils present Resp: Effort & Inspection: normal respiratory effort Cardio: Rate: regular rate Rhythm: regular rhythm GI: Palpation (GI): Soft to palpation Auscultation: normal bowel sounds Skin: General skin exam: no rashes or lesions noted Neuro: Cranial nerves: Yes Equal, round and reactive pupils present Extrem: Other: contracted, her legs are pulled towards herself General: Yes no pedal edema Results Labs CBC and Chem 7: 11/27/21 20:55 11/27/21 15:50 Labs: Laboratory Results - last 24 hr 11/27/21 11/27/21 11/27/21 15:50 15:50 15:50 MCV 100.0 H MCH 31.9 MCHC 31.9 RDW 14.5 Plt Count 429 H D MPV 9.7 Immature Gran % (Auto) 1.4 H Neut % (Auto) 83.0 H Lymph % (Auto) 8.1 L [place] % (Auto) 6.8 Eos % (Auto) 0.3 Baso % (Auto) 0.4 Lymph # (Auto) 2.5 [place] # (Auto) 2.1 H Eos # (Auto) 0.1 Baso # (Auto) 0.1 Abs Immat Gran (auto) 0.43 H Absolute Neuts (auto) 25.8 H Absolute Nucleated RBC 0.000 Nucleated RBC % (auto) 0.0 Smear Tech's Comments VERIFIED PT INR APTT Anion Gap 15 Estim Creat Clear Calc 66.9 Estimated GFR > 60 Fasting Glucose 110 H Lactic Acid 2.0 Calcium 9.1 D Magnesium 2.1 Total Bilirubin < 0.2 AST 19 ALT 6 Alkaline Phosphatase 117 Troponin I High Sens Total Protein 5.5 L D Albumin 2.3 L D Urine Color Urine Appearance Urine pH Ur Specific [place] Urine Protein Urine Glucose (UA) Urine Ketones Urine Blood Urine Nitrite Ur Leukocyte Esterase Urine RBC Urine WBC Ur Squamous Epith Cells Calcium Oxalate Crystal Urine Bacteria Urine Yeast Influenza Type A (PCR) Influenza Type B (PCR) RSV RNA Qual (PCR) SARS-CoV-2 RNA (RT-PCR) 11/27/21 11/27/21 11/27/21 15:50 15:50 15:50 MCV MCH MCHC RDW Plt Count MPV Immature Gran % (Auto) Neut % (Auto) Lymph % (Auto) [place] % (Auto) Eos % (Auto) Baso % (Auto) Lymph # (Auto) [place] # (Auto) Eos # (Auto) Baso # (Auto) Abs Immat Gran (auto) Absolute Neuts (auto) Absolute Nucleated RBC Nucleated RBC % (auto) Smear Tech's Comments PT 11.9 INR 1.0 APTT 46.9 H Anion Gap Estim Creat Clear Calc Estimated GFR Fasting Glucose Lactic Acid Calcium Magnesium Total Bilirubin AST ALT Alkaline Phosphatase Troponin I High Sens < 3.5 D Total Protein Albumin Urine Color Urine Appearance Urine pH Ur Specific [place] Urine Protein Urine Glucose (UA) Urine Ketones Urine Blood Urine Nitrite Ur Leukocyte Esterase Urine RBC Urine WBC Ur Squamous Epith Cells Calcium Oxalate Crystal Urine Bacteria Urine Yeast Influenza Type A (PCR) NEGATIVE Influenza Type B (PCR) NEGATIVE RSV RNA Qual (PCR) NEGATIVE SARS-CoV-2 RNA (RT-PCR) POSITIVE A 11/27/21 16:26 MCV MCH MCHC RDW Plt Count MPV Immature Gran % (Auto) Neut % (Auto) Lymph % (Auto) [place] % (Auto) Eos % (Auto) Baso % (Auto) Lymph # (Auto) [place] # (Auto) Eos # (Auto) Baso # (Auto) Abs Immat Gran (auto) Absolute Neuts (auto) Absolute Nucleated RBC Nucleated RBC % (auto) Smear Tech's Comments PT INR APTT Anion Gap Estim Creat Clear Calc Estimated GFR Fasting Glucose Lactic Acid Calcium Magnesium Total Bilirubin AST ALT Alkaline Phosphatase Troponin I High Sens Total Protein Albumin Urine Color YELLOW Urine Appearance CLOUDY Urine pH 5.5 Ur Specific [place] 1.020 Urine Protein 1+ H Urine Glucose (UA) NEG Urine Ketones NEG Urine Blood 1+ H Urine Nitrite POS H Ur Leukocyte Esterase 3+ H Urine RBC 10-14 H Urine WBC 30-49 H Ur Squamous Epith Cells 1+ Calcium Oxalate Crystal 1+ Urine Bacteria 3+ Urine Yeast 1+ Influenza Type A (PCR) Influenza Type B (PCR) RSV RNA Qual (PCR) SARS-CoV-2 RNA (RT-PCR) Imaging Radiologist's Impressions: Impressions Chest X-Ray 11/27/21 14:55 IMPRESSION: Hypoexpanded lungs secondary to significant dextroscoliosis. There is lingular atelectasis. Abdomen/Pelvis CT 11/27/21 18:11 IMPRESSION: Large mass lesion in the pelvis likely arising from the uterus with heterogeneous degrees of enhancement likely representing a uterine carcinoma or uterine sarcoma based on the large size. This is unable to be from the adjacent adnexa but uterine primary origin would be strongly suspected with this appearance. Unfortunately there is mass effect on adjacent pelvic structures and thrombus is seen within the left common iliac vein and inferior vena cava. Although not performed as a CT pulmonary embolism study, there is a subtle filling defect within the segmental right upper lobe pulmonary artery branch consistent with pulmonary emboli. I cannot exclude right distal subsegmental lower lobe pulmonary emboli either but the examination is not tailored to evaluate this. VTE: Positive This critical result was discussed with Denise Whitehead NP at 11/27/2021 6:59 PM and it was ascertained that the content and urgency of the report was understood at the time of direct communication. Chest CT 11/27/21 18:11 IMPRESSION: Large mass lesion in the pelvis likely arising from the uterus with heterogeneous degrees of enhancement likely representing a uterine carcinoma or uterine sarcoma based on the large size. This is unable to be from the adjacent adnexa but uterine primary origin would be strongly suspected with this appearance. Unfortunately there is mass effect on adjacent pelvic structures and thrombus is seen within the left common iliac vein and inferior vena cava. Although not performed as a CT pulmonary embolism study, there is a subtle filling defect within the segmental right upper lobe pulmonary artery branch consistent with pulmonary emboli. I cannot exclude right distal subsegmental lower lobe pulmonary emboli either but the examination is not tailored to evaluate this. VTE: Positive This critical result was discussed with Denise Whitehead NP at 11/27/2021 6:59 PM and it was ascertained that the content and urgency of the report was understood at the time of direct communication. 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 - spoke to brother - at this time wants treatment - will treat with iv heparin ggt - monitor resp status # Sepsis - most likely multifactorial - has UTI but also intraabdominal cancer as well as multiple thrombus which are contributing to abnormal vitals and leuckocytosis - will stat on iv abx - follow cultures # Recent aspiration pna s/p PEG placement - speech eval - complete treatement for PNA # UTI - has leukocytosis, febrile, - iv abx - follow cultures # CP - continnue home meds DVT PPX: heparin ggt - CODE : DNR DNI Quality Stroke Does the patient have a stroke diagnosis?: No VTE Prior VTE?: No VTE Risk Level:: Medical - moderate - high VTE Device Contraindication: Treatment Not Indicated VTE Drug Contraindication: N/A - Med Ordered
[2021-11-27] MEDS: Heparin Sodium,Porcine 5,000 UNIT/ML VIAL 2700 UNIT IVPUSH (21:00)
[2021-11-27 21:08] LABS: Hematocrit 34.4 % (37.0-47.0); Hemoglobin 10.8 g/dl (12.0-16.0); Mean Corpuscular HGB Conc 31.4 g/dl (31.0-35.0); Mean Corpuscular Hemoglobin 31.8 pg (27.0-33.0); Mean Corpuscular Volume 101.2 fL (80.0-98.0); Mean Platelet Volume 9.6 fL (9.4-12.3); Platelet Count 387 X10*3/uL (160-400); Red Cell Distribution Width 14.4 % (11.0-16.0)
--- NOTE | 2021-11-27 21:11 | MHC.CM.PN ---
CM called guardian/brother and left a message on his voice mail regarding IMM and patient's rights under Medicare. 11/27/2021@2100. Will send by certified mail and a copy placed in medical records. BRAYDEN to follow for d/c needs.
[2021-11-27 21:16] LABS: Prothrombin Time 11.8 SEC (9.9-13.0)
[2021-11-27 21:18] LABS: PTT Heparin Drip 46.3 SEC (53-77.9)
--- NOTE | 2021-11-27 21:18 | PHA.MEDREC ---
MED REC COMPLETE, NO ISSUES Pharmacy Consult ? Medication Reconciliation Pharmacy has completed the medication reconciliation.
[2021-11-27 21:35] LABS: White Blood Count 31.2 X10*3/uL (4.8-10.8)
[2021-11-27] MEDS: Heparin Sodium,Porcine/1/2NS 25,000 UNIT/250 ML IV.SOLN 5.18 UNIT IVCONT (22:34)
--- NOTE | 2021-11-27 22:40 | PC.NURSE ---
HEPARIN UP AND RUNNING ON PUMP W/O DIFFICULTY. SITE INTACT. NO BLEEDING/BRUISING NOTED TO PT.
[2021-11-28 00:15] VITALS: BP 112/74; PULSE 113; RESP 12; TEMP 37.2; O2SAT 90
--- NOTE | 2021-11-28 00:42 | PC.NURSE ---
[facility] unable to take report, will return call.
[2021-11-28 01:30] VITALS: BP 127/77; PULSE 113; RESP 17; TEMP 36.1; O2SAT 97; BMI 17.0
[2021-11-28] MEDS: Dextrose 5 % 1,000 ML 50 ML IVCONT (04:30)
[2021-11-28 06:16] LABS: Anion Gap 14 (12-20); Blood Urea Nitrogen 18 mg/dL (9-16); Calcium 8.7 mg/dL (8.4-10.2); Carbon Dioxide 23 mmol/L (22-29); Chloride 112 mmol/L (96-108); Creatinine Clr Calc Pharmacy 80.4; Estimated Glomerular Filt Rate > 60; Glucose Random 96 mg/dL (60-115); Potassium 3.3 mmol/L (3.3-5.1); Sodium 146 mmol/L (135-145)
[2021-11-28 06:17] LABS: INTERNATIONAL NORM RATIO 1.1 (0.9-1.1)
[2021-11-28 06:31] LABS: PTT Heparin Drip 50.4 SEC (53-77.9)
[2021-11-28 06:31] LABS: Hematocrit 33.5 % (37.0-47.0); Hemoglobin 10.6 g/dl (12.0-16.0); Mean Corpuscular HGB Conc 31.6 g/dl (31.0-35.0); Mean Corpuscular Volume 101.2 fL (80.0-98.0); Mean Platelet Volume 9.7 fL (9.4-12.3); Platelet Count 396 X10*3/uL (160-400); Red Blood Count 3.31 X10*6/uL (4.20-5.50); Red Cell Distribution Width 14.3 % (11.0-16.0)
[2021-11-28 06:33] LABS: White Blood Count 33.2 X10*3/uL (4.8-10.8)
[2021-11-28 06:34] LABS: Band Neutrophils Percent 2 % (3-5); Basophils Abs Manual 0.3 X10*3/uL (0.0-0.2); Basophils Percent Manual 1 % (0-2); Eosinophils Absolute Manual 0.3 X10*3/uL (0.0-0.4); Eosinophils Percent Manual 1 % (0-4); Lymphocytes Absolute Manual 1.7 X10*3/uL (1.2-4.9); Lymphocytes Percent Manual 5 % (20-40); Monocytes Percent Manual 3 % (2-11); Neutrophils Absolute Manual 29.9 X10*3/uL (2.0-8.3); Neutrophils Percent Manual 88 % (45-73); RBC Morphology NOTED
[2021-11-28 06:35] LABS: Macrocytosis 1+ (5-14) /OIF; Platelet Estimate NORMAL (NORMAL); Platelet Morphology Comment NORMAL; Polychromasia 1+ (0-2) /OIF
[2021-11-28 07:21] VITALS: BP 134/76; PULSE 111; RESP 18; TEMP 36.5; O2SAT 97
--- NOTE | 2021-11-28 08:17 | MHC.CLN ---
RECOMMEND TF JEVITY AT MAX GOAL RATE 45ML/HR WITH 30ML PROSOURCE X1 PER DAY WITH 120CC FREE WATER FLUSHES Q 6HRS TO PROVIDE 1205KCALS (29KCALS/KG BASED ON IBW), 63G PROTEIN (1.5G/KG), 1381ML TOTAL FREE WATER FROM FORMULA MONITOR TOLERANCE, RESIDUALS AND LYTES
[2021-11-28] MEDS: carBAMazepine 200 MG/10 ML ORAL.SUSP NG-TUBE (10:38)
[2021-11-28] MEDS: 0.9 % Sodium Chloride Flush 3 ML SYRINGE IVFLUSH ×3 (10:38→19:43)
[2021-11-28 11:40] VITALS: BP 131/72; PULSE 105; RESP 18; TEMP 36.8; O2SAT 98
[2021-11-28 12:31] LABS: PTT Heparin Drip 52.7 SEC (53-77.9)
[2021-11-28] MEDS: Heparin Sodium,Porcine 5,000 UNIT/ML VIAL 1400 UNIT IVPUSH (12:45)
[2021-11-28 15:08] VITALS: BP 114/62; PULSE 107; RESP 18; TEMP 37.1; O2SAT 96
--- NOTE | 2021-11-28 15:11 | MHC.CM.PN ---
Careplan meeting held with JOANNE Crespo-AUDREY Crowder team, pt's brother/guardian- Chase Lynn, Pt's sister Rhett, and this fiction and nonfiction writer prose. Team was updated re: pt's current medical condition. Patient's sister requested she and Chase have a private discussion and the team re-groups after for their decision on next steps in patient's care. CM will continue to follow patient.
--- NOTE | 2021-11-28 15:15 | PC.NURSE ---
Skin/wound assessment completed today. Patient has a stage 2 pressure ulcer on right back with yellow wound bed. Wound cleansed, small piece of Hydrofera blue applied to wound covered with foam dressing. Healed pressure sore on right lateral 5th toe.
--- NOTE | 2021-11-28 15:49 | P.PNIM_ITS ---
Subjective Subjective Date of Service: 11/28/21 Interval History: Nonverbal, resting in bed, does not respond to verbal stimuli, turned head to left side with sternal rub, no moaning or groaning noted. 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 [employer] New 4d Temp 98.7 F 11/28/21 15:08 [employer] New 4d Pulse 107 H 11/28/21 15:08 [employer] New 4d Resp 18 11/28/21 15:08 BP 114/62 11/28/21 15:08 Pulse Ox 96 11/28/21 15:08 BMI result Body Mass Index 17.0 Const: Other: No acute distress/ nonverbal at baseline/ no moaning or signs of distress 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 Neuro- non verbal, contracted Objective Data Active Medications Acetaminophen (Acetaminophen 325 Mg Tablet) 650 mg PO Q6H PRN PRN Reason: Pain, Mild (Pain Scale 1-3) Acetaminophen (Acetaminophen Supp 650 Mg Supp.Rect) 650 mg OK Q6H PRN PRN Reason: Pain, Mild (Pain Scale 1-3) Acetaminophen (Acetaminophen Supp 650 Mg Supp.Rect) 650 mg OK Q4H PRN PRN Reason: FEVER/PAIN Bisacodyl (Bisacodyl 10 Mg Supp.Rect) 10 mg OK DAILY PRN PRN Reason: Constipation Carbamazepine (Carbamazepine 200 Mg/10 Ml Oral.Susp) 200 mg NG-TUBE DAILY [facility] Last Admin: 11/28/21 10:38 Dose: 200 mg Documented by: ANGEL Carbamazepine (Carbamazepine 200 Mg/10 Ml Oral.Susp) 300 mg NG-TUBE BEDTIME [facility] Docusate Sodium (Docusate Sodium 100 Mg Capsule) 100 mg PO DAILY PRN PRN Reason: Constipation Heparin Sodium (Porcine) (Heparin Sodium,Porcine 5,000 Unit/Ml Vial) 1,400 unit 40 unit/kg (1400 unit) IVPUSH PROTOCOL BOLUS PRN; Protocol PRN Reason: 40 unit/kg - Heparin Protocol Last Admin: 11/28/21 12:45 Dose: 1,400 unit Documented by: ANGEL Heparin Sodium (Porcine) (Heparin Sodium,Porcine 5,000 Unit/Ml Vial) 2,700 unit 80 unit/kg (2700 unit) IVPUSH PROTOCOL BOLUS PRN; Protocol PRN Reason: 80 unit/kg - Heparin Protocol Heparin Sodium/Sodium Chloride () 25,000 unit in 250 mls @ 0 mls/hr IVCONT .Q0M [facility]; Protocol Last Titration: 11/28/21 12:46 Dose: 12 units/kg/hr, 4.44 mls/hr Documented by: ANGEL Cosigned by: TESS Ceftriaxone Sodium 1 gm/ (Sodium Chloride) 50 mls @ 100 mls/hr IV Q24H [facility] Dextrose (D5w) 1,000 mls @ 80 mls/hr IVCONT .[id number] [facility] Last Infusion: 11/28/21 08:04 Dose: 80 mls/hr Documented by: ANGEL Morphine Sulfate (Morphine Sulfate 4 Mg/Ml Cartridge) 4 mg IVPUSH Q4H PRN; Protocol PRN Reason: Pain, Severe (Pain Scale 7-10) Last Admin: 11/27/21 22:27 Dose: 4 mg Documented by: JOHN Ondansetron HCl (Ondansetron Hcl 4 Mg/2 Ml Vial) 4 mg IVPUSH Q8H PRN PRN Reason: Nausea and Vomiting Sodium Chloride (0.9 % Sodium Chloride Flush 3 Ml Syringe) [facility] Last Admin: 11/28/21 10:38 Dose: 3 ml Documented by: ANGEL Labs CBC & Chem 7: 11/28/21 04:25 11/28/21 04:25 Labs: Laboratory Results - last 24 hr 11/27/21 11/27/21 11/27/21 15:50 15:50 15:50 MCV 100.0 H MCH 31.9 MCHC 31.9 RDW 14.5 Plt Count 429 H D MPV 9.7 Immature Gran % (Auto) 1.4 H Neut % (Auto) 83.0 H Lymph % (Auto) 8.1 L Phillips % (Auto) 6.8 Eos % (Auto) 0.3 Baso % (Auto) 0.4 Lymph # (Auto) 2.5 Phillips # (Auto) 2.1 H Eos # (Auto) 0.1 Baso # (Auto) 0.1 Abs Immat Gran (auto) 0.43 H Absolute Neuts (auto) 25.8 H Absolute Nucleated RBC 0.000 Nucleated RBC % (auto) 0.0 Neutrophils % (Manual) Band Neutrophils % Lymphocytes % (Manual) Monocytes % (Manual) Eosinophils % (Manual) Basophils % (Manual) Abs Neuts (Manual) Lymphocytes # (Manual) Monocytes # (Manual) Eosinophils # (Manual) Basophils # (Manual) Platelet Estimate Plt Morphology Comment RBC Morphology Polychromasia Macrocytosis Smear Tech's Comments VERIFIED PT INR APTT PTT (Heparin Protocol) Anion Gap 15 Estim Creat Clear Calc 66.9 Estimated GFR > 60 Random Glucose Fasting Glucose 110 H Lactic Acid 2.0 Calcium 9.1 D Magnesium 2.1 Total Bilirubin < 0.2 AST 19 ALT 6 Alkaline Phosphatase 117 Troponin I High Sens Total Protein 5.5 L D Albumin 2.3 L D Urine Color Urine Appearance Urine pH Ur Specific [place] Urine Protein Urine Glucose (UA) Urine Ketones Urine Blood Urine Nitrite Ur Leukocyte Esterase Urine RBC Urine WBC Ur Squamous Epith Cells Calcium Oxalate Crystal Urine Bacteria Urine Yeast Influenza Type A (PCR) Influenza Type B (PCR) RSV RNA Qual (PCR) SARS-CoV-2 RNA (RT-PCR) 11/27/21 11/27/21 11/27/21 15:50 15:50 15:50 MCV MCH MCHC RDW Plt Count MPV Immature Gran % (Auto) Neut % (Auto) Lymph % (Auto) Phillips % (Auto) Eos % (Auto) Baso % (Auto) Lymph # (Auto) [place] # (Auto) Eos # (Auto) Baso # (Auto) Abs Immat Gran (auto) Absolute Neuts (auto) Absolute Nucleated RBC Nucleated RBC % (auto) Neutrophils % (Manual) Band Neutrophils % Lymphocytes % (Manual) Monocytes % (Manual) Eosinophils % (Manual) Basophils % (Manual) Abs Neuts (Manual) Lymphocytes # (Manual) Monocytes # (Manual) Eosinophils # (Manual) Basophils # (Manual) Platelet Estimate Plt Morphology Comment RBC Morphology Polychromasia Macrocytosis Smear Tech's Comments PT 11.9 INR 1.0 APTT 46.9 H PTT (Heparin Protocol) Anion Gap Estim Creat Clear Calc Estimated GFR Random Glucose Fasting Glucose Lactic Acid Calcium Magnesium Total Bilirubin AST ALT Alkaline Phosphatase Troponin I High Sens < 3.5 D Total Protein Albumin Urine Color Urine Appearance Urine pH Ur Specific [place] Urine Protein Urine Glucose (UA) Urine Ketones Urine Blood Urine Nitrite Ur Leukocyte Esterase Urine RBC Urine WBC Ur Squamous Epith Cells Calcium Oxalate Crystal Urine Bacteria Urine Yeast Influenza Type A (PCR) NEGATIVE Influenza Type B (PCR) NEGATIVE RSV RNA Qual (PCR) NEGATIVE SARS-CoV-2 RNA (RT-PCR) POSITIVE A 11/27/21 11/27/21 11/27/21 16:26 20:55 20:55 MCV 101.2 H MCH 31.8 MCHC 31.4 RDW 14.4 Plt Count 387 MPV 9.6 Immature Gran % (Auto) Neut % (Auto) Lymph % (Auto) Phillips % (Auto) Eos % (Auto) Baso % (Auto) Lymph # (Auto) [place] # (Auto) Eos # (Auto) Baso # (Auto) Abs Immat Gran (auto) Absolute Neuts (auto) Absolute Nucleated RBC 0.000 Nucleated RBC % (auto) 0.0 Neutrophils % (Manual) Band Neutrophils % Lymphocytes % (Manual) Monocytes % (Manual) Eosinophils % (Manual) Basophils % (Manual) Abs Neuts (Manual) Lymphocytes # (Manual) Monocytes # (Manual) Eosinophils # (Manual) Basophils # (Manual) Platelet Estimate Plt Morphology Comment RBC Morphology Polychromasia Macrocytosis Smear Tech's Comments PT 11.8 INR 1.0 APTT PTT (Heparin Protocol) 46.3 L Anion Gap Estim Creat Clear Calc Estimated GFR Random Glucose Fasting Glucose Lactic Acid Calcium Magnesium Total Bilirubin AST ALT Alkaline Phosphatase Troponin I High Sens Total Protein Albumin Urine Color YELLOW Urine Appearance CLOUDY Urine pH 5.5 Ur Specific [place] 1.020 Urine Protein 1+ H Urine Glucose (UA) NEG Urine Ketones NEG Urine Blood 1+ H Urine Nitrite POS H Ur Leukocyte Esterase 3+ H Urine RBC 10-14 H Urine WBC 30-49 H Ur Squamous Epith Cells 1+ Calcium Oxalate Crystal 1+ Urine Bacteria 3+ Urine Yeast 1+ Influenza Type A (PCR) Influenza Type B (PCR) RSV RNA Qual (PCR) SARS-CoV-2 RNA (RT-PCR) 11/28/21 11/28/21 11/28/21 04:25 04:25 04:25 MCV 101.2 H MCH 32.0 MCHC 31.6 RDW 14.3 Plt Count 396 MPV 9.7 Immature Gran % (Auto) Cancelled Neut % (Auto) Cancelled Lymph % (Auto) Cancelled [place] % (Auto) Cancelled Eos % (Auto) Cancelled Baso % (Auto) Cancelled Lymph # (Auto) Cancelled [place] # (Auto) Cancelled Eos # (Auto) Cancelled Baso # (Auto) Cancelled Abs Immat Gran (auto) Cancelled Absolute Neuts (auto) Cancelled Absolute Nucleated RBC 0.000 Nucleated RBC % (auto) 0.0 Neutrophils % (Manual) 88 H Band Neutrophils % 2 L Lymphocytes % (Manual) 5 L Monocytes % (Manual) 3 Eosinophils % (Manual) 1 Basophils % (Manual) 1 Abs Neuts (Manual) 29.9 H Lymphocytes # (Manual) 1.7 Monocytes # (Manual) 1.0 Eosinophils # (Manual) 0.3 Basophils # (Manual) 0.3 H Platelet Estimate NORMAL Plt Morphology Comment NORMAL RBC Morphology NOTED Polychromasia 1+ (0-2) Macrocytosis 1+ (5-14) Smear Tech's Comments PT 12.0 INR 1.1 APTT PTT (Heparin Protocol) 151.0 H* D Anion Gap 14 Estim Creat Clear Calc 80.4 Estimated GFR > 60 Random Glucose 96 Fasting Glucose Lactic Acid Calcium 8.7 Magnesium Total Bilirubin AST ALT Alkaline Phosphatase Troponin I High Sens Total Protein Albumin Urine Color Urine Appearance Urine pH Ur Specific [place] Urine Protein Urine Glucose (UA) Urine Ketones Urine Blood Urine Nitrite Ur Leukocyte Esterase Urine RBC Urine WBC Ur Squamous Epith Cells Calcium Oxalate Crystal Urine Bacteria Urine Yeast Influenza Type A (PCR) Influenza Type B (PCR) RSV RNA Qual (PCR) SARS-CoV-2 RNA (RT-PCR) 11/28/21 11/28/21 06:09 12:15 MCV MCH MCHC RDW Plt Count MPV Immature Gran % (Auto) Neut % (Auto) Lymph % (Auto) [place] % (Auto) Eos % (Auto) Baso % (Auto) Lymph # (Auto) [place] # (Auto) Eos # (Auto) Baso # (Auto) Abs Immat Gran (auto) Absolute Neuts (auto) Absolute Nucleated RBC Nucleated RBC % (auto) Neutrophils % (Manual) Band Neutrophils % Lymphocytes % (Manual) Monocytes % (Manual) Eosinophils % (Manual) Basophils % (Manual) Abs Neuts (Manual) Lymphocytes # (Manual) Monocytes # (Manual) Eosinophils # (Manual) Basophils # (Manual) Platelet Estimate Plt Morphology Comment RBC Morphology Polychromasia Macrocytosis Smear Tech's Comments PT INR APTT PTT (Heparin Protocol) 50.4 L D 52.7 L Anion Gap Estim Creat Clear Calc Estimated GFR Random Glucose Fasting Glucose Lactic Acid Calcium Magnesium Total Bilirubin AST ALT Alkaline Phosphatase Troponin I High Sens Total Protein Albumin Urine Color Urine Appearance Urine pH Ur Specific [place] Urine Protein Urine Glucose (UA) Urine Ketones Urine Blood Urine Nitrite Ur Leukocyte Esterase Urine RBC Urine WBC Ur Squamous Epith Cells Calcium Oxalate Crystal Urine Bacteria Urine Yeast Influenza Type A (PCR) Influenza Type B (PCR) RSV RNA Qual (PCR) SARS-CoV-2 RNA (RT-PCR) Microbiology Microbiology Results: Microbiology 11/27/21 Unknown Urine Culture - Preliminary Urine clean catch - Urine solomon top Gram negative yisel Assessment and Plan (1) Sepsis: Status: Acute (2) UTI (urinary tract infection): Status: Acute (3) Leukocytosis: Status: Acute (4) Hypernatremia: Status: Acute (5) S/P percutaneous endoscopic gastrostomy (PEG) tube placement: Status: Acute (6) Mass of abdomen: Status: Acute Plan 71 yo F with hx of cerebral palsy, nonverbal, bedbound, was discharged on 11/24 to nursing facility,after being treated for aspiration pna.. 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 She was started on tube feeds and advanced to goal of Jevity 1.0 at 45 mL/hr.? Free water flushes were discontinued when she developed hyponatremia, which then resolved.? She was found to have chronic leukocytosis despite full treatment for the pneumonia and was suspected to have chronic neutrophilic leukocytosis, patient was also diagnosed to have COVID-19, patient transferred to [facility] due to tachycardia and fever. On this presentation, pt.was completely lethargic, non-verbal unable to give any history. basic labs revealed leukocytiosis, vitals were significant for temp of 101.4, HR in the 130s and RR in the 20s. Pt underwent abd/pelvic and chest CT which revealed Large mass in the pelvis likely arising from the uterus with mass effect on adjacent pelvic structures and thrombus within the left common iliac vein and inferior vena cava , also noted to have segmental right upper lobe pulmonary artery filling defects consistent with pulmonary emboli, UA was significantly positive for UTI. 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, blind, therefore difficult to assess mental status # Multiple thrombus including PE< IVC thrombus and common iliac within thrombosis 2/2 to incidentally found intrabdominal mass question cancer continue IV heparin drip will transition to subQ Lovenox oxygenation is stable mild tachycardia spoke with patient's brother and sister regarding further treatment plan regarding intra-abdominal mass ,they will discuss among each other and will get back to us # Sepsis due to urinary tract infection fever resolved persistent mild tachycardia, worsening leukocytosis continue IV ceftriaxone, blood cultures pending urine culture growing Gram- negative rods follow CBC/clinical course # Recent aspiration pna s/p PEG placement resume G-tube feeding/h2o boluses # CP/ seizure disorder continnue carbamazepine # stage II pressure ulcer on right back with yellow wound bed, continue foam dressing, healed pressure sore on right lateral 5th toe DVT PPX: heparin ggt CODE : DNR DNI Quality Stroke Does the patient have a stroke diagnosis?: No VTE Prior VTE?: No VTE Risk Level:: Medical - moderate - high VTE Device Contraindication: Treatment Not Indicated VTE Drug Contraindication: N/A - Med Ordered
[2021-11-28 16:12] VITALS: BMI 17.0
[2021-11-28] MEDS: cefTRIAXone sodium 1 GM in 0.9 % Sodium Chloride 50 ML IV (17:29)
[2021-11-28] MEDS: Dextrose 5 % 1,000 ML 80 ML IVCONT (17:38)
[2021-11-28 19:05] VITALS: BP 119/79; PULSE 101; RESP 18; TEMP 37.1; O2SAT 98
[2021-11-28 19:09] LABS: PTT Heparin Drip 86.8 SEC (53-77.9)
[2021-11-28] MEDS: carBAMazepine 200 MG/10 ML ORAL.SUSP 300 MG NG-TUBE (19:43)
[2021-11-28] MEDS: Heparin Sodium,Porcine/1/2NS 25,000 UNIT/250 ML IV.SOLN 4.44 UNIT IVCONT (19:54)
[2021-11-29] VITALS (7 sets, daily range): BP systolic 117–145; BP diastolic 68–86; PULSE 103–110; RESP 15–18; TEMP 36.4–36.8; O2SAT 92–99
--- NOTE | 2021-11-29 00:42 | PC.NURSE ---
pts tube feeding increased from 20mls/hr to 30mls/hr at 21:30. Passed along in report.
[2021-11-29] MEDS: carBAMazepine 200 MG/10 ML ORAL.SUSP NG-TUBE (08:09)
[2021-11-29] MEDS: 0.9 % Sodium Chloride Flush 3 ML SYRINGE IVFLUSH ×2 (08:09→15:30)
[2021-11-29 09:02] LABS: Basophils Absolute Auto 0.1 X10*3/uL (0.0-0.2); Basophils Percent Auto 0.4 % (0-2); Eosinophils Absolute Auto 0.1 X10*3/uL (0.0-0.4); Eosinophils Percent Auto 0.4 % (0-4); Hematocrit 31.8 % (37.0-47.0); Hemoglobin 9.9 g/dl (12.0-16.0); Lymphocytes Absolute Auto 2.4 X10*3/uL (1.2-4.9); Lymphocytes Percent Auto 7.7 % (20-40); MANUAL DIFF FLAG SCAN; Mean Corpuscular HGB Conc 31.1 g/dl (31.0-35.0); Mean Corpuscular Hemoglobin 31.6 pg (27.0-33.0); Mean Corpuscular Volume 101.6 fL (80.0-98.0); Mean Platelet Volume 10.2 fL (9.4-12.3); Monocytes Absolute Auto 1.6 X10*3/uL (0.1-1.2); Monocytes Percent Auto 5.3 % (2-11); Neutrophils Absolute Auto 26.3 x10*3/uL (2.0-8.3); Neutrophils Percent Auto 85.2 % (45-73); Platelet Count 300 X10*3/uL (160-400); Red Blood Count 3.13 X10*6/uL (4.20-5.50); SCAN SMEAR FLAG 1
[2021-11-29 09:16] LABS: Anion Gap 13 (12-20); Blood Urea Nitrogen 17 mg/dL (9-16); Calcium 8.4 mg/dL (8.4-10.2); Carbon Dioxide 21 mmol/L (22-29); Chloride 104 mmol/L (96-108); Creatinine Clr Calc Pharmacy 74.5; Estimated Glomerular Filt Rate > 60; Glucose Random 111 mg/dL (60-115); Potassium 3.8 mmol/L (3.3-5.1); Sodium 134 mmol/L (135-145); White Blood Count 30.8 X10*3/uL (4.8-10.8)
[2021-11-29 09:17] LABS: PTT Heparin Drip 25.4 SEC (53-77.9)
[2021-11-29 09:22] LABS: SLIDE REVIEW VERIFIED
--- NOTE | 2021-11-29 10:10 | P.PNIM_ITS ---
Subjective Subjective Date of Service: 11/29/21 Interval History: Resting in bed in no acute distress open eyes to verbal stimuli , nonverbal at baseline , no acute issues overnight. 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 nonverbal at baseline/ no moaning? 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 Neuro- non verbal, contracted, open rt eye to verbal stimuli. Objective Data Active Medications Acetaminophen (Acetaminophen 325 Mg Tablet) 650 mg PO Q6H PRN PRN Reason: Pain, Mild (Pain Scale 1-3) Acetaminophen (Acetaminophen Supp 650 Mg Supp.Rect) 650 mg CO Q6H PRN PRN Reason: Pain, Mild (Pain Scale 1-3) Acetaminophen (Acetaminophen Supp 650 Mg Supp.Rect) 650 mg CO Q4H PRN PRN Reason: FEVER/PAIN Bisacodyl (Bisacodyl 10 Mg Supp.Rect) 10 mg CO DAILY PRN PRN Reason: Constipation Carbamazepine (Carbamazepine 200 Mg/10 Ml Oral.Susp) 200 mg NG-TUBE DAILY [facility] Last Admin: 11/29/21 08:09 Dose: 200 mg Documented by: LIYA Carbamazepine (Carbamazepine 200 Mg/10 Ml Oral.Susp) 300 mg NG-TUBE BEDTIME [facility] Last Admin: 11/28/21 19:43 Dose: 300 mg Documented by: NIDA Docusate Sodium (Docusate Sodium 100 Mg Capsule) 100 mg PO DAILY PRN PRN Reason: Constipation Heparin Sodium (Porcine) (Heparin Sodium,Porcine 5,000 Unit/Ml Vial) 1,400 unit 40 unit/kg (1400 unit) IVPUSH PROTOCOL BOLUS PRN; Protocol PRN Reason: 40 unit/kg - Heparin Protocol Last Admin: 11/28/21 12:45 Dose: 1,400 unit Documented by: ANGEL Heparin Sodium (Porcine) (Heparin Sodium,Porcine 5,000 Unit/Ml Vial) 2,700 unit 80 unit/kg (2700 unit) IVPUSH PROTOCOL BOLUS PRN; Protocol PRN Reason: 80 unit/kg - Heparin Protocol Heparin Sodium/Sodium Chloride () 25,000 unit in 250 mls @ 0 mls/hr IVCONT .Q0M [facility]; Protocol Last Admin: 11/28/21 19:54 Dose: 12 units/kg/hr, 4.44 mls/hr Documented by: NIDA Cosigned by: IAN Ceftriaxone Sodium 1 gm/ (Sodium Chloride) 50 mls @ 100 mls/hr IV Q24H [facility] Last Infusion: 11/28/21 18:01 Dose: 0 mls/hr Documented by: IAN Morphine Sulfate (Morphine Sulfate 4 Mg/Ml Cartridge) 2 mg IVPUSH Q4H PRN; Protocol PRN Reason: Pain, Severe (Pain Scale 7-10) Ondansetron HCl (Ondansetron Hcl 4 Mg/2 Ml Vial) 4 mg IVPUSH Q8H PRN PRN Reason: Nausea and Vomiting Sodium Chloride (0.9 % Sodium Chloride Flush 3 Ml Syringe) [facility] Last Admin: 11/29/21 08:09 Dose: 3 ml Documented by: LIYA Labs CBC & Chem 7: 11/29/21 08:55 11/29/21 08:55 Labs: Laboratory Results - last 24 hr 11/28/21 11/28/21 11/29/21 12:15 18:50 01:56 MCV MCH MCHC RDW Plt Count MPV Immature Gran % (Auto) Neut % (Auto) Lymph % (Auto) [place] % (Auto) Eos % (Auto) Baso % (Auto) Lymph # (Auto) [place] # (Auto) Eos # (Auto) Baso # (Auto) Abs Immat Gran (auto) Absolute Neuts (auto) Absolute Nucleated RBC Nucleated RBC % (auto) Smear Tech's Comments PTT (Heparin Protocol) 52.7 L 86.8 H D Cancelled Anion Gap Estim Creat Clear Calc Estimated GFR Random Glucose Calcium 11/29/21 11/29/21 11/29/21 08:55 08:55 08:55 MCV 101.6 H MCH 31.6 MCHC 31.1 RDW 14.0 Plt Count 300 MPV 10.2 Immature Gran % (Auto) 1.0 H Neut % (Auto) 85.2 H Lymph % (Auto) 7.7 L [place] % (Auto) 5.3 Eos % (Auto) 0.4 Baso % (Auto) 0.4 Lymph # (Auto) 2.4 [place] # (Auto) 1.6 H Eos # (Auto) 0.1 Baso # (Auto) 0.1 Abs Immat Gran (auto) 0.30 H Absolute Neuts (auto) 26.3 H Absolute Nucleated RBC 0.000 Nucleated RBC % (auto) 0.0 Smear Tech's Comments VERIFIED PTT (Heparin Protocol) 25.4 L D Anion Gap 13 Estim Creat Clear Calc 74.5 Estimated GFR > 60 Random Glucose 111 Calcium 8.4 Microbiology Microbiology Results: Microbiology 11/27/21 Unknown Urine Culture - Final Urine clean catch - Urine solomon top Citrobacter freundii 11/27/21 15:50 Blood Culture - Preliminary Blood - Venous No growth after 24 hours. 11/27/21 15:50 Blood Culture - Preliminary Blood - Venous No growth after 24 hours. Assessment and Plan (1) Sepsis: Status: Acute (2) UTI (urinary tract infection): Status: Acute (3) Leukocytosis: Status: Acute (4) Hypernatremia: Status: Acute (5) S/P percutaneous endoscopic gastrostomy (PEG) tube placement: Status: Acute (6) Mass of abdomen: Status: Acute Plan 71 yo F with hx of cerebral palsy, nonverbal, bedbound, was discharged on 11/24 to nursing facility,after being treated for aspiration pna.. 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 She was started on tube feeds and advanced to goal of Jevity 1.0 at 45 mL/hr.? Free water flushes were discontinued when she developed hyponatremia, which then resolved.? She was found to have chronic leukocytosis despite full treatment for the pneumonia and was suspected to have chronic neutrophilic leukocytosis, patient was also diagnosed to have COVID-19, patient transferred to [facility] due to tachycardia and fever. On this presentation, pt.was completely lethargic, non-verbal unable to give any history. basic labs revealed leukocytiosis, vitals were significant for temp of 101.4, HR in the 130s and RR in the 20s. Pt underwent abd/pelvic and chest CT which revealed Large mass in the pelvis likely arising from the uterus with mass effect on adjacent pelvic structures and thrombus within the left common iliac vein and inferior vena cava , also noted to have segmental right upper lobe pulmonary artery filling defects consistent with pulmonary emboli, UA was significantly positive for UTI. # Acute encephalopathy Resolved,patient open eyes to verbal stimulus seems to be at baseline, difficult to assess mental status since nonverbal at baseline Mental status change was likely multifactorial due to acute UTI/ sepsis/ mild hypernatremia Hypernatremia resolved, continue antibiotic for infection # Multiple thrombus including PE< IVC thrombus and common iliac within thrombosis 2/2 to incidentally found intrabdominal mass question cancer continue IV heparin drip x 48 hrs than will transition to subQ Lovenox oxygenation stable mild tachycardia # Sepsis due to urinary tract infection fever resolved persistent mild tachycardia and leukocytosis on IV ceftriaxone day 2, blood cultures negative times 24 hours, urine cul ture grew Citrobacter freundii, intermediate sensitivity to ceftriaxone, will discuss trace of antibiotic with ID follow CBC/clinical course # Recent aspiration pna s/p PEG placement resume G-tube feeding/h2o boluses # chronic leukocytosis, WBC count worsened likely due to acute infection, will treat with antibiotics and follow CBC, likely leukocytosis related to underlying uterine mass versus other hematological etio Recommend Outpatient hematological follow up # CP/ seizure disorder continnue carbamazepine # stage II pressure ulcer on right back with yellow wound bed, continue foam dressing, healed pressure sore on right lateral 5th toe DVT PPX: heparin ggt CODE : DNR DNI Quality Stroke Does the patient have a stroke diagnosis?: No VTE Prior VTE?: No VTE Risk Level:: Medical - moderate - high VTE Device Contraindication: Treatment Not Indicated VTE Drug Contraindication: N/A - Med Ordered
--- NOTE | 2021-11-29 10:26 | P.CDIC_ITS ---
CDI Concurrent Query Documentation Clarification: PHYSICIAN'S DOCUMENTATION REQUEST Date of Query: 11/29/21 1026 Patient Name: Marcia Lynn Admit Date: 11/27/21 Dear Doctor, A review of the medical record indicates additional documentation may be needed. Please review below and update the documentation accordingly. Clinical Indicators: Verdana 4Bd Risk Factors/Clinical Indicators/Treatments Verdana 4d Progress notes 11/28 & 11/29- Assessment/plan - Acute encephalopathy multifactorial due to acute UTI/Sepsis/mild hypernatremia. Based on the above, please further specify, in the Progress Notes, the known or suspected type of the documented encephalopathy: SPECIFICS: * Metabolic * Septic * Toxic * Toxic metabolic * Other (please specify) * Unable to determine Use of terms such as suspected, likely, concern for, or probable (associated with a specific diagnosis that is being evaluated, monitored, or treated as if it exists) are acceptable and can be coded in the inpatient setting, when documented at the time of discharge. Thank you, Latasha Lopez [facility], CDIS Extension: [phone] Please use your independent medical judgment in providing your response. THIS QUERY IS PART OF THE PERMANENT MEDICAL RECORD Provider Response: Other Other Diagnosis: Acute toxic metabolic
--- NOTE | 2021-11-29 12:35 | MHC.CLN ---
F/U LABS REVEIWED SHOWING CHANGE IN SODIUM FROM 146 ON 11/28 TO 134 ON 11/29. CONTINUE TUBE FEEDING WITH MAX GOAL RATE JEVITY 45 ML PER HOUR. DECREASE FREE WATER FLUSH TO 120 ML EVERY 8 HOURS. NEW FLUSH ORDER PROVIDES 1261 ML FREE WATER. FOLLOW FOR TF TOLERANCE.
[2021-11-29] MEDS: Heparin Sodium,Porcine 5,000 UNIT/ML VIAL 2700 UNIT IVPUSH (13:00)
--- NOTE | 2021-11-29 15:19 | MHC.CM.PN ---
CM MET W/HOSPITALIST TO CALL PT'S BROTHER/GUARDIAN JOVANNA FLANAGAN AT [phone] TO DISCUSS MOLST, PER DISCUSSION MOLST COMPLETED W/DNI/DNR AND COMFORT MEASURES ONLY, JOVANNA DID REQUEST CM CONTACT HIM LATER TODAY TO DISCUSS PLAN, THIS CM WILL LET PT'S COVERING CM KNOW.
[2021-11-29] MEDS: cefTRIAXone sodium 1 GM in 0.9 % Sodium Chloride 50 ML IV (15:26)
--- NOTE | 2021-11-29 15:38 | P.ACPN_ITS ---
Advanced Care Planning Note Advanced Care Planning Note Time spent (in minutes): 18 Narrative: 71-year-old female patient with history of cerebral palsy, seizure disorder recently discharged from [facility] after being admitted for aspiration pneumonia, dysphagia, requiring G-tube placement, Return back to [facility] due to tachycardia and fever, workup in the emergency room revealed that patient has multiple thrombus including pulmonary embolism, inferior vena cava thrombus and common iliac vein thrombus along with intra-abdominal mass question arising from the uterus, likely cancer patient also noted to urinary tract infection with tachycardia and leukocytosis sugges tive of sepsis, patient also noted to be lethargic likely acute encephalopathy related to acute UTI sepsis and mild hypernatremia patient was admitted to medical floor placed on IV antibiotics, IV heparin drip and G-tube feedings were initiated, Due to decline inpatient cognition with failure to swallow requiring G-tube feedings, and now with 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 also with known history of left breast calcified lesion with pulmonary embolism and DVT case was discussed with DDS providers and patient brother Chase queen and patient's sister Judit on 11/28 and after lengthy discussion it was decided for family to decide about advance care planning, today called patient's brother Chase Ambrosio for follow-up and to present patient's current clinical condition, due to multiple comorbidities brother decided not to subject patient to undergo aggressive testing and intervention due to fraility and worsening cognition therefore 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 Problems Discussed (1) Sepsis: (2) UTI (urinary tract infection): (3) Leukocytosis: (4) Hypernatremia: (5) S/P percutaneous endoscopic gastrostomy (PEG) tube placement: (6) Mass of abdomen: (7) Acute metabolic encephalopathy: (8) Breast mass: (9) Acute deep vein thrombosis (DVT) of inferior vena cava:
--- NOTE | 2021-11-29 18:44 | PC.NURSE ---
At 1300 this RN and Yuli Dotson RN went to assess and adjust patients Heparin gtt per Heparin PTT protocol. Patients Heparin gtt running at 10units/kg/hr. However per mar, Heparin gtt running at 12units/kg/hr. Patients PTT 25.4. Per protocol, dose was to be increased by 4units. Dose increased to 14units/kg/hr. Yuli Dotson present as witness.
[2021-11-30] MEDS: 0.9 % Sodium Chloride Flush 3 ML SYRINGE IVFLUSH ×2 (02:07→09:29)
[2021-11-30 03:48] VITALS: BP 143/89; PULSE 109; RESP 17; TEMP 37.1; O2SAT 97
[2021-11-30 07:47] VITALS: BP 108/65; PULSE 111; RESP 18; TEMP 36.5; O2SAT 98
--- NOTE | 2021-11-30 09:42 | MHC.CM.PN ---
Female 71 DX Covid ss. 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 An update was sent to the facility today. DON is reviewing case. T/W will call Bro/guardian to discuss DP, once facility confirms bed.
[2021-11-30 11:31] VITALS: BP 122/63; PULSE 106; RESP 18; TEMP 36.7; O2SAT 98
--- NOTE | 2021-11-30 11:55 | MHC.CM.PN ---
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 BLS is booked for 1:30pm. Chase/brother/guardian has been notified of the discharge plan. He is in agreement with the transfer to [facility] today. He was reminded that the SNF needs him to provide pts SS#. He stated that his will provide when she arrives home.
--- NOTE | 2021-11-30 12:05 | P.DS_ITS ---
DS: Providers Provider Date of Service: 11/30/21 Date of admission: 11/27/21 20:41 Primary care physician: Juan Carlos Araujo MD Consults: 11/29/21 10:23 Consult to Infectious Diseases Routine Consulting Provider: Juana Montoya Reason for consultation: uti Has provider been notified: No DS: Diagnosis Discharge Diagnosis (1) Sepsis: Status: Acute (2) UTI (urinary tract infection): Status: Acute (3) Leukocytosis: Status: Acute (4) Hypernatremia: Status: Acute (5) S/P percutaneous endoscopic gastrostomy (PEG) tube placement: Status: Acute (6) Mass of abdomen: Status: Acute (7) Acute metabolic encephalopathy: Status: Acute (8) Breast mass: Status: Acute (9) Acute deep vein thrombosis (DVT) of inferior vena cava: Status: Acute DS: Summary Hospital Course Hospital Course: History of presenting illness 71 yo F with hx of cerebral palsy, nonverbal, bedbound, was discharged on 11/24? to nursing facility,after being treated for aspiration pna.. 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 She was started on tube feeds and advanced to goal of Jevity 1.0 at 45 mL/hr.? Free water flushes were discontinued when she developed hyponatremia, which then resolved.? She was found to have chronic leukocytosis despite full treatment for the pneumonia and was suspected to have chronic neutrophilic leukocytosis, patient was also diagnosed to have COVID-19, patient transferred to [facility] due to tachycardia and fever. On this presentation, pt.was completely lethargic, non-verbal unable to give any history. basic labs revealed leukocytiosis, vitals were significant for temp of 101.4, HR in the 130s and RR in the 20s. Pt underwent abd/pelvic and chest CT which revealed? Large mass in the pelvis likely arising from the uterus? with mass effect on adjacent pelvic structures and thrombus within the left common iliac vein and inferior vena cava , also noted to have segmental right upper lo be pulmonary artery filling defects consistent with pulmonary emboli, UA was significantly positive for UTI. hospital course 71-year-old female patient with history of cerebral palsy, seizure disorder recently discharged from [facility] after being admitted for aspiration pneumonia, dysphagia, requiring G-tube placement, Return back to [facility] due to tachycardia and fever, workup in the emergency room revealed that patient has multiple thrombus including pulmonary embolism, inferior vena cava thrombus and left common iliac vein thrombus along with intra-abdominal mass question arising from the uterus, likely cancerous, patient also noted to have urinary tract infection with tachycardia and leukocytosis suggestive of sepsis, patient also noted to be lethargic likely acute encephalopathy related to acute UTI, sepsis and mild hypernatremia patient was admitted to medical floor placed on IV antibiotics, IV heparin drip and G- tube feedings were initiated, Due to decline inpatient cognition with failure to swallow requiring G-tube feedings, and now with 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 also with known history of left breast calcified lesion with pulmonary embolism and DVT case was discussed with DDS providers and patient brother Chase uqeen and patient's sister Judit on 11/28 and after lengthy discussion it was decided for family to decide about advance care planning, on November 29/2022 ,patient's brother Chase Ambrosio due to multiple comorbidities decided not to subject patient to undergo aggressive testing and intervention due to fraility and worsening cognition therefore 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 patient will return to nursing facility on prn S/L morphine,and Ativan. need frequent position change and barrier cream for pressure ulcer right back. MOLST form signed. Time Spent with Patient Time attestation: Total time spent providing and/or coordinating discharge services: Discharge coordination time: Greater than 30 minutes Quality: Stroke Does the patient have a stroke diagnosis?: No Physical Exam Verdana 4l Vital Signs: Verdana 4d Verdana 4d Vital Signs: Verdana 4d Verdana 4Bd Last Vital Signs Verdana 4d Bisque Kiln Placer New 4d Bisque Kiln Placer New 4d Temp 98.1 F 11/30/21 11:31 Bisque Kiln Placer New 4d Pulse 106 H 11/30/21 11:31 Bisque Kiln Placer New 4d Resp 18 11/30/21 11:31 BP 122/63 11/30/21 11:31 Pulse Ox 98 11/30/21 11:31 BMI result Body Mass Index 17.0 Const: Other: General No acute distress/? nonverbal at baseline/ no moaning? 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 Neuro- non verbal, contracted, open rt eye to verbal stimuli. DS: Data Data Completed and Pending Completed studies during hospitalization [Text1]: Procedures Insertion of Feeding Device into Stomach, Percutaneous Approach (10/21/21) Insertion of Infusion Device into Left Cephalic Vein, Percutaneous Approach (10/21/21) Introduction of Remdesivir Anti-infective into Peripheral Vein, Percutaneous Approach, [employer] (10/21/21) Labs on day of discharge: Preliminary micro results at discharge 11/27/21 15:50 Blood Culture - Preliminary Blood - Venous No growth after 48 hours. 11/27/21 15:50 Blood Culture - Preliminary Blood - Venous No growth after 48 hours. Discharge Plan Discharge Patient Disposition: [facility] Discharge Diagnosis: comfort measures only Referrals: Juan Carlos Araujo MD [Primary Care Provider] - 1 Week Discharge Medications: New morphine concentrate 100 mg/5 mL (20 mg/mL) solution 5 mg PO Q3H PRN (Reason: pain/sob) Qty: 30 0RF Rx Instructions: Hospice Patient lorazepam 2 mg/mL concentrate 0.5 mg PO Q6H PRN (Reason: anxiety) Qty: 30 0RF Discontinued carbamazepine 200 mg/10 mL Suspension 200 mg NG-TUBE DAILY Qty: 1 0RF carbamazepine 200 mg/10 mL Suspension 300 mg NG-TUBE BEDTIME Qty: 1 0RF acetaminophen 650 mg suppository 650 mg RI Q4H PRN (Reason: FEVER/PAIN) 0RF Cerovite 9 mg iron/15 mL Liquid 15 ml feeding tube DAILY 0RF bisacodyl [Dulcolax (bisacodyl)] 10 mg Suppository 10 mg RI DAILY PRN (Reason: Constipation) 0RF Discharge Orders: Discharge Order (Routine); Ordered 11/30/21 Ordered By: Remberto Agarwal Diet: other Activity on Discharge: As tolerated Stand Alone Forms: Patient Portal Discharge page Print Language: Estonian Care Plan Goals: cerebral palsy/ acute encephalopathy/ UTI/ pelvic mass likely malignant arising from the uterus/ pulmonary embolism and inferior vena caval and left common iliac vein thrombosis Health Concerns: keep patient comfortable, with frequent position change morphine for discomfort and Ativan for anxiety agitation Plan of Treatment: being discharged back to rehab facility 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
== END 2021-11-30 13:30 | disposition skilled nursing facility (03) | DRG 871 ==
LOC: HO.ED 20:09 → HO.EDOVER 20:49 → HO.IMC 11-28 00:11
PROVIDERS: Physician Assistant Medical; Student in an Organized Health Care Education/Training Program; Admitting Provider Internal Medicine; Emergency Provider Student in an Organized Health Care Education/Training Program; PCP Internal Medicine; Visit Provider Hospitalist
DX: A41.9 Sepsis, unspecified organism (principal); U07.1 COVID-19; J69.0 Pneumonitis due to inhalation of food and vomit; I26.99 Other pulmonary embolism without acute cor pulmonale; G93.41 Metabolic encephalopathy; G92.8 Other toxic encephalopathy; I82.220 Acute embolism and thrombosis of inferior vena cava; N39.0 Urinary tract infection, site not specified; E87.0 Hyperosmolality and hypernatremia; I82.422 Acute embolism and thrombosis of left iliac vein; C54.3 Malignant neoplasm of fundus uteri; G80.8 Other cerebral palsy; Z74.01 Bed confinement status; Z93.1 Gastrostomy status; G40.909 Epilepsy, unspecified, not intractable, without status epilepticus; L89.102 Pressure ulcer of unspecified part of back, stage 2; Z79.899 Other long term (current) drug therapy
CPT/HCPCS: 0241U; 36415; 71045; 71260; 74177; 80048; 80053; 81001; 83605; 83735; 84484; 85007; 85025; 85027; 85610; 85730; 87040; 87086; 87088; 87186; 93005; 96361; 96374; 96375; 99285; 99497; J0696; J2270; Q9967